=== PATIENT | female | born 1955 | race Caucasian/White ===

== ENCOUNTER → 2017-05-29 07:59 | Outpatient (CLI) | payer OTHER, SELFPAY ==
[2017-05-28 08:30] LABS: Absolute Lymphocyte Count 1.31 X10^3/ul (0.83-4.51); Absolute Neutrophil Count 1.8 X10^3/uL (2.0-7.7); Basophil# 0.02 X10^3/uL; Basophil% 0.6 % (0-1); Eosinophil# 0.12 X10^3/uL; Eosinophils% 3.4 % (0-5); Erythrocyte Sedimentation Rate 5 mm/hr (0-30); Hematocrit 38.8 % (37-47); Hemoglobin 13.3 g/dl (12.0-15.0); Lymphocyte # 1.31 X10^3/ul (4.0); Mean Corp Hgb Conc 34.3 g/gl (32-36); Mean Corpuscular Volume 87.4 fL (81-99); Mean Platelet Vol. 11.5 fl (6.2-12.0); Monocyte# 0.32 X10^3/uL; Neutrophil # 1.77 X10^3/uL (2.7-7.7); Platelet Count 229 K/mm3 (150-450); RBC Distribution Width CV 13.2 % (11.6-14.6); RBC Distribution Width SD 42.1 fl (35.1-43.9); Red Blood Count 4.44 M/mm3 (4.2-5.4); White Blood Count 3.5 K/mm3 (4.4-11.0)
[2017-05-28 08:31] LABS: POSITIVE COUNT NO; POSITIVE DIFFERENTIAL NO; POSITIVE MORPHOLOGY NO
[2017-05-28 09:01] LABS: AST(SGOT) 20 U/L (15-37); Alanine Aminotransfer ALT/SGPT 27 U/L (13-56); Alkaline Phosphatase 45 U/L (45-117); Anion Gap 10 (5-15); BUN 18 mg/dL (7-18); BUN/Creat Ratio 22.8 RATIO (10-20); CRP < 2.90 mg/L (0.0-3.0); Calcium,Total 8.9 mg/dL (8.5-10.1); Chloride 102 mmol/L (98-107); Creatinine, Serum 0.79 mg/dL (0.55-1.02); EST Glomerular Filtration Rate 78 mL/min (>60); Est Glom Filt Rate - Afr Amer 94 mL/min (>60); Globulin 4.2 g/dL (2.2-4.2); Glucose 85 mg/dL (70-110); Potassium 3.7 mmol/L (3.5-5.1); Protein, Total 8.2 g/dL (6.4-8.2); Sodium Level 141 mmol/L (136-145)
--- NOTE | 2017-05-29 08:11 | MRI_ITS ---
STUDY: MRI BRAIN WITH AND WITHOUT CONTRAST REASON FOR EXAM: Female, 62 years old. h/o ms, c/o new onset numbness/ paralysis TECHNIQUE: Standardized multiplanar fat and water weighted pulse sequences were obtained. 5 ml of Gadavist contrast material was administered intravenously for the contrast portion of the examination. COMPARISON: None. FINDINGS: Normal size of the ventricles and extra-axial spaces for the patient's age. There are multiple increased T2 signal lesions in the paraventricular and subcortical white matter can be consistent with multiple sclerosis (MS). There is no abnormal enhancement after contrast administration. Normal bilateral basal ganglia. Normal thalami. There is no extra-axial fluid accumulation. Normal flow voids within the major intracranial circulation suggesting patency by spin echo criteria. Normal venous enhancement. There is no enhancing intra-axial or extra-axial abnormality. Normal sella turcica, pituitary gland, infundibular stalk, optic chiasm and hypothalamus. Normal tectal plate and pineal gland. Normal midbrain, amanda and medulla. Normal cerebellum. Normal basal cisterns. Normal bilateral temporal bones. Normal bilateral internal auditory canals. No demonstrated orbital abnormality, within the constraints of a routine brain study. Normal visualized paranasal sinuses. There is prior craniotomy in the left parietal region most likely from prior biopsy. Normal visualized soft tissue structures. Normal visualized upper cervical spine. MRI/Brain W/WO Contrast IMPRESSION: There are multiple increased T2 signal lesions in the paraventricular and subcortical white matter can be consistent with multiple sclerosis (MS). There is no abnormal enhancement after contrast administration to suggest active demyelination. Electronically Signed: Kahlil Arias MD at 23:44 EST Tel , Service support ,
== END ==
PROVIDERS: Family Provider Internal Medicine; PCP Internal Medicine; Visit Provider Internal Medicine
DX: R20.0 Anesthesia of skin (principal); R20.2 Paresthesia of skin
CPT/HCPCS: 36415; 70553; 80053; 85025; 85652; 86140; A9585

== ENCOUNTER 2017-11-29 07:58 | Day surgery (SDC) | payer OTHER, SELFPAY ==
[2017-11-29 08:12] VITALS: BP 116/69; PULSE 77; RESP 16; TEMP 36.5; O2SAT 100; BMI 19.3
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
[2017-11-29 09:22] VITALS: BP 106/62; BP 116/69; PULSE 70; RESP 18; TEMP 36.4; O2SAT 100
--- NOTE | 2017-11-29 09:23 | PCM.OPRPT ---
Problem List (1) Screen for colon cancer Status: Acute Report of Operation Date of Procedure: 11/29/17 Pre-Operative Diagnosis: Screening colonoscopy Post-Operative Diagnosis: Same Surgery/Procedure Performed:: Colonoscopy Type of Anesthesia:: MAC Anesthesiologist: Abebe Perez Description of Procedure: Patient brought in the endoscopy suite. Placed on the left lateral decubitus position. She was given graded anesthesia. Scope was inserted into the rectum and directed to the sigmoid colon, descending colon, transverse colon, ascending colon, to the cecum without difficulty operative findings: 1. Cecum: Normal appearance no mass lesions normal ileocecal valve. 2. Ascending colon: Normal appearance no mass lesions. 3. Transverse colon: Normal appearance no mass lesions. 4. Descending colon: Normal appearance no mass lesions. 5. Sigmoid colon: Normal appearance no mass lesions. There is moderate amount of diverticular disease identified. 6. Rectum: Normal appearance no mass lesions internal hemorrhoids was identified. Patient did have some internal hemorrhoids identified Scope was withdrawn digital rectal exam was performed showing no masses within the anus itself. - Admit VTE Documentation VTE Present on Admission: No VTE Mechan Device Prophylaxis: None VTE Pharm Prophylaxis ordered?: No Reason prophylaxis not ordered:: Treatment Not Indicated
[2017-11-29 09:25] VITALS: BP 116/69; BP 97/64; PULSE 71; RESP 18; O2SAT 100
[2017-11-29 09:30] VITALS: BP 107/65; BP 116/69; PULSE 68; RESP 18; O2SAT 100
[2017-11-29 09:35] VITALS: BP 102/79; BP 116/69; PULSE 70; RESP 18; TEMP 36.6; O2SAT 100
[2017-11-29 10:10] VITALS: BP 116/69
== END 2017-11-29 10:10 | disposition home or self-care (01) ==
LOC: EN 07:59 → AC 08:00
PROVIDERS: Family Provider Internal Medicine; PCP Internal Medicine; Visit Provider Surgery
PROC: 0DJD8ZZ Inspection of Lower Intestinal Tract, Via Natural or Artificial Opening Endoscopic (ICD-10-PCS; CPT 45378; principal; 2017-11-29 08:55)
DX: Z12.11 Encounter for screening for malignant neoplasm of colon (principal); K57.30 Diverticulosis of large intestine without perforation or abscess without bleeding; K64.8 Other hemorrhoids; G35 Multiple sclerosis; Z79.899 Other long term (current) drug therapy
CPT/HCPCS: 45378; J7120

== ENCOUNTER → 2018-07-11 09:57 | Outpatient (CLI) | payer MEDICARE, BC, SELFPAY ==
--- NOTE | 2018-07-11 10:14 | RAD_ITS ---
STUDY: X-RAY - LUMBAR SPINE REASON FOR EXAM: Female, 63 years old. Low back pain TECHNIQUE: 5 view(s) of the lumbar spine were obtained. COMPARISON: None FINDINGS: Normal lumbar lordosis. There is no substantial scoliosis. There is a normal alignment of the vertebrae. There is multilevel endplate spondylosis of the lumbar vertebrae. There is multi-level degenerative disc disease with multi-level disc space narrowing. There is no demonstrated fracture. The soft tissue structures are unremarkable. RAD/L/S Spine Min 4 Views IMPRESSION: Degenerative changes of the spine, as detailed above. Electronically Signed: Margarito Denis DO at 16:42 EDT Tel , Service support ,
== END ==
PROVIDERS: Family Provider Internal Medicine; PCP Internal Medicine; Referring Provider Nurse Practitioner Family; Visit Provider Nurse Practitioner Family
DX: M54.5 Low back pain (principal)
CPT/HCPCS: 72110

== ENCOUNTER 2018-10-10 07:55 | Day surgery (SDC) | payer MEDICARE, BC, SELFPAY ==
[2018-10-10 08:17] VITALS: BP 119/71; PULSE 75; RESP 18; TEMP 36.8; O2SAT 100; BMI 19.8
--- NOTE | 2018-10-10 09:15 | RAD_ITS ---
PROCEDURE: Sacral ganglion injection. DATE OF EXAMINATION: October 10, 2018. INDICATION: Female, 63 years old. Chronic low back pain. FLUOROSCOPY TIME (if supplied): (0:10) minutes/seconds. 2 images were obtained. Intraoperative imaging provided for ganglion injection. RAD/Fluoro Guided Needle Placement IMPRESSION: Intraoperative imaging provided for ganglion injection. Electronically Signed: Kadeem Cheema, at 12:29 EDT , Service support ,
[2018-10-10] MEDS: Bupivacaine 0.25% 30 ML Vial (09:22)
[2018-10-10] MEDS: MethylPREDNISolone Acetate 80 MG/ML Vial (09:23)
[2018-10-10 09:30] VITALS: BP 109/65; BP 119/71; PULSE 64; RESP 16; TEMP 36.2; O2SAT 100
[2018-10-10 09:35] VITALS: BP 112/74; BP 119/71; PULSE 60; RESP 16; O2SAT 100
[2018-10-10 09:40] VITALS: BP 117/74; BP 119/71; PULSE 64; RESP 16; O2SAT 100
[2018-10-10 09:45] VITALS: BP 114/72; BP 119/71; PULSE 63; RESP 16; O2SAT 100
[2018-10-10 09:55] VITALS: BP 115/65; BP 119/71; PULSE 61; RESP 16; TEMP 36.3; O2SAT 100
--- NOTE | 2018-10-10 12:03 | PCM.OPRPT ---
Problem List (1) Coccydynia Status: Chronic (2) Anal pain Status: Chronic Report of Operation Date of Procedure: 10/10/18 Pre-Operative Diagnosis: Coccydynia, anal pain Post-Operative Diagnosis: Coccydynia, anal pain Surgery/Procedure Performed:: Diagnostic/therapeutic ganglion impar steroid injection Description of Surgical Findings:: PROCEDURE: Diagnostic/therapeutic ganglion impar steroid injection PREOPERATIVE DIAGNOSIS: Coccydynia, anal pain POSTOPERATIVE DIAGNOSIS: Coccydynia, anal pain ANESTHESIA: MAC COMPLICATIONS: None BLOOD LOSS: Minimal PROCEDURE IN DETAIL: History and physical today was reviewed. Risks and benefits of the procedure were explained. The patient understood, agreed to our procedure, and informed consent was obtained. IV inserted per routine protocol. The patient was taken to the operating room, placed in a prone position with a pillow positioned underneath the abdomen. The lower back and tailbone area was prepped and draped in a sterile fashion using iodine ?3 under fluoroscopy guidance on the lateral view the caudal space was identified the skin and subcutaneous tissue and size approximately 3 cc of 1% lidocaine using a 25-gauge regular needle, under direct visualization fluoroscopy using the lateral approach using a 22-gauge 3-1/2 inch spinal needle the needle was advanced via the skin through the sacral hiatus, tip of the needle passed through the sacrococcygeal ligament advanced anterior to the sacrococcygeal ligament once confirmation on the lateral view with the tip of the needle to be anterior to the sacrococcygeal ligament and away from the rectum after negative aspiration for blood or CSF a total of 3 cc of contrast were injected to confirm correct placement of the needle as well as cephalocaudad spread after confirmation AP as well as lateral view repeated negative aspiration a total of 10 cc of preservative-free 0.25% Marcaine with 80 mg of the portal was injected easily. The needles were then removed intact. The patient experienced no signs or symptoms intrathecal, intravascular injection. The patient experienced no paraesthesia. The procedure was completed without any apparent difficult, any complication. The patient appeared to tolerate well. ASSESSMENT AND PLAN: This is a 63-year-old female with coccydynia, anal pain status post diagnostic/therapeutic ganglion impar steroid injection under fluoroscopic guidance. The patient will continue her current medications. The patient will follow in approximately 2 weeks for reevaluation.
== END 2018-10-10 10:27 | disposition home or self-care (01) ==
LOC: SDC 07:56 → AC 07:59
PROVIDERS: Family Provider Internal Medicine; PCP Internal Medicine; Referring Provider Anesthesiology Pain Medicine; Visit Provider Anesthesiology Pain Medicine
PROC: 3E0S3BZ Introduction of Anesthetic Agent into Epidural Space, Percutaneous Approach (ICD-10-PCS; CPT 62282; principal; 2018-10-10 09:15)
DX: M53.3 Sacrococcygeal disorders, not elsewhere classified (principal); K62.89 Other specified diseases of anus and rectum; M54.5 Low back pain; G35 Multiple sclerosis; M19.90 Unspecified osteoarthritis, unspecified site; Z79.891 Long term (current) use of opiate analgesic
CPT/HCPCS: 20550; 76000; 77002; J7120; J3490

== ENCOUNTER → 2019-01-16 | Outpatient (CLI) | payer MEDICARE, BC, SELFPAY ==
[2019-01-16 11:37] LABS: Vitamin D,25 Hydroxy 36.2 ng/mL (29.95-100.01)
== END | disposition home or self-care (01) ==
LOC: LAB 09:40
PROVIDERS: Family Provider Internal Medicine; PCP Internal Medicine; Referring Provider Internal Medicine; Visit Provider Internal Medicine
DX: M81.0 Age-related osteoporosis without current pathological fracture (principal)
CPT/HCPCS: 36415; 82306

== ENCOUNTER 2019-02-27 07:45 | Day surgery (SDC) | payer MEDICARE, BC, SELFPAY ==
[2019-02-27 08:02] VITALS: BP 107/69; PULSE 72; RESP 16; TEMP 36.3; O2SAT 100; BMI 19.5
[2019-02-27] MEDS: Lactated Ringers 1,000 ML 100 ML IV (08:25)
--- NOTE | 2019-02-27 09:00 | RAD_ITS ---
STUDY: GANGLION NERVE BLOCK. REASON FOR EXAM: Female, 63 years old. Chronic low back pain. FLUOROSCOPY TIME (if supplied): ( 7.6 seconds ) minutes/seconds. 3 images were obtained. TECHNIQUE: Intraoperative imaging provided for sacral ganglion nerve block. COMPARISON: None. FINDINGS: The spinal needle is seen overlying the inferior coccyx. RAD/Spine 1 View Any Level IMPRESSION: Intraoperative imaging provided for sacral ganglion nerve block. Electronically Signed: Kadeem Cheema, at 10:19 EST , Service support ,
[2019-02-27] MEDS: MethylPREDNISolone Acetate 80 MG/ML Vial (09:05)
[2019-02-27] MEDS: Bupivacaine 0.25% 30 ML Vial (09:05)
[2019-02-27 09:13] VITALS: BP 103/62; BP 107/69; PULSE 61; RESP 16; TEMP 36.6; O2SAT 99
[2019-02-27 09:20] VITALS: BP 104/65; BP 107/69; PULSE 58; RESP 16; O2SAT 93
[2019-02-27 09:25] VITALS: BP 107/69; BP 107/72; PULSE 56; RESP 16; O2SAT 93
[2019-02-27 09:30] VITALS: BP 107/60; BP 107/69; PULSE 56; RESP 16; TEMP 36.8; O2SAT 93
[2019-02-27 09:46] VITALS: BP 107/69
--- NOTE | 2019-02-27 10:18 | PCM.OPRPT ---
Report of Operation Date of Procedure: 02/27/19 Description of Surgical Findings:: PROCEDURE: Ganglion impar steroid injection PREOPERATIVE DIAGNOSIS: Coccydynia, anal pain POSTOPERATIVE DIAGNOSIS: Coccydynia, anal pain ANESTHESIA: MAC COMPLICATIONS: None BLOOD LOSS: Minimal PROCEDURE IN DETAIL: History and physical today was reviewed. Risks and benefits of the procedure were explained. The patient understood, agreed to our procedure, and informed consent was obtained. IV inserted per routine protocol. The patient was taken to the operating room, placed in a prone position with a pillow positioned underneath the abdomen. The lower back and tailbone area was prepped and draped in a sterile fashion using iodine ?3 under fluoroscopy guidance on the lateral view the caudal space was identified the skin and subcutaneous tissue and size approximately 3 cc of 1% lidocaine using a 25-gauge regular needle, under direct visualization fluoroscopy using the lateral approach using a 22-gauge 3-1/2 inch spinal needle the needle was advanced via the skin through the sacral hiatus, tip of the needle passed through the sacrococcygeal ligament advanced anterior to the sacrococcygeal ligament once confirmation on the lateral view with the tip of the needle to be anterior to the sacrococcygeal ligament and away from the rectum after negative aspiration for blood or CSF a total of 3 cc of contrast were injected to confirm correct placement of the needle as well as cephalocaudad spread after confirmation AP as well as lateral view repeated negative aspiration a total of 10 cc of preservative-free 0.25% Marcaine with 80 mg of the portal was injected easily. The needles were then removed intact. The patient experienced no signs or symptoms intrathecal, intravascular injection. The patient experienced no paraesthesia. The procedure was completed without any apparent difficult, any complication. The patient appeared to tolerate well. ASSESSMENT AND PLAN: This is a 63-year-old female with coccydynia, anal pain status post ganglion impar steroid injection under fluoroscopic guidance. The patient will continue her current medications. The patient will follow in approximately 2 weeks for reevaluation.
== END 2019-02-27 09:53 | disposition home or self-care (01) ==
LOC: SDC 07:46 → AC 07:48
PROVIDERS: Family Provider Internal Medicine; PCP Internal Medicine; Referring Provider Anesthesiology Pain Medicine; Visit Provider Anesthesiology Pain Medicine
PROC: 3E0S3BZ Introduction of Anesthetic Agent into Epidural Space, Percutaneous Approach (ICD-10-PCS; CPT 62282; principal; 2019-02-27 08:55)
DX: M53.3 Sacrococcygeal disorders, not elsewhere classified (principal); K62.89 Other specified diseases of anus and rectum; M19.90 Unspecified osteoarthritis, unspecified site
CPT/HCPCS: 64999; 64483; 72020; J7120; J3490

== ENCOUNTER → 2019-04-06 10:15 | Outpatient (CLI) | payer MEDICARE, BC, SELFPAY ==
--- NOTE | 2019-04-06 10:45 | MRI_ITS ---
STUDY: MRI LUMBAR SPINE WITHOUT CONTRAST REASON FOR EXAM: Female, 63 years old. Low back pain, sciatica. TECHNIQUE: Standardized fat and water weighted pulse sequences were obtained in the sagittal and axial planes. COMPARISON: X-ray 07/11/2018 FINDINGS: T12-L1: Normal endplates. Normal disc height, hydration and morphology. Normal bilateral facet joints. Normal central canal and bilateral lateral recesses. Normal bilateral intervertebral neural foramina. Normal lumbar lordosis. There is no substantial scoliosis. Normal conus medullaris that terminates at the L1. L1-2: Mild bilobed disc protrusion produces mild spinal stenosis and mild bilateral neural foraminal stenosis. L2-3: Mild bilateral facet hypertrophy and ligament flavum hypertrophy. Mild bilobed disc protrusion produces mild spinal stenosis and mild bilateral neural foraminal stenosis. L3-4: Normal endplates. Normal disc height, hydration and morphology. Normal bilateral facet joints. Normal central canal and bilateral lateral recesses. Normal bilateral intervertebral neural foramina. L4-5: Mild broad disc protrusion produces mild spinal stenosis and mild bilateral neural foraminal stenosis. L5-S1: Normal endplates. Normal disc height, hydration and morphology. Normal bilateral facet joints. Normal central canal and bilateral lateral recesses. Normal bilateral intervertebral neural foramina. Normal visualized sacral ala. Normal visualized paraspinous soft tissue structures. MRI/Spine Lumbar (Routine) IMPRESSION: Mild diffuse degenerative disc disease as described above. Electronically Signed: Liban Kirby MD at 16:39 EST Tel , Service support ,
== END ==
PROVIDERS: Family Provider Internal Medicine; PCP Internal Medicine; Referring Provider Internal Medicine; Visit Provider Internal Medicine
DX: M54.42 Lumbago with sciatica, left side (principal); M54.41 Lumbago with sciatica, right side
CPT/HCPCS: 72148

== ENCOUNTER → 2020-02-09 | Outpatient (CLI) | payer MEDICARE, BC, SELFPAY ==
[2020-02-09 10:45] VITALS: BMI 18.9
--- NOTE | 2020-02-09 11:38 | RAD_ITS ---
STUDY: X-RAY - LEFT FOOT CLINICAL: Female, 64 years old. pain in left foot-2nd digit and 2nd mt x 1 week TECHNIQUE: 3 view(s) of the foot. COMPARISON: None. FINDINGS: Normal talus, calcaneus, and tarsal bones. Normal visualized subtalar, talonavicular, calcaneocuboid, tarsal and tarsometatarsal articulations. Normal metatarsi. There is degenerative arthrosis of the metatarsophalangeal joint of the hallux . Normal tibial and fibular sesamoid bones. Normal interphalangeal joint of the great toe. Normal phalanges of the great toe. Normal second through fifth metatarsophalangeal joints. Normal interphalangeal joints and phalanges of the lesser toes. The soft tissue structures are unremarkable. RAD/Foot min 3 Views IMPRESSION: Osteoarthrosis of the first MTP joint. No erosive arthropathy. Electronically Signed: Yonatan Brown MD ([facility]) at 8:46 EDT , Service support ,
== END | disposition home or self-care (01) ==
PROVIDERS: PCP Internal Medicine; Referring Provider Internal Medicine; Visit Provider Internal Medicine
DX: M79.672 Pain in left foot (principal)
CPT/HCPCS: 73630

== ENCOUNTER → 2020-05-07 07:47 | Outpatient (CLI) | payer MEDICARE, SELFPAY ==
[2020-05-06 08:20] VITALS: BMI 19.6
[2020-05-07 08:28] LABS: Absolute Lymphocyte Count 1.44 X10^3/uL (0.83-4.51); Absolute Neutrophil Count 2.4 X10^3/uL (2.0-7.7); Basophil# 0.03 X10^3/uL; Basophil% 0.7 % (0-1); Eosinophil# 0.14 X10^3/uL; Eosinophils% 3.1 % (0-5); Hematocrit 39.9 % (37-47); Hemoglobin 13.2 g/dL (12.0-15.0); Lymphocyte # 1.44 X10^3/ul (4.0); Lymphocyte % 32.1 % (19-41); Mean Corp Hgb Conc 33.1 g/dL (32-36); Mean Corpuscular Hgb 28.5 pg (27.0-32.0); Mean Corpuscular Volume 86.2 fL (81-99); Mean Platelet Vol. 11.2 fl (6.2-12.0); Monocyte# 0.44 X10^3/uL; Monocyte% 9.8 % (0-10); NRBC Flagged by Analyzer 0 % (0-5); Neutrophil # 2.42 X10^3/uL (2.7-7.7); Neutrophil % 54.1 % (47-70); Platelet Count 248 K/mm3 (150-450); RBC Distribution Width CV 13.2 % (11.6-14.6); RBC Distribution Width SD 41.3 fl (35.1-43.9); Red Blood Count 4.63 M/mm3 (4.2-5.4); White Blood Count 4.5 K/mm3 (4.4-11.0)
[2020-05-07 08:56] LABS: AST(SGOT) 21 U/L (15-37); Alanine Aminotransfer ALT/SGPT 39 U/L (13-56); Alkaline Phosphatase 68 U/L (45-117); Anion Gap 5 (5-15); BUN 13 mg/dL (7-18); BUN/Creat Ratio 15.7 RATIO (10-20); Calcium,Total 9.3 mg/dL (8.5-10.1); Chloride 107 mmol/L (98-107); Creatinine, Serum 0.83 mg/dL (0.55-1.02); EST Glomerular Filtration Rate 73 mL/min (>60); Est Glom Filt Rate - Afr Amer 88 mL/min (>60); Globulin 4.1 g/dL (2.2-4.2); Glucose 88 mg/dL (74-106); Potassium 3.7 mmol/L (3.5-5.1); Protein, Total 8.1 g/dL (6.4-8.2); Sodium Level 141 mmol/L (136-145); Thyroid Stim Hormone (TSH) 1.27 uIU/mL (0.358-3.74)
[2020-05-07 11:34] LABS: Vitamin D,25 Hydroxy 52.9 ng/mL
== END ==
PROVIDERS: PCP Internal Medicine; Referring Provider Internal Medicine; Visit Provider Internal Medicine
DX: E55.9 Vitamin D deficiency, unspecified (principal); G47.00 Insomnia, unspecified; M19.90 Unspecified osteoarthritis, unspecified site; M81.0 Age-related osteoporosis without current pathological fracture; Z13.220 Encounter for screening for lipoid disorders; Z13.6 Encounter for screening for cardiovascular disorders
CPT/HCPCS: 36415; 80053; 82306; 84443; 85025

== ENCOUNTER 2021-07-30 10:51 | Outpatient (CLI) | payer MEDICARE, SELFPAY ==
--- NOTE | 2021-07-30 10:56 | RAD_ITS ---
STUDY: X-RAY - CERVICAL SPINE REASON FOR EXAM: Female, 66 years old. CERVICAL SPONDYLOSIS TECHNIQUE: 7 view(s) of the cervical spine were obtained. COMPARISON: Cervical spine x-rays from 10/08/2016. FINDINGS: Vertebral bodies are normal height. Minimal anterior subluxation of C4 on C5 2 mm, unchanged. Mild straightening of the normal curvature. C1-2 alignment is maintained. Disc space narrowing with osteophytes C5-C7. Mild right neural foraminal encroachment at these levels. Similar to prior study. Facet arthropathy most pronounced C3-4 and C4-5. Prevertebral soft tissues are unremarkable. RAD/Cerv Spine 4 or 5 Views IMPRESSION: 1. Degenerative changes with likely right neural foraminal encroachment at C5-6 and C6-7 not significantly changed. 2. Minimal anterolisthesis at C4-5 secondary to degenerative changes unchanged. 3. No evidence of fracture or traumatic subluxation. 4. Straightening of the normal curve may be due to positioning or muscle spasm. Electronically Signed: Reba Topete MD at 3:44 EDT ,
== END 2021-07-30 23:59 | disposition home or self-care (01) ==
LOC: RAD 10:55
PROVIDERS: PCP Internal Medicine; Referring Provider Nurse Practitioner Family; Visit Provider Nurse Practitioner Family
DX: M47.812 Spondylosis without myelopathy or radiculopathy, cervical region (principal); M50.30 Other cervical disc degeneration, unspecified cervical region; M48.02 Spinal stenosis, cervical region
CPT/HCPCS: 72050

== ENCOUNTER → 2021-12-01 | Outpatient (CLI) | payer MEDICARE, SELFPAY ==
[2021-12-01 17:00] LABS: Absolute Lymphocyte Count 1.49 X10^3/uL (0.83-4.51); Absolute Neutrophil Count 6.6 X10^3/uL (2.0-7.7); Basophil# 0.04 X10^3/uL; Basophil% 0.5 % (0-1); Eosinophil# 0.09 X10^3/uL; Hematocrit 39.2 % (37-47); Hemoglobin 13.1 g/dL (12.0-15.0); Lymphocyte # 1.49 X10^3/ul (0.83-4.51); Mean Corp Hgb Conc 33.4 g/dL (32-36); Mean Corpuscular Hgb 29.2 pg (27.0-32.0); Mean Corpuscular Volume 87.5 fL (81-99); Mean Platelet Vol. 10.7 fl (6.2-12.0); Monocyte# 0.47 X10^3/uL; Monocyte% 5.4 % (0-10); NRBC Flagged by Analyzer 0 % (0-5); Neutrophil # 6.64 X10^3/uL (2.7-7.7); Neutrophil % 75.5 % (47-70); Platelet Count 422 K/mm3 (150-450); RBC Distribution Width CV 13.1 % (11.6-14.6); RBC Distribution Width SD 42.1 fl (35.1-43.9); Red Blood Count 4.48 M/mm3 (4.2-5.4); White Blood Count 8.8 K/mm3 (4.4-11.0)
[2021-12-01 17:13] LABS: ALB/GLOB Ratio 0.7 RATIO (0.9-2.4); AST(SGOT) 20 U/L (15-37); Alanine Aminotransfer ALT/SGPT 23 U/L (13-56); Albumin, Serum 3.7 g/dL (3.2-5.0); Alkaline Phosphatase 61 U/L (45-117); Anion Gap 6 (5-15); BUN 14 mg/dL (7-18); BUN/Creat Ratio 19.1 RATIO (10-20); CRP 4.42 mg/L (0.0-3.0); Calcium,Total 9.4 mg/dL (8.5-10.1); Chloride 102 mmol/L (98-107); Creatinine, Serum 0.73 mg/dL (0.55-1.02); EST Glomerular Filtration Rate 84 mL/min (>60); Est Glom Filt Rate - Afr Amer 102 mL/min (>60); Globulin 5.1 g/dL (2.2-4.2); Glucose 90 mg/dL (74-106); Protein, Total 8.8 g/dL (6.4-8.2); Sodium Level 135 mmol/L (136-145)
[2021-12-01 17:28] LABS: Erythrocyte Sedimentation Rate 45 mm/hr (0-30)
== END | disposition home or self-care (01) ==
LOC: LAB 15:21
PROVIDERS: PCP Internal Medicine; Referring Provider Internal Medicine; Visit Provider Internal Medicine
DX: M84.30XA Stress fracture, unspecified site, initial encounter for fracture (principal); K57.92 Diverticulitis of intestine, part unspecified, without perforation or abscess without bleeding
CPT/HCPCS: 36415; 80053; 85025; 85652; 86140

== ENCOUNTER 2022-02-10 10:19 | Outpatient (RCR) | payer MEDICARE, SELFPAY ==
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
--- NOTE | 2022-04-24 14:27 | HP.PT.NRP ---
YOLANDA AN was seen in my office for initial evaluation on 02/10/22. The following Plan of Care was established for this patient: Initial Frequency: 2-3x /Week Initial Duration: 4-6 Weeks Patient/Client Instruction: Educate patient on: Condition, Plan of Care, Risk Factors For the Purpose of:: To improve self management Therapeutic Exercise to Include: Strength training, Body mechanics, Postural training, Flexibilty training, Neuromotor development, Scapular Strength/Stabilization For the Purpose of:: To decrease pain, To improve muscle performance and motor function, To increase tolerance to activity/condition/position, To improve ability of physical actions for home/community/work/leisure Cryotherapy (ice pack, ice massage): Yes Thermo therapy (hot pack): Yes Ultrasound (thermal/non thermal): Yes For the Purpose of:: To decrease pain, To improve nutrient delivery to tissue This patient was last seen in our office . Pertinent comments regarding their Physical therapy will appear below: This patient has not returned to Physical Therapy and is appropriate to return to MD for further follow-up as needed. At this point I will be discontinuing this patient from physical therapy. I would be happy to see this patient again in the future if found appropriate by the physician. Thank you! Briana Delgadillo, PT, Cert MDT Balance/Gait/Functional tests - Balance/Special Test Scores Oswestry Low Back Score: 18 Oswestry Neck Score: 20
== END 2022-02-10 19:00 | disposition home or self-care (01) ==
LOC: PT 10:19
PROVIDERS: PCP Internal Medicine; Referring Provider Nurse Practitioner Family; Visit Provider Nurse Practitioner Family
DX: M50.30 Other cervical disc degeneration, unspecified cervical region (principal); M47.812 Spondylosis without myelopathy or radiculopathy, cervical region; M48.02 Spinal stenosis, cervical region; M53.3 Sacrococcygeal disorders, not elsewhere classified; M51.17 Intervertebral disc disorders with radiculopathy, lumbosacral region
CPT/HCPCS: 97162

== ENCOUNTER → 2022-05-11 | Outpatient (CLI) | payer MEDICARE, SELFPAY ==
[2022-05-11 12:26] LABS: Absolute Lymphocyte Count 1.31 X10^3/uL (0.83-4.51); Absolute Neutrophil Count 3.6 X10^3/uL (2.0-7.7); Basophil# 0.05 X10^3/uL; Basophil% 0.9 % (0-1); Eosinophil# 0.07 X10^3/uL; Eosinophils% 1.3 % (0-5); Hematocrit 38.5 % (37-47); Lymphocyte # 1.31 X10^3/ul (0.83-4.51); Lymphocyte % 23.7 % (19-41); Mean Corp Hgb Conc 33.8 g/dL (32-36); Mean Corpuscular Volume 88.7 fL (81-99); Mean Platelet Vol. 11.1 fl (6.2-12.0); Monocyte# 0.47 X10^3/uL; Monocyte% 8.5 % (0-10); NRBC Flagged by Analyzer 0 % (0-5); Neutrophil # 3.62 X10^3/uL (2.7-7.7); Neutrophil % 65.4 % (47-70); Platelet Count 355 K/mm3 (150-450); RBC Distribution Width CV 12.6 % (11.6-14.6); RBC Distribution Width SD 41.1 fl (35.1-43.9); Red Blood Count 4.34 M/mm3 (4.2-5.4); White Blood Count 5.5 K/mm3 (4.4-11.0)
[2022-05-11 12:52] LABS: Vitamin D,25 Hydroxy 74.2 ng/mL
[2022-05-11 12:55] LABS: ALB/GLOB Ratio 0.9 RATIO (0.9-2.4); AST(SGOT) 21 U/L (15-37); Alanine Aminotransfer ALT/SGPT 29 U/L (13-56); Alkaline Phosphatase 60 U/L (45-117); Anion Gap 9 (5-15); BUN 18 mg/dL (7-18); BUN/Creat Ratio 23.4 RATIO (10-20); Calcium,Total 9.2 mg/dL (8.5-10.1); Chloride 104 mmol/L (98-107); Cholesterol 267 mg/dL (200); Creatinine, Serum 0.77 mg/dL (0.55-1.02); EST Glomerular Filtration Rate 79 mL/min (>60); Est Glom Filt Rate - Afr Amer 96 mL/min (>60); Globulin 4.3 g/dL (2.2-4.2); Glucose 82 mg/dL (74-106); High Density Lipoprotein 98 mg/dL; Potassium 3.9 mmol/L (3.5-5.1); Protein, Total 8.3 g/dL (6.4-8.2); Sodium Level 139 mmol/L (136-145); Triglycerides 109 mg/dL; Very Low Density Lipoprotein 22 mg/dL (5-40)
== END | disposition home or self-care (01) ==
LOC: LAB 11:25
PROVIDERS: PCP Internal Medicine; Visit Provider Internal Medicine
DX: M84.30XA Stress fracture, unspecified site, initial encounter for fracture (principal); M19.90 Unspecified osteoarthritis, unspecified site; M81.0 Age-related osteoporosis without current pathological fracture; E78.5 Hyperlipidemia, unspecified; E55.9 Vitamin D deficiency, unspecified
CPT/HCPCS: 36415; 80053; 80061; 82306; 85025

== ENCOUNTER → 2022-08-29 | Outpatient (CLI) | payer MEDICARE, SELFPAY ==
--- NOTE | 2022-08-29 08:30 | MRI_ITS ---
INDICATION: RADICULOPATHY EXAMINATION: MRI - MR Spine Cervical W/O Contrast TECHNIQUE: Multiplanar and multisequence MR images of the cervical spine were performed. IV Contrast Dosage and Agent: None. COMPARISON: None. FINDINGS: VERTEBRAE: No acute fracture or destructive marrow lesion. VERTEBRAL ALIGNMENT: Normal, including the craniocervical junction and cervicothoracic junction. 3 mm spondylolisthesis C4-5. There is preservation of the normal cervical lordosis. CERVICAL SPINAL CORD: Unremarkable in signal and morphology. C2/C3: Normal disc height and morphology. Normal spinal canal and neuroforamina. C3/C4: Normal disc height and morphology. Moderate bilateral foraminal stenosis due to hypertrophy of the facet joints. C4/C5: Mild loss of disc space height. Mild right foraminal stenosis due to spondylitic osteophytes. C5/C6: Loss of normal disc space height. Broad-based disc-osteophyte formation produces mild central and moderate bilateral foraminal stenosis. C6/C7: Severe loss of disc space height. Broad-based disc-osteophyte formation produces mild central, moderate right foraminal and severe left foraminal stenosis. C7/T1: Normal disc height and morphology. Normal spinal canal and neuroforamina. NECK SOFT TISSUES: No prevertebral soft tissue swelling. MRI/Spine Cervical (Routine) IMPRESSION: Multilevel cervical spondylosis with central and foraminal stenoses as above. Findings most severe at C5-6 and C6-7. Electronically Signed: Kemar Estrada MD at 23:45 EDT ,
== END | disposition home or self-care (01) ==
LOC: MRI 08:16
PROVIDERS: PCP Internal Medicine; Referring Provider Anesthesiology Pain Medicine; Visit Provider Anesthesiology Pain Medicine
DX: M48.02 Spinal stenosis, cervical region (principal)
CPT/HCPCS: 72141

== ENCOUNTER 2022-11-11 14:28 | Emergency (ER) | payer MEDICARE, SELFPAY ==
[2022-11-11 14:29] VITALS: BP 155/78; PULSE 89; RESP 14; TEMP 36.7; O2SAT 100; BMI 19.1
--- NOTE | 2022-11-11 14:59 | ED.VIS.CHEST ---
HPI History of Present Illness Chief Complaint: Chest Pain Informant: patient Onset/Context/Timing Onset: Weeks Narrative Narrative: Patient presents with intermittent chest and arm pressure. She states symptoms been ongoing for the past couple of weeks but over the past 2 days pain has been much more constant. She describes a pressure-like sensation across both shoulders and in her arms as well as across the center of her chest. The last 2 mornings she has been awoken with chest pressure. She does not do anything in particular to make the pressure eased up. She states she just waits for it to go away. She does not feel short of breath. She denies any personal history of cardiac disease, but her brother did have a heart attack. She reports she has had extensive cardiac work-ups in the past, but admits it has been several years since she was evaluated. She is currently on Cipro for diverticulitis. She is unsure if this may be related. She also has a history of spinal stenosis in the lower cervical region. She states that she will often get pain across her shoulders, arms, and into her chest, but this feels different. [facility] Medical History Arthritis Diverticulitis Meningioma Osteoarthritis Osteoporosis Rosacea Spinal stenosis Stress fracture Vitamin D deficiency Home Medications calcium carbonate 500 mg calcium (1,250 mg) capsule (Calci-Mix) 500 mg PO DAILY 02/09/20 [History Last Taken Unknown] cholecalciferol (vitamin D3) 50 mcg (2,000 unit) capsule 50 mcg PO DAILY 02/09/20 [History Last Taken Unknown] omega 6-mnh-jwm-fish oil 1,200 mg (144 mg-216 mg) capsule (Fish Oil) cap PO 02/09/20 [History Last Taken Unknown] metronidazole 0.75 % topical cream 1 applic topical DAILY 05/06/20 [History Last Taken Unknown] Allergy/AdvReac Type Severity Reaction Status Date / Time No Known Allergies Allergy Verified 11/11/22 14:30 Family History Other Breast cancer Diabetes Myocardial infarction Pancreatic cancer Rheumatoid arthritis Social History Smoking Status: Never smoker alcohol intake: never substance use type: does not use what type of physical activity do you participate in: walking frequency: daily ROS ROS ED Constitutional Constitutional ED: Denies chills or fever(s) Eyes Eyes: Denies change in vision or discharge from eye(s) ENT ENT ED: Denies discharge from eye(s), rhinorrhea or sore throat Cardiovascular Cardiovascular: Reports chest pain; Denies palpitations Respiratory/Chest Respiratory/Chest: Denies cough or dyspnea Gastrointestinal Gastrointestinal: Denies abdominal pain, diarrhea, nausea or vomiting Genitourinary Genitourinary ED: Denies difficulty urinating or dysuria Musculoskeletal Musculoskeletal: Reports extremity pain; Denies back pain Integumentary Denies Abrasions or rash Neurologic Neurologic: Denies headache(s) or weakness Psychiatric Psychiatric: Denies anxiety or depression Allergic/Immunologic Allergic/Immunologic ED: Denies lip swelling or urticaria EXAM Physical Exam Const Vital Signs: 11/11/22 14:29 11/11/22 15:40 11/11/22 16:21 Temperature 98.1 F Temperature Source Temporal Pulse Rate 89 73 Respiratory Rate 14 16 Respiratory Pattern Blood Pressure 155/78 H 117/73 Blood Pressure Mean 103 87 Pulse Ox 100 99 98 Oxygen Delivery Method Room Air Room Air Room Air 11/11/22 15:40 Temperature Temperature Source Pulse Rate Respiratory Rate Respiratory Pattern Normal Blood Pressure Blood Pressure Mean Pulse Ox Oxygen Delivery Method Positive well nourished and well developed General Appearance ED: well developed HEENT Reports normocephalic and head/scalp atraumatic Eyes PERRL and EOMs intact bilaterally Neck supple Chest Wall inspection of chest normal and palpation of chest normal Resp normal respiratory effort and clear to auscultation bilaterally Cardio regular rate and regular rhythm GI normal to inspection, nondistended, normoactive bowel sounds Palpation: soft Extremity normal to inspection Neuro oriented x3 and no sensory deficits noted Sensorium / Orientation: alert Motor Exam: strength 5/5 throughout Psych mental status grossly normal Skin no rashes or lesions noted Heart Score History: Moderately Suspicious ECG: Normal Age: >/= 65 years Risk Factors: 1 or 2 Risk Factors Troponin: </= Normal Limit Score: 4 MDM MDM MDM Narrative Medical decision making narrative: Patient given aspirin and placed on hospital monitor on arrival. EKG obtained to evaluate for cardiac arrhythmia/ischemia. Labwork obtained to evaluate for leukocytosis, anemia, and electrolyte derangement. Chest x-ray obtained to evaluate for acute lung pathology, cardiac size, or mediastinal abnormality. History & Record Review Discussion w/independent historian: Patient and Family Lab Data Attestation: I reviewed the patient's lab results. Labs: Laboratory Results - last 24 hr 11/11/22 15:07 WBC 7.0 RBC 4.22 Hgb 12.6 Hct 36.6 L MCV 86.7 MCH 29.9 MCHC 34.4 RDW Std Deviation 40.8 RDW Coeff of Keysha 12.9 Plt Count 292 MPV 10.7 Immature Gran % (Auto) 0.100 Neut % (Auto) 77.3 H Lymph % (Auto) 14.2 L [place] % (Auto) 7.4 Eos % (Auto) 0.3 Baso % (Auto) 0.7 Absolute Neuts (auto) 5.4 Absolute Lymphs (auto) 1.00 Nucleated RBC % 0 Sodium 134 L Potassium 4.1 Chloride 102 Carbon Dioxide 26.0 Anion Gap 6 BUN 14 Creatinine 1.05 H Estim Creat Clear Calc 39.11 Est GFR (MDRD) Af Amer 67 Est GFR (MDRD) Non-Af 55 L BUN/Creatinine Ratio 13.3 Glucose 108 H Calcium 9.2 Troponin I High Sens 4 Radiography Chest X-Ray - ED: 1 View, Read by ED Physician, Normal, Heart, Lungs and Mediastinum Diagnostic Testing: Clinical Impression(s) from Imaging Studies Chest X-Ray 11/11/22 15:40 IMPRESSION: No radiographic evidence of acute cardiopulmonary disease. Electronically Signed: Adriel Dye DO at 16:06 EDT Reading Location ID and State: [facility] / [place] Tel [phone], Service support , EKG Initial EKG: Attestation: I personally reviewed and interpreted this EKG as follows: Interpretation: Sinus Rhythm (Sinus at 79 bpm with no acute ischemia.) Treatment and Re-Evaluation :: CBC and chemistry studies are remarkable only for slightly low sodium at 134. Creatinine is 1.05. Troponin is normal at 4. Portable chest x-ray per my interpretation reveals no acute abnormalities. Radiology interpretation is reviewed and agrees. With patient having greater than 24 hours of pain with a negative troponin I do not feel she needs inpatient treatment at this time. I did speak with her primary care physician to help arrange close follow-up. Return instructions were provided. Discharge Plan Triage Chief Complaint: Chest Pain ED Provider: Nathaly Cameron Dx/Rx/DC Orders Clinical Impression: Chest pain Instructions: ED Chest Pain, Uncertain Cause Prescriptions: No Action omega 9-jqw-jqu-fish oil [Fish Oil] 1,200 (144-216) mg capsule PO calcium carbonate 500 mg calcium (1,250 mg) capsule 500 mg calcium (1,250 mg) capsule 500 mg PO DAILY cholecalciferol (vitamin D3) 50 mcg (2,000 unit) capsule 50 mcg PO DAILY metronidazole 0.75 % cream 1 applic TOPICAL DAILY Primary Care Provider: Myra Crespo Referrals: Myra Crespo MD [Primary Care Provider] - 5-7 Days Disposition Disposition: Home, Self Care
[2022-11-11] MEDS: Aspirin 81 MG TAB.CHEW 324 MG PO (15:19)
[2022-11-11 15:30] LABS: Absolute Neutrophil Count 5.4 X10^3/uL (2.0-7.7); Basophil# 0.05 X10^3/uL; Basophil% 0.7 % (0-1); Eosinophil# 0.02 X10^3/uL; Eosinophils% 0.3 % (0-5); Hematocrit 36.6 % (37-47); Hemoglobin 12.6 g/dL (12.0-15.0); Lymphocyte % 14.2 % (19-41); Mean Corp Hgb Conc 34.4 g/dL (32-36); Mean Corpuscular Hgb 29.9 pg (27.0-32.0); Mean Corpuscular Volume 86.7 fL (81-99); Mean Platelet Vol. 10.7 fl (6.2-12.0); Monocyte# 0.52 X10^3/uL; Monocyte% 7.4 % (0-10); NRBC Flagged by Analyzer 0 % (0-5); Neutrophil # 5.44 X10^3/uL (2.7-7.7); Neutrophil % 77.3 % (47-70); Platelet Count 292 K/mm3 (150-450); RBC Distribution Width CV 12.9 % (11.6-14.6); RBC Distribution Width SD 40.8 fl (35.1-43.9); Red Blood Count 4.22 M/mm3 (4.2-5.4)
[2022-11-11 15:40] VITALS: O2SAT 99
--- NOTE | 2022-11-11 15:40 | RAD_ITS ---
INDICATION: chest pain EXAMINATION/TECHNIQUE: X-RAY - XR Chest 1 View COMPARISON: March 27, 2016 FINDINGS: LINES/DEVICES: None. LUNGS: No consolidation, edema or effusion. No pneumothorax. MEDIASTINUM AND CARDIOVASCULAR STRUCTURES: Cardiac silhouette not enlarged. Central airways and mediastinal contour are unremarkable. BONES AND SOFT TISSUES: Degenerative vertebral changes. RAD/Chest 1 View (Portable) IMPRESSION: No radiographic evidence of acute cardiopulmonary disease. Electronically Signed: Adriel Dye DO at 16:06 EDT ,
[2022-11-11 15:44] LABS: Anion Gap 6 (5-15); BUN 14 mg/dL (7-18); BUN/Creat Ratio 13.3 RATIO (10-20); Calcium,Total 9.2 mg/dL (8.5-10.1); Chloride 102 mmol/L (98-107); Creatinine, Serum 1.05 mg/dL (0.55-1.02); EST Glomerular Filtration Rate 55 mL/min (>60); Est Glom Filt Rate - Afr Amer 67 mL/min (>60); Estimated Creatinine Clearance 39.11 ml/min; Glucose 108 mg/dL (74-106); Potassium 4.1 mmol/L (3.5-5.1); Sodium Level 134 mmol/L (136-145); Troponin-I HS 4 pg/mL (3.0-54.0)
[2022-11-11 16:21] VITALS: BP 117/73; PULSE 73; RESP 16; O2SAT 98
[2022-11-11 16:40] VITALS: BP 123/68; PULSE 76; RESP 18; O2SAT 99
== END 2022-11-11 16:44 | disposition home or self-care (01) ==
PROVIDERS: Emergency Provider Emergency Medicine; PCP Internal Medicine; Visit Provider Emergency Medicine
DX: R07.9 Chest pain, unspecified (principal); K57.92 Diverticulitis of intestine, part unspecified, without perforation or abscess without bleeding; Z79.899 Other long term (current) drug therapy; Z79.82 Long term (current) use of aspirin
CPT/HCPCS: 71045; 80048; 84484; 85025; 93005; 99284

== ENCOUNTER 2022-12-01 08:59 | Day surgery (SDC) | payer MEDICARE, SELFPAY ==
--- NOTE | 2022-12-01 | COLBX_PTH ---
PATIENT: YOLANDA AN LOC: EN U#:[id number] AGE/SX: 67/F ROOM: RE12/01/[address]: Dr. Varinder Vergara MD : 1955 BED: DIS: 12/01/2022 SPEC #: [id number] RECD: 12/01/22 11:48 STATUS: ALEXANDRIA HERMOSILLO #: [id number] TEGAN: 12/01/22 00:[address]: Varinder Vergara DEPT: SURGICAL PATHOLOGY RECD BY: Gareth Chamberlain ENTERED: 12/01/22 11:49 SP TYPE: COLON BX OTHR DR: Dr. Myra Crespo MD Tissues: Sigmoid colon biopsy Procedures: Surgery Specimen Level IV HEADER OPERATION: Colonoscopy, polypectomy PRE-OP DIAGNOSIS: Left lower quadrant abdominal pain, diverticulosis TISSUE SUBMITTED: Distal sigmoid polyp MICROSCOPIC DIAGNOSIS Distal sigmoid colon polyp, biopsy: Tubular adenoma. AM:ezio 12/02/2022 MICROSCOPIC DESCRIPTION Slides are reviewed. GROSS DESCRIPTION Received in fixative is one container labeled with the patient's name and designated distal sigmoid polyp. The specimen consists of a fragment of chatman soft tissue measuring 0.3 x 0.3 x 0.1 cm. Multiple fragments of fecal material are also noted. The specimen is totally submitted in one cassette. / SJ:rg 12/01/2022 TC:5 CPT: 14893
[2022-12-01] MEDS: Lactated Ringers 1,000 ML 15 ML IV (09:15)
--- NOTE | 2022-12-01 09:47 | HP.PCM_ITS ---
History and Physical Date of Admission: 12/01/22 MR#: [id number] Acct: [id number] Name: FRIENDYOLANDA Rep #: [id number] : 1955 Provider: Dr. Varinder Vergara MD Age/Sex: 67/F Location: [facility] Status: Signed Intake Vital Signs 11/17/2307:39 11/27/2308:09 Height 5 ft 3 in 5 ft 3 in Weight: 109 lb 110 lb 8 oz BMI 19.3 19.5 BP 134/72 H 161/83 H Blood Pressure Location Lt brachial Rt brachial Position Sitting Sitting Respiration 18 18 Pulse 73 83 Pulse Source Monitor Monitor Temp 98.0 F 97.2 F L Temp Source Temporal Temporal Pulse Oximetry (%) 95 100 Oxygen Delivery Method room air room air Intake Visit Reasons: POSSIBLE DIVERTICULAR STRICTURE Chief Complaint: Abdominal pain Machine Sign Writer Required: No Is patient in pain?: No Allergies No Known Allergies Allergy (Verified 11/27/22 09:12) Medications calcium carbonate 500 mg calcium (1,250 mg) capsule (Calci-Mix) 500 mg PO DAILY 02/09/20 [History Confirmed 11/27/22] cholecalciferol (vitamin D3) 50 mcg (2,000 unit) capsule 50 mcg PO DAILY 02/09/20 [History Confirmed 11/27/22] omega 8-oat-ofr-fish oil 1,200 mg (144 mg-216 mg) capsule (Fish Oil) cap PO 02/09/20 [History Confirmed 11/27/22] metronidazole 0.75 % topical cream 1 applic topical DAILY 05/06/20 [History Confirmed 11/27/22] PFSH Medical History Arthritis Diverticulitis Meningioma Osteoarthritis Osteoporosis Rosacea Spinal stenosis Stress fracture Vitamin D deficiency Family History Other Breast cancer Diabetes Myocardial infarction Pancreatic cancer Rheumatoid arthritis Social History Smoking Status: Never smoker alcohol intake: never substance use type: does not use what type of physical activity do you participate in: walking frequency: daily HPI HPI HPI: 67-year-old female was referred by Dr. Myra Crespo for surgical consultation regarding possible sigmoid colonic disease. A written compromise surgical consult recommendations will return to him. By report the patient's been complaining of vague left lower quadrant abdominal pain. She did have a previous episode of acute diverticulitis. Most recent colonoscopy was 2018 demonstrating diverticulosis. Recently there was concerns about possible bout of recurrent diverticulitis. However she did not require a course of antibiotics in the area of current concern resolved. She does have decreased bowel movements and abdominal bloating. She is altered her diet with decreased intake. As of November 11, 2022 her white blood cell count was 7 with a hemoglobin 12.6 hematocrit 36.6 platelet count 292,000 with 77% neutrophils. BUN was 14 and creatinine 1.05. It is of note that as of May 11, 2022 her cholesterol level was 267 and her LDL was 147 She was seen in the emergency room on November 11, 2022 with complaint of intermittent chest pressure and arm pain. Over the years the patient's had bouts of left lower quadrant pain. She has never had a fever. She recants last year she was doing a bike ride did not have fever but had some constipation and very severe abdominal pain. Cramping. But then it resolved. Transiently just for 20 minutes recurred and then resolved again. And then she was completely normal. She carries a tentative diagnosis of acute diverticulitis. She has had a previous colonoscopy done per Dr. Jose Menezes for screening purposes on November 29, 2017. That demonstrated diverticular disease of the sigmoid but no signs of acute inflammation. There is concern now however that she has had a change of bowel habits with increased constipation. She has actually started a stool softener which has helped her. There is a question as to whether she could have a diverticular stricture related to previous bouts of suspected diverticulitis As noted above looking back through her laboratory have not detected a leukocytosis. The patient does claim that she has not had previous CT imaging at the time of acute pain ROS General General: No weight change, appetite, fatigue, colon cancer, breast cancer or weakness HEENT HEENT: Yes eye surgery; No difficulty swallowing, eye injury, swollen glands or hoarseness Endo Endocrine: No thyroid disease, diabetes mellitus, thyroid cancer, Hair loss, heat intolerance or cold intolerance Breast Breast: No left breast lump, right breast lump, nipple discharge, breast pain, abnormal mammogram, abnormal US or breast enlargement Musc Musculoskeletal: Yes back problems and arthritis; No rheumatoid arthritis, gout or joint pain Cardio Cardiovascular: No murmur, pacemaker, heart disease, atrial fibrillation, high blood pressure, heart attack, heart stent, palpitations, shortness of breat with exertion or chest pain Psych Psychiatric: No depression, anxiety or hearing voices Resp Respiratory: No shortness of breath, No sleep apnea, No cough, No COPD, No asthma, No emphysema and No wheezing Gastro Gastrointestinal: Yes abdominal pain, No nausea or vomiting, No diarrhea, No constipation, No blood in stool, No acid reflux, No hemorrhoids, No ulcers, No gallbladder problem and No black,tarry stools Krishan Hematologic: No blood thinners, No blood disorders, No bleeding, No anemia and No blood clots Neuro Neurologic: No system reviewed and no additional complaints, except as documented, No as per HPI, No abnormal gait, No abnormal hearing, No abnormal movements, No abnormal speech, No behavioral changes, No burning sensations, No confusion, No convulsions, No disequilibrium, No dizziness, No localized weakness, No frequent falls, No headache(s), No lack of coordination, No loss of vision, No memory loss, Yes numbness, No other visual disturbances, No radicular pain, No restless legs, No sensory deficit, No syncope, Yes tingling, No tremor(s), No weakness and No other Exam Const General: cooperative, comfortable and no acute distress Nutritional Appearance: underweight HENMN Head: normal to inspection Eyes General: appearance normal, both eyes and all related structures Neck Neck: normal visual inspection Resp Effort & Inspection: normal respiratory effort Auscultation: clear to auscultation bilaterally Cardio Rate: regular rate Rhythm: regular rhythm GI Inspection: normal to inspection Other: Soft, nontender, extraordinarily slender, sigmoid colon is easily palpable just mildly tender mobile [facility] [place] Cervical Spine: normal cervical lordosis Skin General: no rashes or lesions noted Neuro General: patient alert, patient awake and patient oriented x3 Extrem General: no calf tenderness Assessment and Plan Assessment and Plan (1) Left lower quadrant abdominal pain: Status: Acute (2) Diverticulosis: Status: Acute Plan: 67-year-old female who has bouts of abdominal pain frequently located in the left lower quadrant. She has had known diverticulosis. There is suspected bouts of diverticulitis but the patient's bouts of pain albeit sometimes severe tend to be very brief. Unclear to me as to the exact etiology. The patient states that recent constipation problems have been improved with her taking a stool softener. I do concur with Dr. Myra Crespo that a colonoscopy to assist with visualization of the colon and exclude the possibility of a benign stricture or other would be pertinent. The patient is aware of the technique, benefit, risk, alternatives. We will schedule procedure at her discretion. We will use monitored anesthesia care. Pending the results of that investigation my only other thought would be that if the patient had another bout of severe left lower quadrant pain that perhaps laboratory and a CT orally contrasted imaging at that time might assist her with a definitive diagnosis. She has had an opportunity to ask and have questions answered. We will schedule procedure at her discretion. I appreciate the opportunity of assisting with her surgical care Copy: Dr. Myra Vergara M.D., F.A.C.S I have examined the patient and the H&P has been reviewed. There are no clinical changes since date of exam Varinder Vergara M.D., F.A.C.S..
[2022-12-01 09:49] VITALS: BP 129/66; PULSE 75; RESP 16; TEMP 36.8; O2SAT 100; BMI 18.8
[2022-12-01 11:00] VITALS: BP 129/66; BP 96/53; PULSE 60; RESP 18; TEMP 36.1; O2SAT 99
--- NOTE | 2022-12-01 11:01 | OP.COLON_ITS ---
Patient Name: Sania Anne Procedure Date: 12/01/2022 10:28 AM Date of : 1955 Age: 67 Procedure: Colonoscopy Indications: Abdominal pain in the left lower quadrant Providers: Varinder Vergara MD Referring MD: Myra Crespo Medicines: See the Anesthesia note for documentation of the administered medications Patient Profile: Last Colonoscopy: none. The patient's first colonoscopy is today. Complications: No immediate complications. Procedure: Pre-Anesthesia Assessment: - Prior to the procedure, a History and Physical was performed, and patient medications and allergies were reviewed. The patient's tolerance of previous anesthesia was also reviewed. The risks and benefits of the procedure and the sedation options and risks were discussed with the patient. All questions were answered, and informed consent was obtained. Prior Anticoagulants: The patient has taken no previous anticoagulant or antiplatelet agents. ASA Grade Assessment: II - A patient with mild systemic disease. After reviewing the risks and benefits, the patient was deemed in satisfactory condition to undergo the procedure. After I obtained informed consent, the scope was passed under direct vision. Throughout the procedure, the patient's blood pressure, pulse, and oxygen saturations were monitored continuously. The Colonoscope was introduced through the anus and advanced to the cecum, identified by appendiceal orifice and ileocecal valve. The colonoscopy was technically difficult and complex due to significant looping. Successful completion of the procedure was aided by changing the patient to a supine position. Scope In: 10:39:00 AM Scope Withdrawal Time 0 hours 4 minutes 33 seconds Scope Out: 10:55:19 AM Total Procedure Duration Time 0 hours 16 minutes 19 seconds Findings: Hemorrhoids were found on perianal exam. Multiple small-mouthed diverticula were found in the sigmoid colon and descending colon. A 5 mm polyp was found in the distal sigmoid colon. The polyp was sessile. The polyp was removed with a hot snare. Resection and retrieval were complete. Impression: - Hemorrhoids found on perianal exam. - Diverticulosis in the sigmoid colon and in the descending colon. - One 5 mm polyp in the distal sigmoid colon, removed with a hot snare. Resected and retrieved. Very tortuous sigmoid and descending colon. No evidence to suggest acute inflammation. No surgical intervention at this time. Recommendation: - Repeat colonoscopy in 5 years for surveillance based on pathology results. - Telephone my office for pathology results in 1 week. - Continue present medications. Procedure Code(s): --- Professional --- 32243, Colonoscopy, flexible; with removal of tumor(s), polyp(s), or other lesion(s) by snare technique Diagnosis Code(s): --- Professional --- K64.9, Unspecified hemorrhoids D12.5, Benign neoplasm of sigmoid colon R10.32, Left lower quadrant pain K57.30, Diverticulosis of large intestine without perforation or abscess without bleeding CPT copyright 2017 [employer] [place] [employer]. All rights reserved. The codes documented in this report are preliminary and upon zone supervisor firearms review may be revised to meet current compliance requirements. Varinder Vergara MD 12/01/2022 11:01:14 AM This report has been signed electronically. Number of Addenda: 0 Note Initiated On: 12/01/2022 10:28 AM
--- NOTE | 2022-12-01 11:02 | OP.CCLET_ITS ---
12/01/2022 Myra Crespo [facility] [address] [place] [address] Re : Colonoscopy procedure for Sania Friend Dear Dr. Crespo This procedure was performed on Thursday, December 01, 2022. My impressions and recommendations are as follows: Impressions : - Hemorrhoids found on perianal exam. - Diverticulosis in the sigmoid colon and in the descending colon. - One 5 mm polyp in the distal sigmoid colon, removed with a hot snare. Resected and retrieved. Very tortuous sigmoid and descending colon. No evidence to suggest acute inflammation. No surgical intervention at this time. Recommendations : - Repeat colonoscopy in 5 years for surveillance based on pathology results. - Telephone my office for pathology results in 1 week. - Continue present medications. My findings are described in the full procedure note, which is enclosed. If I can be of further assistance, please feel free to contact me at Doctor phone number(s): Work: . Sincerely, Varinder Vergara MD 12/01/2022 11:01:14 AM This report has been signed electronically.
[2022-12-01 11:05] VITALS: BP 129/66; BP 93/53; PULSE 58; RESP 18; O2SAT 99
[2022-12-01 11:10] VITALS: BP 104/61; BP 129/66; PULSE 57; RESP 16; O2SAT 100
[2022-12-01 11:15] VITALS: BP 100/61; BP 129/66; PULSE 61; RESP 18; TEMP 36.8; O2SAT 100
[2022-12-01 11:51] VITALS: BP 129/66
== END 2022-12-01 11:57 | disposition home or self-care (01) ==
LOC: EN 09:02 → AC 09:02
PROVIDERS: PCP Internal Medicine; Referring Provider Internal Medicine; Visit Provider Surgery
PROC: 0DJD8ZZ Inspection of Lower Intestinal Tract, Via Natural or Artificial Opening Endoscopic (ICD-10-PCS; CPT 45378; principal; 2022-12-01 09:55)
DX: D12.5 Benign neoplasm of sigmoid colon (principal); K57.30 Diverticulosis of large intestine without perforation or abscess without bleeding; Z80.0 Family history of malignant neoplasm of digestive organs; K64.4 Residual hemorrhoidal skin tags
CPT/HCPCS: 45385; 88305; J7120; J2405

== ENCOUNTER → 2023-07-02 | Outpatient (CLI) | payer MEDICARE, SELFPAY ==
--- OUTSIDE RECORDS SUMMARY | 2023-07-02 08:51 | XMS RPT_ITS | CCD ---
Author Name Unknown Address [address] [address] [place] [address] Organization [facility] Care Team Providers Care Derrick Follower Name Role Phone ZULEMA ROUSE Unavailable Unavailable ZULEMA ROUSE Unavailable Unavailable ZULEMA ROUSE MD Admitting Unavailable ZULEMA ROUSE MD Attending Unavailable ZULEMA ROUSE MD Primary Care Unavailable Zulema Rouse MD Primary Care Provider [phone] Zulema Rouse MD Primary Care Provider [phone] ZULEMA ROUSE Primary Care Unavailable WILLIAM COOPER Referring Unavail able Medications Completed/Discontinued Medications Medication Drug Class(es) Dates Sig (Normalized) Sig (Original) CALCIUM CARBONATE/VITAMIN D2 (CALCIUM + VITAMIN D ORAL) (7 sources) CALCIUM CARBONATE/VITAMIN D2 (CALCIUM + VITAMIN D ORAL) Take by mouth. 0 Active Problems Active Problems Problem Classification Problem Date Documented Da te Episodic/Chronic Allergic reactions (7 sources) Atopic dermatitis; Translations: [Other atopic dermatitis] Onset: 03-28-2008 03-28-2008 Chronic Immunizations and screening for infectious disease (1 source) Contact with or exposure to other viral diseases; Translations: [Exposure to COVID-19 virus] Episodic Menopausal disorders (7 sources) Atrophic vaginitis; Translations: [Postmenopausal atrophic vaginitis] Onset: 06-10-2007 06-10-2007 Chronic Multiple sclerosis (7 sources) Multiple sclerosis; Translations: [Multiple sclerosis] Onset: 12-08-2005 04-21-2021 Chronic Osteoporosis (8 sources) Age-related osteoporosis without current pathological fracture; Translations: [Osteoporosis] Onset: 12-09-2011 12-09-2011 Chronic Other and unspecified benign neoplasm (7 sources) Benign meningioma; Translations: [Benign neoplasm of meninges, unspecified] Onset: 12-18-2014 04-21-2021 Chronic Other inflammatory condition of skin (14 sources) Rosacea; Translations: [Rosacea, unspecified] Onset: 07-25-2007 07-25-2007 Chronic Other screening for suspected conditions (not mental disorders or infectious disease) (5 sources) Patient encounter status; Translations: [Encounter for screening mammogram for malignant neoplasm of breast] Onset: 06-15-2023 Episodic Past or Other Problems Problem Classification Problem Date Documented Date Episodic/Chronic Allergic reactions (20 sources) Radiation-induced dermatosis; Translations: [Other skin changes due to chronic exposure to nonionizing radiation] Onset: 07-25-2007 02-14-2010 Episodic Benign neoplasm of uterus (7 sources) Uterine leiomyoma; Translations: [Leiomyoma of uterus, unspecified] Onset: 06-10-2007 06-10-2007 Episodic Diseases of mouth; excluding dental (7 sources) Disorder of lip; Translations: [Diseases of lips] Onset: 03-28-2008 03-28-2008 Episodic Neoplasms of unspecified nature or uncertain behavior (7 sources) Neoplasm of uncertain behavior of skin; Translations: [Neoplasm of uncertain behavior of skin] Onset: 07-25-2007 07-25-2007 Episodic Other and unspecified benign neoplasm (7 sources) Benign neoplasm of skin of face; Translations: [Other benign neoplasm of skin of unspecified part of face] Onset: 08-31-2007 08-31-2007 Episodic Other and unspecified benign neoplasm (7 sources) Benign neoplasm of skin of trunk; Translations: [Other benign neoplasm of skin of trunk] Onset: 08-31-2007 08-31-2007 Episodic Other circulatory disease (7 sources) Telangiectasia disorder; Translations: [Nevus, non-neoplastic] Onset: 05-20-2010 05-20-2010 Episodic Other connective tissue disease (7 sources) Synovial cyst; Translations: [Other bursal cyst, unspecified site] Onset: 10-25-2007 10-25-2007 Episodic Other inflammatory condition of skin (14 sources) Seborrheic dermatitis; Translations: [Seborrheic dermatitis, unspecified] Onset: 07-25-2007 07-25-2007 Episodic Other injuries and conditions due to external causes (7 sources) Open wound; Translations: [Other injury of unspecified body region, initial encounter] Onset: 09-23-2007 09-23-2007 Episodic Other injuries and conditions due to external causes (7 sources) Multiple open wounds with complication; Translations: [Unspecified multiple injuries, initial encounter] Onset: 11-02-2007 11-02-2007 Episodic Other nervous system disorders (7 sources) Skin sensation disturbance; Translations: [Unspecified disturbances of skin sensation] Onset: 10-25-2007 10-25-2007 Episodic Other skin disorders (7 sources) Disorder of skin pigmentation; Translations: [Disorder of pigmentation, unspecified] Onset: 07-25-2007 07-25-2007 Episodic Other skin disorders (7 sources) Scar conditions and fibrosis of skin; Translations: [Scar conditions and fibrosis of skin] Onset: 10-25-2007 10-25-2007 Episodic Other skin disorders (7 sources) Disorder of sebaceous gland; Translations: [Other specified follicular disorders] Onset: 03-28-2008 03-28-2008 Episodic Other skin disorders (7 sources) Asteatosis cutis; Translations: [Xerosis cutis] Onset: 02-16-2010 02-16-2010 Episodic Other skin disorders (7 sources) Seborrheic keratosis; Translations: [Other seborrheic keratosis] Onset: 02-17-2011 02-17-2011 Episodic Other skin disorders (7 sources) Folliculitis; Translations: [Follicular disorder, unspecified] Onset: 02-17-2011 02-17-2011 Episodic Viral infection (7 sources) Verruca vulgaris; Translations: [Viral wart, unspecified] Onset: 02-17-2011 02-17-2011 Episodic Results Test Name Value Interpretation Reference Range Facil ity Vital Signs Date Time Vital Sign Value Performing Clinician Zoei simba 05-11-2022 08:39-0500 Body height 160 cm William Stearns MD Work Phone: [facility] 05-11-2022 08:39-0500 Body weight 50.35 kg William Stearns MD Work Phone: [facility] 05-11-2022 08:39-0500 Diastolic blood pressure 74 mm[Hg] William Stearns MD Work Phone: [facility] 01-16-2023 08:39-0500 Systolic blood pressure 122 mm[Hg] William Stearns MD Work Phone: [facility] 09-27-2021 11:09-0400 Body temperature 97.59 [degF] [facility] LOT TECHNICIAN.INDUSTRIAL MACHINE SYSTEM TECHNICIAN Work Phone: [facility] 09-27-2021 11:09-0400 Body weight 52.62 kg [facility] LOT TECHNICIAN.INDUSTRIAL MACHINE SYSTEM TECHNICIAN Work Phone: [facility] 09-27-2021 11:09-0400 Diastolic blood pressure 72 mm[Hg] [facility] LOT TECHNICIAN.INDUSTRIAL MACHINE SYSTEM TECHNICIAN Work Phone: [facility] 09-27-2021 11:09-0400 Heart rate 70 /min [facility] LOT TECHNICIAN.INDUSTRIAL MACHINE SYSTEM TECHNICIAN Work Phone: [facility] 09-27-2021 11:09-0400 Respiratory rate 16 /min [facility] LOT TECHNICIAN.INDUSTRIAL MACHINE SYSTEM TECHNICIAN Work Phone: [facility] 09-27-2021 11:09-0400 SaO2% (BldA) [Mass fraction] 99 % [facility] LOT TECHNICIAN.INDUSTRIAL MACHINE SYSTEM TECHNICIAN Work Phone: [facility] 09-27-2021 11:09-0400 Systolic blood pressure 134 mm[Hg] [facility] LOT TECHNICIAN.INDUSTRIAL MACHINE SYSTEM TECHNICIAN Work Phone: [facility] Encounters Encounter Date Encounter Type Care Provider Facility Start: 06-15-2023 Documentation procedure Mammog natacha Coordinator [facility] Start: 06-15-2023 Letter encounter Mammography Coordinator [facility] Department Start: 06-15-2023 End: 06-15-2023 ambulatory ZULEMA ROUSE Facility:[facility] Start: 06-15-2023 End: 06-15-2023 Subsequent hospital visit by physician Screen Mammo [facility] Mammogram Procedures Date Procedure Procedure Detail Performing Clinician Start: 06-15-2023 Screening digital br [place] tomosynthesis bi William Stearns MD Work Phone: Start: 06-05-2022 JANEY SCREENING W JOE Mccormick MD Work Phone: Start: 06-05-2022 Mammography Mammograph y Coordinator Start: 05-06-2021 Mammography Klaus bragapina LOT TECHNICIAN.INDUSTRIAL MACHINE SYSTEM TECHNICIAN Work Phone: Start: 12-27-2017 Colonoscopy Klaus marx LOT TECHNICIAN.INDUSTRIAL MACHINE SYSTEM TECHNICIAN Work Phone: Start: 06-30-2016 Adult depression scr eening assessment Klaus Chawlapina LOT TECHNICIAN.INDUSTRIAL MACHINE SYSTEM TECHNICIAN Work Phone: Start: 07-02-2015 Lipid 1996 panel - S molly or Plasma Screen Wstr Plan of Treatment Date Care Activity Detail Author Start: 12-28-2027 Colonoscopy COLONOSCOPY [facility] Start: 12-28-2027 COLORECTAL CANCER SCREENING COLORECTAL CANCER SCREENING [facility] Start: 12-28-2027 Screening for malignant neoplasm of colon [facility] Start: 06-15-2024 Screening for malignant neoplasm of breast Mammogram Screening [facility] Start: 06-05-2023 Mammography [facility] Start: 04-26-2023 Advance Directive Discussion Advance Directive Discussion [facility] Start: 04-26-2023 Depression Assessment Depression Assessment [facility] Start: 12-25-2022 Covid-19 Vaccine () Covid-19 Vaccine () [facility] Start: 12-25-2022 Influenza vaccination Influenza [facility] Start: 05-06-2022 Mammography MAMMOGRAM [facility] Start: 04-26-2022 ADVANCE DIRECTIVE DISCUSSION ADVANCE DIRECTIVE DISCUSSION [facility] Start: 04-26-2022 DEPRESSION ASSESSMENT DEPRESSION ASSESSMENT [facility] Start: 04-26-2021 ADVANCE DIRECTIVE DISCUSSION ADVANCE DIRECTIVE DISCUSSION [facility] Start: 07-01-2020 Lipid 1996 panel - Serum or Plasma Lipid Screening [facility] Start: 07-01-2020 Lipid panel Lipid Screening [facility] Start: 07-01-2020 LIPID SCREEN LIPID SCREEN [facility] Start: 03-31-2019 DIABETES SCREEN DIABETES SCREEN [facility] Start: 03-31-2019 Diabetes Screening Diabetes Screening [facility] Start: 06-30-2017 Adult depression screening assessment DEPRESSION SCREENING [facility] Start: 09-18-2006 Urine microalbumin profile [facility] Start: 1998 COLOGUARD (FIT-DNA) COLOGUARD (FIT-DNA) [facility] Start: [address] COLONOGRAPHY [facility] Start: 1998 FECAL OCCULT BLOOD FECAL OCCULT BLOOD [facility] Start: 1998 Screening for malignant neoplasm of colon [facility] Start: 1998 SIGMOIDOSCOPY SIGMOIDOSCOPY [facility] Start: 1971 HEPATITIS C SCREENING HEPATITIS C SCREENING [facility] Start: 1971 Hepatitis C screening Hepatitis C Screening [facility] End: 06-10-2023 JANEY SCREENING W JOE JANEY SCREENING W JOE Radiology Routine Encounter for screening mammogram for malignant neoplasm of breast 1 Occurrences starting 05/11/2022 until 06/10/2023 [facility] Work Phone: Immunizations Immunization Date Immunization Notes Care Provider Sylvie palumbo 01-30-2022 influenza virus vacc ine, unspecified formulation Screen Wstr [facility] 02-04-2021 influenza (aIIV4) vaccine, age 65+ yr, quadrivalent, PF (FLUAD QUADRIVALENT) Klaus Lara LOT TECHNICIAN.[facility] Work Phone: [facility] Work Phone: 02-17-2020 pneumococcal polysaccharide vaccine, 23 valent Klaus Lara LOT TECHNICIAN.[facility] Work Phone: [facility] Work Phone: 01-30-2020 influenza (aIIV4) vaccine, age 65+ yr, quadrivalent, PF (FLUAD QUADRIVALENT) Klaus Lara LOT TECHNICIAN.[facility] Work Phone: [facility] Work Phone: 01-27-2020 zoster vaccine, live Klaus Lara LOT TECHNICIAN.INDUSTRIAL MACHINE SYSTEM TECHNICIAN Work Phone: [facility] Work Phone: 12-28-2019 zoster vaccine recombinant Klaus Lara LOT TECHNICIAN.INDUSTRIAL MACHINE SYSTEM TECHNICIAN Work Phone: [facility] Work Phone: 07-14-2019 zoster vaccine, live Klaus Lara LOT TECHNICIAN.[facility] Work Phone: [facility] Work Phone: 07-06-2019 zoster vaccine recombinant Klaus Pendlebury LOT TECHNICIAN.INDUSTRIAL MACHINE SYSTEM TECHNICIAN Work Phone: [facility] Work Phone: 03-22-2019 pneumococcal polysaccharide vaccine, 23 valent Klaus Pendlebury LOT TECHNICIAN.INDUSTRIAL MACHINE SYSTEM TECHNICIAN Work Phone: [facility] Work Phone: 01-31-2019 influenza, high dose seasonal, preservative-free Klaus Pendlebury LOT TECHNICIAN.INDUSTRIAL MACHINE SYSTEM TECHNICIAN Work Phone: [facility] 01-13-2019 pneumococcal conjuga te vaccine, 13 valent Klaus Pendlebury LOT TECHNICIAN.INDUSTRIAL MACHINE SYSTEM TECHNICIAN Work Phone: [facility] Work Phone: 02-21-2016 influenza, injectabl e, quadrivalent, contains preservative Klaus Pendlebury LOT TECHNICIAN.INDUSTRIAL MACHINE SYSTEM TECHNICIAN Work Phone: [facility] Work Phone: 02-28-2015 influenza, injectabl e, quadrivalent, contains preservative Klaus Pendlebury LOT TECHNICIAN.INDUSTRIAL MACHINE SYSTEM TECHNICIAN Work Phone: [facility] 02-07-2014 influenza, seasonal, injectable Klaus Pendlebury LOT TECHNICIAN.INDUSTRIAL MACHINE SYSTEM TECHNICIAN Work Phone: [facility] 02-18-2013 influenza virus vacc ine, unspecified formulation Klaus Pendlebury LOT TECHNICIAN.INDUSTRIAL MACHINE SYSTEM TECHNICIAN Work Phone: [facility] Work Phone: 03-25-2012 influenza virus vacc ine, unspecified formulation Klaus Pendlebury LOT TECHNICIAN.INDUSTRIAL MACHINE SYSTEM TECHNICIAN Work Phone: [facility] 11-21-2010 zoster vaccine, live Klaus Pendlebury LOT TECHNICIAN.INDUSTRIAL MACHINE SYSTEM TECHNICIAN Work Phone: [facility] 02-14-2009 influenza virus vacc ine, unspecified formulation Klaus Pendlebury LOT TECHNICIAN.INDUSTRIAL MACHINE SYSTEM TECHNICIAN Work Phone: [facility] Work Phone: 02-10-2008 influenza virus vacc ine, unspecified formulation Klaus Pendlebury LOT TECHNICIAN.INDUSTRIAL MACHINE SYSTEM TECHNICIAN Work Phone: [facility] 05-27-2007 influenza virus vacc ine, unspecified formulation Klaus Lara LOT TECHNICIAN.INDUSTRIAL MACHINE SYSTEM TECHNICIAN Work Phone: [facility] Work Phone: 09-17-2006 tetanus and diphther ia toxoids, adsorbed, preservative free, for adult use (2 Lf of tetanus toxoid and 2 Lf of diphtheria toxoid) Klaus Lara LOT TECHNICIAN.INDUSTRIAL MACHINE SYSTEM TECHNICIAN Work Phone: [facility] Work Phone: Payers Date Payer Category Payer Medicare [id number] 2020 Unknown ANTHEM BLUE [facility] AND BLUE [facility] ANTHEM MEDIBLUE O [id number] 2020-Present [phone] [address] [place] [address] O [id number] 2020 Unknown [id number] 2005 Unknown [id number] 1955 Unknown [id number] Social History Date Type Detail Facility Start: 11-17-2010 Tobacco smoking stat [facility] Never smoked tobacco [facility] Work Phone: Start: 09-27-2021 End: 05-11-2022 Alcohol intake Current non-drinker of alcohol (finding) [facility] Start: 1955 Sex Assigned At Female C [facility] Start: 09-17-2021 End: 09-27-2021 Exposure to SARS-CoV-2 (event) Yes [facility] Start: 11-17-2010 Tobacco use and exposure Smokeless tobacco non-user [facility] Work Phone: Start: 05-11-2022 End: 06-15-2023 History of Social function [facility] Start: 05-11-2022 End: 06-15-2023 Tobacco use panel [facility] National Score (1-10 0), lower number is lower risk 46 [facility] Start: 04-01-2020 Gender identity Identifies as female gender (finding) [facility] Start: 04-01-2020 Sexual orientation Heterosexual (wang griffin) [facility] Clinical Notes 12-14-2008 to 06-15-2023 Letter - Coordinator, Mammography - 06/15/2023 12:07 PM ESTNichols-Ramona Burks RT(R) - 06/15/2023 7:50 AM ESTTelephone Encounter - William Copoer MD - 06/11/2023 10:07 AM EST Note Date & Type Note Facility 06-15-2023 Miscellaneous Notes June 15, 2023 PID: [id number] Sania Anne [address] [place] [address] Dear Ms. Friend, We are pleased to inform you that the results of your recent breast imaging exam on 06/15/2023 are normal. Your mammogram demonstrates that you have dense breast tissue, which could hide abnormalities. Dense breast tissue, in and of itself, is a relatively common condition. Therefore, this information is not provided to cause undue concern; rather, it is to raise your awareness and promote discussion with your health care provider regarding the presence of dense breast tissue in addition to other risk factors. Early detection of cancer is very important. We also understand recommendations regarding breast cancer screening are controversial. Please discuss with your primary care provider which strategy is best for you and whether a mammogram is right for you. Your imaging studies and report will be kept on file at [facility] as part of your permanent medical record and are available for your continuing care. Thank you for allowing us to help in meeting your health care needs. Sincerely, Dr. Pineda Interpreting Radiologist [facility] (Normal over 40) documented in this encounter [facility] 06-15-2023 Note HNO ID: [id number] Author: RAMONA HOOKS RT(R) Service: ? Author Type: Epic [facility] Type: Progress Notes Filed: 06/15/2023 07:43 Note Text: Radiology Service Progress Note PATIENT NAME: Sania Anne DATE OF SERVICE: June 15, 2023 TIME: 7:42 AM PATIENT IDENTITY VERIFICATION COMPLETED USING TWO (2) IDENTIFIERS: Name and Date of confirmed by patient verbally. FALL SCREENING: Has the patient had 2 falls in the last year or 1 fall with injury or currently using an Ambulatory Assistive Device (Walker, Cane, Wheelchair, Crutches, etc.)? No PATIENT GENDER DATA: Female. status: : No status: NO. PATIENT RELEVANT IMPLANT DATA REVIEWED: Not Applicable PATIENT PRESENTS WITH AN IMPLANTABLE OR ATTACHED HOUSEKEEPING SUPERVISOR HOTEL: No RADIOLOGY DEPARTMENT: Mammography PERIPHERAL IV DATA: Not applicable SIGNED BY: RT Brett(R) June 15, 2023 7:42 AM [facility] 06-15-2023 History of Presen t illness Narrative Radiology Service Progress Note PATIENT NAME: Sania Anne DATE OF SERVICE: June 15, 2023 TIME: 7:42 AM PATIENT IDENTITY VERIFICATION COMPLETED USING TWO (2) IDENTIFIERS: Name and Date of confirmed by patient verbally. FALL SCREENING: Has the patient had 2 falls in the last year or 1 fall with injury or currently using an Ambulatory Assistive Device (Walker, Cane, Wheelchair, Crutches, etc.)? No PATIENT GENDER DATA: Female. status: : No status: NO. PATIENT RELEVANT IMPLANT DATA REVIEWED: Not Applicable PATIENT PRESENTS WITH AN IMPLANTABLE OR ATTACHED HOUSEKEEPING SUPERVISOR HOTEL: No RADIOLOGY DEPARTMENT: Mammography PERIPHERAL IV DATA: Not applicable SIGNED BY: RT Brett(R) June 15, 2023 7:42 AM documented in this encounter [facility] 06-11-2023 Miscellaneous Notes ordered Patient is calling requesting a JOE screening please place the order. documented in this encounter [facility] 06-06-2022 Miscellaneous Notes June 08, 2022 PID: [id number] Sania Luther. Friend [address] [place] [address] Dear Ms. Friend, We are pleased to inform you that the results of your recent breast imaging exam on 06/05/2022 are normal. Your mammogram demonstrates that you have dense breast tissue, which could hide abnormalities. Dense breast tissue, in and of itself, is a relatively common condition. Therefore, this information is not provided to cause undue concern; rather, it is to raise your awareness and promote discussion with your health care provider regarding the presence of dense breast tissue in addition to other risk factors. Early detection of cancer is very important. We also understand recommendations regarding breast cancer screening are controversial. Please discuss with your primary care provider which strategy is best for you and whether a mammogram is right for you. Your imaging studies and report will be kept on file at [facility] as part of your permanent medical record and are available for your continuing care. Thank you for allowing us to help in meeting your health care needs. Sincerely, Dr. Pacheco Interpreting Radiologist [facility] (Normal over 40) documented in this encounter [facility] 05-11-2022 History of Presen t illness Narrative Sania is a 67 year old who presents for an annual gynecologic exam without complaints. [facility] two grandchildren ages 9/13. Postmenopausal: Yes since age 50 HRT use: No. Last Pap: 04/28/2018 normal HPV: 2018 negative History of abnormal pap: No Last mammogram: 2021 normal History of abnormal mammogram: No Sexually active: Yes History of STDS: None Patient concerns for STD exposure: No. Pain with intercourse: No Postcoital bleeding: No Hot flashes: No Night sweats: No Vaginal dryness: Yes Exercise: Walking and yoga 7 times a week for 60 minutes. Type: Aerobic Diet: Balanced OB History T0 L2 SAB0 IAB0 Ectopic0 Multiple0 Live Births0 Sprue Knocker History LMP: 07/31/2005, Postmenopausal Age at Menarche: Age at First : Age at Menopause: Sprue Knocker History Comments: Sexual Activity: Yes; Male; Postmenopausal Contraception: Surgical, Tubal Ligation PAST MEDICAL HISTORY Diagnosis Date Arthritis Epigastric pain 06/11/2016 Fracture of unspecified metatarsal bone(s), left foot, initial encounter for closed fracture Hiatal hernia 06/11/2016 Leiomyoma of uterus, unspecified Mitral valve disorders Multiple sclerosis (HCC) Dx 2001 Osteoporosis, unspecified 12/09/2011 PAST SURGICAL HISTORY Procedure Laterality Date COLONOSCOPY FLX DX W/COLLJ SPEC WHEN PFRMD 01/20/2008 Repeat due 2018 CRANIEC TREPHINE BONE FLP BRAIN TUMOR SUPRTENTOR 1996 Craniotomy, tumor. Meningioma ESOPHAGOGASTRODUODENOSCOPY TRANSORAL DIAGNOSTIC 06/11/2016 GASTROESOPHAG REFLX TEST W/TELEMTRY PH ELTRD 06/11/2016 EGD with 48 hour PH probe LIG/TRNSXJ FLP TUBE ABDL/VAG APPR UNI/BI 1983 PAST SURGICAL HISTORY OF 1996 benign brain tumor PAST SURGICAL HISTORY OF excision of mole,right lower back/hip REMV CATARACT EXTRACAP,INSERT LENS 06/2021 FAMILY HISTORY Problem Relation Age of Onset Cancer Mother pancreatic Arthritis Father Rheumatoid Diabetes Daughter Type 1 DM Heart Paternal Grandfather Heart Paternal Uncle Prostate Cancer Brother SOCIAL HISTORY Social History Tobacco Use Smoking status: Never Smokeless tobacco: Never Vaping Use Vaping Use: Never used Substance Use Topics Alcohol use: No Drug use: No REVIEW OF SYSTEMS Abdomen: No abdominal pain, nausea, vomiting, diarrhea, or constipation. No bloating, early satiety, indigestion, or increased flatulence. Bladder: No dysuria, gross hematuria, urinary frequency, urinary urgency, or incontinence Breast: No breast lumps, nipple d/c, overlying skin changes, redness or skin retraction Allergies and current medication updated:Yes EXAM: BP 122/74 Ht 5' 3 (1.60m) Wt 111 lb (50.3kg) LMP 07/31/2005 BMI 19.67 kg/(m^2). GENERAL: pleasant, female in no apparent distress HEENT: Normocephalic, atraumatic, mucus membranes moist, and no lesions NECK: Supple, full range of motion, no adenopathy, and thyroid normal DERMATOLOGY: Normal, without lesions, non-icteric, and non-hirsute BREAST: soft, non-tender, symmetric, no dominant mass, normal nipple-areolar complex, no lymphadenopathy, and no nipple discharge ABDOMEN: soft, non-tender, and no masses PELVIC: external genitalia normal, normal Bartholin's glands, urethra, Wamic's glands, no vulvar lesions, no cervical lesions, good vaginal support, physiologic discharge present, normal appearing perineal body and perianal region BIMANUAL: uterus normal size, shape and consistency, no adnexal masses, and non-tender RECTOVAGINAL: deferred. NEURO: alert and oriented x3,exam grossly non-focal EXTREMITIES: normal ASSESSMENT/PLAN: 1) Health maintenance: Pap/HPV screening no longer needed Mammogram ordered Mammogram up to date Nutrition, exercise and routine health maintenance exams reviewed. Calcium/Vitamin D supplementation information provided. Colon cancer screening: up to date with screening BMD: up to date- consider next year- did bisphosponates years ago without improvement 2) Follow up one year or sooner as needed William Jacobsen MD [employer] Computer Consultant offered: Patient declines. documented in this encounter [facility] 09-27-2021 History of Presen t illness Narrative Subjective HPI Nontoxic-appearing female presents urgent care chief complaint COVID exposure. Patient states she was exposed to an individual who tested positive for COVID-19 6 days ago. does have URI-like symptoms. He did test positive for COVID-19 as well this morning. Presents today for evaluation. Patient states she is vaccinated. Has not developed any symptoms at this point. Denies any pain. Denies any fever body aches chills nausea vomiting abdominal pain change in bowel or bladder habits. Past medical history prescription medication use allergies reviewed. .Patient presents with: Exposure: covid x 6 days, no symptoms PAST MEDICAL HISTORY Diagnosis Date Arthritis Epigastric pain 06/11/2016 Fracture of unspecified metatarsal bone(s), left foot, initial encounter for closed fracture Hiatal hernia 06/11/2016 Leiomyoma of uterus, unspecified Mitral valve disorders Multiple sclerosis (HCC) Dx 2002 Osteoporosis, unspecified 12/09/2011 PAST SURGICAL HISTORY Procedure Laterality Date COLONOSCOPY FLX DX W/COLLJ SPEC WHEN PFRMD 01/20/2008 Repeat due 2018 CRANIEC TREPHINE BONE FLP BRAIN TUMOR SUPRTENTOR 1996 Craniotomy, tumor. Meningioma ESOPHAGOGASTRODUODENOSCOPY TRANSORAL DIAGNOSTIC 06/11/2016 GASTROESOPHAG REFLX TEST W/TELEMTRY PH ELTRD 06/11/2016 EGD with 48 hour PH probe LIG/TRNSXJ FLP TUBE ABDL/VAG APPR UNI/BI 1983 PAST SURGICAL HISTORY OF 1996 benign brain tumor PAST SURGICAL HISTORY OF excision of mole,right lower back/hip ALLERGIES Patient has no active allergies. MEDICATIONS metroNIDAZOLE 0.75 % Topical Gel Apply to entire Rosacea-involved area(s) of face (eg, central face at cheeks, chin, nose and mid lower forehead, etc.) once to twice per day (qday to bid) as directed and tolerated. CALCIUM CARBONATE/VITAMIN D2 (CALCIUM + VITAMIN D ORAL) Take by mouth. FAMILY HISTORY Problem Relation Age of Onset Cancer Mother pancreatic Arthritis Father Rheumatoid Diabetes Daughter Type 1 DM Heart Paternal Grandfather Heart Paternal Uncle Prostate Cancer Brother Social History Tobacco Use Smoking status: Never Smoker Smokeless tobacco: Never Used Vaping Use Vaping Use: Never used Substance Use Topics Alcohol use: No Drug use: No BP 134/72 Pulse 70 Temp 36.4 C (97.6 F) Resp 16 Wt 52.6 kg (116 lb) LMP 07/31/2005 SpO2 99% BMI 20.55 kg/m Review of Systems Constitutional: Negative for chills, fever and malaise/fatigue. HENT: Negative for congestion, ear discharge, ear pain, sinus pain and sore throat. Eyes: Negative for blurred vision, pain, discharge and redness. Respiratory: Negative for cough, hemoptysis, sputum production, shortness of breath, wheezing and stridor. Cardiovascular: Negative for chest pain. Gastrointestinal: Negative for abdominal pain, diarrhea, nausea and vomiting. Musculoskeletal: Negative for myalgias. Skin: Negative for itching and rash. Neurological: Negative for dizziness and headaches. Objective Physical Exam Constitutional: General: She is not in acute distress. Appearance: She is not diaphoretic. HENT: Head: Normocephalic. Eyes: Conjunctiva/sclera: Conjunctivae normal. Pupils: Pupils are equal, round, and reactive to light. Cardiovascular: Rate and Rhythm: Normal rate and regular rhythm. Heart sounds: Normal heart sounds. Pulmonary: Effort: Pulmonary effort is normal. No tachypnea, accessory muscle usage or respiratory distress. Breath sounds: Normal breath sounds. No stridor. No wheezing, rhonchi or rales. Abdominal: Palpations: Abdomen is soft. Tenderness: There is no abdominal tenderness. Musculoskeletal: Cervical back: Normal range of motion and neck supple. No rigidity or tenderness. Lymphadenopathy: Cervical: No cervical adenopathy. Skin: General: Skin is warm and dry. Neurological: Mental Status: She is alert and oriented to person, place, and time. ASSESSMENT/PLAN: 1. Exposure to COVID-19 virus - ICD9: V01.79, ICD10: Z20.822 - 2019 CORONAVIRUS COVID-19 test ordered. Results pending. Red flags for prompt reevaluation discussed. Follow-up with PCP as needed. Will be seen in urgent care for ED for any new or worsening symptoms. Patient verbalized understand agrees with plan of care. Klaus Lara APRN.ZENAIDA documented in this encounter [facility] documented as of this encounter (statuses as of 09/27/2021) [facility] History of Past illness Narrative* Problem Noted Date Resolved Date Postmenopausal bleeding 12/14/2008 09/21/19 10 Dyspareunia 06/10/2007 09/20/2009 documented as of this encounter (statuses as of 05/11/2022) [facility] History of Past illness Narrative* Problem Noted Date Resolved Date Postmenopausal bleeding 12/14/2008 09/21/19 10 Dyspareunia 06/10/2007 09/20/2009 documented as of this encounter (statuses as of 06/09/2022) [facility] History of Past illness Narrative* Problem Noted Date Diagnosed Date Resolved Date Postmenopausal bleeding 12/14/2008 05/11/2009 Dyspareunia 06/10/2007 09/20/2009 documented as of this encounter (statuses as of 02/26/2023) [facility] History of Past illness Narrative* Problem Noted Date Diagnosed Date Resolved Date Postmenopausal bleeding 12/14/200808/25 Dyspareunia 06/10/2007 09/20/2009 documented as of this encounter (statuses as of 06/16/2023) [facility] History of Past illness Narrative* Problem Noted Date Diagnosed Date Resolved Date Postmenopausal bleeding 12/14/200808/25 Dyspareunia 06/10/2007 09/20/2009 documented as of this encounter (statuses as of 06/17/2023) [facility] History of Past illness Narrative* Problem Noted Date Diagnosed Date Resolved Date Postmenopausal bleeding 12/14/200808/25 Dyspareunia 06/10/2007 09/20/2009 documented as of this encounter (statuses as of 06/18/2023) [facility] note* Diagnosis Exposure to COVID-19 virus- [facility] Diagnosis Encounter for gynecological examination (general) (routine) without abnormal findings- Primary Encounter for screening mammogram for malignant neoplasm of breast Other screening mammogram [facility] Diagnosis Encounter for screening mammogram for malignant neoplasm of breast Other screening mammogram [facility] Diagnosis Encounter for screening mammogram for malignant neoplasm of breast Other screening mammogram [facility] Diagnosis Encounter for screening mammogram for malignant neoplasm of breast- Primary Other screening mammogram documented in this encounter [facility] for referral (narrative)* Diagnostic Procedure Only (Routine) - Pending Review Specialty Diagnoses / Procedures Referred By Cici t Referred To Contact [facility] Diagnoses Encounter for screening mammogram for malignant neoplasm of breast Procedures JANEY SCREENING W JOE SCREENING DIGITAL BREAST TOMOSYNTHESIS BI SCREENING MAMMOGRAPHY BI 2-VIEW BREAST INC CAD William Cooper MD [address] [place] [address] [facility] [address] [place] [address] Referral ID Status Reason Start Date Expiration Date Visits Requested Visits Authorized [id number] Pending Review Auto-Generat ed Referral 05/11/2022 06/10/2023 1 1 [facility] for referral (narrative)* Diagnostic Procedure Only (Routine) - Closed Specialty Diagnoses / Procedures Referred By Cici michele Referred To Contact [facility] Diagnoses Encounter for screening mammogram for malignant neoplasm of breast Procedures JANEY SCREENING W JOE SCREENING BREAST DGTL JOE UNI/BILAT ADD ON SCREENING MAMMOGRAPHY BI 2-VIEW BREAST INC CAD William Cooper MD [address] [place] [address] [facility] [address] [place] [address] Referral ID Status Reason Start Date Expiration Date V isits Requested Visits Authorized [id number] Closed Auto-Generate d Referral 05/07/2021 06/06/2022 1 1 [facility] for referral (narrative)* Diagnostic Procedure Only (Routine) - Closed Specialty Diagnoses / Procedures Referred By Cici michele Referred To Contact [facility] Diagnoses Encounter for screening mammogram for malignant neoplasm of breast Procedures JANEY SCREENING W JOE SCREENING DIGITAL BREAST TOMOSYNTHESIS BI SCREENING MAMMOGRAPHY BI 2-VIEW BREAST INC CAD William Cooper MD [address] [place] [address] [facility] [address] [place] [address] Referral ID Status Reason Start Date Expiration Date V isits Requested Visits Authorized [id number] Closed Auto-Generate d Referral 06/11/2023 07/10/2024 1 1 [facility] for referral (narrative)* Diagnostic Procedure Only (Routine) - Closed Specialty Diagnoses / Procedures Referred By Cici michele Referred To Contact [facility] Diagnoses Encounter for screening mammogram for malignant neoplasm of breast Procedures JANEY SCREENING W JOE SCREENING DIGITAL BREAST TOMOSYNTHESIS BI SCREENING MAMMOGRAPHY BI 2-VIEW BREAST INC CAD William Cooper MD [address] [place] [address] [facility] [address] [place] [id number] Referral ID Status Reason Start Date Expiration Date V isits Requested Visits Authorized [id number] Closed Auto-Generate d Referral 06/11/2023 07/10/2024 1 1 [facility] for visit Narrative* Diagnostic Procedure Only (Routine) - Closed Specialty Diagnoses / Procedures Referred By Contac t Referred To Contact [facility] Diagnoses Encounter for screening mammogram for malignant neoplasm of breast Procedures JANEY SCREENING W JOE SCREENING BREAST DGTL JOE UNI/BILAT ADD ON SCREENING MAMMOGRAPHY BI 2-VIEW BREAST INC CAD William Cooper MD [address] [place] [address] [facility] [address] [place] [address] Referral ID Status Reason Start Date Expiration Date V isits Requested Visits Authorized [id number] Closed Auto-Generate d Referral 05/07/2021 06/06/2022 1 1 [facility] for visit Narrative* Diagnostic Procedure Only (Routine) - Closed Specialty Diagnoses / Procedures Referred By Cici michele Referred To Contact [facility] Diagnoses Encounter for screening mammogram for malignant neoplasm of breast Procedures JANEY SCREENING W JOE SCREENING DIGITAL BREAST TOMOSYNTHESIS BI SCREENING MAMMOGRAPHY BI 2-VIEW BREAST INC CAD William Cooper MD [address] [place] [address] [facility] [address] [place] [address] Referral ID Status Reason Start Date Expiration Date V isits Requested Visits Authorized [id number] Closed Auto-Generate d Referral 06/11/2023 07/10/2024 1 1 [facility] Summary Purpose Family History No Family History Records FoundNo Family History Records FoundNo Family History Records FoundNo Family History Records Found Advance Directives No Advanced Directives Records FoundDocuments on File Type Date Recorded 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 Advance Directive(s) 12/15/2017 2:56 PM Advance Directive(s) 04/08/2016 11:19 AM Advance Directive(s) 04/06/2016 8:18 AM Documents on File Type Date Recorded 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 Advance Directive(s) 12/15/2017 2:56 PM Documents on File Type Date Recorded 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 Advance Directive(s) 12/15/2017 2:56 PM Additional Source Comments INFORMATION SOURCE (unrecogn ized section and content) DATE CREATED AUTHOR AUTHOR'S ORGANIZ ATION 01/31/2019 [facility] DATE CREATED AUTHOR AUTHOR'S ORGANIZ ATION 06/24/2023 [facility] Source Comments (unrecognize d section and content) In the event this informatio n is protected by the Federal Confidentiality of Alcohol and Drug Abuse Patient Records regulations: The Federal rules restrict any use of the information to criminally investigate or prosecute any alcohol or drug abuse patient.[facility] the event this information is protected by the Federal Confidentiality of Alcohol and Drug Abuse Patient Records regulations: The Federal rules restrict any use of the information to criminally investigate or prosecute any alcohol or drug abuse patient.[facility] the event this information is protected by the Federal Confidentiality of Alcohol and Drug Abuse Patient Records regulations: The Federal rules restrict any use of the information to criminally investigate or prosecute any alcohol or drug abuse patient.[facility] the event this information is protected by the Federal Confidentiality of Alcohol and Drug Abuse Patient Records regulations: The Federal rules restrict any use of the information to criminally investigate or prosecute any alcohol or drug abuse patient.[facility] the event this information is protected by the Federal Confidentiality of Alcohol and Drug Abuse Patient Records regulations: The Federal rules restrict any use of the information to criminally investigate or prosecute any alcohol or drug abuse patient.[facility] the event this information is protected by the Federal Confidentiality of Alcohol and Drug Abuse Patient Records regulations: The Federal rules restrict any use of the information to criminally investigate or prosecute any alcohol or drug abuse patient.[facility] the event this information is protected by the Federal Confidentiality of Alcohol and Drug Abuse Patient Records regulations: The Federal rules restrict any use of the information to criminally investigate or prosecute any alcohol or drug abuse patient.[facility] Reason for Visit (unrecogniz ed section and content) Reason Comments Yearly Exam Reason Comments Orders Care Teams (unrecognized sec tion and content) Derrick Follower Relationship Specialty Start Date End Date Zulema Rouse MD PCP - General Internal Medicine 12/31/16 Derrick Follower Relationship Specialty Start Date End Date Zulema Rouse MD PCP - General Internal Medicine 12/31/16 Derrick Follower Relationship Specialty Start Date End Date Zulema Rouse MD PCP - General Internal Medicine 12/31/16 Derrick Follower Relationship Specialty Start Date End Date Zulema Rouse MD PCP - General Internal Medicine 12/31/16 Derrick Follower Relationship Specialty Start Date End Date Zulema Rouse MD PCP - General Internal Medicine 12/31/16 FOR RECORDS PERTAINING TO PATIENTS WHO ARE OR HAVE BEEN ENROLLED IN A CHEMICAL DEPENDENCY/SUBSTANCEABUSE PROGRAM, SOME INFORMATION MAY BE OMITTED. This clinical summary was aggregated from multiple sources. Caution should be exercised in using it in the provision of clinical care. This summary normalizes information from multiple sources, and as a consequence, information in this document may materially change the coding, format and clinical context of patient data. In addition, data may be omitted in some cases. CLINICAL DECISIONS SHOULD BE BASED ON THE PRIMARY CLINICAL RECORDS. [facility] [employer] [facility]. provides no warranty or guarantee of the accuracy or completeness of information in this document.
[2023-07-02 09:35] LABS: Absolute Lymphocyte Count 1.38 X10^3/uL (0.83-4.51); Absolute Neutrophil Count 2.7 X10^3/uL (2.0-7.7); Basophil# 0.05 X10^3/uL; Basophil% 1.1 % (0-1); Eosinophil# 0.09 X10^3/uL; Eosinophils% 1.9 % (0-5); Hematocrit 40.6 % (37-47); Hemoglobin 13.7 g/dL (12.0-15.0); Lymphocyte # 1.38 X10^3/ul (0.83-4.51); Lymphocyte % 29.4 % (19-41); Mean Corp Hgb Conc 33.7 g/dL (32-36); Mean Corpuscular Hgb 29.3 pg (27.0-32.0); Mean Corpuscular Volume 86.8 fL (81-99); Mean Platelet Vol. 11.3 fl (6.2-12.0); Monocyte# 0.47 X10^3/uL; NRBC Flagged by Analyzer 0 % (0-5); Neutrophil # 2.69 X10^3/uL (2.7-7.7); Neutrophil % 57.2 % (47-70); Platelet Count 287 K/mm3 (150-450); RBC Distribution Width CV 13.2 % (11.6-14.6); RBC Distribution Width SD 42.1 fl (35.1-43.9); Red Blood Count 4.68 M/mm3 (4.2-5.4); White Blood Count 4.7 K/mm3 (4.4-11.0)
[2023-07-02 10:42] LABS: AST(SGOT) 26 U/L (15-37); Alanine Aminotransfer ALT/SGPT 30 U/L (13-56); Albumin, Serum 4.2 g/dL (3.2-5.0); Alkaline Phosphatase 60 U/L (45-117); Anion Gap 8 (5-15); BUN 15 mg/dL (7-18); BUN/Creat Ratio 17.5 RATIO (10-20); Calcium,Total 9.5 mg/dL (8.5-10.1); Chloride 102 mmol/L (98-107); Creatinine, Serum 0.86 mg/dL (0.55-1.02); EST Glomerular Filtration Rate 70 mL/min (>60); Est Glom Filt Rate - Afr Amer 84 mL/min (>60); Globulin 4.1 g/dL (2.2-4.2); Glucose 97 mg/dL (74-106); Potassium 3.6 mmol/L (3.5-5.1); Protein, Total 8.3 g/dL (6.4-8.2); Sodium Level 139 mmol/L (136-145); Thyroid Stim Hormone (TSH) 1.41 uIU/mL (0.358-3.74)
== END | disposition home or self-care (01) ==
LOC: LAB 08:32
PROVIDERS: PCP Internal Medicine; Referring Provider Internal Medicine; Visit Provider Internal Medicine
DX: M19.90 Unspecified osteoarthritis, unspecified site (principal); M81.0 Age-related osteoporosis without current pathological fracture; E55.9 Vitamin D deficiency, unspecified; M48.00 Spinal stenosis, site unspecified; M84.30XA Stress fracture, unspecified site, initial encounter for fracture; E03.9 Hypothyroidism, unspecified
CPT/HCPCS: 36415; 80053; 82306; 84443; 85025

== ENCOUNTER → 2023-10-07 | Outpatient (CLI) | payer MEDICARE, SELFPAY ==
--- NOTE | 2023-10-07 10:31 | CT_ITS ---
STUDY: CT ABDOMEN AND PELVIS WITHOUT CONTRAST REASON FOR EXAM: Female, 68 years old. Acute diverticulitis. No bowel movement for one week. Left lower quadrant pain. RADIATION DOSAGE (If Supplied By Facility): CTDIvol = ( 5.16 ) mGy, DLP = ( 225.88 ) mGycm TECHNIQUE: Transaxial images were obtained from the dome of the diaphragm to the symphysis pubis without oral contrast, and without intravenous contrast. Sagittal and coronal images were reconstructed. Individualized dose optimization techniques were used for this CT. COMPARISON: None. FINDINGS: The visualized lung bases are unremarkable. Small pericardial effusion. Normal liver. Normal gallbladder and extrahepatic biliary system. Normal spleen. Normal pancreas. Normal bilateral adrenal glands. Normal right kidney. Normal left kidney. Gaseous distention of the stomach. Normal small intestine. Large amount of fecal material is seen throughout the colon. Sigmoid diverticulosis. The appendix is visualized and appears normal. Normal abdominal aorta. Normal inferior vena cava. Normal retroperitoneum. Normal urinary bladder. 2 metallic clips are seen in the anterior left hemipelvis. These may represent prior tubal ligation clips. Normal abdominal wall. There are degenerative changes of the visualized lumbar spine. CT/Abdomen/Pel W ORAL Cont Only IMPRESSION: Large amount of fecal material is seen in the colon. Small pericardial effusion. Gaseous distention of the stomach. Electronically Signed: Kadeem Cheema MD at 13:25 EDT ,
== END | disposition home or self-care (01) ==
LOC: CT 10:26
PROVIDERS: PCP Internal Medicine; Referring Provider Internal Medicine; Visit Provider Internal Medicine
DX: K57.92 Diverticulitis of intestine, part unspecified, without perforation or abscess without bleeding (principal)
CPT/HCPCS: 74176

== ENCOUNTER → 2024-06-08 | Outpatient (CLI) | payer MEDICARE, SELFPAY ==
[2024-06-08 09:05] LABS: Absolute Neutrophil Count 2.2 X10^3/uL (2.0-7.7); Basophil# 0.05 X10^3/uL; Basophil% 1.2 % (0-1); Eosinophil# 0.13 X10^3/uL; Eosinophils% 3.2 % (0-5); Hemoglobin 13.2 g/dL (12.0-15.0); Lymphocyte % 32.1 % (19-41); Mean Corp Hgb Conc 33.8 g/dL (32-36); Mean Corpuscular Hgb 29.2 pg (27.0-32.0); Mean Corpuscular Volume 86.3 fL (81-99); Mean Platelet Vol. 10.6 fl (6.2-12.0); Monocyte% 9.9 % (0-10); NRBC Flagged by Analyzer 0 % (0-5); Neutrophil # 2.17 X10^3/uL (2.7-7.7); Neutrophil % 53.6 % (47-70); Platelet Count 279 K/mm3 (150-450); RBC Distribution Width SD 40.7 fl (35.1-43.9); Red Blood Count 4.52 M/mm3 (4.2-5.4); White Blood Count 4.1 K/mm3 (4.4-11.0)
[2024-06-08 09:45] LABS: Vitamin B12 > 2000 pg/mL (211-911); Vitamin D,25 Hydroxy 67.2 ng/mL
[2024-06-08 10:30] LABS: AST(SGOT) 21 U/L (15-37); Alanine Aminotransfer ALT/SGPT 24 U/L (13-56); Alkaline Phosphatase 59 U/L (45-117); Anion Gap 6 (5-15); BUN 11 mg/dL (7-18); BUN/Creat Ratio 13.5 RATIO (10-20); Calcium,Total 9.6 mg/dL (8.5-10.1); Chloride 102 mmol/L (98-107); Cholesterol 262 mg/dL (200); Creatinine, Serum 0.81 mg/dL (0.55-1.02); EST Glomerular Filtration Rate 74 mL/min (>60); Est Glom Filt Rate - Afr Amer 89 mL/min (>60); Globulin 3.9 g/dL (2.2-4.2); Glucose 90 mg/dL (74-106); High Density Lipoprotein 117 mg/dL; Protein, Total 7.9 g/dL (6.4-8.2); Sodium Level 135 mmol/L (136-145); Triglycerides 84 mg/dL; Very Low Density Lipoprotein 17 mg/dL (5-40)
== END | disposition home or self-care (01) ==
LOC: LAB 08:19
PROVIDERS: PCP Internal Medicine; Referring Provider Internal Medicine; Visit Provider Internal Medicine
DX: Z13.220 Encounter for screening for lipoid disorders (principal); M19.90 Unspecified osteoarthritis, unspecified site; E53.8 Deficiency of other specified B group vitamins; M81.0 Age-related osteoporosis without current pathological fracture; E55.9 Vitamin D deficiency, unspecified; M48.00 Spinal stenosis, site unspecified; E78.5 Hyperlipidemia, unspecified
CPT/HCPCS: 36415; 80053; 80061; 82306; 82607; 85025

== ENCOUNTER → 2024-06-19 | Outpatient (CLI) | payer MEDICARE, SELFPAY ==
--- NOTE | 2024-06-19 13:35 | CT_ITS ---
PROCEDURE: ABDOMEN/PEL W ORAL CONT ONLY REASON FOR EXAM: Nausea and vomiting. Possible diverticulitis. TECHNIQUE: Abdomen and pelvis CT without intravenous contrast. Oral contrast was used. COMPARISON: Comparison is made with prior study dated October 07, 2023. FINDINGS: Noncontrast technique limits evaluation of the abdominal and pelvic viscera. Small pericardial effusion. Lung bases: Clear Liver: Unremarkable. Gallbladder: Unremarkable. Spleen: Unremarkable. Pancreas: Unremarkable. Adrenals: Unremarkable. Kidneys: Unremarkable. Bladder: Unremarkable. Reproductive Organs: Bilateral tubal ligation clips are seen. Bowel: Colonic diverticulosis without diverticulitis. Large amount of fecal material is seen in the colon. Appendix: Normal. Lymph nodes: No suspicious lymph node enlargement. Vasculature: Major vascular structures are unremarkable. Peritoneum / Retroperitoneum: No ascites. No free air. Bones: Degenerative changes of the spine. CT/Abdomen/Pel W ORAL Cont Only IMPRESSION: Stable small pericardial effusion. Sigmoid diverticulosis with no radiographic evidence of diverticulitis. Large amount of fecal material is seen throughout the colon. One or more dose reduction techniques were used (e.g., Automated exposure contr ol, adjustment of the mA and/or kV according to patient size, use of iterative reconstruction technique). Reading Location: [facility]
== END | disposition home or self-care (01) ==
LOC: CT 11:04
PROVIDERS: PCP Internal Medicine; Referring Provider Internal Medicine; Visit Provider Internal Medicine
DX: K57.92 Diverticulitis of intestine, part unspecified, without perforation or abscess without bleeding (principal)
CPT/HCPCS: 74176

== ENCOUNTER 2024-12-02 18:19 | Emergency (ER) | payer MEDICARE, SELFPAY ==
[2024-12-02 18:21] VITALS: BP 158/72; PULSE 77; RESP 18; TEMP 36.4; O2SAT 100; BMI 19.7
--- NOTE | 2024-12-02 18:32 | ED.RN ---
Patient reports having passed some small marble sized BMs intermit since colonoscopy. Reports feeling full
--- NOTE | 2024-12-02 19:23 | CT_ITS ---
PROCEDURE: ABDOMEN/PELVIS WITH CONTRAST 12/02/2024 REASON FOR EXAM: CONSTIPATION, RECENT COLONSCOPY TECHNIQUE: ABDOMEN/PELVIS WITH CONTRAST Coronal and Sagittal reconstruction series were provided. CONTRAST: Isovue 370 VOLUME: 100 mL One or more dose reduction techniques were used (e.g., Automated exposure control, adjustment of the mA and/or kV according to patient size, use of iterative reconstruction technique. RADIATION DOSE SUMMARY: DLP: 250 mGycm COMPARISON: CT abdomen pelvis 06/19/2024. FINDINGS: Lung bases: Stable small pericardial effusion. Liver: Normal in size without suspicious hepatic mass. The major portal veins are patent. No biliary ductal dilation. Gallbladder: No radiopaque stones within the gallbladder. Spleen: Normal in size. Pancreas: Unremarkable. Adrenals: No adrenal mass. Kidneys: No hydronephrosis or nephrolithiasis. Bladder: Distended and unremarkable. Reproductive Organs: Normal uterine size and contour. Ovaries are unremarkable. Tubal ligation clips. Bowel: Oral contrast material opacifies the small bowel. The bowel loops are nondilated. Moderate retained fecal material throughout the colon. No ascites or free air. No inflammatory mass in the expected region of the appendix. Mild distal colonic diverticulosis. Lymph nodes: No suspicious lymph node enlargement. Vasculature: Mild diffuse atherosclerotic calcifications are noted. Bones: Mild thoracolumbar spondylosis. CT/Abdomen/Pelvis WITH Contrast IMPRESSION: Constipation. No acute abdominopelvic finding. Reading Location: [id number]
--- NOTE | 2024-12-02 19:26 | EX.ED.DYSGE1 ---
HPI History of Present Illness Chief Complaint: Constipation Narrative Narrative: Patient is a 69-year-old female presenting to emergency department for constipation. Patient has a past medical history as below. She had a colonoscopy done 10 days ago. States that she has been having small hard bowel movements since then. For the past 2 to 3 days she is taking MiraLAX and senna with no improvement. She states she always has some left lower quadrant pain as well as intermittent nausea with vomiting. States this is not changed. She denies any fever or chills. Denies any urinary symptoms. PFSH PFS Medical History Abdominal discomfort History of diverticulitis Nausea alone Difficult intravenous access Post-menopausal Multiple sclerosis Non-smoker Chest pain Diverticulitis Spinal stenosis Stress fracture Rosacea Vitamin D deficiency Meningioma Osteoarthritis Osteoporosis Arthritis Medical History no medical history Home Medications ?Medication ?Instructions ?Recorded ?Last Taken ?Type calcium carbonate (Calci-Mix) 500 mg PO DAILY 02/09/20 Unknown History cholecalciferol (vitamin D3) 50 50 mcg PO DAILY 02/09/20 Unknown History mcg (2,000 unit) capsule metronidazole 0.75 % topical cream 1 applic topical DAILY 05/06/20 Unknown History baclofen 5 mg tablet 5 mg PO TID PRN 04/01/23 Unknown History mecobalamin (vitamin B12) 1,000 1,000 mcg PO 2XW 07/13/24 Unknown History mcg chewable tablet Allergy/AdvReac Type Severity Reaction Status Date / Time No Known Allergies Allergy Verified 12/02/24 18:20 Family History Other Breast cancer Diabetes Myocardial infarction Pancreatic cancer Rheumatoid arthritis Family History no significant family his Surgical History History of surgery History of cataract extraction History of selective injection of anesthetic agent around lumbar nerve root History of esophagogastroduodenoscopy (EGD) History of colonoscopy Surgical History no surgical history Social History Smoking Status: Never smoker alcohol intake: never substance use type: does not use what type of physical activity do you participate in: walking frequency: daily ROS ROS ED ROS Narrative See HPI EXAM Physical Exam Narrative Exam Narrative: Vital signs: Reviewed General: Alert and oriented. No acute distress HEENT: Head is normocephalic and atraumatic, sinuses nontender, pupils equal round and reactive. Nares are patent. Oropharynx and throat exams normal. Neck: Supple without lymphadenopathy nontender Cardiovascular: Regular rate and rhythm, no murmurs. No rubs or gallops. Normal S1 and S2 Respiratory: Clear to auscultation bilaterally. No wheezes, rales, rhonchi Abdominal: Soft and nontender. Normal bowel sounds. No guarding or rebound. Nonsurgical abdomen Extremities: No tenderness. No bruising. Normal range of motion. Normal sensation. Skin: No rash or redness. Neurological: Cranial nerves II through XII are grossly intact. Normal strength and sensation. Normal cerebellar function The rest of the physical exam is unremarkable Const Vital Signs: 12/02/24 18:21 12/02/24 20:00 Temperature 97.5 F L Temperature Source Temporal Pulse Rate 77 66 Respiratory Rate 18 16 Blood Pressure 158/72 H 129/80 H Blood Pressure Mean 100 96 Pulse Ox 100 100 Oxygen Delivery Method Room Air Room Air MDM MDM MDM Narrative Medical decision making narrative: Patient is a 69-year-old female presenting emergency department for constipation. Patient was seen and examined. Vitals are stable. Patient resting in bed comfortably, no acute distress. Given her recent colonoscopy with no significant BM since, CT ordered to rule out bowel obstruction vs partial obstruction vs ileus. CT shows constipation, no other acute findings. CBC and BMP with mild hyponatremia of 126. She does look dry on exam. Is otherwise asymptomatic from a hyponatremia standpoint. Fluid bolus given. She will be prescribed mag citrate for home for her constipation. She has close follow-up with GI. I instructed her to have her sodium level rechecked by her primary care doctor in the next 2 to 3 days as well. Patient feels comfortable plan. Patient discharged from the Emergency Department. I do not feel that the patient's evaluation reveals any acute reason for admission at this time. I instructed them to either follow-up with their primary care physician or promptly return to the Emergency Department for reevaluation should symptoms worsen or new symptoms develop. I explained what symptoms would indicate the need to return to the emergency department. Shared decision making was used. The patient voiced understanding of the treatment plan and is agreeable with it. Lab Data Attestation: I reviewed the patient's lab results. Labs: Laboratory Results - last 24 hr 12/02/24 19:39 WBC 7.7 RBC 4.62 Hgb 13.6 Hct 38.5 MCV 83.3 MCH 29.4 MCHC 35.3 RDW Std Deviation 38.0 RDW Coeff of Keysha 12.5 Plt Count 297 MPV 10.0 Immature Gran % (Auto) 0.400 Neut % (Auto) 68.2 Lymph % (Auto) 20.1 Knott % (Auto) 9.1 Eos % (Auto) 1.7 Baso % (Auto) 0.5 Absolute Neuts (auto) 5.3 Absolute Lymphs (auto) 1.55 Nucleated RBC % 0 Sodium 126 L Potassium 4.5 Chloride 89 L Carbon Dioxide 24.9 Anion Gap 12 BUN 11 Creatinine 0.69 L Estim Creat Clear Calc 51.42 Est GFR (MDRD) Non-Af 93 BUN/Creatinine Ratio 16.3 Glucose 95 Calcium 9.7 Total Bilirubin 0.37 AST 28 ALT 18 Alkaline Phosphatase 73 Total Protein 8.1 Albumin 4.8 Globulin 3.3 Albumin/Globulin Ratio 1.4 Radiography Diagnostic Testing: Clinical Impression(s) from Imaging Studies Abdomen/Pelvis CT 12/02/24 19:23 IMPRESSION: Constipation. No acute abdominopelvic finding. Reading Location: [facility] Discharge Plan Triage Chief Complaint: Constipation ED Provider: Heidy Rios Dx/Rx/DC Orders Prescriptions: No Action Calci-Mix 500 mg calcium (1,250 mg) capsule 500 mg PO DAILY cholecalciferol (vitamin D3) 50 mcg (2,000 unit) capsule 50 mcg PO DAILY metronidazole 0.75 % cream 1 applic TOPICAL DAILY baclofen 5 mg tablet 5 mg PO TID PRN mecobalamin (vitamin B12) 1,000 mcg tablet,chewable 1,000 mcg PO 2XW Primary Care Provider: Myra Crespo Referrals: Myra Crespo MD [Primary Care Provider] - Print Language: Thai
[2024-12-02 19:50] LABS: Hematocrit 38.5 % (37-47); Hemoglobin 13.6 g/dL (12.0-15.0); Immature Granulocytes Count 0.030 X10^3/uL (0.0-0.0); Mean Corp Hgb Conc 35.3 g/dL (32-36); Mean Corpuscular Volume 83.3 fL (81-99); Mean Platelet Vol. 10.0 fl (6.2-12.0); NRBC Flagged by Analyzer 0 % (0-5); Platelet Count 297 K/mm3 (150-450); RBC Distribution Width CV 12.5 % (11.6-14.6); RBC Distribution Width SD 38.0 fl (35.1-43.9); Red Blood Count 4.62 M/mm3 (4.2-5.4); White Blood Count 7.7 K/mm3 (4.4-11.0)
--- OUTSIDE RECORDS SUMMARY | 2024-12-02 19:52 | XMS RPT_ITS | CCD ---
Author Organization [facility] CliniSyut Care Team Providers Care Radar Mechanic Name Role Phone ZULEMA CRESPO Unavailable Unavailable ZULEMA CRESPO Unavailable ZULEMA CRESPO MD Admitting Unavailable ZULEMA CRESPO MD Attending Unavailable ZULEMA CRESPO MD Primary Care Unavailable Dr. Zulema Crespo Primary Care Provider Dr. Zulema Crespo Attending Provider 1(330) Dr. Zulema Crespo Referring Provider 1(330) Zulema Crespo MD Primary Care Provider 1(330 ) Dr. Zulema Crespo Primary Care Provider Dr. Zulema Crespo Attending Provider 1(330) Dr. Zulema Crespo Referring Provider 1(330) Zulema Crespo MD Primary Care Provider 1(330 ) Dr. Zulema Crespo Primary Care Provider Dr. Zulema Crespo Attending Provider 1(330) Dr. Zulema Crespo Referring Provider 1(330) Dr. Zulema Crespo Primary Care Provider Dr. Zulema Crespo Attending Provider 1(330) Dr. Zulema Crespo Referring Provider 1(330) Dr. Zulema Crespo Primary Care Provider Dr. Zulema Crespo Attending Provider Zulema Crespo MD Primary Care Provider 1(330 ) JOSE COX Referring Unavailable ZULEMA CRESPO Primary Care Unavailable Dr. Zulema Crespo MD Primary Care Provider [phone] Cherie ABAD, Dr. Renteria Attending Provider Cherie ABAD, Dr. Renteria Referring Provider Zulema Crespo Attending Unavailable Zulema Crespo Primary Care Unavailable Zulema Crespo Referring Unavailable Zulema Crespo Primary Care Unavailable Zulema Crespo Attending Unavailable Zulema Crespo Referring Unavailable Cherie, Zulema Primary Care Unavailable Zulema Crespo Attending Unavailable Cherie, Zulema Primary Care Unavailable Zulema Crespo Attending Unavailable Cherie, Zulema Primary Care Unavailable Zulema Crespo Attending Unavailable BROOKE, JOSE P Attending Unavailable ZULEMA CRESPO M Primary Care Unavailable BROOKE, JOSE P Referring Unavailable BROOKE, JOSE P Attending Unavailable ZULEMA CRESPO M Primary Care Unavailable BROOKE, JOSE P Referring Unavailable NEALEIDA MONREAL Referring Unavail able ZULEMA CRESPO M Primary Care Unavailable ZULEMA CRESPO M Primary Care Unavailable GORGUN, I OSVALDO Attending Unavailable BROOKE, JOSE P Attending Unavailable ZULEMA CRESPO M Primary Care Unavailable GORGUN, I OSVALDO Referring Unavailable ZULEMA CRESPO M Primary Care Unavailable BROOKE, JOSE P Referring Unavailable NEJuanitaHART RICHARD GURE Referring Unavail able ZULEMA CRESPO M Primary Care Unavailable BROOKE, JOSE P Attending Unavailable ZULEMA CRESPO M Primary Care Unavailable NEALEIDA MONREAL Attending Unavail able ZULEMA CRESPO Primary Care Unavailable Allergies Allergy Classification Reported Allergen(s) Allergy Type Date of Onset Reaction(s) Facility (1 source) Ivermectin Drug Allergy 04-29-2021 [facility] Work Phone: Medications Current Medications Medication Drug Class(es) Dates Sig (Normalized) Sig (Original) baclofen 5 mg oral tablet (2 sources) gamma-Aminobutyri c Acid-ergic Agonist Start: 04-01-2023 take 1 tablet by mouth three times daily as needed Baclofen 5 mg tablet Active 5 mg PO THREE TIMES A DAY as needed April 01, 2023 1:00am calcium carbonate 1250 mg oral capsule (6 sources) Start: 10-16-2020 take 1 capsule by mouth once daily calcium carbonate 500 mg calcium (1,250 mg) capsule Active 500 MG PO DAILY February 09, 2020 12:00am Calcium Carbonate (Calci-Mix) 500 mg calcium (1,250 mg) capsule (1 source) Start: 02-09-2020 take 1 capsule by mouth once daily Calcium Carbonate (Calci-Mix) 500 mg calcium (1,250 mg) capsule Active 500 mg PO DAILY February 09, 2020 12:00am CALCIUM CARBONATE/VITAMIN D2 (CALCIUM + VITAMIN D ORAL) (20 sources) CALCIUM CARBONATE/VITAMIN D2 (CALCIUM + VITAMIN D ORAL) Take by mouth. Active CALCIUM CARBONAT E/VITAMIN D2 (CALCIUM + VITAMIN D ORAL) Take by mouth. 0 Active Comment on above: Take by mouth. cholecalciferol 0.05 mg oral capsule (7 sources) Vitamin D Start: 02-09-20 take 1 capsule by mouth once daily Cholecalciferol (Vitamin D3) 50 mcg (2,000 unit) capsule Active 50 ug PO DAILY February 09, 2020 12:00am mecobalamin 1 mg chewable tablet (1 source) Start: 07-14-19 take 1 tablet by mouth two times weekly Mecobalamin (Vitamin B12) 1,000 mcg tablet,chewable Active 1000 ug PO TWICE A WEEK July 13, 2024 12:00am [place] 1-Fmz-Fvj-Fish Oil (Fish Oil) 1,200 (144-216) mg capsule (5 sources) Start: 02-09-20 [place] 3-Lnu-Tfs-Fish Oil (Fish Oil) 1,200 (144-216) mg capsule Active CAP PO February 09, 2020 10:33am Start: 02-09-2020 [place] 3-Dha-Ep a-Fish Oil (Fish Oil) 1,200 (144-216) mg capsule Active CAP PO February 08, 2020 11:00pm Start: 02-09-2020 [place] 3-Dha-Ep a-Fish Oil (Fish Oil) 1,200 (144-216) mg capsule Active CAP PO February 09, 2020 12:00am ondansetron 4 mg disintegrating oral tablet (8 sources) Serotonin-3 Receptor Antagonist Start: 09-13-2024 End: 09-19-2024 take 1 tablet by mouth every eight hours as needed for nausea and nausea ondansetron orally disintegrating (ZOFRAN ODT) 4 mg disintegrating tablet Indications: Nausea Take 1 tablet by mouth every 8 hours as needed for nausea/vomiting. 10 tablet 09/20/2024 Active Completed/Discontinued Medications Medication Drug Class(es) Dates Sig (Normalized) Sig (Original) calcium chloride 0.0014 meq/ml / potassium chloride 0.004 meq/ml / sodium chloride 0.103 meq/ml / sodium lactate 0.028 meq/ml injectable solution (1 source) Start: 11-23-2024 End: 11-23-2024 take 30 mL intravenously every hour 30 mL/hr, INTRAVENOUS, CONTINUOUS, Starting on Elvia 11/23/24 at 0930, Until Elvia 11/23/24 at 1017, Preprocedure ciprofloxacin 500 mg oral tablet (12 sources) Quinolone Antimicrobial Start: 10-07-2023 End: 05-11-2024 take 1 tablet by mouth twice daily Ciprofloxacin Hcl 500 mg tablet Discontinued 500 mg PO TWICE A DAY October 07, 2023 9:13am May 11, 2024 9:06am Start: 04-13-2022 End: 05-07-2022 take 1 tablet by mouth twice daily Ciprofloxacin Hcl 500 mg tablet Discontinued 500 mg PO TWICE A DAY April 13, 2022 1:00am May 07, 2022 9:12am Start: 12-01-2021 End: 12-11-2021 take 1 tablet by mouth twice daily Ciprofloxacin Hcl 500 mg tablet Discontinued 500 mg PO TWICE A DAY 12 02December 01, 2021 12:00am December 10, 2021 12:00am December 11, 2021 12:03am diphenhydrAMINE (1 source) Histamine-1 Receptor Antagonist Start: 11-23-2024 End: 11-23-2024 12.5-50 mg, INTRAVENOUS, DIRECTED, Starting on Elvia 11/23/24 at 1000, Until Elvia 11/23/24 at 1359, DOSING DIRECTED BY PHYSICIAN FOR PROCEDURAL SEDATION ONLY, Intraprocedure doxycycline hyclate 100 mg oral tablet (6 sources) Tetracycline-clas s Drug Start: 09-15-2021 End: 05-07-2022 take 1 tablet by mouth twice daily Doxycycline Hyclate 100 mg tablet Discontinued 100 mg PO TWICE A DAY September 15, 2021 12:00am May 07, 2022 9:13am Starting with an empty stomach, take medication with a couple of crackers and small amount of water. Do not eat or drink for 30 minutes after taking medication. estradiol 0.1 mg/ml vaginal cream (7 sources) Estrogen Start: 10-04-2018 End: 05-06-2020 Estradiol 42.5 GM cream Discontinued 1 NMA VAGINAL MOWE as needed for HORMONE October 04, 2018 12:00am May 06, 2020 9:25am Start: 10-04-2018 End: 05-06-2020 Estradiol Discontinued 1 DOS E VAGINAL MOWE October 04, 2018 12:00am May 06, 2020 9:25am 1 ml fentaNYL 0.05 mg/ml injection (1 source) Opioid Agonist Start: 11-23-2024 End: 11-23-2024 25-100 mcg, INTRAVENOUS, DIRECTED, Starting on Elvia 11/23/24 at 1000, Until Elvia 11/23/24 at 1359, DOSING DIRECTED BY PHYSICIAN FOR PROCEDURAL SEDATION ONLY, Intraprocedure metroNIDAZOLE 250 mg oral tablet (20 sources) Nitroimidazole Antimicrobial Start: 10-07-2023 End: 10-17-2023 take 1 tablet by mouth every eight hours Metronidazole 250 mg tablet Discontinued 250 mg PO Q8H 30 October 07, 2023 9:13am October 16, 2023 12:00am October 17, 2023 12:05am Start: 12-01-2021 End: 12-11-2021 take 1 tablet by mouth every eight hours Metronidazole 250 mg tablet Discontinued 250 mg PO Q8H 30 December 01, 2021 12:00am December 10, 2021 12:00am December 11, 2021 12:03am Start: 05-06-2020 Metronidazole 0.75 % cream Active 1 NMA TOPICAL DAILY May 06, 2020 1:00am Start: 12-13-2013 metroNIDAZOLE 0.75 % Topical Gel Apply to entire Rosacea-involved area(s) of face (eg, central face at cheeks, chin, nose and mid lower forehead, etc.) once to twice per day (qday to bid) as directed and tolerated. 45 g 3 12/13/2013 Active Comment on above: Apply to entire [place] cea-involved area(s) of face (eg, central face at cheeks, chin, nose and mid lower forehead, etc.) once to twice per day (qday to bid) as directed and tolerated. 5 ml midazolam 1 mg/ml injection (1 source) Benzodiazepine Start: End: 1-5 mg, INTRAVENOUS, DIRECTED, Starting on Elvia 11/23/24 at 1000, Until Eliva 11/23/24 at 1359, DOSING DIRECTED BY PHYSICIAN FOR PROCEDURAL SEDATION ONLY, Intraprocedure oxymetazoline hydrochloride 10 mg/ml topical cream (7 sources) Start: 019 End: Oxymetazoline 30 GM cream Discontinued 30 g TP DAILY October 04, 2018 12:00am May 06, 2020 9:26am predniSONE 20 mg oral tablet (7 sources) Start: End: take 1 tablet by mouth once daily Prednisone 20 mg tablet Discontinued 20 mg PO DAILY February 09, 2020 12:00am May 06, 2020 9:25am Problems Active Problems Problem Classification Problem Date Documented Da te Episodic/Chronic Abdominal pain (14 sources) Left lower quadrant pain; Translations: [Left lower quadrant pain] Onset: 08-29-2024 11-16-2022 Episodic Administrative/social admission (2 sources) Other specified counseling; Translations: [Encounter to discuss treatment options] 04-01-2023 Episodic Allergic reactions (20 sources) Atopic dermatitis; Translations: [Other atopic dermatitis] Onset: 03-28-2008 03-28-2008 Chronic Anal and rectal conditions (7 sources) Anal pain; Translations: [Other specified diseases of anus and rectum] 10-10-2018 Episodic Diverticulosis and diverticulitis (17 sources) Diverticular disease; Translations: [Diverticulosis of intestine, part unspecified, without perforation or abscess without bleeding] Onset: 06-27-2024 Chronic Immunizations and screening for infectious disease (1 source) Contact with or exposure to other viral diseases; Translations: [Exposure to COVID-19 virus] Episodic Menopausal disorders (20 sources) Atrophic vaginitis; Translations: [Postmenopausal atrophic vaginitis] Onset: 06-10-2007 Resolved: 09-20-2009 06-10-2007 Chronic Multiple sclerosis (20 sources) Multiple sclerosis; Translations: [Multiple sclerosis] Onset: 12-08-2005 04-21-2021 Chronic Nonspecific chest pain (3 sources) Chest pain; Translations: [Chest pain, unspecified] 11-11-2022 Episodic Nutritional deficiencies (11 sources) Vitamin D deficiency; Translations: [Vitamin D deficiency, unspecified] Chronic Osteoarthritis (19 sources) Arthritis; Translations: [Unspecified osteoarthritis, unspecified site] Chronic Osteoporosis (20 sources) Age-related osteoporosis without current pathological fracture; Translations: [Osteoporosis] Onset: 12-09-2011 Chronic Other and unspecified benign neoplasm (7 sources) Neoplasm of meninges; Translations: [Benign neoplasm of meninges, unspecified] 02-09-2020 Chronic Comment on above: REMOVAL IN 10/1996 Other and unspecified benign neoplasm (20 sources) Benign meningioma; Translations: [Benign neoplasm of meninges, unspecified] Onset: 12-18-2014 04-21-2021 Chronic Other and unspecified benign neoplasm (2 sources) Benign neoplasm of meninges, unspecified; Translations: [Benign neoplasm of cerebral meninges] 05-07-2022 Chronic Other ear and sense organ disorders (2 sources) Impacted cerumen; Translations: [Impacted cerumen, right ear] 05-06-2023 Episodic Other ear and sense organ disorders (1 source) Impacted cerumen, right ear; Translations: [Impacted cerumen] 05-06-2023 Episodic Other fractures (7 sources) Stress fracture; Translations: [Stress fracture, unspecified site, initial encounter for fracture] 05-06-2020 Episodic Other gastrointestinal disorders (1 source) History of diverticulitis; Translations: [Personal history of other diseases of the digestive system] 07-24-2024 Episodic Other inflammatory condition of skin (20 sources) Rosacea; Translations: [Rosacea, unspecified] Onset: 07-25-2007 07-25-2007 Chronic Other screening for suspected conditions (not mental disorders or infectious disease) (18 sources) Patient encounter status; Translations: [Encounter for screening for malignant neoplasm of colon] Onset: 06-22-2024 Episodic Residual codes; unclassified (3 sources) Menopause present; Translations: [Asymptomatic menopausal state] 07-25-2024 Episodic Residual codes; unclassified (1 source) Asymptomatic menopausal state; Translations: [Asymptomatic menopause] Onset: 09-14-2024 Episodic Skin and subcutaneous tissue infections (7 sources) Paronychia of finger; Translations: [Cellulitis of left finger] Episodic Spondylosis; intervertebral disc disorders; other back problems (20 sources) Pain in the coccyx; Translations: [Sacrococcygeal disorders, not elsewhere classified] Episodic Unclassified (2 sources) Patient encounter status 06-29-2024 Past or Other Problems Problem Classification Problem Date Documented Date Episodic/Chronic Allergic reactions (20 sources) Radiation-induced dermatosis; Translations: [Other skin changes due to chronic exposure to nonionizing radiation] Onset: 07-25-2007 02-14-2010 Episodic Benign neoplasm of uterus (20 sources) Uterine leiomyoma; Translations: [Leiomyoma of uterus, unspecified] Onset: 06-10-2007 06-10-2007 Episodic Diseases of mouth; excluding dental (20 sources) Disorder of lip; Translations: [Diseases of lips] Onset: 03-28-2008 03-28-2008 Episodic Nausea and vomiting (14 sources) Nausea; Translations: [Nausea] Onset: 07-27-2024 07-25-2024 Episodic Neoplasms of unspecified nature or uncertain behavior (20 sources) Neoplasm of uncertain behavior of skin; Translations: [Neoplasm of uncertain behavior of skin] Onset: 07-25-2007 07-25-2007 Episodic Other and unspecified benign neoplasm (20 sources) Benign neoplasm of skin of face; Translations: [Other benign neoplasm of skin of unspecified part of face] Onset: 08-31-2007 08-31-2007 Episodic Other and unspecified benign neoplasm (20 sources) Benign neoplasm of skin of trunk; Translations: [Other benign neoplasm of skin of trunk] Onset: 08-31-2007 08-31-2007 Episodic Other circulatory disease (20 sources) Telangiectasia disorder; Translations: [Nevus, non-neoplastic] Onset: 05-20-2010 05-20-2010 Episodic Other connective tissue disease (20 sources) Synovial cyst; Translations: [Other bursal cyst, unspecified site] Onset: 10-25-2007 10-25-2007 Episodic Other female genital disorders (17 sources) Dyspareunia; Translations: [Dyspareunia] Onset: 06-10-2007 Resolved: 09-20-2009 09-20-2009 Chronic Other inflammatory condition of skin (20 sources) Seborrheic dermatitis; Translations: [Seborrheic dermatitis, unspecified] Onset: 07-25-2007 07-25-2007 Episodic Other injuries and conditions due to external causes (20 sources) Open wound; Translations: [Other injury of unspecified body region, initial encounter] Onset: 09-23-2007 09-23-2007 Episodic Other injuries and conditions due to external causes (8 sources) Multiple open wounds with complication; Translations: [Unspecified multiple injuries, initial encounter] Onset: 11-02-2007 11-02-2007 Episodic Other injuries and conditions due to external causes (16 sources) Unspecified multiple injuries, initial encounter; Translations: [Open wound(s) (multiple) of unspecified site(s), complicated] Onset: 11-02-2007 11-04-2023 Episodic Other nervous system disorders (20 sources) Skin sensation disturbance; Translations: [Unspecified disturbances of skin sensation] Onset: 10-25-2007 10-25-2007 Episodic Other skin disorders (20 sources) Disorder of skin pigmentation; Translations: [Disorder of pigmentation, unspecified] Onset: 07-25-2007 07-25-2007 Episodic Other skin disorders (20 sources) Scar conditions and fibrosis of skin; Translations: [Scar conditions and fibrosis of skin] Onset: 10-25-2007 10-25-2007 Episodic Other skin disorders (20 sources) Disorder of sebaceous gland; Translations: [Other specified follicular disorders] Onset: 03-28-2008 03-28-2008 Episodic Other skin disorders (20 sources) Asteatosis cutis; Translations: [Xerosis cutis] Onset: 02-16-2010 02-16-2010 Episodic Other skin disorders (20 sources) Seborrheic keratosis; Translations: [Other seborrheic keratosis] Onset: 02-17-2011 02-17-2011 Episodic Other skin disorders (20 sources) Folliculitis; Translations: [Follicular disorder, unspecified] Onset: 02-17-2011 02-17-2011 Episodic Viral infection (20 sources) Verruca vulgaris; Translations: [Viral wart, unspecified] Onset: 02-17-2011 02-17-2011 Episodic Results Test Name Value Interpretation Reference Range Facility [id number] 11-23-2024 [id number] HNO ID: [id number] Author: KIMMY GUZMAN RN Service: ? Author Type: Registered Nurse Type: [id number] Filed: 11/23/2024 10:20 Note Text: The patient received a copy of Colonoscopy discharge instructions that contain information for how to contact the physician who performed the procedure and when to seek medical care. Normal [facility] Colonoscopyon 11-23-2024 Colonoscopy [facility] Gastrointestinal Endoscopy Patient Name: Yolanda An Procedure Date: 11/23/2024 9:22 AM Date of : 1955 Admit Type: Outpatient Age: 69 Gender: Female Note Status: Finalized Procedure: Colonoscopy Indications: Generalized abdominal pain, Slow transit constipation Providers: Jose Cox MD Patient Profile: This is a 69 year old female. Refer to note in patient chart for documentation of history and physical. Last Colonoscopy: 3 years ago. Referring Physician: Osvaldo Gordon MD (Referring MD) Medicines: Fentanyl 100 micrograms IV, Midazolam 5 mg IV, Diphenhydramine 50 mg IV Complications: No immediate complications. Estimated blood loss: Minimal. Requesting Provider: Procedure: Pre-Anesthesia Assessment: - Prior to the procedure, a History and Physical was performed, and patient medications and allergies were reviewed. The patient's tolerance of previous anesthesia was also reviewed. The risks and benefits of the procedure and the sedation options and risks were discussed with the patient. All questions were answered, and informed consent was obtained. Prior Anticoagulants: The patient has taken no anticoagulant or antiplatelet agents. ASA Grade Assessment: II - A patient with mild systemic disease. After reviewing the risks and benefits, the patient was deemed in satisfactory condition to undergo the procedure. After I obtained informed consent, the scope was passed under direct vision. Throughout the procedure, the patient's blood pressure, pulse, and oxygen saturations were monitored continuously. The Colonoscope was introduced through the anus and advanced to 3 cm into the ileum. The colonoscopy was performed without difficulty. The patient tolerated the procedure well. The quality of the bowel preparation was fair. The terminal ileum, ileocecal valve, appendiceal orifice, and rectum were photographed. Moderate Sedation: The administration of moderate sedation was initiated at 09:32. Moderate (conscious) sedation was personally administered by the endoscopist. The following parameters were monitored: oxygen saturation, heart rate, blood pressure, respiratory rate, EKG, adequacy of pulmonary ventilation, and response to care. Total physician intraservice time was 25 minutes. Findings: The perianal and digital rectal examinations were normal. A diminutive (1-3 mm) polyp was found in the descending colon. The polyp was sessile. The polyp was removed with a jumbo cold forceps. Resection and retrieval were complete. The exam was otherwise without abnormality on direct and retroflexion views. Multiple small-mouthed diverticula were found in the sigmoid colon. The sigmoid colon was moderately tortuous. Impression: - Preparation of the colon was fair. - One diminutive (1-3 mm) polyp in the descending colon, removed with a jumbo cold forceps. Resected and retrieved. - The examination was otherwise normal on direct and retroflexion views. - Diverticulosis in the sigmoid colon. - Tortuous colon. Recommendation: - Patient has a contact number available for emergencies. The signs and symptoms of potential delayed complications were discussed with the patient. Return to normal activities tomorrow. Written discharge instructions were provided to the patient. - Resume previous diet. - Continue present medications. - Await pathology results. - Repeat colonoscopy in 5 years for surveillance. - Return to referring provider at appointment to be scheduled. Procedure Code(s): --- Professional --- 33769, Colonoscopy, flexible; with biopsy, single or multiple G0500, Moderate sedation services provided by the same physician or other qualified health child care centre director performing a gastrointestinal endoscopic service that sedation supports, requiring the presence of an independent trained observer to assist in the monitoring of the patient's level of consciousness and physiological status; initial 15 minutes of intra-service time; patient age 5 years or older (additional time may be reported with 35373, as appropriate) 25685, Moderate sedation; each additional 15 minutes intraservice time Diagnosis Code(s): --- Professional --- D12.4, Benign neoplasm of descending colon R10.84, Generalized abdominal pain K59.01, Slow transit constipation K57.30, Diverticulosis of large intestine without perforation or abscess without bleeding Q43.8, Other specified congenital malformations of intestine CPT copyright 2020 [employer]. All rights reserved. The codes documented in this report are preliminary and upon cabin service agent review may be revised to meet current compliance requirements. Attending Participation: I personally performed the entire procedure. Scope In: 9:37:39 AM Scope Out: 9:57:18 AM MD Jose Montanez MD 11/23/2024 10:01:57 AM This report (more content not included)... Normal [facility] Flexible sigmoidoscopy study on 11-23-2024 [facility] Gastrointestinal Endoscopy Patient Name: Yolanda An Procedure Date: 11/23/2024 9:22 AM Date of : 1955 Admit Type: Outpatient Age: 69 Gender: Female Note Status: Finalized Procedure: Colonoscopy Indications: Generalized abdominal pain, Slow transit constipation Providers: Jose Cox MD Patient Profile: This is a 69 year old female. Refer to note in patient chart for documentation of history and physical. Last Colonoscopy: 3 years ago. Referring Physician: Osvaldo Gordon MD (Referring MD) Medicines: Fentanyl 100 micrograms IV, Midazolam 5 mg IV, Diphenhydramine 50 mg IV Complications: No immediate complications. Estimated blood loss: Minimal. Requesting Provider: Procedure: Pre-Anesthesia Assessment: - Prior to the procedure, a History and Physical was performed, and patient medications and allergies were reviewed. The patient's tolerance of previous anesthesia was also reviewed. The risks and benefits of the procedure and the sedation options and risks were discussed with the patient. All questions were answered, and informed consent was obtained. Prior Anticoagulants: The patient has taken no anticoagulant or antiplatelet agents. ASA Grade Assessment: II - A patient with mild systemic disease. After reviewing the risks and benefits, the patient was deemed in satisfactory condition to undergo the procedure. After I obtained informed consent, the scope was passed under direct vision. Throughout the procedure, the patient's blood pressure, pulse, and oxygen saturations were monitored continuously. The Colonoscope was introduced through the anus and advanced to 3 cm into the ileum. The colonoscopy was performed without difficulty. The patient tolerated the procedure well. The quality of the bowel preparation was fair. The terminal ileum, ileocecal valve, appendiceal orifice, and rectum were photographed. Moderate Sedation: The administration of moderate sedation was initiated at 09:32. Moderate (conscious) sedation was personally administered by the endoscopist. The following parameters were monitored: oxygen saturation, heart rate, blood pressure, respiratory rate, EKG, adequacy of pulmonary ventilation, and response to care. Total physician intraservice time was 25 minutes. Findings: The perianal and digital rectal examinations were normal. A diminutive (1-3 mm) polyp was found in the descending colon. The polyp was sessile. The polyp was removed with a jumbo cold forceps. Resection and retrieval were complete. The exam was otherwise without abnormality on direct and retroflexion views. Multiple small-mouthed diverticula were found in the sigmoid colon. The sigmoid colon was moderately tortuous. Impression: - Preparation of the colon was fair. - One diminutive (1-3 mm) polyp in the descending colon, removed with a jumbo cold forceps. Resected and retrieved. - The examination was otherwise normal on direct and retroflexion views. - Diverticulosis in the sigmoid colon. - Tortuous colon. Recommendation: - Patient has a contact number available for emergencies. The signs and symptoms of potential delayed complications were discussed with the patient. Return to normal activities tomorrow. Written discharge instructions were provided to the patient. - Resume previous diet. - Continue present medications. - Await pathology results. - Repeat colonoscopy in 5 years for surveillance. - Return to referring provider at appointment to be scheduled. Procedure Code(s): --- Professional --- 85505, Colonoscopy, flexible; with biopsy, single or multiple G0500, Moderate sedation services p (more content not included)... PROVATION [facility] Radiology Study observation (narrative) [facility] HISTORY PHYSICALon HISTORY PHYSICAL HNO ID: [id number] Author: JOSE COX MD Service: General Surgery Author Type: Physician Type: H&P Filed: 11/23/2024 09:19 Note Text: History of Present Illness: Yoladna Luther Friend is a 69 year old year old female referred by Dr. Cox for nausea and left sided abdominal pain for consideration of inertia testing. She has complained of LLQ abdominal pain since April 2024, occasionally accompanied by nausea, which has since resolved. She denies any issues with constipation and reports having daily bowel movements with normal stool consistency. A CT scan performed in May 2024 showed a significant amount of stool in the colon and a tortuous colon, though no formal radiology report is available. She has a history of one episode of diverticulitis, which was managed with oral antibiotics. Her last colonoscopy was approximately 2-3 years ago. 08/29/24 Dr. Cxo Subjective: Patient is status post gallbladder ultrasound which was entirely normal and then a HIDA scan with ejection fraction which showed it to be at 65%. We have tried to do some intermittent fasting with her to see if that made any difference unfortunately she is still experiencing significant nausea as well as some left upper quadrant radiating down to the left lower quadrant abdominal pain. Nausea has been fairly persistent. Plan: I am going to refer her to Dr. Gordon. I think we need a fresh set of eyes to look at this. I think she may benefit from getting a colonic inertia testing. PAST MEDICAL HISTORY PAST MEDICAL HISTORY Diagnosis Date Arthritis Epigastric pain 06/11/2016 Fracture of unspecified metatarsal bone(s), left foot, initial encounter for closed fracture Hiatal hernia 06/11/2016 Leiomyoma of uterus, unspecified Mitral valve disorders Multiple sclerosis (HCC) Dx 2001 Osteoporosis, unspecified 12/09/2011 PAST SURGICAL HISTORY PAST SURGICAL HISTORY Procedure Laterality Date COLONOSCOPY [...] lower back/hip REMV CATARACT EXTRACAP,INSERT LENS 06/2021 CURRENT MEDICATIONS Current Outpatient Medications Medication Sig Dispense Refill ondansetron orally disintegrating (ZOFRAN ODT) 4 mg disintegrating tablet Take 1 tablet by mouth every 8 hours as needed for nausea/vomiting. 10 tablet 0 metroNIDAZOLE 0.75 % Topical Gel Apply to entire Rosacea-involved area(s) of face (eg, central face at cheeks, chin, nose and mid lower forehead, etc.) once to twice per day (qday to bid) as directed and tolerated. 45 g 3 CALCIUM CARBONATE/VITAMIN D2 (CALCIUM + VITAMIN D ORAL) Take by mouth. No current facility-administered medications for this visit. ALLERGIES ALLERGIES No Known Allergies Review of Systems / PACC screen: Do you have difficulty climbing a full flight of stairs without feeling short of breath? no Do you require oxygen for your breathing or have your gone to an emergency department because of breathing problems? no Are you on dialysis or have you been told that your kidneys do not work well as they should? no Do have an implanted cardiac device (pacemaker, defibrillator etc.) that has not been checked in the last 6 months? no Have you had an organ transplant? no Have you been told that you had excessive bleeding during surgical procedures or do you take blood thinning medications other than aspirin? no Have you ever had a heart attack, heart stents/surgery, valve problems, or other heart problems? YES, Mitral Valve Disorder? Have you had a stroke, seizures, or unexplained loss of consciousness? no Do you have a neurologic condition like Parkinson's disease or multiple sclerosis? YES, MS and hx of benign meningioma Have you or a blood relative had a life-threatening reaction to anesthesia? no Do you have cirrhosis of the liver or other liver disease? no Have you had a blood clot within the past year? no Do you take insulin or other injections for diabetes? no Do you have sleep apnea or have you been told you may have sleep apnea? no Do you have other implanted devices (deep brain stimulator, spinal cord stimulator, etc.)? no Physical Exam: BP 141/74 Pulse 72 Temp 36 ?C (96.8 ?F) (Temporal) Ht 160 cm (5' 3) Wt 48.7 kg (107 lb 4.8 oz) LMP 07/31/2005 SpO2 100% BMI 19.01 kg/m? General Appearance: Well appearing, alert, in no acute distress, well-hydrated, well nourished. Lungs: Lungs clear to auscultation. No wheezing, rhonchi, rales. Heart: RRR without murmur, gallop, or rubs. No ectopy Edema: Abdomen: Normal abdominal e (more content not included)... Normal [facility] Pathology biopsy report Cristian (Tiss)on 11-23-2024 AP DISCLAIMER Normal [facility] Comment on above: Order Comment: Speci men Type: TISSUE SPECIMENOrdering Facility: [facility] Address: [address] [place] [address] Result Comment: Katherine hughes Developed Test (LDT) Disclaimer: Performance characteristics of immunohistochemical, immunofluorescent, and chromogenic in-situ hybridization tests have been determined by the performing laboratory within [facility]'s Varinder Valles Pathology and Laboratory Medicine Department ([facility], [facility], [facility], [facility], [facility], [facility], or [facility]) in a manner consistent with CLIA requirements. One or more of these tests may not have been cleared or approved by the FDA. [facility] is regulated under CLIA as qualified to perform high-complexity testing. These tests are used for clinical purposes. These should not be regarded as investigational or for research. Positive and negative controls stain appropriately. Performed By: #### 6 6121-5 ####[facility] LABCL[facility] [id number] [place] [id number] [place] CASE REPORT Normal [facility] Comment on above: Order Comment: Speci men Type: TISSUE SPECIMENOrdering Facility: [facility] Address: [address] [place] [address] Result Comment: Surg [facility] Pathology Report Case: [id number] Authorizing Provider: Jose Cox MD Collected: 11/23/2024 09:52 AM Ordering Location: Ambulatory Surgery Received: 11/23/2024 04:02 PM Pathologist: August Duvall MD Specimen: Colon, Descending, Polyp Performed By: #### 6 6121-5 ####[facility] LABIA [id number] [address] FINAL DIAGNOSIS Normal [facility] Comment on above: Order Comment: Speci men Type: TISSUE SPECIMENOrdering Facility: [facility] Address: [address] [place] [address] Result Comment: A. C olon, Descending, Polyp: - Tubular adenoma at 1541 EDT Performed By: #### 6 6121-5 ####[facility] LABIA [id number] [address] [place] FINAL PERFORMING LAB Normal [facility] Comment on above: Order Comment: Speci men Type: TISSUE SPECIMENOrdering Facility: [facility] Address: [address], [place] [address] Result Comment: Diag nostic interpretation performed at: [facility], [address] [place] [address] CLIA# [id number] [employer] Trader: Kd Goyal MD Performed By: #### 6 6121-5 ####[facility] [id number] [address] [place] GROSS DESCRIPTION [facility] Comment on above: Order Comment: Speci men Type: TISSUE SPECIMENOrdering Facility: [facility] Address: [address] [place] [address] Result Comment: A. Damir garcia, Descending, Polyp Received in formalin is one piece of chatman, soft tissue measuring 0.4 x 0.3 x 0.3 cm. Totally submitted in one cassette. [facility] November 24, 2024 2:36 AM Gross examination performed at [facility], [address] [place] [address] Performed By: #### 6 6121-5 ####[facility] LABIA [id number] [address] [place] CNOVon 10-18-2024 CNOV Office Visit (LEIGH ) FRIEND,YOLANDA Ashkan ([id number]) 1955 F Date Time Provider Department 10/18/24 2:00 PM Alayna GORDON During your visit today, we recorded the following information about you: Temperature Pulse Blood pressure Weight 96.8 degrees 72/minute 141/74 48.7 kg Height 1.6 m Alayna Gordon MD 10/19/2024 5:27 AM Signed COLORECTAL SURGERY New Patient Visit October 18, 2024 Chief Complaint: Left sided abdominal pain, nausea History of Present Illness: Yolanda Luther Friend is a 69 year old year old female referred by Dr. Cox for nausea and left sided abdominal pain for consideration of inertia testing. She has complained of LLQ abdominal pain since April 2024, occasionally accompanied by nausea, which has since resolved. She denies any issues with constipation and reports having daily bowel movements with normal stool consistency. A CT scan performed in May 2024 showed a significant amount of stool in the colon and a tortuous colon, though no formal radiology report is available. She has a history of one episode of diverticulitis, which was managed with oral antibiotics. Her last colonoscopy was approximately 2-3 years ago. 08/29/24 Dr. Cox Subjective: Patient is status post gallbladder ultrasound which was entirely normal and then a HIDA scan with ejection fraction which showed it to be at 65%. We have tried to do some intermittent fasting with her to see if that made any difference unfortunately she is still experiencing significant nausea as well as some left upper quadrant radiating down to the left lower quadrant abdominal pain. Nausea has been fairly persistent. Plan: I am going to refer her to Dr. Gordon. I think we need a fresh set of eyes to look at this. I think she may benefit from getting a colonic inertia testing. PAST MEDICAL HISTORY Diagnosis Date Arthritis Epigastric [...] lower back/hip REMV CATARACT EXTRACAP,INSERT LENS 06/2021 Current Outpatient Medications Medication Sig Dispense Refill ondansetron orally disintegrating (ZOFRAN ODT) 4 mg disintegrating tablet Take 1 tablet by mouth every 8 hours as needed for nausea/vomiting. 10 tablet 0 metroNIDAZOLE 0.75 % Topical Gel Apply to entire Rosacea-involved area(s) of face (eg, central face at cheeks, chin, nose and mid lower forehead, etc.) once to twice per day (qday to bid) as directed and tolerated. 45 g 3 CALCIUM CARBONATE/VITAMIN D2 (CALCIUM + VITAMIN D ORAL) Take by mouth. No current facility-administered medications for this visit. ALLERGIES No Known Allergies Review of Systems / PACC screen: Do you have difficulty climbing a full flight of stairs without feeling short of breath? no Do you require oxygen for your breathing or have your gone to an emergency department because of breathing problems? no Are you on dialysis or have you been told that your kidneys do not work well as they should? no Do have an implanted cardiac device (pacemaker, defibrillator etc.) that has not been checked in the last 6 months? no Have you had an organ transplant? no Have you been told that you had excessive bleeding during surgical procedures or do you take blood thinning medications other than aspirin? no Have you ever had a heart attack, heart stents/surgery, valve problems, or other heart problems? YES, Mitral Valve Disorder? Have you had a stroke, seizures, or unexplained loss of consciousness? no Do you have a neurologic condition like Parkinson's disease or multiple sclerosis? YES, MS and hx of benign meningioma Have you or a blood relative had a life-threatening reaction to anesthesia? no Do you have cirrhosis of the liver or other liver disease? no Have you had a blood clot within the past year? no Do you take insulin or other injections for diabetes? no Do you have sleep apnea or have you been told you may have sleep apnea? no Do you have other implanted devices (deep brain stimulator, spinal cord stimulator, etc.)? no Physical Exam: BP 141/74 Pulse 72 Temp 36 ?C (96.8 ?F) (Temporal) Ht 160 cm (5' 3) Wt 48.7 kg (107 lb (more content not included)... Normal [facility] HISTORY PHYSICALon HISTORY PHYSICAL HNO ID: [id number] Author: Alayna GORDON MD Service: ? Author Type: Physician Type: H&P Filed: 10/19/2024 05:27 Note Text: COLORECTAL SURGERY New Patient Visit October 18, 2024 Chief Complaint: Left sided abdominal pain, nausea History of Present Illness: Yolanda Luther Friend is a 69 year old year old female referred by Dr. Cox for nausea and left sided abdominal pain for consideration of inertia testing. She has complained of LLQ abdominal pain since April 2024, occasionally accompanied by nausea, which has since resolved. She denies any issues with constipation and reports having daily bowel movements with normal stool consistency. A CT scan performed in May 2024 showed a significant amount of stool in the colon and a tortuous colon, though no formal radiology report is available. She has a history of one episode of diverticulitis, which was managed with oral antibiotics. Her last colonoscopy was approximately 2-3 years ago. 08/29/24 Dr. Cox Subjective: Patient is status post gallbladder ultrasound which was entirely normal and then a HIDA scan with ejection fraction which showed it to be at 65%. We have tried to do some intermittent fasting with her to see if that made any difference unfortunately she is still experiencing significant nausea as well as some left upper quadrant radiating down to the left lower quadrant abdominal pain. Nausea has been fairly persistent. Plan: I am going to refer her to Dr. Gordon. I think we need a fresh set of eyes to look at this. I think she may benefit from getting a colonic inertia testing. PAST MEDICAL HISTORY Diagnosis Date Arthritis Epigastric [...] lower back/hip REMV CATARACT EXTRACAP,INSERT LENS 06/2021 Current Outpatient Medications Medication Sig Dispense Refill ondansetron orally disintegrating (ZOFRAN ODT) 4 mg disintegrating tablet Take 1 tablet by mouth every 8 hours as needed for nausea/vomiting. 10 tablet 0 metroNIDAZOLE 0.75 % Topical Gel Apply to entire Rosacea-involved area(s) of face (eg, central face at cheeks, chin, nose and mid lower forehead, etc.) once to twice per day (qday to bid) as directed and tolerated. 45 g 3 CALCIUM CARBONATE/VITAMIN D2 (CALCIUM + VITAMIN D ORAL) Take by mouth. No current facility-administered medications for this visit. ALLERGIES No Known Allergies Review of Systems / PACC screen: Do you have difficulty climbing a full flight of stairs without feeling short of breath? no Do you require oxygen for your breathing or have your gone to an emergency department because of breathing problems? no Are you on dialysis or have you been told that your kidneys do not work well as they should? no Do have an implanted cardiac device (pacemaker, defibrillator etc.) that has not been checked in the last 6 months? no Have you had an organ transplant? no Have you been told that you had excessive bleeding during surgical procedures or do you take blood thinning medications other than aspirin? no Have you ever had a heart attack, heart stents/surgery, valve problems, or other heart problems? YES, Mitral Valve Disorder? Have you had a stroke, seizures, or unexplained loss of consciousness? no Do you have a neurologic condition like Parkinson's disease or multiple sclerosis? YES, MS and hx of benign meningioma Have you or a blood relative had a life-threatening reaction to anesthesia? no Do you have cirrhosis of the liver or other liver disease? no Have you had a blood clot within the past year? no Do you take insulin or other injections for diabetes? no Do you have sleep apnea or have you been told you may have sleep apnea? no Do you have other implanted devices (deep brain stimulator, spinal cord stimulator, etc.)? no Physical Exam: BP 141/74 Pulse 72 Temp 36 ?C (96.8 ?F) (Temporal) Ht 160 cm (5' 3) Wt 48.7 kg (107 lb 4.8 oz) LMP 07/31/2005 SpO2 100% BMI 19.01 kg/m? General Appearance: Well appearing, alert, in no acute distress, well-hydrated, well nourished. Lungs: Lungs clear to auscultation. No wheezing, rhonchi, rales. Heart: RRR without murmur, gallop, or rubs. No ectopy Edema: Abdomen: Normal ab (more content not included)... Normal [facility] MR/BMS.IMBon 10-09-2024 MR/BMS.IMB [facility] [address] [place] [address] OFFICE VISIT Date of Service: 10/09/24 MR#: [id number] Acct: [id number] Name: FRIEND,YOLANDA PRESLEY Rep #: [id number] : 1955 Provider: Dr. Zulema atkins MD Age/Sex: 69/F Location: [facility] Status: Signed Intake Vital Signs 07/13/24 09:18 10/09/24 09:10 Height 5 ft 3 in 5 ft 3 in Weight: 109 lb 8 oz 106 lb 4 oz BMI 19.3 18.8 BP 139/73 H 133/76 H Blood Pressure Location Lt brachial Lt brachial Position Sitting Sitting Respiration 16 16 Pulse 73 67 Pulse Source Monitor Monitor Temp 98.2 F 98.2 F Temp Source Temporal Temporal Pulse Oximetry (%) 98 98 Oxygen Delivery Method room air room air Intake Visit Reasons: Review DEXA Results Chief Complaint: Review DEXA Results Cut Out Stitcher Required: No Accompanied by: Self Is patient in pain?: No Allergies No Known Allergies Allergy (Verified 10/09/24 09:02) Medications ???Medication ???Instructions ???Recorded ???Confirmed ???Type calcium carbonate (Calci-Mix) 500 mg PO DAILY 02/09/20 10/09/24 History cholecalciferol (vitamin D3) 50 50 mcg PO DAILY 02/09/20 10/09/24 History mcg (2,000 unit) capsule metronidazole 0.75 % topical cream 1 applic topical DAILY 05/06/20 10/09/24 History baclofen 5 mg tablet 5 mg PO TID PRN 04/01/23 10/09/24 History mecobalamin (vitamin B12) 1,000 1,000 mcg PO 2XW 07/13/24 10/09/24 History mcg chewable tablet Have you fallen in the past year?: No PFSH Medical History Abdominal discomfort History of diverticulitis Nausea alone Difficult intravenous access Post-menopausal Multiple sclerosis Non-smoker Chest pain Diverticulitis Spinal stenosis Stress fracture Rosacea Vitamin D deficiency Meningioma Osteoarthritis Osteoporosis Arthritis Surgical History History of surgery History of cataract extraction History of selective injection of anesthetic agent around lumbar nerve root History of esophagogastroduodenoscopy (EGD) History of colonoscopy Family History Other Breast cancer Diabetes Myocardial infarction Pancreatic cancer Rheumatoid arthritis Social History Smoking Status: Never smoker alcohol intake: never substance use type: does not use what type of physical activity do you participate in: walking frequency: daily HPI HPI Chief Complaint: Review DEXA Results Details: YOLANDA AN, is a 69 F who presents to the office today for follow-up to discuss results of her recent DEXA. She has a T-score, right hip, -3.5, high risk, greater than 20% over 10 years. The other areas are not as severe. She has had prior DEXA scans similar. She had previously been on Fosamax for greater than 5 years with no significant changes. Ultimately she will come off of it after our discussion years ago. We spent a fair amount of time discussing whether she should go back on the medication or not. She generally speaking has been reluctant to use medication in general but would be open to it if she thought it was worthwhile and that benefits would outweigh risk. We discussed multiple other medications such as Prolia, Evenity as well as other bisphosphonates. She does remain on calcium, vitamin D supplement. She is very physically active. Takes no routine long-term medications. She does a lot of weightbearing types of exercise and activity. She does have arthritis cervical spine, lumbar spine which generally speaking have been stable. Review of systems per chart. Physical exam. Vital signs on chart. Not performed any significant physical exam today. This was a visit to review DEXA results. ROS Const Constitutional: No body ache, chills, excessive sweating, fatigue, fever(s), frequent falls, headache(s), snoring, weakness or change in appetite Eyes Eyes: No blurry vision, change in vision, eye pain or Light sensitivity ENT ENT: No abnormal hearing, ear or mastoid pain, tinnitus, nasal congestion, headache(s), neck pain or sore throat Resp Respiratory: No cough, shortness of breath, snoring or wheezing Cardio Cardiology: No chest pain at rest, chest pain with exertion, excessive sweating, dyspnea on exertion, lightheadedness, orthopnea or palpitations Gastro GI: No abdominal pain, change in bowel habits, constipation, cramping, diarrhea, nausea/dyspepsia or vomiting Genitourinary-Female: No burning urination, painful urination, urinary incontinence or urinary frequency Musc Musculoskeletal: No abnormal gait, joint pain, back pain, limited range of motion, muscle weakness, neck pain or numbness Skin (more content not included)... [facility] 09-19-2024 [facility] Telephone (OBGYWM) FRIEND,YOLANDA Luther ([id number]) 1955 F Date Time Provider Department 09/19/24 ALEIDA LAMAR OBGYWM During your visit today, we recorded the following information about you: Marlin Triplett RN 09/19/2024 9:03 AM Signed Aleida Lamar MD P tr [employer] Please notify patient of worsening BMD in right femoral neck- she does have osteoporosis which increases risk of fractures. If she wants to discuss treatment options she can do that with her PCP or endocrinology (I can place order) Marlin Triplett RN 09/19/2024 9:03 AM Signed Left message to call office. STEVEN Leiva Tara, RN 09/19/2024 10:53 AM Addendum Pt notified and voiced understanding. Pt opts to f/u with PCP at this time. Report faxed to PCP per Pt request. Alfonso Elmore RN Allergies As of Date: 09/19/2024 (No Known Allergies) Date Reviewed: 08/29/2024 Reviewed by: Carin Ardon RN - Fully Assessed Reason for Visit: Results [95] Prescriptions as of 09/19/2024 - ondansetron orally disintegrating (ZOFRAN ODT) 4 mg disintegrating tablet Take 1 tablet by mouth every 8 hours as needed for nausea/vomiting. - metroNIDAZOLE 0.75 % Topical Gel Apply to entire Rosacea-involved area(s) of face (eg, central face at cheeks, chin, nose and mid lower forehead, etc.) once to twice per day (qday to bid) as directed and tolerated. - CALCIUM CARBONATE/VITAMIN D2 (CALCIUM + VITAMIN D ORAL) Take by mouth. Problem List As Of Date 09/19/2024 Noted Resolved Multiple sclerosis (HCC) [G35] 12/08/2005 ATROPHIC VAGINITIS [N95.2] 06/10/2007 Dyspareunia [[id number]] 06/10/2007 09/20/2009 UTERINE LEIOMYOMA NOS [D25.9] 06/10/2007 ROSACEA [L71.9] 07/25/2007 SEBORRHEIC DERMATITIS NOS [L21.9] 07/25/2007 UNCERTAIN BEHAV NEOPL SKIN [D48.5] 07/25/2007 ACTINIC DAMAGE//CHR SOLAR SKIN DAMAGE NOS [L57.*07/25/2007 SOLAR LENGINES///DYSCHROMIA OTHER [L81.9] 07/25/2007 NEVI FOREHEAD/FACE///BENIGN WALE SKIN FACE NEC [*08/31/2007 NEVUS RIGHT LOWER BACK//BENIGN WALE SKIN TRUNK [*08/31/2007 OPEN WOUND SITE NOS [T14.8XXA] 09/23/2007 SCAR AND FIBROSIS OF SKIN [L90.5] 10/25/2007 PAIN////SKIN SENSATION DISTURB [R20.9] 10/25/2007 DIGITAL MYXOID CYST///SYNOVIAL CYST NOS [M71.30]10/25/2007 OPEN WOUND SITE NOS-COMPL [T07.XXXA] 11/02/2007 CHEILITIS///DISEASES OF LIPS [K13.0] 03/28/2008 XEROSIS///SEBACEOUS GLAND DIS NEC [L73.8] 03/28/2008 DERMATITIS NOS [L25.9] 03/28/2008 DERMATITIS NEC [L25.8] 03/28/2008 OTHER ATOPIC DERMATITIS [L20.89] 03/28/2008 Postmenopausal Bleeding [N95.0] 12/14/2008 09/20/2009 Acne rosacea [L71.9] 02/16/2010 Xerosis cutis [L85.3] 02/16/2010 Actinic Damage///Sun-damaged skin [L57.8] 02/16/2010 Telangiectasia [I78.1] 05/20/2010 Other seborrheic keratosis [L82.1] 02/17/2011 Other seborrheic dermatitis [L21.8] 02/17/2011 Folliculitis [L73.9] 02/17/2011 Viral wart, component of Seborrheic Keratosis o*02/17/2011 Osteoporosis, unspecified [M81.0] 12/09/2011 Benign meningioma (HCC) [D32.9] 12/18/2014 Encounter Status:Closed by ALFONSO ELMORE on 09/19/24 Normal [facility] BD DXA - AXIAL SKELETONon BD DXA - AXIAL SKELETON * * *Final Report* * * DATE OF EXAM: Sep 14 2024 8:10AM [facility] 0804 - BD DXA - AXIAL SKELETON / PROCEDURE REASON: multiple diagnoses * * * * Physician Interpretation * * * * EXAMINATION: DXA BONE DENSITOMETRY BD DXA - AXIAL SKELETON, BD DXA TRABECLR BONE SCORE (TBS) PATIENT DEMOGRAPHICS: Age: 69 years, Gender: Female SCANNER INFORMATION: DXA Model: [employer] - [employer] C [id number] Date Scanned: 09/14/2024 8:10 AM CLINICAL HISTORY: DIAGNOSTIC Asymptomatic menopause Localized osteoporosis without current pathological fracture . RISK FACTORS FOR OSTEOPOROSIS AND ASSOCIATED FRACTURES REPORTED BY THIS PATIENT: Please refer to Bone Health Questionnaire in the EMR CURRENT THERAPY: Please refer to Bone Health Questionnaire in the EMR TECHNICAL LIMITATIONS: RESULTS: Lumbar spine (L1, L2, L3, L4): 0.760 g/cm2, T-score -2.6 , Z-score -0.4 Lumbar spine: 2019 : 0.764 g/cm2 No statistically significant change Right Femoral Neck: 0.463 g/cm2, T-score -3.5 , Z-score -1.6 Right Femoral Neck: 2019 : 0.509 g/cm2 Statistically significant decrease Right Total Hip: 0.711 g/cm2, T-score -1.9 , Z-score -0.3 Right Total Hip: 2019 : 0.745 g/cm2 No statistically significant change Left Femoral Neck: 0.460 g/cm2, T-score -3.5 , Z-score -1.6 Left Femoral Neck: 2019 : 0.485 g/cm2 No statistically significant change Left Total Hip: 0.763 g/cm2, T-score -1.5 , Z-score 0.1 Left Total Hip: 2019 : 0.793 g/cm2 No statistically significant change CHANGE IS STATISTICALLY SIGNIFICANT IN THE SPINE OR HIP IF GREATER THAN OR EQUAL TO 0.04 g/cm2 VERTEBRAL FRACTURE ASSESSMENT Not performed. TRABECULAR BONE ASSESSMENT TBS score: 1.204 Bone micro-architecture: Degraded (< or = 1.230) IMPRESSION: THE LOWEST T-SCORE IS -3.5 IN THE RIGHT AND LEFT HIPS 1) DIAGNOSIS (based on BMD alone): OSTEOPOROSIS Caution: Medical conditions other than osteoporosis may cause low bone density, such as osteomalacia or renal osteodystrophy. Clinical correlation is necessary. 2) FRACTURE RISK (Based on TBS adjusted FRAX): 10-year absolute fracture risk: - major osteoporotic fracture = 21 % - hip fracture = 8.7 % - A diagnosis of Osteoporosis, a 10 year probability of hip fracture greater than or equal to 3% or a 10 year probability of any major osteoporosis-related fracture greater than or equal to 20% should be considered for treatment. - DXA scanner generated FRAX calculations may slightly differ from online FRAX calculations due to differences in software versions. - All recommendations and calculations are to be considered as guidelines and should not replace sound clinical judgement - Caution: Fracture risk may be increased independent of BMD in patients with corticosteroid use, age greater than 65 years, or a history of prior fragility fracture. RECOMMENDATIONS: Follow-up in 2 years or as clinically indicated. Patients that are taking corticosteroids, are transplant recipients or have hyperparathyroidism should have annual follow-up. Follow-up scans should always be done on the same machine for accurate comparison. FOR MORE INFORMATION ABOUT DIAGNOSIS AND TREATMENT: [facility] [place] Center for Osteoporosis and Metabolic Bone Disease:? www.ccf.org/arthritis/osteo National Osteoporosis Foundation:? www.nof.org International Society of Clinical Densitometry www.iscd.org Vp Organizational Development: [employer] Transcribe Date/Time: Sep 16 2024 6:06A Dictated by : VICKY DONALDSON MD This examination was interpreted and the report reviewed and electronically signed by: VICKY DONALDSON MD on Sep 16 2024 6:09AM EST [id number] -3.5 Normal [facility] BD DXA TRABECLR BONE SCORE ( TBS)on 09-14-2024 BD DXA TRABECLR BONE SCORE (TBS) * * *Final Report* * * DATE OF EXAM: Sep 14 2024 8:10AM [facility] [id number] - BD DXA TRABECLR BONE SCORE (TBS) / PROCEDURE REASON: multiple diagnoses * * * * Physician Interpretation * * * * EXAMINATION: DXA BONE DENSITOMETRY BD DXA - AXIAL SKELETON, BD DXA TRABECLR BONE SCORE (TBS) PATIENT DEMOGRAPHICS: Age: 69 years, Gender: Female SCANNER INFORMATION: DXA Model: [employer] - [employer] C [id number] Date Scanned: 09/14/2024 8:10 AM CLINICAL HISTORY: DIAGNOSTIC Asymptomatic menopause Localized osteoporosis without current pathological fracture . RISK FACTORS FOR OSTEOPOROSIS AND ASSOCIATED FRACTURES REPORTED BY THIS PATIENT: Please refer to Bone Health Questionnaire in the EMR CURRENT THERAPY: Please refer to Bone Health Questionnaire in the EMR TECHNICAL LIMITATIONS: RESULTS: Lumbar spine (L1, L2, L3, L4): 0.760 g/cm2, T-score -2.6 , Z-score -0.4 Lumbar spine: 2019 : 0.764 g/cm2 No statistically significant change Right Femoral Neck: 0.463 g/cm2, T-score -3.5 , Z-score -1.6 Right Femoral Neck: 2019 : 0.509 g/cm2 Statistically significant decrease Right Total Hip: 0.711 g/cm2, T-score -1.9 , Z-score -0.3 Right Total Hip: 2019 : 0.745 g/cm2 No statistically significant change Left Femoral Neck: 0.460 g/cm2, T-score -3.5 , Z-score -1.6 Left Femoral Neck: 2019 : 0.485 g/cm2 No statistically significant change Left Total Hip: 0.763 g/cm2, T-score -1.5 , Z-score 0.1 Left Total Hip: 2019 : 0.793 g/cm2 No statistically significant change CHANGE IS STATISTICALLY SIGNIFICANT IN THE SPINE OR HIP IF GREATER THAN OR EQUAL TO 0.04 g/cm2 VERTEBRAL FRACTURE ASSESSMENT Not performed. TRABECULAR BONE ASSESSMENT TBS score: 1.204 Bone micro-architecture: Degraded (< or = 1.230) IMPRESSION: THE LOWEST T-SCORE IS -3.5 IN THE RIGHT AND LEFT HIPS 1) DIAGNOSIS (based on BMD alone): OSTEOPOROSIS Caution: Medical conditions other than osteoporosis may cause low bone density, such as osteomalacia or renal osteodystrophy. Clinical correlation is necessary. 2) FRACTURE RISK (Based on TBS adjusted FRAX): 10-year absolute fracture risk: - major osteoporotic fracture = 21 % - hip fracture = 8.7 % - A diagnosis of Osteoporosis, a 10 year probability of hip fracture greater than or equal to 3% or a 10 year probability of any major osteoporosis-related fracture greater than or equal to 20% should be considered for treatment. - DXA scanner generated FRAX calculations may slightly differ from online FRAX calculations due to differences in software versions. - All recommendations and calculations are to be considered as guidelines and should not replace sound clinical judgement - Caution: Fracture risk may be increased independent of BMD in patients with corticosteroid use, age greater than 65 years, or a history of prior fragility fracture. RECOMMENDATIONS: Follow-up in 2 years or as clinically indicated. Patients that are taking corticosteroids, are transplant recipients or have hyperparathyroidism should have annual follow-up. Follow-up scans should always be done on the same machine for accurate comparison. FOR MORE INFORMATION ABOUT DIAGNOSIS AND TREATMENT: [facility] Center for Osteoporosis and Metabolic Bone Disease:? www.ccf.org/arthritis/osteo National Osteoporosis Foundation:? www.nof.org International Society of Clinical Densitometry www.iscd.org Vp Organizational Development: POLA Transcribe Date/Time: Sep 16 2024 6:06A Dictated by : VICKY DONALDSON MD This examination was interpreted and the report reviewed and electronically signed by: VICKY DONALDSON MD on Sep 16 2024 6:09AM EST [id number] -3.5 Normal [facility] CNPMickie 09-11-2024 CNPN Telephone ([place]) FRIEND,YOLANDA Luther ([id number]) 1955 F Date Time Provider Department 09/11/24 JOSE COX During your visit today, we recorded the following information about you: Ramya Aviles LPN 09/11/2024 10:32 AM Signed Patient calling in wondering if something can be ordered for the nausea. She states the nausea and pain are not getting any better and will be traveling. She also wanted to let you know she has not heard from Dr. Prasad office for an appt yet. SUSANNA Guallpa Laurie, MA 09/12/2024 4:31 PM Signed [employer] message sent and received. Order for nausea med? [facility] Please review and advise. TYRESE Sierra Daniel P, MD 09/13/2024 10:18 AM Signed Zofran was sent to her [facility] pharmacy Jose Cox MD 09/13/2024 10:18 AM Signed Addended by: JOSE COX on: 09/13/2024 10:18 AM Modules accepted: Orders Allergies As of Date: 09/11/2024 (No Known Allergies) Date Reviewed: 08/29/2024 Reviewed by: Carin Ardon, STEVEN - Fully Assessed Reason for Visit: Patient Update [1234] Primary Visit Diagnosis:Nausea [R11.0] Order(s):ondansetron orally disintegrating (ZOFRAN ODT) 4 mg disintegrating tabletTake 1 tablet by mouth every 8 hours as needed for nausea/vomiting.Disp: 10 tabletRfl: 0 Prescriptions as of 09/13/2024 - ondansetron orally disintegrating (ZOFRAN ODT) 4 mg disintegrating tablet Take 1 tablet by mouth every 8 hours as needed for nausea/vomiting. - metroNIDAZOLE 0.75 % Topical Gel Apply to entire Rosacea-involved area(s) of face (eg, central face at cheeks, chin, nose and mid lower forehead, etc.) once to twice per day (qday to bid) as directed and tolerated. - CALCIUM CARBONATE/VITAMIN D2 (CALCIUM + VITAMIN D ORAL) Take by mouth. Problem List As Of Date 09/11/2024 Noted Resolved Multiple sclerosis (HCC) [G35] 12/08/2005 ATROPHIC VAGINITIS [N95.2] 06/10/2007 Dyspareunia [[id number]] 06/10/2007 09/20/2009 UTERINE LEIOMYOMA NOS [D25.9] 06/10/2007 ROSACEA [L71.9] 07/25/2007 SEBORRHEIC DERMATITIS NOS [L21.9] 07/25/2007 UNCERTAIN BEHAV NEOPL SKIN [D48.5] 07/25/2007 ACTINIC DAMAGE//CHR SOLAR SKIN DAMAGE NOS [L57.*07/25/2007 SOLAR LENGINES///DYSCHROMIA OTHER [L81.9] 07/25/2007 NEVI FOREHEAD/FACE///BENIGN WALE SKIN FACE NEC [*08/31/2007 NEVUS RIGHT LOWER BACK//BENIGN WALE SKIN TRUNK [*08/31/2007 OPEN WOUND SITE NOS [T14.8XXA] 09/23/2007 SCAR AND FIBROSIS OF SKIN [L90.5] 10/25/2007 PAIN////SKIN SENSATION DISTURB [R20.9] 10/25/2007 DIGITAL MYXOID CYST///SYNOVIAL CYST NOS [M71.30]10/25/2007 OPEN WOUND SITE NOS-COMPL [T07.XXXA] 11/02/2007 CHEILITIS///DISEASES OF LIPS [K13.0] 03/28/2008 XEROSIS///SEBACEOUS GLAND DIS NEC [L73.8] 03/28/2008 DERMATITIS NOS [L25.9] 03/28/2008 DERMATITIS NEC [L25.8] 03/28/2008 OTHER ATOPIC DERMATITIS [L20.89] 03/28/2008 Postmenopausal Bleeding [N95.0] 12/14/2008 09/20/2009 Acne rosacea [L71.9] 02/16/2010 Xerosis cutis [L85.3] 02/16/2010 Actinic Damage///Sun-damaged skin [L57.8] 02/16/2010 Telangiectasia [I78.1] 05/20/2010 Other seborrheic keratosis [L82.1] 02/17/2011 Other seborrheic dermatitis [L21.8] 02/17/2011 Folliculitis [L73.9] 02/17/2011 Viral wart, component of Seborrheic Keratosis o*02/17/2011 Osteoporosis, unspecified [M81.0] 12/09/2011 Benign meningioma (HCC) [D32.9] 12/18/2014 Prescriptions ordered this encounter Disp Refills Start End ONDANSETRON 4 MG DISINTEGRATING TABL* 10 t* 0 09/13/2024 Route: ORAL Sig: Take 1 tablet by mouth every 8 hours as needed for nausea/vomiting. Encounter Status:Closed by RAMYA AVILES on 09/13/24 [facility] [place] 08-29-2024 CNOV Office Visit (ANSELMO ) FRIEND,YOLANDA Luther ([id number]) 1955 F Date Time Provider Department 08/29/24 8:15 AM JOSE COX During your visit today, we recorded the following information about you: Pulse Respiration Blood pressure Weight 73/minute 14/minute 144/76 48.3 kg Carin Ardon RN 08/29/2024 9:11 AM Signed REVIEW OF SYSTEMS: General: The patient denies fatigue, denies weight loss, denies weight gain, denies feeling hot, and denies feelings of cold. Eyes: The patient denies glaucoma, notes eye injury/surgery, does not wear glasses or contacts. Ear/Nose/Throat: The patient denies allergies, denies hayfever, denies ear infections, and denies bloody noses. Cardiovascular: The patient denies chest pain, denies heart disease, denies high blood pressure,denies cardiac stent, denies prior heart attack, denies irregular heart beat, denies high cholesterol, denies poor circulation, denies heart failure, other cardiac issues, denies claudication, denies cold feet, denies peripheral arterial stent. Respiratory: The patient denies tuberculosis, denies pneumonia, denies frequent cough, denies pulmonary embolism, denies shortness of breath, and denies coughing up blood. Gastrointestinal: The patient denies difficulty swallowing, denies acid reflux, denies ulcers, denies vomiting, denies jaundice/hepatitis, denies gallbladder problems, denies black or tarry stools, denies hemorrhoids, denies bleeding from rectum, notes diverticulitis, denies constipation, denies diarrhea, denies loss of stool control, and denies hernias. Kidney/Bladder: The patient denies kidney stones, denies urine infections, and denies bloody urine. Skin: The patient denies a history of skin cancer, denies bleeding/changing moles, and denies a history of skin rash. Neurologic: The patient denies a history of epilepsy/convulsions, denies headaches, denies head/spinal injuries, and denies stroke/TIA. Psychiatric: The patient denies psychiatric medications, denies depression, and denies voices, denies substance abuse. Endocrine: The patient denies thyroid disorders, denies diabetes, and denies hormonal problems. Hematologic: The patient denies a history of bruising, denies bleeding, and denies anemia, denies blood clots. Infections: The patient denies a history of measles and mumps, denies rheumatic fever, and denies sexually transmitted diseases. Musculoskeletal: The patient notes back pain/injury, denies back problems, notes sciatica, denies knee/foot trouble, notes arthritis, or denies gout. When was patient's last Mammogram screening? 2024 Last Colonoscopy: 2022 STEVEN Mccall Daniel P, MD 08/29/2024 9:11 AM Signed Subjective: Patient is status post gallbladder ultrasound which was entirely normal and then a HIDA scan with ejection fraction which showed it to be at 65%. We have tried to do some intermittent fasting with her to see if that made any difference unfortunately she is still experiencing significant nausea as well as some left upper quadrant radiating down to the left lower quadrant abdominal pain. Nausea has been fairly persistent. No particular foods. She has had no fevers or chills. She is not complaining of any constipation or diarrhea. Objective:Blood pressure 144/76, pulse 73, resp. rate 14, weight 48.3 kg (106 lb 6.4 oz), last menstrual period 07/31/2005, SpO2 100%. Abdomen is soft flat nontender no palpable masses Assessment:Nausea (primary encounter diagnosis) Lower abdominal pain Plan: I am going to refer her to Dr. Gordon. I think we need a fresh set of eyes to look at this. I think she may benefit from getting a colonic inertia testing. She is also going to be seeing her painter and decorator apprentice for injections of her cervical area as well as her lower lumbar area. The shots usually last for almost a year. I am not sure if I am missing anything I think a second set of eyes here not to be helpful. Referring Provider: JOSE COX [[id number]] Allergies As of Date: 08/29/2024 (No Known Allergies) Date Reviewed: 08/29/2024 Reviewed by: Carin Ardon, RN - Fully Assessed Reason for Visit: Consult [173] Cmt: LLQ pain sometimes worse than others Primary Visit Diagnosis:Nausea [R11.0] Other Visit Diagnosis:Lower abdominal pain [R10.30] Prescriptions as of 08/29/2024 - metroNIDAZOLE 0.75 % Topical Gel Apply to entire Rosacea-involved area(s) of face (eg, central face at cheeks, chin, nose and mid lower forehead, etc.) once to twice per day (qday to bid) as directed and tolerated. - CALCIUM CARBONATE/VITAMIN D2 (CALCIUM + VITAMIN D ORAL) Take by mouth. Problem List As Of Date 08/29/2024 Noted Resolved Multiple sclerosis (HCC) [G35] 12/08/2005 ATROPHIC VAGINITIS [N95.2] 06/10/2007 Dyspareunia [[id number]] 06/10/2007 09/20/2009 UTERINE LEIOMYOMA NOS [D25.9] (more content not included)... Normal [facility] CNOVon 08-08-2024 CNOV Office Visit (GENSWS ) FRIEND,YOLANDA Luther ([id number]) 1955 F Date Time Provider Department 08/08/24 8:00 AM JOSE COX During your visit today, we recorded the following information about you: Temperature Pulse Weight Height 97.3 degrees 91/minute 48.5 kg 1.6 m Jose Cox MD 08/09/2024 12:08 PM Signed Subjective: Patient is status post an ultrasound and a HIDA scan with ejection fraction ultrasound of the gallbladder was normal no signs of stones or sludge HIDA scan showed normal ejection fraction. Patient is not having any further nausea still has occasional left-sided abdominal pain. She is not having any diarrhea moves her bowels daily. She is not complaining of any fevers or chills. Nor does she have any vomiting. Objective:Pulse 91, temperature 36.3 ?C (97.3 ?F), height 160 cm (5' 3), weight 48.5 kg (107 lb), last menstrual period 07/31/2005, SpO2 100%. Abdomen is soft nontender nondistended normal active bowel sounds no rebound guarding or peritoneal signs no hernias identified no palpable masses. Assessment:Nausea (primary encounter diagnosis) Lower abdominal pain Plan: At this point I do not think there is anything further I need to do. If her nausea returns then I think doing an EGD would be appropriate and if she calls I will have her get into see my nurse practitioner so that we can schedule her for an EGD Referring Provider: JOSE COX [[id number]] Allergies As of Date: 08/08/2024 (No Active Allergies) Date Reviewed: 08/08/2024 Reviewed by: Allegra Welsh, STEVEN - Fully Assessed Reason for Visit: Follow Up [171] Cmt: nausea Primary Visit Diagnosis:Nausea [R11.0] Other Visit Diagnosis:Lower abdominal pain [R10.30] Prescriptions as of 08/09/2024 - metroNIDAZOLE 0.75 % Topical Gel Apply to entire Rosacea-involved area(s) of face (eg, central face at cheeks, chin, nose and mid lower forehead, etc.) once to twice per day (qday to bid) as directed and tolerated. - CALCIUM CARBONATE/VITAMIN D2 (CALCIUM + VITAMIN D ORAL) Take by mouth. Problem List As Of Date 08/08/2024 Noted Resolved Multiple sclerosis (HCC) [G35] 12/08/2005 ATROPHIC VAGINITIS [N95.2] 06/10/2007 Dyspareunia [[id number]] 06/10/2007 09/20/2009 UTERINE LEIOMYOMA NOS [D25.9] 06/10/2007 ROSACEA [L71.9] 07/25/2007 SEBORRHEIC DERMATITIS NOS [L21.9] 07/25/2007 UNCERTAIN BEHAV NEOPL SKIN [D48.5] 07/25/2007 ACTINIC DAMAGE//CHR SOLAR SKIN DAMAGE NOS [L57.*07/25/2007 SOLAR LENGINES///DYSCHROMIA OTHER [L81.9] 07/25/2007 NEVI FOREHEAD/FACE///BENIGN WALE SKIN FACE NEC [*08/31/2007 NEVUS RIGHT LOWER BACK//BENIGN WALE SKIN TRUNK [*08/31/2007 OPEN WOUND SITE NOS [T14.8XXA] 09/23/2007 SCAR AND FIBROSIS OF SKIN [L90.5] 10/25/2007 PAIN////SKIN SENSATION DISTURB [R20.9] 10/25/2007 DIGITAL MYXOID CYST///SYNOVIAL CYST NOS [M71.30]10/25/2007 OPEN WOUND SITE NOS-COMPL [T07.XXXA] 11/02/2007 CHEILITIS///DISEASES OF LIPS [K13.0] 03/28/2008 XEROSIS///SEBACEOUS GLAND DIS NEC [L73.8] 03/28/2008 DERMATITIS NOS [L25.9] 03/28/2008 DERMATITIS NEC [L25.8] 03/28/2008 OTHER ATOPIC DERMATITIS [L20.89] 03/28/2008 Postmenopausal Bleeding [N95.0] 12/14/2008 09/20/2009 Acne rosacea [L71.9] 02/16/2010 Xerosis cutis [L85.3] 02/16/2010 Actinic Damage///Sun-damaged skin [L57.8] 02/16/2010 Telangiectasia [I78.1] 05/20/2010 Other seborrheic keratosis [L82.1] 02/17/2011 Other seborrheic dermatitis [L21.8] 02/17/2011 Folliculitis [L73.9] 02/17/2011 Viral wart, component of Seborrheic Keratosis o*02/17/2011 Osteoporosis, unspecified [M81.0] 12/09/2011 Benign meningioma (HCC) [D32.9] 12/18/2014 Encounter Status:Closed by BROOKE JOSE Luz on 08/09/24 Normal [facility] US ABD RIGHT UPPER QUADRANTo n 08-04-2024 US ABD RIGHT UPPER QUADRANT * * *Final Report* * * DATE OF EXAM: Aug 04 2024 7:38AM [facility] 1032 - US ABD RIGHT UPPER QUADRANT / PROCEDURE REASON: Nausea * * * * Physician Interpretation * * * * EXAMINATION: RIGHT UPPER QUADRANT ULTRASOUND CLINICAL HISTORY: Nausea TECHNIQUE: Sonography of the right upper quadrant was performed. Images were obtained and stored in a permanent archive. MQ: URUQ_2 COMPARISON: None. RESULT: Pancreas: Normal sonographic appearance. Portions obscured: tail Liver: Echotexture: Normal, homogeneous. Echogenicity: Normal Surface contour: Smooth Lesions: None. Biliary: No intrahepatic biliary duct dilation. CBD: 0.3 cm at the hilum. Gallbladder: Normal caliber -Contents: No cholelithiasis -Wall: Normal -Other: No pericholecystic fluid. Right Kidney: No hydronephrosis. Ascites: None. IMPRESSION: Normal sonographic appearance of the right upper quadrant. Vp Organizational Development: POL[employer] Transcribe Date/Time: Aug 04 2024 12:06P Dictated by : TARSHA CASTRO MD This examination was interpreted and the report reviewed and electronically signed by: TARSHA CASTRO MD on Aug 04 2024 12:07PM EST [id number] Normal [facility] US Abdomen RUQon 08-04-2024 IMPRESSION: Normal sonographic appearance of the right upper quadrant. Vp Organizational Development: [facility] Transcribe Date/Time: Aug 04 2024 12:06P Dictated by : TARSHA CASTRO MD This examination was interpreted and the report reviewed and electronically signed by: TARSHA CASTRO MD on Aug 04 2024 12:07PM EST DIVISION OF RADIOLOGY * * *Final Report* * * DATE OF EXAM: Aug 04 2024 7:38AM [facility] 1032 - US ABD RIGHT UPPER QUADRANT / PROCEDURE REASON: Nausea * * * * Physician Interpretation * * * * EXAMINATION: RIGHT UPPER QUADRANT ULTRASOUND CLINICAL HISTORY: Nausea TECHNIQUE: Sonography of the right upper quadrant was performed. Images were obtained and stored in a permanent archive. MQ: URUQ_2 COMPARISON: None. RESULT: Pancreas: Normal sonographic appearance. Portions obscured: tail Liver: Echotexture: Normal, homogeneous. Echogenicity: Normal Surface contour: Smooth Lesions: None. Biliary: No intrahepatic biliary duct dilation. CBD: 0.3 cm at the hilum. Gallbladder: Normal caliber -Contents: No cholelithiasis -Wall: Normal -Other: No pericholecystic fluid. Right Kidney: No hydronephrosis. Ascites: None. DIVISION OF RADIOLOGY Provider, [facility] - 08/04/2024 * * *Final Report* * * DATE OF EXAM: Aug 04 2024 7:38AM [facility] 1032 - US ABD RIGHT UPPER QUADRANT / PROCEDURE REASON: Nausea * * * * Physician Interpretation * * * * EXAMINATION: RIGHT UPPER QUADRANT ULTRASOUND CLINICAL HISTORY: Nausea TECHNIQUE: Sonography of the right upper quadrant was performed. Images were obtained and stored in a permanent archive. MQ: URUQ_2 COMPARISON: None. RESULT: Pancreas: Normal sonographic appearance. Portions obscured: tail Liver: Echotexture: Normal, homogeneous. Echogenicity: Normal Surface contour: Smooth Lesions: None. Biliary: No intrahepatic biliary duct dilation. CBD: 0.3 cm at the hilum. Gallbladder: Normal caliber -Contents: No cholelithiasis -Wall: Normal -Other: No pericholecystic fluid. Right Kidney: No hydronephrosis. Ascites: None. IMPRESSION IMPRESSION: Normal sonographic appearance of the right upper quadrant. Vp Organizational Development[facility] Transcribe Date/Time: Aug 04 2024 12:06P Dictated by : TARSHA CASTRO MD This examination was interpreted and the report reviewed and electronically signed by: TARSHA CASTRO MD on Aug 04 2024 12:07PM EST [facility] Radiology Study observation (narrative) [facility] US Abdomen RUQOrdered By: Cc f Provider on 08-04-2024 [facility] [place] Biliary ducts and Gallbla dder Views for patency of biliary structures and ejection fraction W sincalide and W radionuclide [facility] 07-27-2024 IMPRESSION: Normal gallbladder ejection fraction. Vp Organizational Development: [facility] Transcribe Date/Time: Jul 27 2024 3:16P Dictated by : ANDRÉS ORTEGA MD This examination was interpreted and the report reviewed and electronically signed by: ANDRÉS ORTEGA MD on Jul 27 2024 3:23PM [facility] RADIOLOGY * * *Final Report* * * DATE OF EXAM: Jul 27 2024 3:06PM [facility] 002[facility] HEPATOBILIARY W EF AND/OR RX / PROCEDURE REASON: Nausea * * * * Physician Interpretation * * * * EXAM: HEPATOBILIARY SCAN WITH GALLBLADDER EJECTION FRACTION HISTORY: Nausea TECHNIQUE: 5.2 mCi Tc-99m Choletec administered IV followed by 60 minutes of dynamic abdominal imaging. Next, 0.97 mcg CCK administered IV with additional imaging to calculate a gallbladder ejection fraction. CORRELATION: None available RESULTS: Liver: Prompt, homogeneous uptake with activity in the major bile ducts. Gallbladder: * Gallbladder activity present within 60 minutes, indicating cystic duct patency. * Ejection fraction: 65% (normal > 35% and < 80%) CBD: Proximal small bowel activity within 60 minutes, indicating patency. Other: No duodenogastric reflux. [facility] Provider, Fidelina Ramos [facility] - 07/27/2024 * * *Final Report* * * DATE OF EXAM: Jul 27 2024 3:06PM [facility] [address] [facility] HEPATOBILIARY W EF AND/OR RX / PROCEDURE REASON: Nausea * * * * Physician Interpretation * * * * EXAM: HEPATOBILIARY SCAN WITH GALLBLADDER EJECTION FRACTION HISTORY: Nausea TECHNIQUE: 5.2 mCi Tc-99m Choletec administered IV followed by 60 minutes of dynamic abdominal imaging. Next, 0.97 mcg CCK administered IV with additional imaging to calculate a gallbladder ejection fraction. CORRELATION: None available RESULTS: Liver: Prompt, homogeneous uptake with activity in the major bile ducts. Gallbladder: * Gallbladder activity present within 60 minutes, indicating cystic duct patency. * Ejection fraction: 65% (normal > 35% and < 80%) CBD: Proximal small bowel activity within 60 minutes, indicating patency. Other: No duodenogastric reflux. IMPRESSION IMPRESSION: Normal gallbladder ejection fraction. Vp Organizational Development: [facility] Transcribe Date/Time: Jul 27 2024 3:16P Dictated by : ANDRÉS ORTEGA MD This examination was interpreted and the report reviewed and electronically signed by: ANDRÉS ORTEGA MD on Jul 27 2024 3:23PM EST [facility] Radiology Study observation (narrative) [facility] Biliary ducts and Gallbla dder Views for patency of biliary structures and ejection fraction W sincalide and W radionuclide IVOrdered By: Ccf Provider on 07-27-2024 [facility] HEPATOBILIARY W EF AND/OR RXon 07-27-2024 [place] HEPATOBILIARY W EF AND/OR RX * * *Final Report* * * DATE OF EXAM: Jul 27 2024 3:06PM [facility] 0021 - [place] HEPATOBILIARY W EF AND/OR RX / PROCEDURE REASON: Nausea * * * * Physician Interpretation * * * * EXAM: HEPATOBILIARY SCAN WITH GALLBLADDER EJECTION FRACTION HISTORY: Nausea TECHNIQUE: 5.2 mCi Tc-99m Choletec administered IV followed by 60 minutes of dynamic abdominal imaging. Next, 0.97 mcg CCK administered IV with additional imaging to calculate a gallbladder ejection fraction. CORRELATION: None available RESULTS: Liver: Prompt, homogeneous uptake with activity in the major bile ducts. Gallbladder: * Gallbladder activity present within 60 minutes, indicating cystic duct patency. * Ejection fraction: 65% (normal > 35% and < 80%) CBD: Proximal small bowel activity within 60 minutes, indicating patency. Other: No duodenogastric reflux. IMPRESSION: Normal gallbladder ejection fraction. Vp Organizational Development: [facility] Transcribe Date/Time: Jul 27 2024 3:16P Dictated by : ANDRÉS ORTEGA MD This examination was interpreted and the report reviewed and electronically signed by: ANDRÉS ORTEGA MD on Jul 27 2024 3:23PM EST [id number] [facility] 07-26-2024 [facility] Telephone ([facility]) FRIEND,YOLANDA Luther ([id number]) 1955 F Date Time Provider Department 07/26/24 BREANNE ALVAREZ During your visit today, we recorded the following information about you: Breanne Alvarez, RT(R) 07/26/2024 3:26 PM Signed Spoke with patient, confirmed appointment and prep Allergies As of Date: 07/26/2024 (No Active Allergies) Date Reviewed: 07/25/2024 Reviewed by: Anny Townsend MA - Fully Assessed Reason for Visit: Radiology NM [[id number]] Prescriptions as of 07/26/2024 - metroNIDAZOLE 0.75 % Topical Gel Apply to entire Rosacea-involved area(s) of face (eg, central face at cheeks, chin, nose and mid lower forehead, etc.) once to twice per day (qday to bid) as directed and tolerated. - CALCIUM CARBONATE/VITAMIN D2 (CALCIUM + VITAMIN D ORAL) Take by mouth. Problem List As Of Date 07/26/2024 Noted Resolved Multiple sclerosis (HCC) [G35] 12/08/2005 ATROPHIC VAGINITIS [N95.2] 06/10/2007 Dyspareunia [CTX3355] 06/10/2007 09/20/2009 UTERINE LEIOMYOMA NOS [D25.9] 06/10/2007 ROSACEA [L71.9] 07/25/2007 SEBORRHEIC DERMATITIS NOS [L21.9] 07/25/2007 UNCERTAIN BEHAV NEOPL SKIN [D48.5] 07/25/2007 ACTINIC DAMAGE//CHR SOLAR SKIN DAMAGE NOS [L57.*07/25/2007 SOLAR LENGINES///DYSCHROMIA OTHER [L81.9] 07/25/2007 NEVI FOREHEAD/FACE///BENIGN WALE SKIN FACE NEC [*08/31/2007 NEVUS RIGHT LOWER BACK//BENIGN WALE SKIN TRUNK [*08/31/2007 OPEN WOUND SITE NOS [T14.8XXA] 09/23/2007 SCAR AND FIBROSIS OF SKIN [L90.5] 10/25/2007 PAIN////SKIN SENSATION DISTURB [R20.9] 10/25/2007 DIGITAL MYXOID CYST///SYNOVIAL CYST NOS [M71.30]10/25/2007 OPEN WOUND SITE NOS-COMPL [T07.XXXA] 11/02/2007 CHEILITIS///DISEASES OF LIPS [K13.0] 03/28/2008 XEROSIS///SEBACEOUS GLAND DIS NEC [L73.8] 03/28/2008 DERMATITIS NOS [L25.9] 03/28/2008 DERMATITIS NEC [L25.8] 03/28/2008 OTHER ATOPIC DERMATITIS [L20.89] 03/28/2008 Postmenopausal Bleeding [N95.0] 12/14/2008 09/20/2009 Acne rosacea [L71.9] 02/16/2010 Xerosis cutis [L85.3] 02/16/2010 Actinic Damage///Sun-damaged skin [L57.8] 02/16/2010 Telangiectasia [I78.1] 05/20/2010 Other seborrheic keratosis [L82.1] 02/17/2011 Other seborrheic dermatitis [L21.8] 02/17/2011 Folliculitis [L73.9] 02/17/2011 Viral wart, component of Seborrheic Keratosis o*02/17/2011 Osteoporosis, unspecified [M81.0] 12/09/2011 Benign meningioma (HCC) [D32.9] 12/18/2014 Encounter Status:Closed by BREANNE ALVAREZ on 07/26/24 [facility] 07-25-2024 [facility] Office Visit (OBGYWM ) FRIEND,YOLANDA Luther ([id number]) 1955 F Date Time Provider Department 07/25/24 11:20 AM ALEIDA LAMAR OBJEFF During your visit today, we recorded the following information about you: Blood pressure Weight Height 126/74 48.5 kg 1.6 m Aleida Lamar MD 07/25/2024 1:10 PM Signed Pathologist Assistant offered: Patient declines. Lui is a 69 year old who presents for an annual gynecologic exam without complaints. Having some GI issues and nausea- working with dr. Cox. Going to [place] for river cruise- celebrating 50th anniversary. Postmenopausal: Yes Sexually active: Yes Last pap smear: 2018 Bothersome pelvic pain: No Last mammogram: 2024 normal History of abnormal mammogram: No Sexually active: Yes Pain with intercourse: No Postcoital bleeding: No Hot flashes: No Night sweats: No OB History Gravida2 Para2 Term0 Preterm0 AB0 Living2 SAB0 IAB0 Ectopic0 Multiple0 Live Births0 Problem Relation Age of Onset Cancer Mother pancreatic Arthritis Father Rheumatoid Diabetes Daughter Type 1 DM Heart Paternal Grandfather Heart Paternal Uncle Prostate Cancer Brother SOCIAL HISTORY Social History Tobacco Use Smoking status: Never Smokeless tobacco: Never Vaping Use Vaping status: Never Used Substance Use Topics Alcohol use: No Drug use: No REVIEW OF SYSTEMS Abdomen: No bloating, early satiety, indigestion, or increased flatulence. Bladder: No dysuria, gross hematuria, urinary frequency, urinary urgency, or incontinence Breast: No breast lumps, nipple d/c, overlying skin changes, redness or skin retraction Allergies and current medication updated:Yes SENSITIVE EXAM: The sensitive examination was discussed with the Patient or Patient's Authorized Psychiatric Nurse. As applicable, any other physician, advance practice provider, medical student, or other health professional student that will be observing or involved in the sensitive examination for educational or training purposes was discussed with the Patient or Authorized Psychiatric Nurse. The Patient or Authorized Psychiatric Nurse has agreed to proceed with the sensitive examination. (Sensitive examination includes inspection and/or palpation of the breasts, pelvis, prostate and anorectal regions). EXAM: BP 126/74 Ht 5' 3 (1.60m) Wt 107 lb (48.5kg) LMP 07/31/2005 BMI 18.96 kg/(m2). GENERAL: pleasant, female in no apparent distress HEENT: Normocephalic, atraumatic, mucus membranes moist, and no lesions NECK: Supple, full range of motion, no adenopathy, and thyroid normal DERMATOLOGY: Normal, without lesions, non-icteric, and non-hirsute BREAST: soft, non-tender, symmetric, no dominant mass, normal nipple-areolar complex, no lymphadenopathy, and no nipple discharge CHEST: Normal inspiratory effort ABDOMEN: soft, non-tender, and no masses PELVIC: external genitalia normal, normal Bartholin's glands, urethra, Califon's glands, no vulvar lesions, no cervical lesions, [...] exercise and routine health maintenance exams reviewed. Colon cancer screening: up to date with screening BMD: ordered 2) Follow up one year or sooner as needed Aleida Jacobsen MD Allergies As of Date: 07/25/2024 (No Active Allergies) Date Reviewed: 07/25/2024 Reviewed by: Anny Townsend MA - Fully Assessed Reason for Visit: Yearly Exam [187] Primary Visit Diagnosis:Encounter for gynecological examination (general) (routine) without abnormal findings [Z01.419] Other Visit Diagnoses:Encounter for screening mammogram for breast cancer [Z12.31] Asymptomatic menopause [Z78.0] Localized osteoporosis without current pathological fracture [M81.6] Order(s):JANEY SCREENING W JOE [[id number]] Order #: [id number] FUTURE DXA-AXIAL SKELETON [[id number]] Order #: [id number] FUTURE DXA-AXIAL SKELETON [[id number]] Order #: [id number] FUTURE BD DXA TRABECULAR BONE SCORE (TBS) [[id number]] Order #: [id number] FUTURE Prescriptions as of 07/25/2024 - metroNIDAZOLE 0.75 % Topical Gel Apply to entire Rosacea-involved area(s) of face (eg, central face at cheeks, chin, nose and mid lower forehead, etc.) once to twice per day (qday to bid) as directed and tolerated. - CALCIUM CARBONATE/VITAMIN D2 (CALCIUM + VITAMIN D ORAL) Take by mouth. Problem List As Of Date 07/25/2024 Noted Resolved Multiple sclerosis (HCC) [G35] 12/08/2005 ATROPHIC VAGINITIS [N95.2] 06/10 (more content not included)... Normal [facility] Office Visit (GENSWS ) FRIEND,YOLANDA Luther ([id number]) 1955 F Date Time Provider Department 07/25/24 9:45 AM JOSE COX During your visit today, we recorded the following information about you: Pulse Respiration Blood pressure Weight 76/minute 16/minute 138/70 49 kg Jose Cox MD 07/25/2024 1:23 PM Signed HISTORY AND PHYSICAL Yolanda Luther Friend 1955 REFERRING PHYSICIAN: Zulema Crespo MD CHIEF COMPLAINT: Consult HPI: The patient is a 69 year old female with a complaint of nausea and lower abdominal pain. Patient states that she eats relatively healthy. Recently she has been having some difficulty moving her bowels and normally she moves her bowels daily. She recently had a CT scan of the abdomen and pelvis which really only showed a lot of stool in the colon but no evidence of acute diverticulitis on the scan. The nausea has been fairly persistent. Particularly with any foods. She has not been complaining of any back pain. She did have a colonoscopy in 2022 with a tubular adenoma found in the sigmoid colon but otherwise was negative. 5-year follow-up was recommended. The patient is being seen by me today at the request of Dr. Zulema Crespo MD for my opinion and advice regarding Nausea (primary encounter diagnosis) Lower abdominal pain. PAST MEDICAL HISTORY Diagnosis Date Arthritis Epigastric [...] lower back/hip REMV CATARACT EXTRACAP,INSERT LENS 06/2021 Current Outpatient Medications Medication Sig metroNIDAZOLE 0.75 % Topical Gel Apply to entire Rosacea-involved area(s) of face (eg, central face at cheeks, chin, nose and mid lower forehead, etc.) once to twice per day (qday to bid) as directed and tolerated. CALCIUM CARBONATE/VITAMIN D2 (CALCIUM + VITAMIN D ORAL) Take by mouth. No current facility-administered medications for this visit. ALLERGIES: Patient has no active allergies. PERSONAL HISTORY: Social History Tobacco Use Smoking status: Never Smokeless tobacco: Never Vaping Use Vaping status: Never Used Substance Use Topics Alcohol use: No Drug use: No FAMILY HISTORY: FAMILY HISTORY Problem Relation Age of Onset Cancer Mother pancreatic Arthritis Father Rheumatoid Diabetes Daughter Type 1 DM Heart Paternal Grandfather Heart Paternal Uncle Prostate Cancer Brother REVIEW OF SYMPTOMS: The review of systems data was entered by the nurse and reviewed by me There are no exam notes on file for this visit. PHYSICAL EXAMINATION: General: The patient is 69 year old female, well nourished, well hydrated in no acute distress. The patient is oriented to time, place, and person. VITALS: Blood pressure 138/70, pulse 76, resp. rate 16, weight 49 kg (108 lb), last menstrual period 07/31/2005. HEENT: Normal cephalic, ataumatic, pupils are equally round, sclera are anicteric, mucous membranes are moist, oropharynx is clear. Neck has no masses, asymmetry or lymphadenopathy. Thyroid is unremarkable. Respiratory: Clear to auscultation and percussion. Normal respiratory excursion and pattern. Cardiac: Examination is regular rate and rhythm. Abdominal exam: Soft, nontender, with no palpable masses. No hepatosplenomegaly. No palpable hernias. Rectal exam: exam deferred Extremities: no clubbing, cyanosis or edema. No adenopathy. Other: LABORATORY VALUES: As Noted RADIOLOGIC STUDIES: As Noted Assessment IMPRESSION: Nausea (primary encounter diagnosis) Lower abdominal pain PLAN: I am going to obtain a gallbladder ultrasound and a HIDA scan with ejection fraction on her. If this is negative then I will probably refer her to colorectal surgery to get a colonic inertia testing done. I am not really sure repeating colonoscopy is going to yield any new revelations from when it was done in 2013. She is not having any symptoms of diarrhea and I do not think colitis is something that I am too worried about here. Diagnoses: (R11.0) Nausea (primary encounter diagnosis) (R10.30) Lower abdominal pain A letter was sent to Dr. Zulema Crespo MD indicating the above finding for this pat (more content not included)... Normal [facility]2024 [facility] FRIEND,YOLANDA Luther ([id number]) 1955 F Date Time Provider Department 07/24/24 JOSE COX During your visit today, we recorded the following information about you: Ramya Aviles LPN 07/24/2024 8:34 AM Signed Patient calling in requesting to see Dr. Cox ONLY. Patient states Dr. Crespo told her to call surgery for her ongoing problems on epigastric pain, nausea and not going to the bathroom regularly. She states she will not go to the ER and does not want to see any of the other doctors in [place] office. Let patient know I don't know how far Dr. Cox is booking out and she may have to see someone else if she does not want to wait. Patient states she had scans and office visits at [facility] recently if they are able to be pulled [facility]. SUSANNA Guallpa Deborah, STEVEN 07/24/2024 9:58 AM Signed Spoke with patient. Her PCP DR Crespo office asked her to go straight to a surgeon C/O to LLQ and mid abdominal pain below umbilicus. Feels nausea and queasy a lot of the time. No vomiting. 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 Appt made per her request Will call [facility] office to make sure they have received records for appt tomorrow 07/25/24 Message routed to ZENAIDA Bermeo AND DR Cox to inform. Allergies As of Date: 07/24/2024 (No Active Allergies) Date Reviewed: 05/11/2022 Reviewed by: Anny Townsend MA - Fully Assessed Prescriptions as of 07/28/2024 - metroNIDAZOLE 0.75 % Topical Gel Apply to entire Rosacea-involved area(s) of face (eg, central face at cheeks, chin, nose and mid lower forehead, etc.) once to twice per day (qday to bid) as directed and tolerated. - CALCIUM CARBONATE/VITAMIN D2 (CALCIUM + VITAMIN D ORAL) Take by mouth. Problem List As Of Date 07/24/2024 Noted Resolved Multiple sclerosis (HCC) [G35] 12/08/2005 ATROPHIC VAGINITIS [N95.2] 06/10/2007 Dyspareunia [ZOT5022] 06/10/2007 09/20/2009 UTERINE LEIOMYOMA NOS [D25.9] 06/10/2007 ROSACEA [L71.9] 07/25/2007 SEBORRHEIC DERMATITIS NOS [L21.9] 07/25/2007 UNCERTAIN BEHAV NEOPL SKIN [D48.5] 07/25/2007 ACTINIC DAMAGE//CHR SOLAR SKIN DAMAGE NOS [L57.*07/25/2007 SOLAR LENGINES///DYSCHROMIA OTHER [L81.9] 07/25/2007 NEVI FOREHEAD/FACE///BENIGN WALE SKIN FACE NEC [*08/31/2007 NEVUS RIGHT LOWER BACK//BENIGN WALE SKIN TRUNK [*08/31/2007 OPEN WOUND SITE NOS [T14.8XXA] 09/23/2007 SCAR AND FIBROSIS OF SKIN [L90.5] 10/25/2007 PAIN////SKIN SENSATION DISTURB [R20.9] 10/25/2007 DIGITAL MYXOID CYST///SYNOVIAL CYST NOS [M71.30]10/25/2007 OPEN WOUND SITE NOS-COMPL [T07.XXXA] 11/02/2007 CHEILITIS///DISEASES OF LIPS [K13.0] 03/28/2008 XEROSIS///SEBACEOUS GLAND DIS NEC [L73.8] 03/28/2008 DERMATITIS NOS [L25.9] 03/28/2008 DERMATITIS NEC [L25.8] 03/28/2008 OTHER ATOPIC DERMATITIS [L20.89] 03/28/2008 Postmenopausal Bleeding [N95.0] 12/14/2008 09/20/2009 Acne rosacea [L71.9] 02/16/2010 Xerosis cutis [L85.3] 02/16/2010 Actinic Damage///Sun-damaged skin [L57.8] 02/16/2010 Telangiectasia [I78.1] 05/20/2010 Other seborrheic keratosis [L82.1] 02/17/2011 Other seborrheic dermatitis [L21.8] 02/17/2011 Folliculitis [L73.9] 02/17/2011 Viral wart, component of Seborrheic Keratosis o*02/17/2011 Osteoporosis, unspecified [M81.0] 12/09/2011 Benign meningioma (HCC) [D32.9] 12/18/2014 Encounter Status:Closed by RAMYA AVILES on 07/28/24 [facility] MR/BMS.Samantha 07-13-2024 MR/BMS.KEM [facility] [address] [place] [address] OFFICE VISIT Date of Service: 07/13/24 MR#: [id number] Acct: [id number] Name: FRIENDYOLANDA Rep #: [id number] : 1955 Provider: Dr. Zulema atkins MD Age/Sex: 69/F Location: [facility] Status: Signed Intake Vital Signs 05/11/24 08:07 07/13/24 09:18 Height 5 ft 3 in 5 ft 3 in Weight: 113 lb 4 oz 109 lb 8 oz BMI 20.0 19.3 BP 136/80 H 139/73 H Blood Pressure Location Rt brachial Lt brachial Position Sitting Sitting Respiration 16 16 Pulse 70 73 Pulse Source Monitor Monitor Temp 98.4 F 98.2 F Temp Source Temporal Temporal Pulse Oximetry (%) 99 98 Oxygen Delivery Method room air room air Intake Visit Reasons: Abdominal pain Chief Complaint: Abdominal Pain Cut Out Stitcher Required: No Accompanied by: Self Is patient in pain?: Yes (abdominal pain) Pain scale (1-10): 3 Allergies No Known Allergies Allergy (Verified 07/13/24 09:08) Medications ???Medication ???Instructions ???Recorded ???Confirmed ???Type calcium carbonate (Calci-Mix) 500 mg PO DAILY 02/09/20 07/13/24 History cholecalciferol (vitamin D3) 50 50 mcg PO DAILY 02/09/20 07/13/24 History mcg (2,000 unit) capsule metronidazole 0.75 % topical cream 1 applic topical DAILY 05/06/20 07/13/24 History baclofen 5 mg tablet 5 mg PO TID PRN 04/01/23 07/13/24 History mecobalamin (vitamin B12) 1,000 1,000 mcg PO 2XW 07/13/24 07/13/24 History mcg chewable tablet Have you fallen in the past year?: No PFSH Medical History (Updated 07/13/24 @ 10:[address] Zulema Crespo MD) Nausea alone Difficult intravenous access Post-menopausal Multiple sclerosis Non-smoker Chest pain Diverticulitis Spinal stenosis Stress fracture Rosacea Vitamin D deficiency Meningioma Osteoarthritis Osteoporosis Arthritis Surgical History History of surgery History of cataract extraction History of selective injection of anesthetic agent around lumbar nerve root History of esophagogastroduodenoscopy (EGD) History of colonoscopy Family History Other Breast cancer Diabetes Myocardial infarction Pancreatic cancer Rheumatoid arthritis Social History Smoking Status: Never smoker alcohol intake: never substance use type: does not use what type of physical activity do you participate in: walking frequency: daily HPI HPI Chief Complaint: Abdominal Pain Details: YOLANDA AN, is a 69 F who presents to the office today for an acute care follow-up visit. 69-year-old female is generally very healthy. She does not take any routine regular prescription medications. Overall eats a very good high-quality diet which has been reviewed in detail in the past. Recently, had difficulty with bowel movements. She has not really had problems over the years in any way that way. She does have a history of diverticulitis and has diverticulosis. Last colonoscopy was 2022, Dr. Varinder Vergara. This showed redundant colon, diverticulosis without any other bothersome findings. There was a recommended 5-year follow-up. She develop constipation symptoms, left lower abdominal pain recently, that culminated in us obtaining labs as per chart and CT scan abdomen and pelvis. She had a lot of stool in the colon, but no evidence of acute diverticulitis was seen on the scan. No other acute abnormalities in the abdomen to account for any discomfort. She used enemas and ultimately was able to get things to move and she has now for the last approximately week, had regular bowel movements daily, back to her usual although she is still having discomfort at times in the left lower abdomen sometimes feeling this into the groin area as well. Different than any back pain that she has had or leg pain originating from the back. However she feels that when she does press into the left lower abdomen it really is not tender per se. The nausea has probably been equally as bothersome for her at times. She states however yesterday was somewhat better and today so far she is doing well that way. She wonders if it was some type of infection? On the 1 hand does not necessarily want to undergo any additional testing or colonoscopy etc. but on the other hand feels that she does not want to have to live with this degree of symptoms that she had been having. Review of systems per chart. Physical exam. Vital signs on chart. Sclera are clear. No cervical or supraclavicular lymph nodes enlarged or tender. No clear thyromegaly. No thyroid nodules readily palpable. Lungs are without wheeze, rhonchi, rales. No E/A changes are heard. Heart is regular. Not tachycardic. No clear murmur, (more content not included)... Normal [facility] DBT Breast - bilateral flora contreras 06-29-2024 IMPRESSION: There is no mammographic evidence of malignancy in either breast. Routine screening mammogram is recommended. Annual mammogram will be due in 1 year. BI-RADS Category 1: Negative RISK: Based on the Tyrer-Cuzick (TC) risk assessment model, this patient has a 4.4% lifetime risk of developing breast cancer, meaning they are at average risk for developing breast cancer. However, this is only an estimate based on available history provided on the patient's questionnaire. We encourage all patients to talk with their providers about these results, further recommendations for managing breast health, and appropriate supplemental screening options if the patient has dense breast tissue. Interpreting Radiologist: Skyla Parnell M.D. Electronically signed on: 06/29/2024 Vp Organizational Development: ANN MARIE [employer] Date/Time: Jun 29 2024 7:40A Dictated by: SKYLA PARNELL MD This examination was interpreted and the report reviewed and electronically signed by: SKYLA PARNELL MD on Jun 29 2024 2:56PM [facility] DIVISION OF RADIOLOGY * * *Final Report* * * DATE OF EXAM: Jun 29 2024 8:08AM [facility] 0582 - JANEY SCREENING W JOE / PROCEDURE REASON: Encounter for screening mammogram for malignant neoplasm of breast * * * * Physician Interpretation * * * * RESULT: [address] [address] [place] [address] #[id number] - JANEY SCREENING W JOE HISTORY: 69 year-old patient seen for screening. Patient is asymptomatic in both breasts. Patient states no personal history of breast cancer. The patient has a family history of breast cancer. COMPARISON STUDIES: The present examination has been compared to prior imaging studies dated 03/07/2019 (mammogram), 04/08/2020 (mammogram), 05/06/2021 (mammogram), 06/05/2022 (mammogram) and 06/15/2023 (mammogram). MAMMOGRAM TECHNIQUE: The study was acquired using full field digital technology and interpreted from soft copy. Digital Breast Tomosynthesis (DBT) images were obtained and used to assist in the interpretation of this examination. MAMMOGRAM FINDINGS: The breasts are heterogeneously dense, which may obscure small masses. No suspicious masses, calcifications or other abnormalities are seen in either breast. There are no significant interval changes. DIVISION OF RADIOLOGY Provider, [facility] - 06/29/2024 * * *Final Report* * * DATE OF EXAM: Jun 29 2024 8:08AM [facility] 0582 - [facility] SCREENING W JOE / PROCEDURE REASON: Encounter for screening mammogram for malignant neoplasm of breast * * * * Physician Interpretation * * * * RESULT: [place] [address] #[id number] - JANEY SCREENING W JOE HISTORY: 69 year-old patient seen for screening. Patient is asymptomatic in both breasts. Patient states no personal history of breast cancer. The patient has a family history of breast cancer. COMPARISON STUDIES: The present examination has been compared to prior imaging studies dated 03/07/2019 (mammogram), 04/08/2020 (mammogram), 05/06/2021 (mammogram), 06/05/2022 (mammogram) and 06/15/2023 (mammogram). MAMMOGRAM TECHNIQUE: The study was acquired using full field digital technology and interpreted from soft copy. Digital Breast Tomosynthesis (DBT) images were obtained and used to assist in the interpretation of this examination. MAMMOGRAM FINDINGS: The breasts are heterogeneously dense, which may obscure small masses. No suspicious masses, calcifications or other abnormalities are seen in either breast. There are no significant interval changes. IMPRESSION IMPRESSION: There is no mammographic evidence of malignancy in either breast. Routine screening mammogram is recommended. Annual mammogram will be due in 1 year. BI-RADS Category 1: Negative RISK: Based on the Tyrer-Cuzick (TC) risk assessment model, this patient has a 4.4% lifetime risk of developing breast cancer, meaning they are at average risk for developing breast cancer. However, this is only an estimate based on available history provided on the patient's questionnaire. We encourage all patients to talk with their providers about these results, further recommendations for managing breast health, and appropriate supplemental screening options if the patient has dense breast tissue. Interpreting Radiologist: Skyla Parnell M.D. Electronically signed on: 06/29/2024 Vp Organizational Development: ANN MARIE [employer] Date/Time: Jun 29 2024 7:40A Dictated by: SKYLA PARNELL MD This examination was interpreted and the report reviewed and electronically signed by: SKYLA PARNELL MD on Jun 29 2024 2:56PM EST [facility] Radiology Study observation (narrative) [facility] DBT Breast - bilateral scree ningOrdered By: [facility] Provider on 06-29-2024 [facility] JANEY SCREENING W TOMOon 06-29 JANEY SCREENING W JOE * * *Final Report* * * DATE OF EXAM: Jun 29 2024 8:08AM [facility] 0582 - JANEY SCREENING W JOE / PROCEDURE REASON: Encounter for screening mammogram for malignant neoplasm of breast * * * * Physician Interpretation * * * * RESULT: [place] [address] #[id number] - JANEY SCREENING W JOE HISTORY: 69 year-old patient seen for screening. Patient is asymptomatic in both breasts. Patient states no personal history of breast cancer. The patient has a family history of breast cancer. COMPARISON STUDIES: The present examination has been compared to prior imaging studies dated 03/07/2019 (mammogram), 04/08/2020 (mammogram), 05/06/2021 (mammogram), 06/05/2022 (mammogram) and 06/15/2023 (mammogram). MAMMOGRAM TECHNIQUE: The study was acquired using full field digital technology and interpreted from soft copy. Digital Breast Tomosynthesis (DBT) images were obtained and used to assist in the interpretation of this examination. MAMMOGRAM FINDINGS: The breasts are heterogeneously dense, which may obscure small masses. No suspicious masses, calcifications or other abnormalities are seen in either breast. There are no significant interval changes. IMPRESSION: There is no mammographic evidence of malignancy in either breast. Routine screening mammogram is recommended. Annual mammogram will be due in 1 year. BI-RADS Category 1: Negative RISK: Based on the Tyrer-Cuzick (TC) risk assessment model, this patient has a 4.4% lifetime risk of developing breast cancer, meaning they are at average risk for developing breast cancer. However, this is only an estimate based on available history provided on the patient's questionnaire. We encourage all patients to talk with their providers about these results, further recommendations for managing breast health, and appropriate supplemental screening options if the patient has dense breast tissue. Interpreting Radiologist: Skyla Parnell M.D. Electronically signed on: 06/29/2024 Vp Organizational Development: ANN MARIE Transcribe Date/Time: Jun 29 2024 7:40A Dictated by: KSYLA PARNELL MD This examination was interpreted and the report reviewed and electronically signed by: SKYLA PARNELL MD on Jun 29 2024 2:56PM EST [id number] Normal [facility] Abdomen/Pel W ORAL Cont Only on 06-19-2024 Abdomen/Pel W ORAL Cont Only [facility] Imaging Services [address] [place] [id number] Abdomen/Pel W ORAL Cont Only MR#: [id number] Acct: [id number] Name: YOLANDA AN Rep #: [id number] : 1955 F 69 From: Kadeem rodríguez MD PCP: Dr. Zulema Crespo MD Status: [facility] Study: Abdomen/Pel W ORAL Cont Only Date of Exam: Exam# [id number] Ordering Dr: Zulema Crespo MD PROCEDURE: ABDOMEN/PEL W ORAL CONT ONLY REASON FOR EXAM: Nausea and vomiting. Possible diverticulitis. TECHNIQUE: Abdomen and pelvis CT without intravenous contrast. Oral contrast was used. COMPARISON: Comparison is made with prior study dated October 07, 2023. FINDINGS: Noncontrast technique limits evaluation of the abdominal and pelvic viscera. Small pericardial effusion. Lung bases: Clear Liver: Unremarkable. Gallbladder: Unremarkable. Spleen: Unremarkable. Pancreas: Unremarkable. Adrenals: Unremarkable. Kidneys: Unremarkable. Bladder: Unremarkable. Reproductive Organs: Bilateral tubal ligation clips are seen. Bowel: Colonic diverticulosis without diverticulitis. Large amount of fecal material is seen in the colon. Appendix: Normal. Lymph nodes: No suspicious lymph node enlargement. Vasculature: Major vascular structures are unremarkable. Peritoneum / Retroperitoneum: No ascites. No free air. Bones: Degenerative changes of the spine. CT/Abdomen/Pel W ORAL Cont Only IMPRESSION: Stable small pericardial effusion. Sigmoid diverticulosis with no radiographic evidence of diverticulitis. Large amount of fecal material is seen throughout the colon. One or more dose reduction techniques were used (e.g., Automated exposure control, adjustment of the mA and/or kV according to patient size, use of iterative reconstruction technique). Reading Location: [id number] CC: Dr. Zulema Crespo MD Vp Organizational Development: Signed Normal [facility] CBC W/Diff, Automatedon 05-27 Absolute Lymph 1.30 X10 3/uL Normal 0.83-4.51 [facility] Comment on above: Performed By: #### L 500.4050, L500.4100, L100.0100, L506.1000, L503.0105 #### [facility] [address] [place], [address] Absolute Neut 2.2 X10 3/uL Normal 2.0-7.7 [facility] Comment on above: Performed By: #### L 500.4050, L500.4100, L100.0100, L506.1000, L503.0105 #### [facility] [address] [place], [address] Basophils/100 WBC (Bld) 1.2 % High 0-1 [facility] Comment on above: Performed By: #### L 500.4050, L500.4100, L100.0100, L506.1000, L503.0105 #### [facility] [address] [place], [address] Eosinophils/100 WBC (Bld) 3.2 % Normal 0-5 [facility] Comment on above: Performed By: #### L 500.4050, L500.4100, L100.0100, L506.1000, L503.0105 #### [facility] [address] [place], [address] Erythrocyte distribution width (RBC) [Ratio] 13.0 % Normal 11.6-14.6 [facility] Comment on above: Performed By: #### L 500.4050, L500.4100, L100.0100, L506.1000, L503.0105 #### [facility] [address] [place], [address] Hematocrit (Bld) [Volume fraction] 39.0 % Normal 37-47 [facility] Comment on above: Performed By: #### L 500.4050, L500.4100, L100.0100, L506.1000, L503.0105 #### [facility] [address] [place], [address] Hemoglobin (Bld) [Mass/Vol] 13.2 g/dL Normal 12.0-15.0 [facility] Comment on above: Performed By: #### L 500.4050, L500.4100, L100.0100, L506.1000, L503.0105 #### [facility] [address] [place], [address] IG% 0.000 Normal 0.0-0.9 [facility] Comment on above: Result Comment: IG% - Immature Granulocytes (promyelocytes, myelocytes and metamyelocytes) > 1% indicates that a LEFT SHIFT is Present. Performed By: #### L 500.4050, L500.4100, L100.0100, L506.1000, L503.0105 #### [facility] [address] [place], [address] Lymphocytes/100 WBC (Bld) 32.1 % Normal 19-41 [facility] Comment on above: Performed By: #### L 500.4050, L500.4100, L100.0100, L506.1000, L503.0105 #### [facility] [address] [place], [address] MCH (RBC) [Entitic mass] 29.2 pg Normal 27.0-32.0 [facility] Comment on above: Performed By: #### L 500.4050, L500.4100, L100.0100, L506.1000, L503.0105 #### [facility] [address] [place], [address] MCHC (RBC) [Mass/Vol] 33.8 g/dL Normal 32-36 [facility] Comment on above: Performed By: #### L 500.4050, L500.4100, L100.0100, L506.1000, L503.0105 #### [facility] [address] [place], [address] MCV (RBC) [Entitic vol] 86.3 fL Normal 81-99 [facility] Comment on above: Performed By: #### L 500.4050, L500.4100, L100.0100, L506.1000, L503.0105 #### [facility] [address] [place], [address] Monocytes/100 WBC (Bld) 9.9 % Normal 0-10 [facility] Comment on above: Performed By: #### L 500.4050, L500.4100, L100.0100, L506.1000, L503.0105 #### [facility] [address] [place], [address] Neutrophils/100 WBC (Bld) 53.6 % Normal 47-70 [facility] Comment on above: Performed By: #### L 500.4050, L500.4100, L100.0100, L506.1000, L503.0105 #### [facility] [address] [place], [address] Nucleated RBC (Bld) [#/Vol] 0 10*3/uL Normal 0-5 [facility] Comment on above: Performed By: #### L 500.4050, L500.4100, L100.0100, L506.1000, L503.0105 #### [facility] [address] [place], [address] Platelet mean volume (Bld) [Entitic vol] 10.6 fL Normal 6.2-12.0 [facility] Comment on above: Performed By: #### L 500.4050, L500.4100, L100.0100, L506.1000, L503.0105 #### [facility] [address] [place], [address] Platelets (Bld) [#/Vol] 279 10*3/uL Normal 150-450 [facility] Comment on above: Performed By: #### L 500.4050, L500.4100, L100.0100, L506.1000, L503.0105 #### [facility] [address] [place], [address] RBC (Bld) [#/Vol] 4.52 10*6/uL Normal 4.2-5.4 [facility] Comment on above: Performed By: #### L 500.4050, L500.4100, L100.0100, L506.1000, L503.0105 #### [facility] [address] [place], [address] RDW SD 40.7 fl Normal 35.1-43.9 [facility] Comment on above: Performed By: #### L 500.4050, L500.4100, L100.0100, L506.1000, L503.0105 #### [facility] [address] [place], [address] WBC (Bld) [#/Vol] 4.1 10*3/uL Low 4.4-11.0 [facility] Comment on above: Performed By: #### L 500.4050, L500.4100, L100.0100, L506.1000, L503.0105 #### [facility] [address] [place], [address] Comprehensive Metabolic Prof ilon 06-08-2024 Albumin [Mass/Vol] 4.0 g/dL Normal 3.2-5.0 [facility] Comment on above: Order Comment: PT RE FUSED TO LET ME STICK HER AC, ASKED ME TO STICK ON THE TOP OF THE FOREARM. SUCCESSFUL X1.-SWRIGHT Performed By: #### L 500.4050, L500.4100, L100.0100, L506.1000, L503.0105 #### [facility] [address] [place], [address] Albumin/Globulin [Mass ratio] 1.0 {ratio} Normal 0.9-2.4 [facility] Comment on above: Order Comment: PT RE FUSED TO LET ME STICK HER AC, ASKED ME TO STICK ON THE TOP OF THE FOREARM. SUCCESSFUL X1.-SWRIGHT Performed By: #### L 500.4050, L500.4100, L100.0100, L506.1000, L503.0105 #### [facility] [address] [place], [address] ALK P 59 U/L Normal 45-117 [facility] Comment on above: Order Comment: PT RE FUSED TO LET ME STICK HER AC, ASKED ME TO STICK ON THE TOP OF THE FOREARM. SUCCESSFUL X1.-SWRIGHT Performed By: #### L 500.4050, L500.4100, L100.0100, L506.1000, L503.0105 #### [facility] [address] [place], [address] ALT [Catalytic activity/Vol] 24 U/L Normal 13-56 [facility] Comment on above: Order Comment: PT RE FUSED TO LET ME STICK HER AC, ASKED ME TO STICK ON THE TOP OF THE FOREARM. SUCCESSFUL X1.-SWRIGHT Performed By: #### L 500.4050, L500.4100, L100.0100, L506.1000, L503.0105 #### [facility] [address] [place], [place], [phone] ([phone]) AST [Catalytic activity/Vol] 21 U/L Normal 15-37 [facility] Comment on above: Order Comment: PT RE FUSED TO LET ME STICK HER AC, ASKED ME TO STICK ON THE TOP OF THE FOREARM. SUCCESSFUL X1.-SWRIGHT Performed By: #### L 500.4050, L500.4100, L100.0100, L506.1000, L503.0105 #### [facility] [address] [place], [place], [phone] ([phone]) Bilirubin [Mass/Vol] 0.80 mg/dL Normal 0.20-1.00 [facility] Comment on above: Order Comment: PT RE FUSED TO LET ME STICK HER AC, ASKED ME TO STICK ON THE TOP OF THE FOREARM. SUCCESSFUL X1.-SWRIGHT Result Comment: For patients on eltrombopag therapy, use of Dimension May TBIL is not recommended. Performed By: #### L 500.4050, L500.4100, L100.0100, L506.1000, L503.0105 #### [facility] [address] [place], [place], [phone] ([phone] BUN/CRE 13.5 RATIO Normal 10-20 [facility] Comment on above: Order Comment: PT RE FUSED TO LET ME STICK HER AC, ASKED ME TO STICK ON THE TOP OF THE FOREARM. SUCCESSFUL X1.-SWRIGHT Performed By: #### L 500.4050, L500.4100, L100.0100, L506.1000, L503.0105 #### [facility] [address] [place], [place], [phone] ([phone]) CA,Total 9.6 mg/dL Normal 8.5-10.1 [facility] Comment on above: Order Comment: PT RE FUSED TO LET ME STICK HER AC, ASKED ME TO STICK ON THE TOP OF THE FOREARM. SUCCESSFUL X1.-SWRIGHT Performed By: #### L 500.4050, L500.4100, L100.0100, L506.1000, L503.0105 #### [facility] [address] [place], [address] Chloride [Moles/Vol] 102 mmol/L Normal 98-107 [facility] Comment on above: Order Comment: PT RE FUSED TO LET ME STICK HER AC, ASKED ME TO STICK ON THE TOP OF THE FOREARM. SUCCESSFUL X1.-SWRIGHT Performed By: #### L 500.4050, L500.4100, L100.0100, L506.1000, L503.0105 #### [facility] [address] [place], [address] CO2 [Moles/Vol] 27.0 mmol/L Normal 21.0-32.0 [facility] Comment on above: Order Comment: PT RE FUSED TO LET ME STICK HER AC, ASKED ME TO STICK ON THE TOP OF THE FOREARM. SUCCESSFUL X1.-SWRIGHT Performed By: #### L 500.4050, L500.4100, L100.0100, L506.1000, L503.0105 #### [facility] [address] [place], [address] Creatinine [Mass/Vol] 0.81 mg/dL Normal 0.55-1.02 [facility] Comment on above: Order Comment: PT RE FUSED TO LET ME STICK HER AC, ASKED ME TO STICK ON THE TOP OF THE FOREARM. SUCCESSFUL X1.-SWRIGHT Result Comment: The validity of the calculated GFR GFRAA in patients over 70 years has not been determined. Clinical correlation is essential. Performed By: #### L 500.4050, L500.4100, L100.0100, L506.1000, L503.0105 #### [facility] [address] [place], [address] EST GFR - AA 89 mL/min Normal >60 [facility] Comment on above: Order Comment: PT RE FUSED TO LET ME STICK HER AC, ASKED ME TO STICK ON THE TOP OF THE FOREARM. SUCCESSFUL X1.-SWRIGHT Result Comment: Afri can [place] GFR Calc Performed By: #### L 500.4050, L500.4100, L100.0100, L506.1000, L503.0105 #### [facility] [address] [place], [address] GAP 6 Normal 5-15 [facility] Comment on above: Order Comment: PT RE FUSED TO LET ME STICK HER AC, ASKED ME TO STICK ON THE TOP OF THE FOREARM. SUCCESSFUL X1.-SWRIGHT Performed By: #### L 500.4050, L500.4100, L100.0100, L506.1000, L503.0105 #### [facility] [address] [place], [address] GFR/1.73 sq M.predicted among non-blacks MDRD (S/P/Bld) [Vol rate/Area] 74 mL/min/{1.73_m2} Normal >60 [facility] Comment on above: Order Comment: PT RE FUSED TO LET ME STICK HER AC, ASKED ME TO STICK ON THE TOP OF THE FOREARM. SUCCESSFUL X1.-SWRIGHT Result Comment: Non- GFR Calc Performed By: #### L 500.4050, L500.4100, L100.0100, L506.1000, L503.0105 #### [facility] [address] [place], [address] Globulin (S) [Mass/Vol] 3.9 g/dL Normal 2.2-4.2 [facility] Comment on above: Order Comment: PT RE FUSED TO LET ME STICK HER AC, ASKED ME TO STICK ON THE TOP OF THE FOREARM. SUCCESSFUL X1.-SWRIGHT Performed By: #### L 500.4050, L500.4100, L100.0100, L506.1000, L503.0105 #### [facility] [address] [place], [address] Glucose [Mass/Vol] 90 mg/dL Normal 74-106 [facility] Comment on above: Order Comment: PT RE FUSED TO LET ME STICK HER AC, ASKED ME TO STICK ON THE TOP OF THE FOREARM. SUCCESSFUL X1.-SWRIGHT Performed By: #### L 500.4050, L500.4100, L100.0100, L506.1000, L503.0105 #### [facility] [address] [place], [address] Potassium [Moles/Vol] 4.0 mmol/L Normal 3.5-5.1 [facility] Comment on above: Order Comment: PT RE FUSED TO LET ME STICK HER AC, ASKED ME TO STICK ON THE TOP OF THE FOREARM. SUCCESSFUL X1.-SWRIGHT Performed By: #### L 500.4050, L500.4100, L100.0100, L506.1000, L503.0105 #### [facility] [address] [place], [address] Sodium [Moles/Vol] 135 mmol/L Low 136-145 [facility] Comment on above: Order Comment: PT RE FUSED TO LET ME STICK HER AC, ASKED ME TO STICK ON THE TOP OF THE FOREARM. SUCCESSFUL X1.-SWRIGHT Performed By: #### L 500.4050, L500.4100, L100.0100, L506.1000, L503.0105 #### [facility] [address] [place], [address] T PROT 7.9 g/dL Normal 6.4-8.2 [facility] Comment on above: Order Comment: PT RE FUSED TO LET ME STICK HER AC, ASKED ME TO STICK ON THE TOP OF THE FOREARM. SUCCESSFUL X1.-SWRIGHT Performed By: #### L 500.4050, L500.4100, L100.0100, L506.1000, L503.0105 #### [facility] [address] [place], [address] Urea nitrogen [Mass/Vol] 11 mg/dL Normal 7-18 [facility] Comment on above: Order Comment: PT RE FUSED TO LET ME STICK HER AC, ASKED ME TO STICK ON THE TOP OF THE FOREARM. SUCCESSFUL X1.-SWRIGHT Performed By: #### L 500.4050, L500.4100, L100.0100, L506.1000, L503.0105 #### [facility] [address] [place], [address] Lipid Profileon 06-08-2024 Cholesterol [Mass/Vol] 262 mg/dL High 200 [facility] Comment on above: Order Comment: PT RE FUSED TO LET ME STICK HER AC, ASKED ME TO STICK ON THE TOP OF THE FOREARM. SUCCESSFUL X1.-SWRIGHT Result Comment: <200 mg/dL Desirable 200-240 mg/dL Borderline >240 mg/dL High Risk Performed By: #### L 500.4050, L500.4100, L100.0100, L506.1000, L503.0105 #### [facility] [address] [place], [address] Cholesterol in HDL [Mass/Vol] 117 mg/dL Normal [facility] Comment on above: Order Comment: PT RE FUSED TO LET ME STICK HER AC, ASKED ME TO STICK ON THE TOP OF THE FOREARM. SUCCESSFUL X1.-SWRIGHT Result Comment: The drugs N-Acetylcysteine and Metamizole may falsely depress this assay. Reference Range HDL <40 mg/dL Low HDL Cholesterol HDL >or= 60 mg/dL High HDL Cholesterol Performed By: #### L 500.4050, L500.4100, L100.0100, L506.1000, L503.0105 #### [facility] [address] [place], [address] Cholesterol in LDL [Mass/Vol] 128 mg/dL Normal 0-130 [facility] Comment on above: Order Comment: PT RE FUSED TO LET ME STICK HER AC, ASKED ME TO STICK ON THE TOP OF THE FOREARM. SUCCESSFUL X1.-SWRIGHT Performed By: #### L 500.4050, L500.4100, L100.0100, L506.1000, L503.0105 #### [facility] [address] [place], [address] Cholesterol in VLDL [Mass/Vol] 17 mg/dL Normal 5-40 [facility] Comment on above: Order Comment: PT RE FUSED TO LET ME STICK HER AC, ASKED ME TO STICK ON THE TOP OF THE FOREARM. SUCCESSFUL X1.-SWRIGHT Performed By: #### L 500.4050, L500.4100, L100.0100, L506.1000, L503.0105 #### [facility] [address] [place], [address] Triglyceride [Mass/Vol] 84 mg/dL Normal [facility] Comment on above: Order Comment: PT RE FUSED TO LET ME STICK HER AC, ASKED ME TO STICK ON THE TOP OF THE FOREARM. SUCCESSFUL X1.-SWRIGHT Result Comment: The drugs N-Acetylcysteine and Metamizole may falsely depress this assay. Serum Triglycerides Reference Interval Normal <150 mg/dL Borderline high 150 - 199 mg/dL High 200 - 499 mg/dL Very High > or = 500 mg/dL Performed By: #### L 500.4050, L500.4100, L100.0100, L506.1000, L503.0105 #### [facility] [address] [place], [address] Vitamin B12on 06-08-2024 Cobalamin (Vitamin B12) [Mass/Vol] pg/mL High 211-911 [facility] Comment on above: Performed By: #### L 500.4050, L500.4100, L100.0100, L506.1000, L503.0105 #### [facility] [address] [place], [address] Vitamin D,25 Hydroxyon 06-08 Vitamin D 25-OH 67.2 ng/mL Normal [facility] Comment on above: Result Comment: Leslie min D 25(OH) Status Range Deficiency <20 ng/mL (50nmol/L) Insufficiency 20 - 30 ng/mL (50 - 75 nmol/L) Sufficiency 30 - 100 ng/mL (75 - 250 nmol/L) Toxicity >100 ng/mL (>250 nmol/L) Performed By: #### L 500.4050, L500.4100, L100.0100, L506.1000, L503.0105 #### [facility] [address] [place], [address] MR/BMS.IMBon 05-11-2024 MR/BMS.B [facility] [address] [place] [address] OFFICE VISIT Date of Service: 05/11/24 MR#: [id number] Acct: [id number] Name: FRIENDYOLANDA Rep #: [id number] : 1955 Provider: Dr. Zulema atkins MD Age/Sex: 69/F Location: [facility] Status: Signed Intake Vital Signs 05/06/23 08:05 05/11/24 08:07 Height 5 ft 3 in 5 ft 3 in Weight: 113 lb 4 oz BMI 20.0 BP 136/80 H Blood Pressure Location Rt brachial Position Sitting Respiration 16 Pulse 70 Pulse Source Monitor Temp 98.4 F Temp Source Temporal Pulse Oximetry (%) 99 Oxygen Delivery Method room air Intake Visit Reasons: Annual/Physical Chief Complaint: annual/physical Cut Out Stitcher Required: No Accompanied by: Is patient in pain?: No Allergies No Known Allergies Allergy (Verified 05/11/24 08:01) Medications ???Medication ???Instructions ???Recorded ???Confirmed ???Type calcium carbonate (Calci-Mix) 500 mg PO DAILY 02/09/20 05/11/24 History cholecalciferol (vitamin D3) 50 50 mcg PO DAILY 02/09/20 05/11/24 History mcg (2,000 unit) capsule metronidazole 0.75 % topical cream 1 applic topical DAILY 05/06/20 05/11/24 History baclofen 5 mg tablet 5 mg PO TID PRN 04/01/23 05/11/24 History Have you fallen in the past year?: No [facility] Medical History Difficult intravenous access Post-menopausal Multiple sclerosis Non-smoker Chest pain Diverticulitis Spinal stenosis Stress fracture Rosacea Vitamin D deficiency Meningioma Osteoarthritis Osteoporosis Arthritis Surgical History History of surgery History of cataract extraction History of selective injection of anesthetic agent around lumbar nerve root History of esophagogastroduodenoscopy (EGD) History of colonoscopy Family History Other Breast cancer Diabetes Myocardial infarction Pancreatic cancer Rheumatoid arthritis Social History Smoking Status: Never smoker alcohol intake: never substance use type: does not use what type of physical activity do you participate in: walking frequency: daily HPI HPI Chief Complaint: annual/physical Details: YOLANDA AN, is a 69 F who presents to the office today for yearly checkup, osteoporosis, history of spinal stenosis, osteoarthritis. Patient takes vitamin D3 supplement, and calcium daily but otherwise no other prescription based medication. She has no longstanding medical problems overall has been very healthy. 69-year-old, maintaining a very good level of physical activity, walking several miles daily, some days more than that. She and her do a lot of walking together, hiking seasonally. She develops no episodes of chest tightness, shortness of breath with exertion. She notes occasionally she will have a time where despite the high level of activity that she does, sometimes when she is at home, she will have a sense of weakness in the legs, perhaps a little dyspneic that passes. Does not necessarily associate with any other symptoms such as palpitations or fluttering. I have the simply asked her to try monitor that and make sure that she at least gets blood pressure and heart rate should 1 of those episodes occur. They are not frequent. Has not caused any major issues. Otherwise she eats very well, good high-quality diet, plenty of vegetables, fruits etc. Patient and her also had a number of questions that we discussed in some detail about vaccines. Remotely she had shingles vaccine. She had shingles many years ago has not had since. She is had Pneumovax in the past. We discussed potentially receiving the PCV13 however once again needs to use her own discretion. She does get flu vaccine and we discussed that to some degree but also spent a lot of time discussing COVID-vaccine. Answered all of their questions to their satisfaction. Review of systems per chart. Appetite has been good. Bowel movements have been regular. No dark black or bloody stools are reported. No recent abdominal pain. No nausea or vomiting. No chest pain, chest tightness, wheezing with exertion. No focal areas of numbness or tingling in her new or different. She did have COVID-19 shortly after [place] this year. She was fairly symptomatic she states with at this time. This is the third documented time she had COVID over the years. Her did not develop any symptoms. Her brother had COVID and was presumably where she acquired it at [place] time. In any event she did note interestingly enough, as she had COVID and was getting through it into this point remains with a lot less overall joint pains, achiness. She has (more content not included)... Normal [facility] Absolute lymphocyte countOrd ered By: Zulema Crespo on 07-02-2023 Lymphocytes Auto (Unsp spec) [#/Vol] 1.38 10*3/uL 0.83-4.51 [facility] Automated lymphocyte count a s percentage of total leukocytesOrdered By: Zulema Crespo on 07-02-2023 Lymphocytes/100 WBC Auto (Unsp spec) 29.4 % 19-41 [facility] Basophil percentageOrdered B y: Zulema Crespo on 07-02-2023 Basophils/100 WBC (Bld) 1.1 % 0-1 [facility] Bilirubin [Mass/Vol] 0.50 mg/dL 0.20-1.00 [facility] Comment on above: For patients on eltr ombopag therapy, use of Dimension May TBIL is not recommended. Chloride [Moles/Vol] 102 mmol/L 98-107 [facility] Eosinophils/100 WBC (Bld) 1.9 % 0-5 [facility] Glucose [Mass/Vol] 97 mg/dL 74-106 [facility] Hemoglobin (Bld) [Mass/Vol] 13.7 g/dL 12.0-15.0 [facility] Monocytes/100 WBC (Bld) 10.0 % 0-10 [facility] Neutrophils (Bld) [#/Vol] 2.7 10*3/uL 2.0-7.7 [facility] Neutrophils/100 WBC (Bld) 57.2 % 47-70 [facility] Potassium [Moles/Vol] 3.6 mmol/L 3.5-5.1 [facility] Protein [Mass/Vol] 8.3 g/dL 6.4-8.2 [facility] Sodium [Moles/Vol] 139 mmol/L 136-145 [facility] WBC (Bld) [#/Vol] 4.7 10*3/uL 4.4-11.0 [facility] Determination of erythrocyte mean corpuscular volume (MCV)Ordered By: Zulema Crespo on 07-02-2023 MCV (RBC) [Entitic vol] 86.8 fL 81-99 [facility] Erythrocyte distribution wid th ratioOrdered By: Zulema Crespo on 07-02-2023 Erythrocyte distribution width (RBC) [Ratio] 13.2 % 11.6-14.6 [facility] Erythrocyte distribution wid th standard deviationOrdered By: Zulema Crespo on 07-02-2023 Erythrocyte distribution width (RBC) [Entitic vol] 42.1 fL 35.1-43.9 [facility] Hematocrit Auto (Bld) [Volum e fraction]Ordered By: Zulema Crespo on 07-02-2023 Hematocrit (Bld) [Volume fraction] 40.6 % 37-47 [facility] Immature granulocytes/100 WB C Auto (Bld)Ordered By: Zulema Crespo on 07-02-2023 Immature granulocytes/100 WBC (Bld) 0.400 % 0.0-0.9 [facility] Comment on above: IG% - Immature Granu locytes (promyelocytes, myelocytes and metamyelocytes) > 1% indicates that a LEFT SHIFT is Present. Laboratory - Chemistry and C hemistry - challengeOrdered By: Zulema Crespo on 07-02-2023 Albumin/Globulin [Mass ratio] 1.0 {ratio} 0.9-2.4 [facility] ALP [Catalytic activity/Vol] 60 U/L 45-117 [facility] ALT [Catalytic activity/Vol] 30 U/L 13-56 [facility] CO2 [Moles/Vol] 29.0 mmol/L 21.0-32.0 [facility] Globulin (S) [Mass/Vol] 4.1 g/dL 2.2-4.2 [facility] Urea nitrogen/Creatinine [Mass ratio] 17.5 mg/mg 10-20 [facility] - Hematology and Cell countsOrdered By: Zulema Crespo on 07-02-2023 MCH (RBC) [Entitic mass] 29.3 pg 27.0-32.0 [facility] MCHC (RBC) [Mass/Vol] 33.7 g/dL 32-36 [facility] Nucleated RBC/100 WBC (Bld) [Ratio] 0 % 0-5 [facility] Platelet mean volume (Bld) [Entitic vol] 11.3 fL 6.2-12.0 [facility] Platelets (Bld) [#/Vol] 287 10*3/uL 150-450 [facility] No Panel InformationOrdered By: Zulema Crespo on 07-02-2023 Estimated GFR (MDRD) Amer 84 mL/min >60 [facility] Comment on above: GFR Calc Estimated GFR (MDRD) Non-Af Amer 70 mL/min >60 [facility] Comment on above: Non- GFR Calc Vitamin D 25-Hydroxy 67.0 ng/mL [facility] Comment on above: Vitamin D 25(OH) Sta tus Range Deficiency <20 ng/mL (50nmol/L) Insufficiency 20 - 30 ng/mL (50 - 75 nmol/L) Sufficiency 30 - 100 ng/mL (75 - 250 nmol/L) Toxicity >100 ng/mL (>250 nmol/L) RBC Auto (Bld) [#/Vol]Ordere d By: Zulema Crespo on 07-02-2023 RBC (Bld) [#/Vol] 4.68 10*6/uL 4.2-5.4 [facility] Serum or plasma calcium cooper urement (mass/volume)Ordered By: Zulema Crespo on 07-02-2023 Calcium [Mass/Vol] 9.5 mg/dL 8.5-10.1 [facility] Serum or plasma creatinine m easurement (mass/volume)Ordered By: Zulema Crespo on 07-02-2023 Creatinine [Mass/Vol] 0.86 mg/dL 0.55-1.02 [facility] Comment on above: The validity of the calculated GFR & GFRAA in patients over 70 years has not been determined. Clinical correlation is essential. Serum or plasma thyroid stim ulating hormone (TSH) measurement (units/volume)Ordered By: Zulema Crespo on 07-02-2023 TSH Qn 1.41 uIU/mL 0.358-3.74 [facility] Serum or plasma urea nitroge n measurement (mass/volume)Ordered By: Zulema Crespo on 07-02-2023 Urea nitrogen [Mass/Vol] 15 mg/dL 7-18 [facility] Thin prep Papanicolaou smear with manual screeningOrdered By: Zulema Crespo on 07-02-2023 Thin prep Papanicolaou smear with manual screening 4.2 g/dL 3.2-5.0 [facility] Thin prep Papanicolaou smear with manual screening 26 U/L 15-37 [facility] Thin prep Papanicolaou smear with manual screening 8 5-15 [facility] DBT Breast - bilateral scree ningon 06-15-2023 [facility] Absolute lymphocyte countOrd ered By: Nathaly Cameron on 11-11-2022 Lymphocytes Auto (Unsp spec) [#/Vol] 1.00 10*3/uL 0.83-4.51 [facility] Basophil percentageOrdered B y: Nathaly Cameron on 11-11-2022 Basophils/100 WBC (Bld) 0.7 % 0-1 [facility] Chloride [Moles/Vol] 102 mmol/L 98-107 [facility] Eosinophils/100 WBC (Bld) 0.3 % 0-5 [facility] Glucose [Mass/Vol] 108 mg/dL 74-106 [facility] Comment on above: Fasting Glucose resu lt from 100 to 125 mg/dL suggests IMPAIRED HOMEOSTASIS per A.D.A. criteria. Neutrophils (Bld) [#/Vol] 5.4 10*3/uL 2.0-7.7 [facility] Neutrophils/100 WBC (Bld) 77.3 % 47-70 [facility] Potassium [Moles/Vol] 4.1 mmol/L 3.5-5.1 [facility] Sodium [Moles/Vol] 134 mmol/L 136-145 [facility] WBC (Bld) [#/Vol] 7.0 10*3/uL 4.4-11.0 [facility] Blood erythrocytes count (nu mber/volume)Ordered By: Nathaly Cameron on 11-11-2022 RBC (Bld) [#/Vol] 4.22 10*6/uL 4.2-5.4 [facility] Blood hemoglobin measurement (mass/volume)Ordered By: Nathaly Cameron on 11-11-2022 Hemoglobin (Bld) [Mass/Vol] 12.6 g/dL 12.0-15.0 [facility] Blood lymphocytes/100 leukoc ytesOrdered By: Nathaly Cameron on 11-11-2022 Lymphocytes/100 WBC (Bld) 14.2 % 19-41 [facility] Blood monocytes/100 leukocyt esOrdered By: Nathaly Cameron on 11-11-2022 Monocytes/100 WBC (Bld) 7.4 % 0-10 [facility] Blood platelet mean volumeOr dered By: Nathaly Cameron on 11-11-2022 Platelet mean volume (Bld) [Entitic vol] 10.7 fL 6.2-12.0 [facility] Determination of erythrocyte mean corpuscular volume (MCV)Ordered By: Nathaly Cameron on 11-11-2022 MCV (RBC) [Entitic vol] 86.7 fL 81-99 [facility] Hematocrit Auto (Bld) [Volum e fraction]Ordered By: Nathaly Cameron on 11-11-2022 Hematocrit (Bld) [Volume fraction] 36.6 % 37-47 [facility] - Chemistry and C hemistry - challengeOrdered By: Nathaly Cameron on 11-11-2022 CO2 [Moles/Vol] 26.0 mmol/L 21.0-32.0 [facility] Urea nitrogen/Creatinine [Mass ratio] 13.3 mg/mg 10-20 [facility] - Hematology and Cell countsOrdered By: Nathaly Cameron on 11-11-2022 Erythrocyte distribution width (RBC) [Entitic vol] 40.8 fL 35.1-43.9 [facility] Erythrocyte distribution width (RBC) [Ratio] 12.9 % 11.6-14.6 [facility] Immature granulocytes/100 WBC (Bld) 0.100 % 0.0-0.9 [facility] Comment on above: IG% - Immature Granu locytes (promyelocytes, myelocytes and metamyelocytes) > 1% indicates that a LEFT SHIFT is Present. MCH (RBC) [Entitic mass] 29.9 pg 27.0-32.0 [facility] Nucleated RBC/100 WBC (Bld) [Ratio] 0 % 0-5 [facility] MCHC Auto (RBC) [Mass/Vol]Or dered By: Nathaly Cameron on 11-11-2022 MCHC (RBC) [Mass/Vol] 34.4 g/dL 32-36 [facility] No Panel InformationOrdered By: Nathaly Cameron on 11-11-2022 Estimated Creatinine Clearance Calc 39.11 ml/min [facility] Estimated GFR (MDRD) Amer 67 mL/min >60 [facility] Comment on above: GFR Calc Estimated GFR (MDRD) Non-Af Amer 55 mL/min >60 [facility] Comment on above: Non- GFR Calc Troponin I High Sensitivity 4 pg/mL 3.0-54.0 [facility] Comment on above: Please Note: New Vanesa t Units and Gender Specific Reference Ranges. For more information see Policy Stat Procedure May High Sensitivity Troponin (TNIH) and attachments. Platelets bldOrdered By: Harmony Cameron on 11-11-2022 Platelets (Bld) [#/Vol] 292 10*3/uL 150-450 [facility] Serum or plasma calcium cooper urement (mass/volume)Ordered By: Nathaly Cameron on 11-11-2022 Calcium [Mass/Vol] 9.2 mg/dL 8.5-10.1 [facility] Serum or plasma creatinine m easurement (mass/volume)Ordered By: Nathaly Cameron on 11-11-2022 Creatinine [Mass/Vol] 1.05 mg/dL 0.55-1.02 [facility] Comment on above: The validity of the calculated GFR & GFRAA in patients over 70 years has not been determined. Clinical correlation is essential. Serum or plasma urea nitroge n measurement (mass/volume)Ordered By: Nathaly Cameron on 11-11-2022 Urea nitrogen [Mass/Vol] 14 mg/dL 7-18 [facility] Thin prep Papanicolaou smear with manual screeningOrdered By: Nathaly Cameron on 11-11-2022 Thin prep Papanicolaou smear with manual screening 6 5-15 [facility] JANEY SCREENING W TOMOon 06-05 [facility] Absolute lymphocyte countOrd ered By: Dr. Crespo on 05-11-2022 Lymphocytes Auto (Unsp spec) [#/Vol] 1.31 10*3/uL 0.83-4.51 [facility] Basophil percentageOrdered B y: Dr. Crespo on 05-11-2022 Basophils/100 WBC (Bld) 0.9 % 0-1 [facility] Bilirubin [Mass/Vol] 0.40 mg/dL 0.20-1.00 [facility] Comment on above: For patients on eltr ombopag therapy, use of Dimension May TBIL is not recommended. Chloride [Moles/Vol] 104 mmol/L 98-107 [facility] Cholesterol [Mass/Vol] 267 mg/dL <200 [facility] Comment on above: <200 mg/dL Desirable 200-240 mg/dL Borderline >240 mg/dL High Risk Eosinophils/100 WBC (Bld) 1.3 % 0-5 [facility] Glucose [Mass/Vol] 82 mg/dL 74-106 [facility] Neutrophils (Bld) [#/Vol] 3.6 10*3/uL 2.0-7.7 [facility] Neutrophils/100 WBC (Bld) 65.4 % 47-70 [facility] Potassium [Moles/Vol] 3.9 mmol/L 3.5-5.1 [facility] Protein [Mass/Vol] 8.3 g/dL 6.4-8.2 [facility] Sodium [Moles/Vol] 139 mmol/L 136-145 [facility] Triglyceride [Mass/Vol] 109 mg/dL <199 [facility] Comment on above: The drugs N-Acetylcy steine and Metamizole may falsely depress this assay.Serum Triglycerides Reference Interval Normal <150 mg/dL Borderline high 150 - 199 mg/dL High 200 - 499 mg/dL Very High > or = 500 mg/dL WBC (Bld) [#/Vol] 5.5 10*3/uL 4.4-11.0 [facility] Blood erythrocytes count (nu mber/volume)Ordered By: Dr. Crespo on 05-11-2022 RBC (Bld) [#/Vol] 4.34 10*6/uL 4.2-5.4 [facility] Blood hemoglobin measurement (mass/volume)Ordered By: Dr. Crespo on 05-11-2022 Hemoglobin (Bld) [Mass/Vol] 13.0 g/dL 12.0-15.0 [facility] Blood lymphocytes/100 leukoc ytesOrdered By: Dr. Crespo on 05-11-2022 Lymphocytes/100 WBC (Bld) 23.7 % 19-41 [facility] Blood monocytes/100 leukocyt esOrdered By: Dr. Crespo on 05-11-2022 Monocytes/100 WBC (Bld) 8.5 % 0-10 [facility] Blood platelet mean volumeOr dered By: Dr. Crespo on 05-11-2022 Platelet mean volume (Bld) [Entitic vol] 11.1 fL 6.2-12.0 [facility] Determination of erythrocyte mean corpuscular volume (MCV)Ordered By: Dr. Crespo on 05-11-2022 MCV (RBC) [Entitic vol] 88.7 fL 81-99 [facility] Hematocrit Auto (Bld) [Volum e fraction]Ordered By: Dr. Crespo on 05-11-2022 Hematocrit (Bld) [Volume fraction] 38.5 % 37-47 [facility] - Chemistry and C hemistry - challengeOrdered By: Dr. Crespo on 05-11-2022 ALP [Catalytic activity/Vol] 60 U/L 45-117 [facility] ALT [Catalytic activity/Vol] 29 U/L 13-56 [facility] CO2 [Moles/Vol] 26.0 mmol/L 21.0-32.0 [facility] Globulin (S) [Mass/Vol] 4.3 g/dL 2.2-4.2 [facility] Urea nitrogen/Creatinine [Mass ratio] 23.4 mg/mg 10-20 [facility] - Hematology and Cell countsOrdered By: Dr. Crespo on 05-11-2022 Erythrocyte distribution width (RBC) [Entitic vol] 41.1 fL 35.1-43.9 [facility] Erythrocyte distribution width (RBC) [Ratio] 12.6 % 11.6-14.6 [facility] Immature granulocytes/100 WBC (Bld) 0.200 % 0.0-0.9 [facility] Comment on above: IG% - Immature Granu locytes (promyelocytes, myelocytes and metamyelocytes) > 1% indicates that a LEFT SHIFT is Present. MCH (RBC) [Entitic mass] 30.0 pg 27.0-32.0 [facility] Nucleated RBC/100 WBC (Bld) [Ratio] 0 % 0-5 [facility] MCHC Auto (RBC) [Mass/Vol]Or dered By: Dr. Crespo on 05-11-2022 MCHC (RBC) [Mass/Vol] 33.8 g/dL 32-36 [facility] No Panel InformationOrdered By: Dr. Crespo on 05-11-2022 Estimated GFR (MDRD) Amer 96 mL/min >60 [facility] Comment on above: GFR Calc Estimated GFR (MDRD) Non-Af Amer 79 mL/min >60 [facility] Comment on above: Non- GFR Calc Vitamin D 25-Hydroxy 74.2 ng/mL [facility] Comment on above: Vitamin D 25(OH) Sta tus Range Deficiency <20 ng/mL (50nmol/L) Insufficiency 20 - 30 ng/mL (50 - 75 nmol/L) Sufficiency 30 - 100 ng/mL (75 - 250 nmol/L) Toxicity >100 ng/mL (>250 nmol/L) Platelets bldOrdered By: Dr. Crespo on 05-11-2022 Platelets (Bld) [#/Vol] 355 10*3/uL 150-450 [facility] Serum or plasma albumin cooper urement (mass/volume)Ordered By: Dr. Crespo on 05-11-2022 Albumin [Mass/Vol] 4.0 g/dL 3.2-5.0 [facility] Serum or plasma albumin/glob ulin mass ratioOrdered By: Dr. Crespo on 05-11-2022 Albumin/Globulin [Mass ratio] 0.9 {ratio} 0.9-2.4 [facility] Serum or plasma calcium cooper urement (mass/volume)Ordered By: Dr. Crespo on 05-11-2022 Calcium [Mass/Vol] 9.2 mg/dL 8.5-10.1 [facility] Serum or plasma cholesterol in HDL measurement (mass/volume)Ordered By: Dr. Crespo on 05-11-2022 Cholesterol in HDL [Mass/Vol] 98 mg/dL >40 [facility] Comment on above: The drugs N-Acetylcy steine and Metamizole may falsely depress this assay. Reference Range HDL <40 mg/dL Low HDL Cholesterol HDL >or= 60 mg/dL High HDL Cholesterol Serum or plasma cholesterol in VLDL measurement (mass/volume)Ordered By: Dr. Crespo on 05-11-2022 Cholesterol in VLDL [Mass/Vol] 22 mg/dL 5-40 [facility] Serum or plasma creatinine m easurement (mass/volume)Ordered By: Dr. Crespo on 05-11-2022 Creatinine [Mass/Vol] 0.77 mg/dL 0.55-1.02 [facility] Comment on above: The validity of the calculated GFR & GFRAA in patients over 70 years has not been determined. Clinical correlation is essential. Serum or plasma low density lipoprotein (LDL) cholesterol measurement (mass/volume)Ordered By: Dr. Crespo on 05-11-2022 Cholesterol in LDL [Mass/Vol] 147 mg/dL 0-130 [facility] Serum or plasma urea nitroge n measurement (mass/volume)Ordered By: Dr. Crespo on 05-11-2022 Urea nitrogen [Mass/Vol] 18 mg/dL 7-18 [facility] Thin prep Papanicolaou smear with manual screeningOrdered By: Dr. Crespo on 05-11-2022 Thin prep Papanicolaou smear with manual screening 21 U/L 15-37 [facility] Thin prep Papanicolaou smear with manual screening 9 5-15 [facility] Absolute lymphocyte counton 12-01-2021 Lymphocytes Auto (Unsp spec) [#/Vol] 1.49 10*3/uL 0.83-4.51 [facility] Work Phone: Basophil percentageon 2021 Basophils/100 WBC (Bld) 0.5 % 0-1 [facility] Work Phone: Bilirubin [Mass/Vol] 0.40 mg/dL 0.20-1.00 [facility] Work Phone: Comment on above: For patients on eltr ombopag therapy, use of Dimension May TBIL is not recommended. Chloride [Moles/Vol] 102 mmol/L 98-107 [facility] Work Phone: Eosinophils/100 WBC (Bld) 1.0 % 0-5 [facility] Work Phone: Glucose [Mass/Vol] 90 mg/dL 74-106 [facility] Work Phone: Neutrophils (Bld) [#/Vol] 6.6 10*3/uL 2.0-7.7 [facility] Work Phone: Neutrophils/100 WBC (Bld) 75.5 % 47-70 [facility] Work Phone: Potassium [Moles/Vol] 4.0 mmol/L 3.5-5.1 [facility] Work Phone: Protein [Mass/Vol] 8.8 g/dL 6.4-8.2 [facility] Work Phone: Sodium [Moles/Vol] 135 mmol/L 136-145 [facility] Work Phone: WBC (Bld) [#/Vol] 8.8 10*3/uL 4.4-11.0 [facility] Work Phone: Blood erythrocytes count (nu mber/volume)on 12-01-2021 RBC (Bld) [#/Vol] 4.48 10*6/uL 4.2-5.4 [facility] Work Phone: Blood hemoglobin measurement (mass/volume)on 12-01-2021 Hemoglobin (Bld) [Mass/Vol] 13.1 g/dL 12.0-15.0 [facility] Work Phone: Blood lymphocytes/100 leukoc yteson 12-01-2021 Lymphocytes/100 WBC (Bld) 17.0 % 19-41 [facility] Work Phone: Blood monocytes/100 leukocyt eson 12-01-2021 Monocytes/100 WBC (Bld) 5.4 % 0-10 [facility] Work Phone: Blood platelet mean volumeon 12-01-2021 Platelet mean volume (Bld) [Entitic vol] 10.7 fL 6.2-12.0 [facility] Work Phone: Determination of erythrocyte mean corpuscular volume (MCV)on 12-01-2021 MCV (RBC) [Entitic vol] 87.5 fL 81-99 [facility] Work Phone: Erythrocyte sedimentation ra gene 12-01-2021 ESR (Bld) [Velocity] 45 mm/h 0-30 [facility] Work Phone: Hematocrit Auto (Bld) [Volum e fraction]on 12-01-2021 Hematocrit (Bld) [Volume fraction] 39.2 % 37-47 [facility] Work Phone: Laboratory - Chemistry and C hemistry - challengeon 12-01-2021 ALP [Catalytic activity/Vol] 61 U/L 45-117 [facility] Work Phone: ALT [Catalytic activity/Vol] 23 U/L 13-56 [facility] Work Phone: CO2 [Moles/Vol] 27.0 mmol/L 21.0-32.0 [facility] Work Phone: Globulin (S) [Mass/Vol] 5.1 g/dL 2.2-4.2 [facility] Work Phone: Urea nitrogen/Creatinine [Mass ratio] 19.1 mg/mg 10-20 [facility] Work Phone: Laboratory - Hematology and Cell countson 12-01-2021 Erythrocyte distribution width (RBC) [Entitic vol] 42.1 fL 35.1-43.9 [facility] Work Phone: Erythrocyte distribution width (RBC) [Ratio] 13.1 % 11.6-14.6 [facility] Work Phone: Immature granulocytes/100 WBC (Bld) 0.600 % 0.0-0.9 [facility] Work Phone: Comment on above: IG% - Immature Granu locytes (promyelocytes, myelocytes and metamyelocytes) > 1% indicates that a LEFT SHIFT is Present. MCH (RBC) [Entitic mass] 29.2 pg 27.0-32.0 [facility] Work Phone: Nucleated RBC/100 WBC (Bld) [Ratio] 0 % 0-5 [facility] Work Phone: MCHC Auto (RBC) [Mass/Vol]on 12-01-2021 MCHC (RBC) [Mass/Vol] 33.4 g/dL 32-36 [facility] Work Phone: No Panel Informationon 12-01 Estimated GFR (MDRD) Amer 102 mL/min >60 [facility] Work Phone: Comment on above: GFR Calc Estimated GFR (MDRD) Non-Af Amer 84 mL/min >60 [facility] Work Phone: Comment on above: Non- GFR Calc Platelets bldon 12-01-2021 Platelets (Bld) [#/Vol] 422 10*3/uL 150-450 [facility] Work Phone: Serum or plasma C reactive p rotein measurement (mass/volume)on 12-01-2021 CRP [Mass/Vol] 4.42 mg/L 0.0-3.0 [facility] Work Phone: Comment on above: C-Reactive Protein ( CRP) provides useful information for thediagnosis, therapy and monitoring of inflammatory processesand associated diseases. For the evaluation of Relative Riskfor Cardiovascular Disease, a High Sensitivity CRP (HSCRP)should be ordered. Serum or plasma albumin cooper urement (mass/volume)on 12-01-2021 Albumin [Mass/Vol] 3.7 g/dL 3.2-5.0 [facility] Work Phone: Serum or plasma albumin/glob ulin mass ratioon 12-01-2021 Albumin/Globulin [Mass ratio] 0.7 {ratio} 0.9-2.4 [facility] Work Phone: Serum or plasma calcium cooper urement (mass/volume)on 12-01-2021 Calcium [Mass/Vol] 9.4 mg/dL 8.5-10.1 [facility] Work Phone: Serum or plasma creatinine m easurement (mass/volume)on 12-01-2021 Creatinine [Mass/Vol] 0.73 mg/dL 0.55-1.02 [facility] Work Phone: Comment on above: The validity of the calculated GFR & GFRAA in patients over 70 years has not been determined. Clinical correlation is essential. Serum or plasma urea nitroge n measurement (mass/volume)on 12-01-2021 Urea nitrogen [Mass/Vol] 14 mg/dL 7-18 [facility] Work Phone: Thin prep Papanicolaou smear with manual screeningon 12-01-2021 Thin prep Papanicolaou smear with manual screening 20 U/L 15-37 [facility] Work Phone: Thin prep Papanicolaou smear with manual screening 6 5-15 [facility] Work Phone: MRI SPINE CERVICAL W/O CONTR Сергей 03-09-2017 MRI SPINE CERVICAL W/O CONTRAST ORIGINALMRI SPINE CERVICAL W/O CONTRAST Clinical Statement: CERVICAL RADICULOPATHY TECHNIQUE: Multiplanar, multisequence imaging of the cervical spine. COMPARISON: None. FINDINGS: The cervical spine demonstrates slight degenerative anterolisthesis of C4 on C5 and reversal normal cervical lordosis centered at C6. Vertebral bodies are normal in height.No suspicious marrow signal abnormality is present. There is disc desiccation and height loss, most prominently at C5-6 and C6-7. The cervical spinal cord is normal in signal intensity. The paraspinal soft tissues, craniocervical junction and included intracranial contents are grossly normal. C2-3: No stenosis. C3-4: Uncovertebral spurring and facet arthropathy cause moderate bilateral foraminal stenosis. C4-5: Uncovertebral spurring and facet arthropathy cause mild bilateral foraminal stenosis. C5-6: Circumferential disc osteophyte complex causes mild spinal canal stenosis. Uncovertebral spurring and facet arthropathy cause mild bilateral foraminal stenosis, more prominent on the left. C6-7: Circumferential disc osteophyte complex causes mild spinal canal stenosis. Uncovertebral spurring and facet arthropathy cause moderate right foraminal stenosis. Uncovertebral spurring, facet arthropathy and a foraminal extrusion cause mild left foraminal stenosis. C7-T1: No stenosis. IMPRESSION: Multilevel mild and moderate degenerative foraminal stenosis. Correlation with the distribution of the radiculopathy will be important. Interpreted By: Nino Lorareliminary Report By: Nino Lora MDElectronically Signed By: Nino Lora MD Dictated Date: 03/09/2017 10:41:32 AM Prelim Date: 03/09/2017 10:41:32 AM Sign Date: 03/09/2017 10:48:57 AM Normal [facility] ([place]) Vital Signs Date Time Vital Sign Value Performing Clinician Facility 11-23-2024 10:45-0400 Respiratory rate 16 /min Jose Cox MD Work Phone: [facility] 11-23-2024 10:35-0400 Heart rate 61 /min Jose Cox MD Work Phone: [facility] 11-23-2024 10:35-0400 SaO2% (BldA) [Mass fraction] 100 % Jose Cox MD Work Phone: [facility] 11-23-2024 10:25-0400 Diastolic blood pressure 72 mm[Hg] Jose Cox MD Work Phone: [facility] 11-23-2024 10:25-0400 Systolic blood pressure 119 mm[Hg] Jose Cox MD Work Phone: [facility] 11-23-2024 09:07-0400 Body mass index (BMI) [Ratio] 19.02 kg/m2 Jose Cox MD Work Phone: [facility] 11-23-2024 09:07-0400 Body temperature 97 [degF] Jose Cox MD Work Phone: [facility] 11-23-2024 09:07-0400 Body weight 48.7 kg Jose Cox MD Work Phone: [facility] 10-18-2024 13:54-0400 Body height 160 cm PARDEEP Gordon MD Work Phone: [facility] 10-18-2024 13:54-0400 Body mass index (BMI) [Ratio] 19.01 kg/m2 PARDEEP Gordon MD Work Phone: [facility] 10-18-2024 13:54-0400 Body temperature 96.8 [degF] PARDEEP Gordon MD Work Phone: [facility] 10-18-2024 13:54-0400 Body weight 48.67 kg PARDEEP Gordon MD Work Phone: [facility] 10-18-2024 13:54-0400 Diastolic blood pressure 74 mm[Hg] PARDEEP Gordon MD Work Phone: [facility] 10-18-2024 13:54-0400 Heart rate 72 /min PARDEEP Gordon MD Work Phone: [facility] 10-18-2024 13:54-0400 SaO2% (BldA) [Mass fraction] 100 % PARDEEP Gordon MD Work Phone: [facility] 10-18-2024 13:54-0400 Systolic blood pressure 141 mm[Hg] PARDEEP Gordon MD Work Phone: [facility] 10-09-2024 09:10-0400 Body height 160.[address] Zulema Crespo MD Work Phone: [facility] 10-09-2024 09:10-0400 Body mass index (BMI) [Ratio] 18.8 kg/m2 Dr. Zulema Crespo MD Work Phone: [facility] 10-09-2024 09:10-0400 Body temperature 98.2 [degF] Dr. Zulema Crespo MD Work Phone: [facility] 10-09-2024 09:10-0400 Body weight 48.[address] Zulema Crespo MD Work Phone: [facility] 10-09-2024 09:10-0400 Diastolic blood pressure 76 mm[Hg] Dr. Zulema Crespo MD Work Phone: [facility] 10-09-2024 09:10-0400 Heart rate 67 /min Dr. Zulema Crespo MD Work Phone: [facility] 10-09-2024 09:10-0400 Respiratory rate 16 /min Dr. Zulema Crespo MD Work Phone: [facility] 10-09-2024 09:10-0400 SaO2% (BldA) [Mass fraction] 98 % Dr. Zulema Crespo MD Work Phone: [facility] 10-09-2024 09:10-0400 Systolic blood pressure 133 mm[Hg] Dr. Zulema Crespo MD Work Phone: [facility] 08-29-2024 08:12-0400 Body mass index (BMI) [Ratio] 18.85 kg/m2 Jose Cox MD Work Phone: [facility] 08-29-2024 08:12-0400 Body weight 48.26 kg Jose Cox MD Work Phone: [facility] 08-29-2024 08:12-0400 Diastolic blood pressure 76 mm[Hg] Jose Cox MD Work Phone: [facility] 08-29-2024 08:12-0400 Heart rate 73 /min Jose Cox MD Work Phone: [facility] 08-29-2024 08:12-0400 Respiratory rate 14 /min Jose Cox MD Work Phone: [facility] 08-29-2024 08:12-0400 SaO2% (BldA) [Mass fraction] 100 % Jose Cox MD Work Phone: [facility] 08-29-2024 08:12-0400 Systolic blood pressure 144 mm[Hg] Jose Cox MD Work Phone: [facility] 08-08-2024 08:10-0400 Body height 160 cm Jose Cox MD Work Phone: [facility] 08-08-2024 08:10-0400 Body mass index (BMI) [Ratio] 18.95 kg/m2 Jose Cox MD Work Phone: [facility] 08-08-2024 08:10-0400 Body temperature 97.3 [degF] Jose Cox MD Work Phone: [facility] 08-08-2024 08:10-0400 Body weight 48.53 kg Jose Cox MD Work Phone: [facility] 08-08-2024 08:10-0400 Heart rate 91 /min Jose Cox MD Work Phone: [facility] 08-08-2024 08:10-0400 SaO2% (BldA) [Mass fraction] 100 % Jose Cox MD Work Phone: [facility] 07-25-2024 10:55-0400 Body height 160 cm Aleida Gu MD Work Phone: [facility] 07-25-2024 10:55-0400 Body mass index (BMI) [Ratio] 18.95 kg/m2 Aleida Gu MD Work Phone: [facility] 07-25-2024 10:55-0400 Body weight 48.53 kg Aleida Gu MD Work Phone: [facility] 07-25-2024 10:55-0400 Diastolic blood pressure 74 mm[Hg] Aleida Gu MD Work Phone: [facility] 07-25-2024 10:55-0400 Systolic blood pressure 126 mm[Hg] Aleida Gu MD Work Phone: [facility] 07-25-2024 09:52-0400 Body mass index (BMI) [Ratio] 19.13 kg/m2 Jose Cox MD Work Phone: [facility] 07-25-2024 09:52-0400 Body weight 48.99 kg Jose Cox MD Work Phone: [facility] 07-25-2024 09:52-0400 Diastolic blood pressure 70 mm[Hg] Jose Cox MD Work Phone: [facility] 07-25-2024 09:52-0400 Heart rate 76 /min Jose Cox MD Work Phone: [facility] 07-25-2024 09:52-0400 Respiratory rate 16 /min Jose Cox MD Work Phone: [facility] 07-25-2024 09:52-0400 Systolic blood pressure 138 mm[Hg] Jose Cox MD Work Phone: [facility] 07-13-2024 09:18-0400 Body mass index (BMI) [Ratio] 19.3 kg/m2 Dr. Zulema Crespo MD Work Phone: [facility] 07-13-2024 09:18-0400 Body temperature 98.2 [degF] Dr. Zulema Crespo MD Work Phone: [facility] 07-13-2024 09:18-0400 Body weight 49.[address] Zulema Crespo MD Work Phone: [facility] 07-13-2024 09:18-0400 Diastolic blood pressure 73 mm[Hg] Dr. Zulema Crespo MD Work Phone: [facility] 07-13-2024 09:18-0400 Heart rate 73 /min Dr. Zulema Crespo MD Work Phone: [facility] 07-13-2024 09:18-0400 Respiratory rate 16 /min Dr. Zulema Crespo MD Work Phone: [facility] 07-13-2024 09:18-0400 SaO2% (BldA) [Mass fraction] 98 % Dr. Zulema Crespo MD Work Phone: [facility] 07-13-2024 09:18-0400 Systolic blood pressure 139 mm[Hg] Dr. Zulema Crespo MD Work Phone: [facility] 05-06-2023 08:05-0500 Body height 160.[address] Zulema Crespo Work Phone: [facility] 05-06-2023 08:05-0500 Body mass index (BMI) [Ratio] 19.9 kg/m2 Dr. Zulema Crespo Work Phone: [facility] 05-06-2023 08:05-0500 Body temperature 97.3 [degF] Dr. Zulema Crespo Work Phone: [facility] 05-06-2023 08:05-0500 Body weight 50.[address] Zulema Crespo Work Phone: [facility] 05-06-2023 08:05-0500 Diastolic blood pressure 66 mm[Hg] Dr. Zulema Crespo Work Phone: [facility] 05-06-2023 08:05-0500 Heart rate 63 /min Dr. Zulema Crespo Work Phone: [facility] 05-06-2023 08:05-0500 Respiratory rate 16 /min Dr. Zulema Crespo Work Phone: [facility] 05-06-2023 08:05-0500 SaO2% (BldA) [Mass fraction] 94 % Dr. Zulema Crespo Work Phone: [facility] 05-06-2023 08:05-0500 Systolic blood pressure 120 mm[Hg] Dr. Zulema Crespo Work Phone: [facility] 04-01-2023 08:29-0500 Body mass index (BMI) [Ratio] 19.3 kg/m2 Dr. Zulema Crespo Work Phone: [facility] 04-01-2023 08:29-0500 Body temperature 97.5 [degF] Dr. Zulema Crespo Work Phone: [facility] 04-01-2023 08:29-0500 Body weight 49.[address] Zulema Crespo Work Phone: [facility] 04-01-2023 08:29-0500 Diastolic blood pressure 75 mm[Hg] Dr. Zulema Crespo Work Phone: [facility] 04-01-2023 08:29-0500 Heart rate 80 /min Dr. Zulema Crespo Work Phone: [facility] 04-01-2023 08:29-0500 Respiratory rate 16 /min Dr. Zulema Crespo Work Phone: [facility] 04-01-2023 08:29-0500 SaO2% (BldA) [Mass fraction] 94 % Dr. Zulema Crespo Work Phone: [facility] 04-01-2023 08:29-0500 Systolic blood pressure 129 mm[Hg] Dr. Zulema Crespo Work Phone: [facility] 11-11-2022 16:40-0400 Diastolic blood pressure 68 mm[Hg] [facility] 11-11-2022 16:40-0400 Heart rate 76 /min [facility] 11-11-2022 16:40-0400 Respiratory rate 18 /min [facility] 11-11-2022 16:40-0400 SaO2% (BldA) [Mass fraction] 99 % [facility] 11-11-2022 16:40-0400 Systolic blood pressure 123 mm[Hg] [facility] 11-11-2022 14:29-0400 Body height 160.02 cm [facility] 11-11-2022 14:29-0400 Body mass index (BMI) [Ratio] 19.1 kg/m2 [facility] 11-11-2022 14:29-0400 Body temperature 98.1 [degF] [facility] 11-11-2022 14:29-0400 Body weight 48.98 kg [facility] 05-11-2022 08:39-0500 Body height 160 cm Aleida Gu MD Work Phone: [facility] 05-11-2022 08:39-0500 Body weight 50.35 kg Aleida Gu MD Work Phone: [facility] 05-11-2022 08:39-0500 Diastolic blood pressure 74 mm[Hg] Aleida Gu MD Work Phone: [facility] 05-11-2022 08:39-0500 Systolic blood pressure 122 mm[Hg] Aleida Gu MD Work Phone: [facility] 05-07-2022 08:11-0500 Body temperature 97.2 [degF] Dr. Zulema Crespo Work Phone: [facility] 05-07-2022 08:11-0500 Body weight 50.[address] Zulema Crespo Work Phone: [facility] 05-07-2022 08:11-0500 Diastolic blood pressure 62 mm[Hg] Dr. Zulema Crespo Work Phone: [facility] 05-07-2022 08:11-0500 Heart rate 79 /min Dr. Zulema Crespo Work Phone: [facility] 05-07-2022 08:11-0500 Respiratory rate 16 /min Dr. Zulema Crespo Work Phone: [facility] 05-07-2022 08:11-0500 SaO2% (BldA) [Mass fraction] 98 % Dr. Zulema Crespo Work Phone: [facility] 05-07-2022 08:11-0500 Systolic blood pressure 115 mm[Hg] Dr. Zulema Crespo Work Phone: [facility] 12-01-2021 08:57-0400 Body height 165.[address] Zulema Crespo Work Phone: [facility] Work Phone: 12-01-2021 08:57-0400 Body mass index (BMI) [Ratio] 18.5 kg/m2 Dr. Zulema Crespo Work Phone: [facility] Work Phone: 12-01-2021 08:57-0400 Body temperature 98.3 [degF] Dr. Zulema Crespo Work Phone: [facility] Work Phone: 12-01-2021 08:57-0400 Body weight 50.[address] Zulema Crespo Work Phone: [facility] Work Phone: 12-01-2021 08:57-0400 Diastolic blood pressure 74 mm[Hg] Dr. Zulema Crespo Work Phone: [facility] Work Phone: 12-01-2021 08:57-0400 Heart rate 77 /min Dr. Zulema Crespo Work Phone: [facility] Work Phone: 12-01-2021 08:57-0400 Respiratory rate 16 /min Dr. Zulema Crespo Work Phone: [facility] Work Phone: 12-01-2021 08:57-0400 SaO2% (BldA) [Mass fraction] 98 % Dr. Zulema Crespo Work Phone: [facility] Work Phone: 12-01-2021 08:57-0400 Systolic blood pressure 126 mm[Hg] Dr. Zulema Crespo Work Phone: [facility] Work Phone: 09-27-2021 11:09-0400 Body temperature 97.59 [degF] [facility] HEAT TREAT TECHNICIAN.COAL HANDLING SUPERVISOR Work Phone: [facility] 09-27-2021 11:09-0400 Body weight 52.62 kg [facility] HEAT TREAT TECHNICIAN.COAL HANDLING SUPERVISOR Work Phone: [facility] 09-27-2021 11:09-0400 Diastolic blood pressure 72 mm[Hg] [facility] HEAT TREAT TECHNICIAN.COAL HANDLING SUPERVISOR Work Phone: [facility] 09-27-2021 11:09-0400 Heart rate 70 /min [facility] HEAT TREAT TECHNICIAN.COAL HANDLING SUPERVISOR Work Phone: [facility] 09-27-2021 11:09-0400 Respiratory rate 16 /min [facility] HEAT TREAT TECHNICIAN.COAL HANDLING SUPERVISOR Work Phone: [facility] 09-27-2021 11:09-0400 SaO2% (BldA) [Mass fraction] 99 % [facility] HEAT TREAT TECHNICIAN.COAL HANDLING SUPERVISOR Work Phone: [facility] 09-27-2021 11:09-0400 Systolic blood pressure 134 mm[Hg] [facility] HEAT TREAT TECHNICIAN.COAL HANDLING SUPERVISOR Work Phone: [facility] 09-15-2021 08:41-0400 Body mass index (BMI) [Ratio] 19.4 kg/m2 Dr. Zulema Crespo Work Phone: [facility] Work Phone: 09-15-2021 08:41-0400 Body temperature 97.6 [degF] Dr. Zulema Crespo Work Phone: [facility] Work Phone: 09-15-2021 08:41-0400 Body weight 53.[address] Zulema Crespo Work Phone: [facility] Work Phone: 09-15-2021 08:41-0400 Diastolic blood pressure 70 mm[Hg] Dr. Zulema Crespo Work Phone: [facility] Work Phone: 09-15-2021 08:41-0400 Heart rate 74 /min Dr. Zulema Crespo Work Phone: [facility] Work Phone: 09-15-2021 08:41-0400 Respiratory rate 14 /min Dr. Zulema Crespo Work Phone: [facility] Work Phone: 09-15-2021 08:41-0400 SaO2% (BldA) [Mass fraction] 96 % Dr. Zulema Crespo Work Phone: [facility] Work Phone: 09-15-2021 08:41-0400 Systolic blood pressure 122 mm[Hg] Dr. Zulema Crespo Work Phone: [facility] Work Phone: 04-29-2021 07:19-0500 Body temperature 97.6 [degF] Dr. Zulema Crespo Work Phone: [facility] Work Phone: 04-29-2021 07:19-0500 Body weight 52.[address] Zulema Crespo Work Phone: [facility] Work Phone: 04-29-2021 07:19-0500 Diastolic blood pressure 78 mm[Hg] Dr. Zulema Crepso Work Phone: [facility] Work Phone: 04-29-2021 07:19-0500 Heart rate 77 /min Dr. Zulema Crespo Work Phone: [facility] Work Phone: 04-29-2021 07:19-0500 Respiratory rate 14 /min Dr. Zulema Crespo Work Phone: [facility] Work Phone: 04-29-2021 07:19-0500 SaO2% (BldA) [Mass fraction] 97 % Dr. Zulema Crespo Work Phone: [facility] Work Phone: 04-29-2021 07:19-0500 Systolic blood pressure 124 mm[Hg] Dr. Zulema Crespo Work Phone: [facility] Work Phone: 05-06-2020 07:20-0500 Body mass index (BMI) [Ratio] 19.6 kg/m2 Dr. Zulema Crespo Work Phone: [facility] Work Phone: Encounters Encounter Date Encounter Type Care Provider Facility Start: 11-23-2024 ambulatory JOSE COX Facili ty:[facility] Start: 11-23-2024 End: 11-23-2024 Subsequent hospital visit by physician Jose Cox MD Work Phone: Ambulatory Surgery Comment on above: Left lower quadrant abdominal pain [R10.32] Start: 11-15-2024 End: 11-15-2024 Admission to same day surgery center Jose Cox MD Work Phone: Ambulatory Surgery Comment on above: bowel prep tips miralax bowel prep Start: 11-15-2024 End: 11-15-2024 E-mail encounter from caregiver Jose Cox MD Work Phone: Ambulatory Surgery Start: 10-18-2024 End: 10-18-2024 Patient encounter procedure I Osvaldo Gordon MD Work Phone: Colorectal Surgery Comment on above: Left lower quadrant abdominal pain (Primary Dx) Start: 10-18-2024 End: 10-18-2024 ambulatory ZULEMA CRESPO Facility:[facility] Start: 10-09-2024 End: 10-09-[address] Zulema Crespo MD -[facility] Work Phone: Start: 10-09-2024 End: 10-09-[address] Zulema Crespo MD Work Phone: [facility] Work Phone: Start: 09-19-2024 End: 11-19-2024 Follow-up encounter Aleida Gu MD Work Phone: OB/Gynecology Start: 09-19-2024 End: 09-20-2024 Telephone encounter Aleida Gu MD Work Phone: OB/Gynecology Comment on above: Results Refill Request Start: 09-14-2024 ambulatory ALEIDA GU Facility:[facility] Start: 08-29-2024 End: 08-29-2024 Patient encounter procedure Jose Cox MD Work Phone: General Surgery Comment on above: Nausea (Primary Dx); Lower abdominal pain Start: 08-29-2024 End: 08-29-2024 ambulatory JOSE COX Facility:[facility] Start: 08-08-2024 End: 08-08-2024 ambulatory JOSE OCX Facility:[facility] Start: 08-08-2024 End: 08-08-2024 Patient encounter procedure Jose Cox MD Work Phone: General Surgery Comment on above: Nausea (Primary Dx); Lower abdominal pain Start: 08-04-2024 End: 08-04-2024 ambulatory ZULEMA CRESPO Facility:[facility] Start: 08-04-2024 End: 08-04-2024 Subsequent hospital visit by physician [facility] Work Phone: Radiology Comment on above: Nausea [R11.0] Start: 07-27-2024 ambulatory JOSE COX Facili ty:[facility] Start: 07-27-2024 End: 07-27-2024 Subsequent hospital visit by physician [facility] Work Phone: [facility] Radiology Molecular Comment on above: Nausea [R11.0] Start: 07-26-2024 End: 07-26-2024 Telephone encounter Breanne Alvarez RT(R) [facility] Radiology Molecular Comment on above: Radiology NM Start: 07-25-2024 End: 07-25-2024 ambulatory ALEIDA GU Facility:[facility] Start: 07-25-2024 End: 07-25-2024 Patient encounter procedure Aleida Gu MD Work Phone: OB/Gynecology Comment on above: Encounter for gyneco logical examination (general) (routine) without abnormal findings (Primary Dx); Encounter for screening mammogram for breast cancer; Asymptomatic menopause; Localized osteoporosis without current pathological fracture Start: 07-25-2024 End: 07-25-2024 Patient encounter status Aleida Gu MD Work Phone: [facility] Start: 07-25-2024 End: 07-25-2024 ambulatory JOSE COX Facility:[facility] Start: 07-25-2024 End: 07-25-2024 Patient encounter procedure Jose Cox MD Work Phone: General Surgery Comment on above: Nausea (Primary Dx); Lower abdominal pain Start: 07-24-2024 End: 07-28-2024 Telephone encounter Jose Cox MD Work Phone: General Surgery Start: 07-13-2024 End: 07-13-[address] Zulema Crespo MD -[facility] Work Phone: Start: 07-13-2024 End: 07-13-2024 ambulatory Zulema Crespo Facility:[facility] Start: 06-30-2024 End: 08-30-2024 Follow-up encounter Aleida Gu MD Work Phone: OB/Gynecology Start: 06-29-2024 End: 06-29-2024 ambulatory ALEIDA GU Facility:[facility] Start: 06-29-2024 End: 06-29-2024 Subsequent hospital visit by physician Screen Mammo [facility] Comment on above: Encounter for screen ing mammogram for malignant neoplasm of breast [Z12.31] Start: 06-19-2024 End: 06-19-[address] Zulema Crespo MD -[facility] Work Phone: Start: 06-19-2024 End: 06-19-2024 ambulatory [facility] Facility:[facility] Start: 06-08-2024 End: 06-08-2024 ambulatory Zulema Crespo Facility:[facility] Start: 05-11-2024 End: 05-11-2024 ambulatory [facility] Facility:[facility] Start: 07-02-2023 End: 07-02-[address] Zulema Crespo Work Phone: [facility] Work Phone: Start: 07-02-2023 End: 07-02-[address] Zulema Crespo Work Phone: [facility] Work Phone: Start: 06-15-2023 Documentation procedure Mammog natacha Coordinator [facility] Start: 06-15-2023 Letter encounter Mammography Coordinator [facility] Department Start: 06-15-2023 End: 06-15-2023 Subsequent hospital visit by physician Screen Mammo [facility] Mammogram Comment on above: Encounter for screen ing mammogram for malignant neoplasm of breast [Z12.31] Start: 06-11-2023 Telephone encounter Aleida Gu MD Work Phone: OB/Gynecology Comment on above: Orders Start: 05-06-2023 End: 05-06-[address] Zulema Crespo Work Phone: [facility] Work Phone: Start: 04-01-2023 End: 04-01-[address] Zulema Crespo Work Phone: [facility] Work Phone: Start: 11-11-2022 End: 11-11-2022 [facility] [facility] Work Phone: Start: 08-29-2022 End: 08-29-[address] Zulema Crespo Work Phone: [facility] Work Phone: Start: 08-29-2022 End: 08-29-[address] Zulema Crespo Work Phone: [facility] Start: 06-06-2022 Documentation procedure Mammog natacha Coordinator [facility] Start: 06-06-2022 Letter encounter Mammography Coordinator [facility] Department Start: 06-05-2022 End: 06-05-2022 Subsequent hospital visit by physician Screen Mammo [facility] Mammogram Comment on above: Encounter for screen ing mammogram for malignant neoplasm of breast [Z12.31] Start: 05-11-2022 End: 05-11-2022 Patient encounter procedure Aleida Gu MD Work Phone: OB/Gynecology Comment on above: Encounter for gyneco logical examination (general) (routine) without abnormal findings (Primary Dx); Encounter for screening mammogram for malignant neoplasm of breast Start: 05-11-2022 End: 05-11-2022 Patient encounter status Aleida Gu MD Work Phone: OB/Gynecology Start: 05-11-2022 End: 05-11-[address] Zulema Crespo Work Phone: [facility] Work Phone: Start: 05-11-2022 End: 05-11-[address] Zulema Crespo Work Phone: [facility] [place] Start: 05-07-2022 End: 05-07-[address] Zulema Crespo Work Phone: [facility] Start: 02-10-2022 End: 10-18-[address] Zulema Crespo Work Phone: [facility] [place] Start: 12-01-2021 End: 12-01-[address] Zulema Crespo Work Phone: [facility] [place] Start: 09-27-2021 End: 09-27-2021 Patient encounter procedure Klaus Lara COAL HANDLING SUPERVISOR Work Phone: [facility] Comment on above: Exposure to COVID-19 virus (Primary Dx) Start: 09-15-2021 End: 09-15-[address] Zulema Crespo Work Phone: [facility] Internal Medicine Start: 07-30-2021 End: 07-30-[address] Zulema Crespo Work Phone: [facility] [place], [facility] Start: 04-29-2021 End: 04-29-[address] Zulema Crespo Work Phone: [facility] Internal Medicine Start: 01-31-2019 Patient encounter procedure ZULEMA ABAD [facility] Start: 03-08-2017 End: 03-09-2017 Ambulatory ZULEMA RCESPO Facility:[place] Procedures Date Procedure Procedure Detail Performing Clinician Start: 11-23-2024 Colonoscopy flx dx w /collj spec when pfrmd I Osvaldo Gordon MD Work Phone: Start: 11-23-2024 Colonoscopy Jose wood MD Work Phone: Start: 08-04-2024 Us abdominal real ti me w/image limited Jose Cox MD Work Phone: Start: 07-27-2024 Hepatobil syst imag inc gb w/pharma intervenj Jose Cox MD Work Phone: Start: 06-29-2024 Screening digital br east tomosynthesis bi Aleida Gu MD Work Phone: Start: 06-19-2024 CT of abdomen and pe lvis with oral contrast Dr. Zulema Crespo MD Work Phone: Start: 06-15-2023 Screening digital br east tomosynthesis bi Aleidarobert Gu MD Work Phone: Start: 11-11-2022 Plain chest X-ray Start: 08-29-2022 MRI of cervical spine Nissa Crespo Work Phone: Start: 06-05-2022 JANEY SCREENING W JOE Mccormick MD Work Phone: Start: 06-05-2022 Mammography Mammograph y Coordinator Start: 07-30-2021 X-ray of cervical spine Dr. Zulema Crespo Work Phone: Start: 05-06-2021 Mammography Klaus marx HEAT TREAT TECHNICIAN.COAL HANDLING SUPERVISOR Work Phone: Start: 12-27-2017 Colonoscopy Klaus marx HEAT TREAT TECHNICIAN.COAL HANDLING SUPERVISOR Work Phone: Start: 06-30-2016 Adult depression scr eening assessment Klaus Lara HEAT TREAT TECHNICIAN.COAL HANDLING SUPERVISOR Work Phone: Start: 07-02-2015 Lipid 1996 panel - S molly or Plasma Screen Wstr Plan of Treatment Date Care Activity Detail Author Start: 11-23-2034 Screening for malign ant neoplasm of colon [facility] Start: 12-28-2027 Colonoscopy COLONOSCOPY [facility] Start: 12-28-2027 COLORECTAL CANCER SCREENING COLORECTAL CANCER SCREENING [facility] Start: 12-28-2027 Screening for malign ant neoplasm of colon [facility] Start: 09-14-2026 Screening for osteoporosis Bone Density Screening [facility] Start: 07-03-2025 End: 07-03-2025 Patient encounter procedure 07/03/2025 10:10 AM EDT Appointment Mammogram [address] [place] [address] Encounter for screening mammogram for breast cancer [Z12.31] Mammogram Comment on above: Encounter for screen ing mammogram for breast cancer [Z12.31] Start: 06-29-2025 Screening for malign ant neoplasm of breast Mammogram Screening [facility] Start: 12-25-2024 Influenza vaccination Influenza Vacc ine (#1) [facility] Start: 11-23-2024 End: 11-23-2024 Patient encounter procedure 11/23/2024 8:45 AM EDT Appointment Ambulatory Surgery [address] [place], [place] [id number] Jose Cox MD [address] [place], [place] [id number] Ambulatory Surgery Start: 10-18-2024 End: 10-18-2024 Patient encounter procedure 10/18/2024 2:00 PM EDT Office Visit Colorectal Surgery [address] [address] Alayna Gordon MD [address] [place] [address] ABDOMINAL PAIN Colorectal Surgery Comment on above: ABDOMINAL PAIN Start: 09-14-2024 End: 09-14-2024 Patient encounter procedure 09/14/2024 7:45 AM EDT Appointment Radiology [address] [place] [id number] Asymptomatic menopause [Z78.0]; Localized osteoporosis without current pathological fracture [M81.6] Radiology Comment on above: Asymptomatic menopau se [Z78.0]; Localized osteoporosis without current pathological fracture [M81.6] Start: 08-22-2024 Covid-19 Vaccine ( season) Covid-19 Vaccine ( season) [facility] Start: 08-08-2024 End: 08-08-2024 Patient encounter procedure General Surgery Comment on above: Follow up + review t est results Follow up + review t est results. US 08/04/24. OV: 07/25/24. [facility] Start: 08-04-2024 End: 08-04-2024 Patient encounter procedure 08/04/2024 7:00 AM EDT Appointment Radiology [address] [place], [place] [address] Nausea [R11.0] Radiology Comment on above: Nausea [R11.0] Start: 07-27-2024 End: 07-27-2024 Patient encounter procedure 07/27/2024 1:00 PM EDT Appointment [facility] Radiology Molecular [id number] [facility] [place] [address] Weight 107- Non Diabetic Dx- Nausea [R11.0] [facility] Radiology Molecular Comment on above: Weight 107- Non Diab etic Dx- Nausea [R11.0] Start: 07-25-2024 End: 07-25-2024 Patient encounter procedure 07/25/2024 11:20 AM EDT Office Visit OB/Gynecology [address] [place], [place] [id number] Aleida Lamar MD [address] [place], [place] [id number] annual OB/Gynecology Comment on above: annual Start: 06-15-2024 Screening for malign ant neoplasm of breast Mammogram Screening [facility] Start: 04-26-2024 Advance Directive Discussion Advance Directive Discussion [facility] Start: 04-26-2024 Medicare Advantage Annual Wellness Visit Medicare Advantage Annual Wellness Visit [facility] Start: 06-05-2023 Mammography [facility] Start: 04-26-2023 Advance Directive Discussion Advance Directive Discussion [facility] Start: 04-26-2023 Depression Assessment Depression Ass essment [facility] Start: 12-25-2022 Covid-19 Vaccine () Covid-19 Vaccine () [facility] Start: 12-25-2022 Influenza vaccination Influenza Vacc ine (#1) [facility] Start: 11-11-2022 [place] Start: 05-06-2022 Mammography MAMMOGRAM [facility] Start: 04-26-2022 ADVANCE DIRECTIVE DISCUSSION ADVANCE DIRECTIVE DISCUSSION [facility] Start: 04-26-2022 DEPRESSION ASSESSMENT DEPRESSION ASS ESSMENT [facility] Start: 04-26-2021 ADVANCE DIRECTIVE DISCUSSION ADVANCE DIRECTIVE DISCUSSION [facility] Start: 03-07-2021 Screening for osteoporosis Bone Density Screening [facility] Start: 07-01-2020 Lipid 1996 panel - S molly or Plasma Lipid Screening [facility] Start: 07-01-2020 Lipid panel Lipid Screening [facility] Start: 07-01-2020 LIPID SCREEN LIPID SCREEN [facility] Start: 03-31-2019 DIABETES SCREEN DIABETES SCREEN [facility] Start: 03-31-2019 Diabetes Screening Diabetes Screenin g [facility] Start: 06-30-2017 Adult depression screening assessment DEPRESSION SCREENING [facility] Start: 09-18-2006 Urine microalbumin profile [facility] Start: 1998 COLOGUARD (FIT-DNA) COLOGUARD (FIT-D NA) [facility] Start: [address] COLONOGRAPHY [facility] Start: 1998 FECAL OCCULT BLOOD FECAL OCCULT BLOO D [facility] Start: 1998 Screening for malign ant neoplasm of colon [facility] Start: 1998 SIGMOIDOSCOPY SIGMOIDOSCOPY [facility] Start: 1971 Anxiety Screening Anxiety Screening [facility] Start: 1971 Depression Screening Depression Scre ening [facility] Start: 1971 HEPATITIS C SCREENING HEPATITIS C [facility] Start: 1971 Hepatitis C screening Hepatitis C [facility] End: 08-24-2025 BD DXA TRABECULAR BONE SCORE (TBS) BD DXA TRABECULAR BONE SCORE (TBS) Radiology Routine Asymptomatic menopause Localized osteoporosis without current pathological fracture 1 Occurrences starting 07/25/2024 until 08/24/2025 [facility] Comment on above: 1 Occurrences starti ng 07/25/2024 until 08/24/2025 End: 08-24-2025 DBT Breast - bilateral screening JANEY SCREENING W JOE Radiology Routine Encounter for screening mammogram for breast cancer 1 Occurrences starting 07/25/2024 until 08/24/2025 [facility] Work Phone: Comment on above: 1 Occurrences starti ng 07/25/2024 until 08/24/2025 End: 08-24-2025 DXA Skeletal system.axial Views for bone density [facility] Comment on above: 1 Occurrences starti ng 07/25/2024 until 08/24/2025 End: 10-18-2025 Flexible sigmoidoscopy study COLONOSCOPY DIAGNOSTIC Endoscopy Routine Left lower quadrant abdominal pain 1 Occurrences starting 10/18/2024 until 10/18/2025 [facility] Work Phone: Comment on above: 1 Occurrences starti ng 10/18/2024 until 10/18/2025 End: 06-10-2023 JANEY SCREENING W JOE JANEY SCREENING W JOE Radiology Routine Encounter for screening mammogram for malignant neoplasm of breast 1 Occurrences starting 05/11/2022 until 06/10/2023 [facility] Work Phone: Comment on above: 1 Occurrences starti ng 05/11/2022 until 06/10/2023 End: 08-24-2025 NM Biliary ducts and Gallbladder Views for patency of biliary structures and ejection fraction W sincalide and W radionuclide IV NM HEPATOBILIARY W EF AND/OR RX Radiology Routine Nausea 1 Occurrences starting 07/25/2024 until 08/24/2025 [facility] Work Phone: Comment on above: 1 Occurrences starti ng 07/25/2024 until 08/24/2025 Patient Education ED Chest Pain, Uncertain Cause [facility] Work Phone: Patient referral [facility] Work Phone: SARS-CoV-2 (COVID-19 ) RNA [Presence] in Respiratory specimen by OSCAR with probe detection 2019 CORONAVIRUS Microbiology Routine Exposure to COVID-19 virus Ordered: 09/27/2021 [facility] Work Phone: Comment on above: Ordered: 09/27/2021 Tissue Pathology bio psy report [facility] Work Phone: Comment on above: Release Upon Sebasin g for 1 Occurrences starting 11/23/2024, 1 completed End: 08-24-2025 US Abdomen RUQ US ABD RIGHT UPPER QUADRANT Radiology Routine Nausea 1 Occurrences starting 07/25/2024 until 08/24/2025 [facility] Comment on above: 1 Occurrences starti ng 07/25/2024 until 08/24/2025 [facility] Immunizations Immunization Date Immunization Notes Care Provider Sylvie palumbo 02-08-2024 influenza virus vacc ine, unspecified formulation Jose Cox MD Work Phone: [facility] 01-30-2022 influenza virus vacc ine, unspecified formulation Screen Wstr [facility] 02-04-2021 influenza (aIIV4) vaccine, age 65+ yr, quadrivalent, PF (FLUAD QUADRIVALENT) Klaus Pendblessing HEAT TREAT TECHNICIAN.COAL HANDLING SUPERVISOR Work Phone: [facility] Work Phone: 02-17-2020 pneumococcal polysaccharide vaccine, [address] Zulema Crespo Work Phone: [facility] Work Phone: 01-30-2020 influenza (aIIV4) vaccine, age 65+ yr, quadrivalent, PF (FLUAD QUADRIVALENT) Klaus Lara HEAT TREAT TECHNICIAN.COAL HANDLING SUPERVISOR Work Phone: [facility] Work Phone: 01-30-2020 influenza, injectabl e, quadrivalent, preservative free Dr. Zulema Crespo Work Phone: [facility] 01-30-2020 influenza, seasonal, injectable Dr. Zulema Crespo Work Phone: [facility] 01-27-[address] Zulema Crespo Work Phone: [facility] 01-27-2020 zoster vaccine, live Klaus Lara HEAT TREAT TECHNICIAN.COAL HANDLING SUPERVISOR Work Phone: [facility] Work Phone: 12-28-2019 zoster vaccine recombinant Klaus Lara HEAT TREAT TECHNICIAN.COAL HANDLING SUPERVISOR Work Phone: [facility] Work Phone: 07-14-[address] Zulema Crespo Work Phone: [facility] 07-14-2019 zoster vaccine, live Klaus Lara HEAT TREAT TECHNICIAN.COAL HANDLING SUPERVISOR Work Phone: [facility] Work Phone: 07-06-2019 zoster vaccine recombinant Klaus Lara HEAT TREAT TECHNICIAN.COAL HANDLING SUPERVISOR Work Phone: [facility] Work Phone: 03-22-2019 pneumococcal polysaccharide vaccine, 23 valent Klaus Lara HEAT TREAT TECHNICIAN.COAL HANDLING SUPERVISOR Work Phone: [facility] Work Phone: 01-31-2019 influenza, high dose seasonal, preservative-free Klaus Pendlebury HEAT TREAT TECHNICIAN.COAL HANDLING SUPERVISOR Work Phone: [facility] 01-13-2019 pneumococcal conjuga te vaccine, 13 valent Klaus Pendlebury HEAT TREAT TECHNICIAN.COAL HANDLING SUPERVISOR Work Phone: [facility] Work Phone: 01-12-2019 pneumococcal conjuga te vaccine, [address] Zulema Crespo Work Phone: [facility] 02-21-2016 influenza, injectabl e, quadrivalent, contains preservative Klaus Pendlebury HEAT TREAT TECHNICIAN.COAL HANDLING SUPERVISOR Work Phone: [facility] Work Phone: 02-28-2015 influenza, injectabl e, quadrivalent, contains preservative Klaus Pendlebury HEAT TREAT TECHNICIAN.COAL HANDLING SUPERVISOR Work Phone: [facility] 02-07-2014 influenza, seasonal, injectable Klaus Pendlebury HEAT TREAT TECHNICIAN.COAL HANDLING SUPERVISOR Work Phone: [facility] 02-18-2013 influenza virus vacc ine, unspecified formulation Klaus Pendlebury HEAT TREAT TECHNICIAN.COAL HANDLING SUPERVISOR Work Phone: [facility] Work Phone: 03-25-2012 influenza virus vacc ine, unspecified formulation Klaus Pendlebury HEAT TREAT TECHNICIAN.COAL HANDLING SUPERVISOR Work Phone: [facility] 11-21-2010 zoster vaccine, live Klaus Pendlebury HEAT TREAT TECHNICIAN.COAL HANDLING SUPERVISOR Work Phone: [facility] 02-14-2009 influenza virus vacc ine, unspecified formulation Klaus Pendlebury HEAT TREAT TECHNICIAN.COAL HANDLING SUPERVISOR Work Phone: [facility] Work Phone: 02-10-2008 influenza virus vacc ine, unspecified formulation Kalus Pendlebury HEAT TREAT TECHNICIAN.COAL HANDLING SUPERVISOR Work Phone: [facility] 05-27-2007 influenza virus vacc ine, unspecified formulation Klaus Pendlebury HEAT TREAT TECHNICIAN.COAL HANDLING SUPERVISOR Work Phone: [facility] Work Phone: 09-17-2006 tetanus and diphther ia toxoids, adsorbed, preservative free, for adult use (2 Lf of tetanus toxoid and 2 Lf of diphtheria toxoid) Klaus Lara APRN.[facility] Work Phone: [facility] Work Phone: Payers Date Payer Category Payer Self-pay [id number] 2020 Medicare (Managed Care) TYSHAWN PENA O Member Subscriber Plan / Payer (Effective 2020-Present) Name: Yolanda An Relation to Subscriber: Self Name: Dayana Yolanda Ashkan Payer ID: [id number] (NAIC) Group ID: [id number] Type: HMO Address: [address] [place] [id number] 2020 Unknown TYSHAWN CAZARES [facility] S AND [facility] TYSHAWN WALLS O [id number] 2020-Present [phone] [address] [place] [address] [facility] [id number] 2020 Unknown [id number] 2020 Medicare [id number] 2003 Unknown [id number] 1953 Unknown [id number] Medicare [id number] Unknown [id number] Unknown [id number] Unknown [id number] Unknown [id number] Unknown [id number] Unknown [id number] Social History Date Type Detail Facility Start: 04-29-2021 End: 05-06-2023 Tobacco smoking status NJIS Unknown if ever smoked [facility] Start: 10-04-2018 Non-smoker [place] Start: 1955 Sex Assigned At Female [facility] Start: 11-17-2010 End: 05-06-2023 Tobacco smoking status NHIS Never smoked tobacco [facility] Work Phone: Start: 09-27-2021 End: 11-23-2024 Alcohol intake Current non-drinker of alcohol (finding) [facility] Start: 09-17-2021 End: 09-27-2021 Exposure to SARS-CoV-2 (event) Yes [facility] Start: 11-17-2010 Tobacco use and exposure Smokeless tobacco non-user [facility] Work Phone: Start: 05-11-2022 End: 06-15-2023 History of Social function [facility] Start: 05-11-2022 End: 06-15-2023 Tobacco use panel [facility] National Score (1-10 0), lower number is lower risk 46 [facility] Start: 04-01-2020 Gender identity Identifies as female gender (finding) [facility] Start: 04-01-2020 Sexual orientation Heterosexual (fin elias) [facility] Functional Status Date Assessment Result Facility 01-19-2014 Are you deaf, or do you have serious difficulty hearing No 01/19/2014 8:57 AM EDT Anny Townsend MA No [facility] 01-19-2014 Are you blind, or do you have serious difficulty seeing, even when wearing glasses No 01/19/2014 8:57 AM EDT Anny Townsend MA No [facility] 01-19-2014 Do you have serious difficulty walking or climbing stairs No 01/19/2014 8:57 AM EDT Anny Townsend MA No [facility] 01-19-2014 Do you have difficul ty dressing or bathing No 01/19/2014 8:57 AM EDT Anny Townsend MA No [facility] 01-19-2014 Because of a physica l, mental, or emotional condition, do you have difficulty doing errands alone such as visiting a physician's office or shopping No 01/19/2014 8:57 AM EDT Anny Townsend MA [facility] Mental Status Date Assessment Result Facility 11-11-2022 Cognitive function Level Of Cons ciousness Awake;Alert [facility] Work Phone: 01-19-2014 Because of a physica l, mental, or emotional condition, do you have serious difficulty concentrating, remembering, or making decisions No 01/19/2014 8:57 AM EDT Anny Townsend MA [facility] Clinical Notes 12-14-2008 to 11-23-2024 Discharge Instr - Nursing - Kimmy Guzman RN - 11/23/2024 10:20 AM EDTDischarge Instr - Nursing - Kimmy Guzman RN - 11/23/2024 10:20 AM Jose Ahmadi MD - 11/23/2024 9:45 AM EDT Note Date & Type Note Facility 11-23-2024 Note Formatting of this n ote might be different from the original. The patient received a copy of Colonoscopy discharge instructions that contain information for how to contact the physician who performed the procedure and when to seek medical care. [facility] 11-23-2024 Miscellaneous Notes The patient received a copy of Colonoscopy discharge instructions that contain information for how to contact the physician who performed the procedure and when to seek medical care. documented in this encounter [facility] 11-23-2024 History and physical note History of Present Illness: Yolanda Luther Friend is a 69 year old year old female referred by Dr. Cox for nausea and left sided abdominal pain for consideration of inertia testing. She has complained of LLQ abdominal pain since April 2024, occasionally accompanied by nausea, which has since resolved. She denies any issues with constipation and reports having daily bowel movements with normal stool consistency. A CT scan performed in May 2024 showed a significant amount of stool in the colon and a tortuous colon, though no formal radiology report is available. She has a history of one episode of diverticulitis, which was managed with oral antibiotics. Her last colonoscopy was approximately 2-3 years ago. 08/29/24 Dr. Cox Subjective: Patient is status post gallbladder ultrasound which was entirely normal and then a HIDA scan with ejection fraction which showed it to be at 65%. We have tried to do some intermittent fasting with her to see if that made any difference unfortunately she is still experiencing significant nausea as well as some left upper quadrant radiating down to the left lower quadrant abdominal pain. Nausea has been fairly persistent. Plan: I am going to refer her to Dr. Gordon. I think we need a fresh set of eyes to look at this. I think she may benefit from getting a colonic inertia testing. PAST MEDICAL HISTORY PAST MEDICAL HISTORY Diagnosis Date Arthritis Epigastric pain 06/11/2016 Fracture of unspecified metatarsal bone(s), left foot, initial encounter for closed fracture Hiatal hernia 06/11/2016 Leiomyoma of uterus, unspecified Mitral valve disorders Multiple sclerosis (HCC) Dx 2001 Osteoporosis, unspecified 12/09/2011 PAST SURGICAL HISTORY PAST SURGICAL HISTORY Procedure Laterality Date COLONOSCOPY FLX DX W/COLLJ SPEC WHEN PFRMD 01/20/2008 Repeat due 2018 CRANIEC TREPHINE BONE FLP BRAIN TUMOR SUPRTENTOR 1997 Craniotomy, tumor. Meningioma ESOPHAGOGASTRODUODENOSCOPY TRANSORAL DIAGNOSTIC 06/11/2016 GASTROESOPHAG REFLX TEST W/TELEMTRY PH ELTRD 06/11/2016 EGD with 48 hour PH probe LIG/TRNSXJ FLP TUBE ABDL/VAG APPR UNI/BI 1983 PAST SURGICAL HISTORY OF 1996 benign brain tumor PAST SURGICAL HISTORY OF excision of mole,right lower back/hip REMV CATARACT EXTRACAP,INSERT LENS 06/2021 CURRENT MEDICATIONS Current Outpatient Medications Medication Sig Dispense Refill ondansetron orally disintegrating (ZOFRAN ODT) 4 mg disintegrating tablet Take 1 tablet by mouth every 8 hours as needed for nausea/vomiting. 10 tablet 0 metroNIDAZOLE 0.75 % Topical Gel Apply to entire Rosacea-involved area(s) of face (eg, central face at cheeks, chin, nose and mid lower forehead, etc.) once to twice per day (qday to bid) as directed and tolerated. 45 g 3 CALCIUM CARBONATE/VITAMIN D2 (CALCIUM + VITAMIN D ORAL) Take by mouth. No current facility-administered medications for this visit. ALLERGIES ALLERGIES No Known Allergies Review of Systems / PACC screen: Do you have difficulty climbing a full flight of stairs without feeling short of breath? no Do you require oxygen for your breathing or have your gone to an emergency department because of breathing problems? no Are you on dialysis or have you been told that your kidneys do not work well as they should? no Do have an implanted cardiac device (pacemaker, defibrillator etc.) that has not been checked in the last 6 months? no Have you had an organ transplant? no Have you been told that you had excessive bleeding during surgical procedures or do you take blood thinning medications other than aspirin? no Have you ever had a heart attack, heart stents/surgery, valve problems, or other heart problems? YES, Mitral Valve Disorder? Have you had a stroke, seizures, or unexplained loss of consciousness? no Do you have a neurologic condition like Parkinson's disease or multiple sclerosis? YES, MS and hx of benign meningioma Have you or a blood relative had a life-threatening reaction to anesthesia? no Do you have cirrhosis of the liver or other liver disease? no Have you had a blood clot within the past year? no Do you take insulin or other injections for diabetes? no Do you have sleep apnea or have you been told you may have sleep apnea? no Do you have other implanted devices (deep brain stimulator, spinal cord stimulator, etc.)? no Physical Exam: BP 141/74 Pulse 72 Temp 36 C (96.8 F) (Temporal) Ht 160 cm (5' 3) Wt 48.7 kg (107 lb 4.8 oz) LMP 07/31/2005 SpO2 100% BMI 19.01 kg/m General Appearance: Well appearing, alert, in no acute distress, well-hydrated, well nourished. Lungs: Lungs clear to auscultation. No wheezing, rhonchi, rales. Heart: RRR without murmur, gallop, or rubs. No ectopy Edema: Abdomen: Normal abdominal exam, Abdomen soft, non-tender. Assessment Medical Decision Making: Assessment & Diagnosis: Yolanda An is a 69-year-old female referred by Dr. Cox for evaluation of LLQ abdominal pain. She reports LLQ pain since April 2024, at times associated with nausea, which has since resolved. She denies constipation and states she has regular, daily bowel movements with normal stool consistency. Despite this, a CT scan in May 2024 revealed significant stool burden and a tortuous colon, though no formal report is available for review. She also has a history of a single episode of diverticulitis, managed conservatively with oral antibiotics. At this time, the patient's abdominal exam is soft with no specific findings. However, given her history of persistent left lower quadrant pain and prior imaging showing stool burden and a tortuous colon, a comprehensive assessment is warranted. This should include a repeat colonoscopy and a repeat CT scan , ideally performed during an episode of symptoms to better correlate imaging findings with clinical presentation to r/o acute diverticulitis. Data Reviewed: Tests & Documents Reviewed/ordered: Review of Pathology I have independently interpreted: CT Abdomen, CT Pelvis I have discussed Yolanda An's treatment plan and/or results with her and her . Treatment plan: - colonoscopy - repeat CT scan , ideally performed during an episode of symptoms - CORS follow-up as needed Colorectal Surgery Risk of morbidity, mortality and/or complications of treatment plan: low CORS RESEARCH DISCUSSION - Patient AGREED to be Contacted by our Colorectal Reseach Team to Explore Participation in Research Studies. Electronically signed by Alayna Gordon MD UPDATED HISTORY AND PHYSICAL EXAMINATION SERVICE DATE: 11/23/2024 SERVICE TIME: 9:19 AM PHYSICAL EXAM MUST BE COMPLETED ON ADMISSION The History and Physical (completed in the past 30 days) has been reviewed and the patient has been examined. The contents accurately reflect the patient's condition with the following additions or revisions since the H&P was completed. Examination indicates no changes. This H&P can be found in the attached. SIGNATURE: Jose Cox III, MD PATIENT NAME: Yolanda An DATE: November 23, 2024 TIME: 9:19 AM [facility] 11-23-2024 History and physical note History of Present Illness: Yolanda Luther Friend is a 69 year old year old female referred by Dr. Cox for nausea and left sided abdominal pain for consideration of inertia testing. She has complained of LLQ abdominal pain since April 2024, occasionally accompanied by nausea, which has since resolved. She denies any issues with constipation and reports having daily bowel movements with normal stool consistency. A CT scan performed in May 2024 showed a significant amount of stool in the colon and a tortuous colon, though no formal radiology report is available. She has a history of one episode of diverticulitis, which was managed with oral antibiotics. Her last colonoscopy was approximately 2-3 years ago. 08/29/24 Dr. Cox Subjective: Patient is status post gallbladder ultrasound which was entirely normal and then a HIDA scan with ejection fraction which showed it to be at 65%. We have tried to do some intermittent fasting with her to see if that made any difference unfortunately she is still experiencing significant nausea as well as some left upper quadrant radiating down to the left lower quadrant abdominal pain. Nausea has been fairly persistent. Plan: I am going to refer her to Dr. Gordon. I think we need a fresh set of eyes to look at this. I think she may benefit from getting a colonic inertia testing. PAST MEDICAL HISTORY PAST MEDICAL HISTORY Diagnosis Date Arthritis Epigastric pain 06/11/2016 Fracture of unspecified metatarsal bone(s), left foot, initial encounter for closed fracture Hiatal hernia 06/11/2016 Leiomyoma of uterus, unspecified Mitral valve disorders Multiple sclerosis (HCC) Dx 2002 Osteoporosis, unspecified 12/09/2011 PAST SURGICAL HISTORY PAST SURGICAL HISTORY Procedure Laterality Date COLONOSCOPY [...] lower back/hip REMV CATARACT EXTRACAP,INSERT LENS 06/2021 CURRENT MEDICATIONS Current Outpatient Medications Medication Sig Dispense Refill ondansetron orally disintegrating (ZOFRAN ODT) 4 mg disintegrating tablet Take 1 tablet by mouth every 8 hours as needed for nausea/vomiting. 10 tablet 0 metroNIDAZOLE 0.75 % Topical Gel Apply to entire Rosacea-involved area(s) of face (eg, central face at cheeks, chin, nose and mid lower forehead, etc.) once to twice per day (qday to bid) as directed and tolerated. 45 g 3 CALCIUM CARBONATE/VITAMIN D2 (CALCIUM + VITAMIN D ORAL) Take by mouth. No current facility-administered medications for this visit. ALLERGIES ALLERGIES No Known Allergies Review of Systems / PACC screen: Do you have difficulty climbing a full flight of stairs without feeling short of breath? no Do you require oxygen for your breathing or have your gone to an emergency department because of breathing problems? no Are you on dialysis or have you been told that your kidneys do not work well as they should? no Do have an implanted cardiac device (pacemaker, defibrillator etc.) that has not been checked in the last 6 months? no Have you had an organ transplant? no Have you been told that you had excessive bleeding during surgical procedures or do you take blood thinning medications other than aspirin? no Have you ever had a heart attack, heart stents/surgery, valve problems, or other heart problems? YES, Mitral Valve Disorder? Have you had a stroke, seizures, or unexplained loss of consciousness? no Do you have a neurologic condition like Parkinson's disease or multiple sclerosis? YES, MS and hx of benign meningioma Have you or a blood relative had a life-threatening reaction to anesthesia? no Do you have cirrhosis of the liver or other liver disease? no Have you had a blood clot within the past year? no Do you take insulin or other injections for diabetes? no Do you have sleep apnea or have you been told you may have sleep apnea? no Do you have other implanted devices (deep brain stimulator, spinal cord stimulator, etc.)? no Physical Exam: BP 141/74 Pulse 72 Temp 36 C (96.8 F) (Temporal) Ht 160 cm (5' 3) Wt 48.7 kg (107 lb 4.8 oz) LMP 07/31/2005 SpO2 100% BMI 19.01 kg/m General Appearance: Well appearing, alert, in no acute distress, well-hydrated, well nourished. Lungs: Lungs clear to auscultation. No wheezing, rhonchi, rales. Heart: RRR without murmur, gallop, or rubs. No ectopy Edema: Abdomen: Normal abdominal exam, Abdomen soft, non-tender. Assessment Medical Decision Making: Assessment & Diagnosis: Yolanda An is a 69-year-old female referred by Dr. Cox for evaluation of LLQ abdominal pain. She reports LLQ pain since April 2024, at times associated with nausea, which has since resolved. She denies constipation and states she has regular, daily bowel movements with normal stool consistency. Despite this, a CT scan in May 2024 revealed significant stool burden and a tortuous colon, though no formal report is available for review. She also has a history of a single episode of diverticulitis, managed conservatively with oral antibiotics. At this time, the patient's abdominal exam is soft with no specific findings. However, given her history of persistent left lower quadrant pain and prior imaging showing stool burden and a tortuous colon, a comprehensive assessment is warranted. This should include a repeat colonoscopy and a repeat CT scan , ideally performed during an episode of symptoms to better correlate imaging findings with clinical presentation to r/o acute diverticulitis. Data Reviewed: Tests & Documents Reviewed/ordered: Review of Pathology I have independently interpreted: CT Abdomen, CT Pelvis I have discussed Yolanda An's treatment plan and/or results with her and her . Treatment plan: - colonoscopy - repeat CT scan , ideally performed during an episode of symptoms - CORS follow-up as needed Colorectal Surgery Risk of morbidity, mortality and/or complications of treatment plan: low CORS RESEARCH DISCUSSION - Patient AGREED to be Contacted by our Colorectal Reseach Team to Explore Participation in Research Studies. Electronically signed by Alayna Gordon MD UPDATED HISTORY AND PHYSICAL EXAMINATION SERVICE DATE: 11/23/2024 SERVICE TIME: 9:19 AM PHYSICAL EXAM MUST BE COMPLETED ON ADMISSION The History and Physical (completed in the past 30 days) has been reviewed and the patient has been examined. The contents accurately reflect the patient's condition with the following additions or revisions since the H&P was completed. Examination indicates no changes. This H&P can be found in the attached. SIGNATURE: Jose Cox III, MD PATIENT NAME: Yolanda An DATE: November 23, 2024 TIME: 9:19 AM documented in this encounter [facility] 10-18-2024 Instructions Cathryn Arreaga RN - 10/18/2024 2:53 PM EDT COLONOSCOPY BOWEL PREPARATION INSTRUCTIONS MiraLAX Your doctor has scheduled you for a colonoscopy. To have a successful colonoscopy, you must have a clean colon, that is empty. A clean colon allows your doctor to see the entire colon & diagnose issues like polyps or cancer. For doctors, a clean colon is like driving on a caleb day; a dirty colon like driving in a storm. It is very important that you follow these instructions exactly, or your colonoscopy may not be as effective, could be canceled, and you may need to do the bowel prep and colonoscopy again. TRANSPORTATION REQUIREMENTS You are receiving IV sedation. For your safety, a responsible adult escort must accompany you to and from your procedure: Your adult escort MUST be present with you at check-in for your colonoscopy. Your adult escort MUST remain in the endoscopy area until you are discharged. Your adult escort MUST transport you home once you are discharged. You are NOT allowed to operate any form of transportation (i.e. drive a car, bicycle, etc) or leave the Endoscopy Center ALONE. It is not safe to do so. If you cannot meet these requirements, your procedure will be canceled. MEDICATION REQUIREMENTS For your safety, certain medications will need to be stopped or adjusted before you can have your procedure: BLOOD THINNERS: If you take blood thinners, such as Coumadin (warfarin), Plavix (clopidogrel), Ticlid (ticlopidine hydrochloride), Agrylin (anagrelide), Xarelto (Rivaroxaban), Pradaxa (Dabigatran), Eliquis (Apixaban), or Effient (Prasugrel), contact the physician who is prescribing these medications at least 2 weeks prior to your procedure to discuss any necessary adjustments. DIABETES: If you take medications for diabetes, your dosage may need to be adjusted. If you are being treated for diabetes with insulin, diabetic pills, or other injectable medications do not take your REGULAR dose after midnight on the day of your procedure. If you are taking any other types of insulin such as Lantus, Humalog, NPH (long-acting insulin), or 70/30 insulin, take half your normal dose the day before your procedure. DIABETES/WEIGHT MANAGEMENT: If you take medications for weight-loss, your dosage may need to be adjusted Contact the doctor who prescribes this medication for further instructions. If you take medications for weight-loss like semaglutide (Ozempic, Wegovy, Rybelsus), dulaglutide (Trulicity), liraglutide (Victoza, Saxenda), exenatide (Byetta, Bydureon), or lixisenatide (Adylyxin), stop your medication 1 week prior to your procedure. If you take medications like canagliflozin (Invokana), dapagliflozin (Farxiga, Forxiga), empagliflozin (Jardiance), stop your medication 3 days prior to your procedure. If you take ertugliflozin (Steglatro) stop your medication 4 days prior to your procedure. IRON: If you take iron pills, STOP them 1 week BEFORE your procedure, may resume after. OTHER MEDS: May take all other medications (including aspirin, antibiotics, water pills / diuretics like Lasix or Metolozone, blood pressure meds, etc.) at their usual scheduled time with water. DIET REQUIREMENTS The day before your colonoscopy, you may have a clear liquid diet (see below). The day of your colonoscopy, you may continue a clear liquid diet until 3 hours before your colonoscopy. Within 3 hours of your colonoscopy, take only any medications (as above) with a sip of water. Clear Liquid Diet Broth (chicken, beef or vegetable broth or bullion. Just the broth, no solids). Water Coffee or Tea (NO milk or creamer), but sugar and sugar substitutes are allowed. Clear liquids including clear, yellow, green, blue (NO red, NO orange, NO purple) Sodas / soft drinks; Gatorade or other sports drinks Fruit juice (strained; no-pulp); Eb-Aid or flavored drinks Plain Jell-O or other gelatins Popsicles or hard candy Bowel prep can work differently from person to person. Some people's bowels move slowly and they may need different instructions. Please see your doctor in office or virtually for personalized bowel prep instructions if you have: BOWEL PREPARATION (MIRALAX/GATORADE) Split Dosing Bowel Prep: This means drinking your bowel prep in two doses. Split dosing helps clean your colon better and makes it less likely that your procedure will be canceled. You will need to purchase the following (no prescriptions are needed): 64 ounces Gatorade, Propel, Crystal Lite or other noncarbonated clear liquid sports drink (NOT red, orange, or purple). Diabetic patients buy sugar-free, e.g. Gatorade G2 4 Dulcolax laxative tablets containing 5mg bisacodyl each (do not buy the stool softener) 8.3 oz MiraLAX (238g) powder or generic polyethylene glycol 3350 (find in laxative aisle) The day before your colonoscopy mix 64 oz of the sports drink with 8.3 oz MiraLAX (238 g) in a pitcher. Stir or shake until MiraLAX completely dissolved. Chill if desired. On the evening before your colonoscopy: 5 PM take 4 Dulcolax laxative tablets with water by mouth. 6 PM drink the first half of the Gatorade/MiraLAX solution Drink one 8-ounce glass every 15 minutes. Six hours before your colonoscopy, drink the second half of the solution. Drink one 8-ounce glass every 15 minutes. You may continue a clear liquid diet until 3 hours before your colonoscopy. Bowel prep can work differently from person to person. Some people's bowels move slowly and they may need different instructions. Please see your doctor in office or virtually for personalized bowel prep instructions if you have: Medical condition that needs special accommodations Had a poor bowel prep results or failed bowel prep attempts in the past. Had difficulty with anesthesia during the procedure. FREQUENTLY ASKED QUESTIONS Q: What if I suffer from constipation? A: Recommend taking extra laxatives to resolve your constipation days prior to entering the bowel prep day. Q: What if have had prior poor preps results in past? A: Contact your physician as you will likely need additional bowel prep instructions. Q: What if I have motility issues like Parkinson's, MS (multiple sclerosis), wheelchair dependent, etc.? or on medications that slow colonic transit times (narcotics, gabapentin, anticholinergic medications etc.) A: Contact your physician as you will likely need extra time and additional laxatives to complete your bowel prep. Q: What if I cannot drink large volume of liquid? A: Start your prep 2-3 hours earlier to allow yourself more time to complete the entire prep. Q: What if I had bariatric surgery? Do I still have to complete the entire prep? A: Yes, gastric bypass surgery involves the stomach & small bowel. You may need to drink smaller amounts, slower (may need more time to complete your bowel prep). Gastric bypass does not alter the length of your colon so you will need to complete the entire bowel prep, it may just take longer time to complete it. Q: What if I am on dialysis? A: Please consult your orbitread operator prior to scheduling to get instructions pertinent to you. In general, dialysis patients take the ProRadisly bowel prep and have the procedure same day of their dialysis (colonoscopy in AM, dialysis in PM). Q: How do I know if something is considered as clear liquid diet? A: If you can pour it in a glass and you can see through it, it is considered clear liquid Q: Can I eat nuts, seeds, beans, popcorn, dried fruits, vegetables & fruits that have skin peel? A: No, you will need to not eat these items starting 3 days prior to procedure. Q: Can I take Uber/Lyft/taxi/bus home? A: An adult MUST be present with you at check-in for your colonoscopy and remain in the endoscopy area until you are discharged. You can take Uber home only if this adult escort is with you at check in, remain in the endoscopy area until you are discharged, and takes the Uber with you to home. Q: Can I sleep it off here and drive myself home? A: No, you must have an adult with you at time of procedure check in, remain in the endoscopy center during your procedure, and drive you home. You cannot drive a vehicle after your procedure the rest of the day. Q: What if I can't finish my bowel prep? A: If you cannot complete your entire bowel prep, there is high likelihood that your colonoscopy will need to be rescheduled due to inadequate prep quality. documented in this encounter [facility] 10-18-2024 History and physical note COLORECTAL SURGERY New Patient Visit October 18, 2024 Chief Complaint: Left sided abdominal pain, nausea History of Present Illness: Yolanda Luther Friend is a 69 year old year old female referred by Dr. Cox for nausea and left sided abdominal pain for consideration of inertia testing. She has complained of LLQ abdominal pain since April 2024, occasionally accompanied by nausea, which has since resolved. She denies any issues with constipation and reports having daily bowel movements with normal stool consistency. A CT scan performed in May 2024 showed a significant amount of stool in the colon and a tortuous colon, though no formal radiology report is available. She has a history of one episode of diverticulitis, which was managed with oral antibiotics. Her last colonoscopy was approximately 2-3 years ago. 08/29/24 Dr. Cox Subjective: Patient is status post gallbladder ultrasound which was entirely normal and then a HIDA scan with ejection fraction which showed it to be at 65%. We have tried to do some intermittent fasting with her to see if that made any difference unfortunately she is still experiencing significant nausea as well as some left upper quadrant radiating down to the left lower quadrant abdominal pain. Nausea has been fairly persistent. Plan: I am going to refer her to Dr. Gordon. I think we need a fresh set of eyes to look at this. I think she may benefit from getting a colonic inertia testing. PAST MEDICAL HISTORY Diagnosis Date Arthritis Epigastric [...] lower back/hip REMV CATARACT EXTRACAP,INSERT LENS 06/2021 Current Outpatient Medications Medication Sig Dispense Refill ondansetron orally disintegrating (ZOFRAN ODT) 4 mg disintegrating tablet Take 1 tablet by mouth every 8 hours as needed for nausea/vomiting. 10 tablet 0 metroNIDAZOLE 0.75 % Topical Gel Apply to entire Rosacea-involved area(s) of face (eg, central face at cheeks, chin, nose and mid lower forehead, etc.) once to twice per day (qday to bid) as directed and tolerated. 45 g 3 CALCIUM CARBONATE/VITAMIN D2 (CALCIUM + VITAMIN D ORAL) Take by mouth. No current facility-administered medications for this visit. ALLERGIES No Known Allergies Review of Systems / PACC screen: Do you have difficulty climbing a full flight of stairs without feeling short of breath? no Do you require oxygen for your breathing or have your gone to an emergency department because of breathing problems? no Are you on dialysis or have you been told that your kidneys do not work well as they should? no Do have an implanted cardiac device (pacemaker, defibrillator etc.) that has not been checked in the last 6 months? no Have you had an organ transplant? no Have you been told that you had excessive bleeding during surgical procedures or do you take blood thinning medications other than aspirin? no Have you ever had a heart attack, heart stents/surgery, valve problems, or other heart problems? YES, Mitral Valve Disorder? Have you had a stroke, seizures, or unexplained loss of consciousness? no Do you have a neurologic condition like Parkinson's disease or multiple sclerosis? YES, MS and hx of benign meningioma Have you or a blood relative had a life-threatening reaction to anesthesia? no Do you have cirrhosis of the liver or other liver disease? no Have you had a blood clot within the past year? no Do you take insulin or other injections for diabetes? no Do you have sleep apnea or have you been told you may have sleep apnea? no Do you have other implanted devices (deep brain stimulator, spinal cord stimulator, etc.)? no Physical Exam: BP 141/74 Pulse 72 Temp 36 C (96.8 F) (Temporal) Ht 160 cm (5' 3) Wt 48.7 kg (107 lb 4.8 oz) LMP 07/31/2005 SpO2 100% BMI 19.01 kg/m General Appearance: Well appearing, alert, in no acute distress, well-hydrated, well nourished. Lungs: Lungs clear to auscultation. No wheezing, rhonchi, rales. Heart: RRR without murmur, gallop, or rubs. No ectopy Edema: Abdomen: Normal abdominal exam, Abdomen soft, non-tender. Assessment Medical Decision Making: Assessment & Diagnosis: Yolanda An is a 69-year-old female referred by Dr. Cox for evaluation of LLQ abdominal pain. She reports LLQ pain since April 2024, at times associated with nausea, which has since resolved. She denies constipation and states she has regular, daily bowel movements with normal stool consistency. Despite this, a CT scan in May 2024 revealed significant stool burden and a tortuous colon, though no formal report is available for review. She also has a history of a single episode of diverticulitis, managed conservatively with oral antibiotics. At this time, the patient's abdominal exam is soft with no specific findings. However, given her history of persistent left lower quadrant pain and prior imaging showing stool burden and a tortuous colon, a comprehensive assessment is warranted. This should include a repeat colonoscopy and a repeat CT scan , ideally performed during an episode of symptoms to better correlate imaging findings with clinical presentation to r/o acute diverticulitis. Data Reviewed: Tests & Documents Reviewed/ordered: Review of Pathology I have independently interpreted: CT Abdomen, CT Pelvis I have discussed Yolanda An's treatment plan and/or results with her and her . Treatment plan: - colonoscopy - repeat CT scan , ideally performed during an episode of symptoms - CORS follow-up as needed Colorectal Surgery Risk of morbidity, mortality and/or complications of treatment plan: low CORS RESEARCH DISCUSSION - Patient AGREED to be Contacted by our Colorectal Reseach Team to Explore Participation in Research Studies. [facility] 10-18-2024 History and physical note COLORECTAL SURGERY New Patient Visit October 18, 2024 Chief Complaint: Left sided abdominal pain, nausea History of Present Illness: Yolanda Luther Friend is a 69 year old year old female referred by Dr. Cox for nausea and left sided abdominal pain for consideration of inertia testing. She has complained of LLQ abdominal pain since April 2024, occasionally accompanied by nausea, which has since resolved. She denies any issues with constipation and reports having daily bowel movements with normal stool consistency. A CT scan performed in May 2024 showed a significant amount of stool in the colon and a tortuous colon, though no formal radiology report is available. She has a history of one episode of diverticulitis, which was managed with oral antibiotics. Her last colonoscopy was approximately 2-3 years ago. 08/29/24 Dr. Cox Subjective: Patient is status post gallbladder ultrasound which was entirely normal and then a HIDA scan with ejection fraction which showed it to be at 65%. We have tried to do some intermittent fasting with her to see if that made any difference unfortunately she is still experiencing significant nausea as well as some left upper quadrant radiating down to the left lower quadrant abdominal pain. Nausea has been fairly persistent. Plan: I am going to refer her to Dr. Gordon. I think we need a fresh set of eyes to look at this. I think she may benefit from getting a colonic inertia testing. PAST MEDICAL HISTORY Diagnosis Date Arthritis Epigastric [...] lower back/hip REMV CATARACT EXTRACAP,INSERT LENS 06/2021 Current Outpatient Medications Medication Sig Dispense Refill ondansetron orally disintegrating (ZOFRAN ODT) 4 mg disintegrating tablet Take 1 tablet by mouth every 8 hours as needed for nausea/vomiting. 10 tablet 0 metroNIDAZOLE 0.75 % Topical Gel Apply to entire Rosacea-involved area(s) of face (eg, central face at cheeks, chin, nose and mid lower forehead, etc.) once to twice per day (qday to bid) as directed and tolerated. 45 g 3 CALCIUM CARBONATE/VITAMIN D2 (CALCIUM + VITAMIN D ORAL) Take by mouth. No current facility-administered medications for this visit. ALLERGIES No Known Allergies Review of Systems / PACC screen: Do you have difficulty climbing a full flight of stairs without feeling short of breath? no Do you require oxygen for your breathing or have your gone to an emergency department because of breathing problems? no Are you on dialysis or have you been told that your kidneys do not work well as they should? no Do have an implanted cardiac device (pacemaker, defibrillator etc.) that has not been checked in the last 6 months? no Have you had an organ transplant? no Have you been told that you had excessive bleeding during surgical procedures or do you take blood thinning medications other than aspirin? no Have you ever had a heart attack, heart stents/surgery, valve problems, or other heart problems? YES, Mitral Valve Disorder? Have you had a stroke, seizures, or unexplained loss of consciousness? no Do you have a neurologic condition like Parkinson's disease or multiple sclerosis? YES, MS and hx of benign meningioma Have you or a blood relative had a life-threatening reaction to anesthesia? no Do you have cirrhosis of the liver or other liver disease? no Have you had a blood clot within the past year? no Do you take insulin or other injections for diabetes? no Do you have sleep apnea or have you been told you may have sleep apnea? no Do you have other implanted devices (deep brain stimulator, spinal cord stimulator, etc.)? no Physical Exam: BP 141/74 Pulse 72 Temp 36 C (96.8 F) (Temporal) Ht 160 cm (5' 3) Wt 48.7 kg (107 lb 4.8 oz) LMP 07/31/2005 SpO2 100% BMI 19.01 kg/m General Appearance: Well appearing, alert, in no acute distress, well-hydrated, well nourished. Lungs: Lungs clear to auscultation. No wheezing, rhonchi, rales. Heart: RRR without murmur, gallop, or rubs. No ectopy Edema: Abdomen: Normal abdominal exam, Abdomen soft, non-tender. Assessment Medical Decision Making: Assessment & Diagnosis: Yolanda An is a 69-year-old female referred by Dr. Cox for evaluation of LLQ abdominal pain. She reports LLQ pain since April 2024, at times associated with nausea, which has since resolved. She denies constipation and states she has regular, daily bowel movements with normal stool consistency. Despite this, a CT scan in May 2024 revealed significant stool burden and a tortuous colon, though no formal report is available for review. She also has a history of a single episode of diverticulitis, managed conservatively with oral antibiotics. At this time, the patient's abdominal exam is soft with no specific findings. However, given her history of persistent left lower quadrant pain and prior imaging showing stool burden and a tortuous colon, a comprehensive assessment is warranted. This should include a repeat colonoscopy and a repeat CT scan , ideally performed during an episode of symptoms to better correlate imaging findings with clinical presentation to r/o acute diverticulitis. Data Reviewed: Tests & Documents Reviewed/ordered: Review of Pathology I have independently interpreted: CT Abdomen, CT Pelvis I have discussed Yolanda An's treatment plan and/or results with her and her . Treatment plan: - colonoscopy - repeat CT scan , ideally performed during an episode of symptoms - CORS follow-up as needed Colorectal Surgery Risk of morbidity, mortality and/or complications of treatment plan: low CORS RESEARCH DISCUSSION - Patient AGREED to be Contacted by our Colorectal Reseach Team to Explore Participation in Research Studies. documented in this encounter [facility] 09-19-2024 Telephone encounter Note Prescription Refill Information The patient has been identified by name and date of : Yes Caregiver verified no other encounters exist for this prescription request: Yes Caregiver confirmed with patient/requestor that no other refills are due, in the near future, with this provider at this time: Yes The last office visit in the department: Does the patient have a future office visit with this provider/department: Yes Patient is going out of town this and is requesting a refill on this medication as it helped her a lot and she has a wedding to attend and is not able to get into Dr Gordon until 10/18/24 Requested Prescriptions Pending Prescriptions Disp Refills ondansetron orally disintegrating (ZOFRAN ODT) 4 mg disintegrating tablet 10 tablet 0 Sig: Take 1 tablet by mouth every 8 hours as needed for nausea/vomiting. Lizzy Bautista September 19, 2024 10:31 AM [facility] 09-19-2024 Miscellaneous Notes Prescription Refill Information The patient has been identified by name and date of : Yes Caregiver verified no other encounters exist for this prescription request: Yes Caregiver confirmed with patient/requestor that no other refills are due, in the near future, with this provider at this time: Yes The last office visit in the department: Does the patient have a future office visit with this provider/department: Yes Patient is going out of town this and is requesting a refill on this medication as it helped her a lot and she has a wedding to attend and is not able to get into Dr Gordon until 10/18/24 Requested Prescriptions Pending Prescriptions Disp Refills ondansetron orally disintegrating (ZOFRAN ODT) 4 mg disintegrating tablet 10 tablet 0 Sig: Take 1 tablet by mouth every 8 hours as needed for nausea/vomiting. Lizzy Bautista September 19, 2024 10:31 AM documented in this encounter [facility] 09-19-2024 Telephone encounter Note Pt notified and voiced understanding. Pt opts to f/u with PCP at this time. Report faxed to PCP per Pt request. Alfonso Elmore RN [facility] 09-19-2024 Miscellaneous Notes Pt notified and voiced understanding. Pt opts to f/u with PCP at this time. Report faxed to PCP per Pt request. Alfonso Elmore RN Left message to call office. Marlin Triplett RN Images from the original note were not included. Aleida Lamar MD P [facility] [employer] Please notify patient of worsening BMD in right femoral neck- she does have osteoporosis which increases risk of fractures. If she wants to discuss treatment options she can do that with her PCP or endocrinology (I can place order) documented in this encounter [facility] 09-19-2024 Telephone encounter Note Left message to call office. Marlin Triplett RN [facility] 09-19-2024 Telephone encounter Note Images from the original note were not included. Aleida Lamar MD [facility] [employer] Please notify patient of worsening BMD in right femoral neck- she does have osteoporosis which increases risk of fractures. If she wants to discuss treatment options she can do that with her PCP or endocrinology (I can place order) [facility] 09-14-2024 Note HNO ID: [id number] Author: BELTRAN GARCIA RT(R) Service: ? Author Type: Technologist Type: Progress Notes Filed: 09/14/2024 07:59 Note Text: Radiology Service Progress Note PATIENT NAME: Yolanda An DATE OF SERVICE: September 14, 2024 TIME: 7:52 AM PATIENT IDENTITY VERIFICATION COMPLETED USING TWO (2) IDENTIFIERS: Name and Date of confirmed by patient verbally. FALL SCREENING: Has the patient had 2 falls in the last year or 1 fall with injury or currently using an Ambulatory Assistive Device (Walker, Cane, Wheelchair, Crutches, etc.)? No PATIENT GENDER DATA: Assigned female at . status: : No status: NO. PATIENT RELEVANT IMPLANT DATA REVIEWED: Not Applicable PATIENT PRESENTS WITH AN IMPLANTABLE OR ATTACHED HIGHBALLER: No RADIOLOGY DEPARTMENT: Bone Density PERIPHERAL IV DATA: Not applicable SIGNED BY: RT Mart(R) September 14, 2024 7:52 AM [facility] 08-29-2024 Note HNO ID: [id number] Author: JOSE COX MD Service: ? Author Type: Physician Type: Progress Notes Filed: 08/29/2024 09:11 Note Text: Subjective: Patient is status post gallbladder ultrasound which was entirely normal and then a HIDA scan with ejection fraction which showed it to be at 65%. We have tried to do some intermittent fasting with her to see if that made any difference unfortunately she is still experiencing significant nausea as well as some left upper quadrant radiating down to the left lower quadrant abdominal pain. Nausea has been fairly persistent. No particular foods. She has had no fevers or chills. She is not complaining of any constipation or diarrhea. Objective:Blood pressure 144/76, pulse 73, resp. rate 14, weight 48.3 kg (106 lb 6.4 oz), last menstrual period 07/31/2005, SpO2 100%. Abdomen is soft flat nontender no palpable masses Assessment:Nausea (primary encounter diagnosis) Lower abdominal pain Plan: I am going to refer her to Dr. Gordon. I think we need a fresh set of eyes to look at this. I think she may benefit from getting a colonic inertia testing. She is also going to be seeing her painter and decorator apprentice for injections of her cervical area as well as her lower lumbar area. The shots usually last for almost a year. I am not sure if I am missing anything I think a second set of eyes here not to be helpful. [facility] 08-29-2024 History of Presen t illness Narrative Subjective: Patient is status post gallbladder ultrasound which was entirely normal and then a HIDA scan with ejection fraction which showed it to be at 65%. We have tried to do some intermittent fasting with her to see if that made any difference unfortunately she is still experiencing significant nausea as well as some left upper quadrant radiating down to the left lower quadrant abdominal pain. Nausea has been fairly persistent. No particular foods. She has had no fevers or chills. She is not complaining of any constipation or diarrhea. Objective:Blood pressure 144/76, pulse 73, resp. rate 14, weight 48.3 kg (106 lb 6.4 oz), last menstrual period 07/31/2005, SpO2 100%. Abdomen is soft flat nontender no palpable masses Assessment:Nausea (primary encounter diagnosis) Lower abdominal pain Plan: I am going to refer her to Dr. Gordon. I think we need a fresh set of eyes to look at this. I think she may benefit from getting a colonic inertia testing. She is also going to be seeing her painter and decorator apprentice for injections of her cervical area as well as her lower lumbar area. The shots usually last for almost a year. I am not sure if I am missing anything I think a second set of eyes here not to be helpful. REVIEW OF SYSTEMS: General: The patient denies fatigue, denies weight loss, denies weight gain, denies feeling hot, and denies feelings of cold. Eyes: The patient denies glaucoma, notes eye injury/surgery, does not wear glasses or contacts. Ear/Nose/Throat: The patient denies allergies, denies hayfever, denies ear infections, and denies bloody noses. Cardiovascular: The patient denies chest pain, denies heart disease, denies high blood pressure,denies cardiac stent, denies prior heart attack, denies irregular heart beat, denies high cholesterol, denies poor circulation, denies heart failure, other cardiac issues, denies claudication, denies cold feet, denies peripheral arterial stent. Respiratory: The patient denies tuberculosis, denies pneumonia, denies frequent cough, denies pulmonary embolism, denies shortness of breath, and denies coughing up blood. Gastrointestinal: The patient denies difficulty swallowing, denies acid reflux, denies ulcers, denies vomiting, denies jaundice/hepatitis, denies gallbladder problems, denies black or tarry stools, denies hemorrhoids, denies bleeding from rectum, notes diverticulitis, denies constipation, denies diarrhea, denies loss of stool control, and denies hernias. Kidney/Bladder: The patient denies kidney stones, denies urine infections, and denies bloody urine. Skin: The patient denies a history of skin cancer, denies bleeding/changing moles, and denies a history of skin rash. Neurologic: The patient denies a history of epilepsy/convulsions, denies headaches, denies head/spinal injuries, and denies stroke/TIA. Psychiatric: The patient denies psychiatric medications, denies depression, and denies voices, denies substance abuse. Endocrine: The patient denies thyroid disorders, denies diabetes, and denies hormonal problems. Hematologic: The patient denies a history of bruising, denies bleeding, and denies anemia, denies blood clots. Infections: The patient denies a history of measles and mumps, denies rheumatic fever, and denies sexually transmitted diseases. Musculoskeletal: The patient notes back pain/injury, denies back problems, notes sciatica, denies knee/foot trouble, notes arthritis, or denies gout. When was patient's last Mammogram screening? 2024 Last Colonoscopy: 2022 Carin Ardon RN documented in this encounter [facility] 08-29-2024 Note HNO ID: [id number] Author: CARIN ARDON RN Service: ? Author Type: Registered Nurse Type: Progress Notes Filed: 08/29/2024 09:11 Note Text: REVIEW OF SYSTEMS: General: The patient denies fatigue, denies weight loss, denies weight gain, denies feeling hot, and denies feelings of cold. Eyes: The patient denies glaucoma, notes eye injury/surgery, does not wear glasses or contacts. Ear/Nose/Throat: The patient denies allergies, denies hayfever, denies ear infections, and denies bloody noses. Cardiovascular: The patient denies chest pain, denies heart disease, denies high blood pressure,denies cardiac stent, denies prior heart attack, denies irregular heart beat, denies high cholesterol, denies poor circulation, denies heart failure, other cardiac issues, denies claudication, denies cold feet, denies peripheral arterial stent. Respiratory: The patient denies tuberculosis, denies pneumonia, denies frequent cough, denies pulmonary embolism, denies shortness of breath, and denies coughing up blood. Gastrointestinal: The patient denies difficulty swallowing, denies acid reflux, denies ulcers, denies vomiting, denies jaundice/hepatitis, denies gallbladder problems, denies black or tarry stools, denies hemorrhoids, denies bleeding from rectum, notes diverticulitis, denies constipation, denies diarrhea, denies loss of stool control, and denies hernias. Kidney/Bladder: The patient denies kidney stones, denies urine infections, and denies bloody urine. Skin: The patient denies a history of skin cancer, denies bleeding/changing moles, and denies a history of skin rash. Neurologic: The patient denies a history of epilepsy/convulsions, denies headaches, denies head/spinal injuries, and denies stroke/TIA. Psychiatric: The patient denies psychiatric medications, denies depression, and denies voices, denies substance abuse. Endocrine: The patient denies thyroid disorders, denies diabetes, and denies hormonal problems. Hematologic: The patient denies a history of bruising, denies bleeding, and denies anemia, denies blood clots. Infections: The patient denies a history of measles and mumps, denies rheumatic fever, and denies sexually transmitted diseases. Musculoskeletal: The patient notes back pain/injury, denies back problems, notes sciatica, denies knee/foot trouble, notes arthritis, or denies gout. When was patient's last Mammogram screening? 2024 Last Colonoscopy: 2022 Carin Ardon RN [facility] 08-09-2024 Note HNO ID: [id number] Author: JOSE COX MD Service: ? Author Type: Physician Type: Progress Notes Filed: 08/09/2024 12:08 Note Text: Subjective: Patient is status post an ultrasound and a HIDA scan with ejection fraction ultrasound of the gallbladder was normal no signs of stones or sludge HIDA scan showed normal ejection fraction. Patient is not having any further nausea still has occasional left-sided abdominal pain. She is not having any diarrhea moves her bowels daily. She is not complaining of any fevers or chills. Nor does she have any vomiting. Objective:Pulse 91, temperature 36.3 ?C (97.3 ?F), height 160 cm (5' 3), weight 48.5 kg (107 lb), last menstrual period 07/31/2005, SpO2 100%. Abdomen is soft nontender nondistended normal active bowel sounds no rebound guarding or peritoneal signs no hernias identified no palpable masses. Assessment:Nausea (primary encounter diagnosis) Lower abdominal pain Plan: At this point I do not think there is anything further I need to do. If her nausea returns then I think doing an EGD would be appropriate and if she calls I will have her get into see my nurse practitioner so that we can schedule her for an EGD [facility] 08-09-2024 History of Presen t illness Narrative Subjective: Patient is status post an ultrasound and a HIDA scan with ejection fraction ultrasound of the gallbladder was normal no signs of stones or sludge HIDA scan showed normal ejection fraction. Patient is not having any further nausea still has occasional left-sided abdominal pain. She is not having any diarrhea moves her bowels daily. She is not complaining of any fevers or chills. Nor does she have any vomiting. Objective:Pulse 91, temperature 36.3 C (97.3 F), height 160 cm (5' 3), weight 48.5 kg (107 lb), last menstrual period 07/31/2005, SpO2 100%. Abdomen is soft nontender nondistended normal active bowel sounds no rebound guarding or peritoneal signs no hernias identified no palpable masses. Assessment:Nausea (primary encounter diagnosis) Lower abdominal pain Plan: At this point I do not think there is anything further I need to do. If her nausea returns then I think doing an EGD would be appropriate and if she calls I will have her get into see my nurse practitioner so that we can schedule her for an EGD documented in this encounter [facility] 08-04-2024 History of Presen t illness Narrative Radiology Service Progress Note PATIENT NAME: Yolanda An DATE OF SERVICE: August 04, 2024 TIME: 7:48 AM PATIENT IDENTITY VERIFICATION COMPLETED USING TWO (2) IDENTIFIERS: Name and Date of confirmed by patient verbally. FALL SCREENING: Has the patient had 2 falls in the last year or 1 fall with injury or currently using an Ambulatory Assistive Device (Walker, Cane, Wheelchair, Crutches, etc.)? No PATIENT GENDER DATA: Assigned female at . status: : No status: NO. PATIENT RELEVANT IMPLANT DATA REVIEWED: Not Applicable PATIENT PRESENTS WITH AN IMPLANTABLE OR ATTACHED HIGHBALLER: No RADIOLOGY DEPARTMENT: Ultrasound PERIPHERAL IV DATA: Not applicable SIGNED BY: Violeta Chamberlain RDMS August 04, 2024 7:48 AM documented in this encounter [facility] 08-04-2024 Note HNO ID: [id number] Author: VIOLETA CHAMBERLAIN RDMS Service: ? Author Type: Plastic Duplicator Type: Progress Notes Filed: 08/04/2024 07:49 Note Text: Radiology Service Progress Note PATIENT NAME: Yolanda An DATE OF SERVICE: August 04, 2024 TIME: 7:48 AM PATIENT IDENTITY VERIFICATION COMPLETED USING TWO (2) IDENTIFIERS: Name and Date of confirmed by patient verbally. FALL SCREENING: Has the patient had 2 falls in the last year or 1 fall with injury or currently using an Ambulatory Assistive Device (Walker, Cane, Wheelchair, Crutches, etc.)? No PATIENT GENDER DATA: Assigned female at . status: : No status: NO. PATIENT RELEVANT IMPLANT DATA REVIEWED: Not Applicable PATIENT PRESENTS WITH AN IMPLANTABLE OR ATTACHED HIGHBALLER: No RADIOLOGY DEPARTMENT: Ultrasound PERIPHERAL IV DATA: Not applicable SIGNED BY: Violeta Chamberlain RDMS August 04, 2024 7:48 AM [facility] 07-27-2024 History of Presen t illness Narrative RADIOLOGY SERVICE PROGRESS NOTE SERVICE DATE: 07/27/2024 SERVICE TIME: 2:18 PM PATIENT IDENTITY VERIFICATION COMPLETED USING TWO (2) STANDARD IDENTIFIERS: Name and Date of confirmed by patient verbally FALL SCREENING: Has the patient had 2 falls in the last year or 1 fall with injury or currently using an Ambulatory Assistive Device (Walker, Cane, Wheelchair, Crutches, etc.)? No PATIENT GENDER DATA: .female : No ALLERGIES: Reviewed and unchanged MEDICATIONS REVIEWED: Yes PATIENT RELEVANT IMPLANT DATA REVIEWED: Not Applicable PATIENT PRESENTS WITH AN IMPLANTABLE OR ATTACHED HIGHBALLER: No CREATININE: Creatinine Date Value Ref Range Status 03/31/2016 0.83 0.58 - 0.96 mg/dL Final eGFR-All Other Races Date Value Ref Range Status 03/31/2016 >60 . Final Comment: eGFR (Estimated GFR) Units of measure: mL/min/1.73 meters squared eGFR is derived from the reexpressed MDRD Study equation using the following parameters: serum creatinine, age, gender and race. The creatinine assay has been calibrated to be traceable to IDMS. An eGFR <60 mL/min/1.73m2 for >3 months is consistent with chronic kidney disease. Refer to KDOQI guidelines for clinical interpretation. In patients with unstable renal function, e.g. those with acute kidney injury, the eGFR may not accurately reflect actual GFR. eGFR- Date Value Ref Range Status 03/31/2016 >60 Final P.O.C.T. RESULTS: N/A July 27, [address] PERFORMED: No IV SITE: Ambulatory: A peripheral IV was started in the Right hand with a Angio cath: 24 gauge. POST EXAM PIV STATUS: Discontinued PROCEDURE TYPE: NM INJECT: NM HEPATOBILIARY W EF. 5.2 mCi Tc99m CHOLETEC. CCK 0.97 micrograms intravenous at 1415. ADMINISTRATION TIME: 1317/1415 PATIENT DISCHARGED TO: Ambulatory patient, left [place] department area. Is this a therapy: No A Diagnostic radioactive procedure has taken place, with no further precautions necessary other than routine body substance precautions. More information regarding radiation safety can be found using this link: [email or web address]% 20Nuclear%20Medicine%20Procedur es.pdf SIGNATURE: CANDELARIA FernandezMT PATIENT NAME: Yolanda An DATE: July 27, 2024 TIME: 2:18 PM PAGER/CONTACT #: documented in this encounter [facility] 07-27-2024 Note HNO ID: [id number] Author: AKASH DOSS CNMT Service: ? Author Type: Plastic Duplicator Type: Progress Notes Filed: 07/27/2024 14:18 Note Text: RADIOLOGY SERVICE PROGRESS NOTE SERVICE DATE: 07/27/2024 SERVICE TIME: 2:18 PM PATIENT IDENTITY VERIFICATION COMPLETED USING TWO (2) STANDARD IDENTIFIERS: Name and Date of confirmed by patient verbally FALL SCREENING: Has the patient had 2 falls in the last year or 1 fall with injury or currently using an Ambulatory Assistive Device (Walker, Cane, Wheelchair, Crutches, etc.)? No PATIENT GENDER DATA: .female : No ALLERGIES: Reviewed and unchanged MEDICATIONS REVIEWED: Yes PATIENT RELEVANT IMPLANT DATA REVIEWED: Not Applicable PATIENT PRESENTS WITH AN IMPLANTABLE OR ATTACHED HIGHBALLER: No CREATININE: Creatinine Date Value Ref Range Status 03/31/2016 0.83 0.58 - 0.96 mg/dL Final eGFR-All Other Races Date Value Ref Range Status 03/31/2016 >60 . Final Comment: eGFR (Estimated GFR) Units of measure: mL/min/1.73 meters squared eGFR is derived from the reexpressed MDRD Study equation using the following parameters: serum creatinine, age, gender and race. The creatinine assay has been calibrated to be traceable to IDMS. An eGFR <60 mL/min/1.73m2 for >3 months is consistent with chronic kidney disease. Refer to KDOQI guidelines for clinical interpretation. In patients with unstable renal function, e.g. those with acute kidney injury, the eGFR may not accurately reflect actual GFR. eGFR- Date Value Ref Range Status 03/31/2016 >60 Final P.O.C.T. RESULTS: N/A July 27, [address] PERFORMED: No IV SITE: Ambulatory: A peripheral IV was started in the Right hand with a Angio cath: 24 gauge. POST EXAM PIV STATUS: Discontinued PROCEDURE TYPE: NM INJECT: NM HEPATOBILIARY W EF. 5.2 mCi Tc99m CHOLETEC. CCK 0.97 micrograms intravenous at 1415. ADMINISTRATION TIME: PATIENT DISCHARGED TO: Ambulatory patient, left [place] department area. Is this a therapy: No A Diagnostic radioactive procedure has taken place, with no further precautions necessary other than routine body substance precautions. More information regarding radiation safety can be found using this link: [email or web address] %[email or web address]-% 20Diagnostic%20Nuclear%20Medici ne%20Procedures.pdf SIGNATURE: RADHA Fernandez PATIENT NAME: Yolanda An DATE: July 27, 2024 TIME: 2:18 PM PAGER/CONTACT #: [facility] 07-26-2024 Telephone encounter Note Spoke with patient, confirmed appointment and prep [facility] 07-26-2024 Miscellaneous Notes Spoke with patient, confirmed appointment and prep documented in this encounter [facility] 07-25-2024 Note HNO ID: [id number] Author: JOSE COX MD Service: ? Author Type: Physician Type: Progress Notes Filed: 07/25/2024 13:23 Note Text: HISTORY AND PHYSICAL Yolanda Luther Friend 1955 REFERRING PHYSICIAN: Zulema Crespo MD CHIEF COMPLAINT: Consult HPI: The patient is a 69 year old female with a complaint of nausea and lower abdominal pain. Patient states that she eats relatively healthy. Recently she has been having some difficulty moving her bowels and normally she moves her bowels daily. She recently had a CT scan of the abdomen and pelvis which really only showed a lot of stool in the colon but no evidence of acute diverticulitis on the scan. The nausea has been fairly persistent. Particularly with any foods. She has not been complaining of any back pain. She did have a colonoscopy in 2022 with a tubular adenoma found in the sigmoid colon but otherwise was negative. 5-year follow-up was recommended. The patient is being seen by me today at the request of Dr. Zulema Crespo MD for my opinion and advice regarding Nausea (primary encounter diagnosis) Lower abdominal pain. PAST MEDICAL HISTORY Diagnosis Date Arthritis Epigastric [...] lower back/hip REMV CATARACT EXTRACAP,INSERT LENS 06/2021 Current Outpatient Medications Medication Sig metroNIDAZOLE 0.75 % Topical Gel Apply to entire Rosacea-involved area(s) of face (eg, central face at cheeks, chin, nose and mid lower forehead, etc.) once to twice per day (qday to bid) as directed and tolerated. CALCIUM CARBONATE/VITAMIN D2 (CALCIUM + VITAMIN D ORAL) Take by mouth. No current facility-administered medications for this visit. ALLERGIES: Patient has no active allergies. PERSONAL HISTORY: Social History Tobacco Use Smoking status: Never Smokeless tobacco: Never Vaping Use Vaping status: Never Used Substance Use Topics Alcohol use: No Drug use: No FAMILY HISTORY: FAMILY HISTORY Problem Relation Age of Onset Cancer Mother pancreatic Arthritis Father Rheumatoid Diabetes Daughter Type 1 DM Heart Paternal Grandfather Heart Paternal Uncle Prostate Cancer Brother REVIEW OF SYMPTOMS: The review of systems data was entered by the nurse and reviewed by me There are no exam notes on file for this visit. PHYSICAL EXAMINATION: General: The patient is 69 year old female, well nourished, well hydrated in no acute distress. The patient is oriented to time, place, and person. VITALS: Blood pressure 138/70, pulse 76, resp. rate 16, weight 49 kg (108 lb), last menstrual period 07/31/2005. HEENT: Normal cephalic, ataumatic, pupils are equally round, sclera are anicteric, mucous membranes are moist, oropharynx is clear. Neck has no masses, asymmetry or lymphadenopathy. Thyroid is unremarkable. Respiratory: Clear to auscultation and percussion. Normal respiratory excursion and pattern. Cardiac: Examination is regular rate and rhythm. Abdominal exam: Soft, nontender, with no palpable masses. No hepatosplenomegaly. No palpable hernias. Rectal exam: exam deferred Extremities: no clubbing, cyanosis or edema. No adenopathy. Other: LABORATORY VALUES: As Noted RADIOLOGIC STUDIES: As Noted Assessment IMPRESSION: Nausea (primary encounter diagnosis) Lower abdominal pain PLAN: I am going to obtain a gallbladder ultrasound and a HIDA scan with ejection fraction on her. If this is negative then I will probably refer her to colorectal surgery to get a colonic inertia testing done. I am not really sure repeating colonoscopy is going to yield any new revelations from when it was done in 2012. She is not having any symptoms of diarrhea and I do not think colitis is something that I am too worried about here. Diagnoses: (R11.0) Nausea (primary encounter diagnosis) (R10.30) Lower abdominal pain A letter was sent to Dr. Zulema Crespo MD indicating the above finding for this patient. Return to Clinic: The patient is instructed to follow-up with me after the testing has been completed. Jose Cox III, MD [facility] 07-25-2024 History of Presen t illness Narrative HISTORY AND PHYSICAL Yolanda Luther Friend 1955 REFERRING PHYSICIAN: Zulema Crespo MD CHIEF COMPLAINT: Consult HPI: The patient is a 69 year old female with a complaint of nausea and lower abdominal pain. Patient states that she eats relatively healthy. Recently she has been having some difficulty moving her bowels and normally she moves her bowels daily. She recently had a CT scan of the abdomen and pelvis which really only showed a lot of stool in the colon but no evidence of acute diverticulitis on the scan. The nausea has been fairly persistent. Particularly with any foods. She has not been complaining of any back pain. She did have a colonoscopy in 2022 with a tubular adenoma found in the sigmoid colon but otherwise was negative. 5-year follow-up was recommended. The patient is being seen by me today at the request of Dr. Zulema Crespo MD for my opinion and advice regarding Nausea (primary encounter diagnosis) Lower abdominal pain. PAST MEDICAL HISTORY Diagnosis Date Arthritis Epigastric [...] lower back/hip REMV CATARACT EXTRACAP,INSERT LENS 06/2021 Current Outpatient Medications Medication Sig metroNIDAZOLE 0.75 % Topical Gel Apply to entire Rosacea-involved area(s) of face (eg, central face at cheeks, chin, nose and mid lower forehead, etc.) once to twice per day (qday to bid) as directed and tolerated. CALCIUM CARBONATE/VITAMIN D2 (CALCIUM + VITAMIN D ORAL) Take by mouth. No current facility-administered medications for this visit. ALLERGIES: Patient has no active allergies. PERSONAL HISTORY: Social History Tobacco Use Smoking status: Never Smokeless tobacco: Never Vaping Use Vaping status: Never Used Substance Use Topics Alcohol use: No Drug use: No FAMILY HISTORY: FAMILY HISTORY Problem Relation Age of Onset Cancer Mother pancreatic Arthritis Father Rheumatoid Diabetes Daughter Type 1 DM Heart Paternal Grandfather Heart Paternal Uncle Prostate Cancer Brother REVIEW OF SYMPTOMS: The review of systems data was entered by the nurse and reviewed by me There are no exam notes on file for this visit. PHYSICAL EXAMINATION: General: The patient is 69 year old female, well nourished, well hydrated in no acute distress. The patient is oriented to time, place, and person. VITALS: Blood pressure 138/70, pulse 76, resp. rate 16, weight 49 kg (108 lb), last menstrual period 07/31/2005. HEENT: Normal cephalic, ataumatic, pupils are equally round, sclera are anicteric, mucous membranes are moist, oropharynx is clear. Neck has no masses, asymmetry or lymphadenopathy. Thyroid is unremarkable. Respiratory: Clear to auscultation and percussion. Normal respiratory excursion and pattern. Cardiac: Examination is regular rate and rhythm. Abdominal exam: Soft, nontender, with no palpable masses. No hepatosplenomegaly. No palpable hernias. Rectal exam: exam deferred Extremities: no clubbing, cyanosis or edema. No adenopathy. Other: LABORATORY VALUES: As Noted RADIOLOGIC STUDIES: As Noted Assessment IMPRESSION: Nausea (primary encounter diagnosis) Lower abdominal pain PLAN: I am going to obtain a gallbladder ultrasound and a HIDA scan with ejection fraction on her. If this is negative then I will probably refer her to colorectal surgery to get a colonic inertia testing done. I am not really sure repeating colonoscopy is going to yield any new revelations from when it was done in 2013. She is not having any symptoms of diarrhea and I do not think colitis is something that I am too worried about here. Diagnoses: (R11.0) Nausea (primary encounter diagnosis) (R10.30) Lower abdominal pain A letter was sent to Dr. Zulema Crespo MD indicating the above finding for this patient. Return to Clinic: The patient is instructed to follow-up with me after the testing has been completed. Jose Cox III, MD documented in this encounter [facility] 07-25-2024 Note HNO ID: [id number] Author: ALEIDA LAMAR MD Service: ? Author Type: Physician Type: Progress Notes Filed: 07/25/2024 13:10 Note Text: Pathologist Assistant offered: Patient declines. Yolanda is a 69 year old who presents for an annual gynecologic exam without complaints. Having some GI issues and nausea- working with dr. Cox. Going to [place] for river cruise- celebrating 50th anniversary. Postmenopausal: Yes Sexually active: Yes Last pap smear: 2018 Bothersome pelvic pain: No Last mammogram: 2024 normal History of abnormal mammogram: No Sexually active: Yes Pain with intercourse: No Postcoital bleeding: No Hot flashes: No Night sweats: No OB History Gravida2 Para2 Term0 Preterm0 AB0 Living2 SAB0 IAB0 Ectopic0 Multiple0 Live Births0 Problem Relation Age of Onset Cancer Mother pancreatic Arthritis Father Rheumatoid Diabetes Daughter Type 1 DM Heart Paternal Grandfather Heart Paternal Uncle Prostate Cancer Brother SOCIAL HISTORY Social History Tobacco Use Smoking status: Never Smokeless tobacco: Never Vaping Use Vaping status: Never Used Substance Use Topics Alcohol use: No Drug use: No REVIEW OF SYSTEMS Abdomen: No bloating, early satiety, indigestion, or increased flatulence. Bladder: No dysuria, gross hematuria, urinary frequency, urinary urgency, or incontinence Breast: No breast lumps, nipple d/c, overlying skin changes, redness or skin retraction Allergies and current medication updated:Yes SENSITIVE EXAM: The sensitive examination was discussed with the Patient or Patient's Authorized Psychiatric Nurse. As applicable, any other physician, advance practice provider, medical student, or other health professional student that will be observing or involved in the sensitive examination for educational or training purposes was discussed with the Patient or Authorized Psychiatric Nurse. The Patient or Authorized Psychiatric Nurse has agreed to proceed with the sensitive examination. (Sensitive examination includes inspection and/or palpation of the breasts, pelvis, prostate and anorectal regions). EXAM: BP 126/74 Ht 5' 3 (1.60m) Wt 107 lb (48.5kg) LMP 07/31/2005 BMI 18.96 kg/(m2). GENERAL: pleasant, female in no apparent distress HEENT: Normocephalic, atraumatic, mucus membranes moist, and no lesions NECK: Supple, full range of motion, no adenopathy, and thyroid normal DERMATOLOGY: Normal, without lesions, non-icteric, and non-hirsute BREAST: soft, non-tender, symmetric, no dominant mass, normal nipple-areolar complex, no lymphadenopathy, and no nipple discharge CHEST: Normal inspiratory effort ABDOMEN: soft, non-tender, and no masses PELVIC: external genitalia normal, normal Bartholin's glands, urethra, Califon's glands, no vulvar lesions, no cervical lesions, [...] exercise and routine health maintenance exams reviewed. Colon cancer screening: up to date with screening BMD: ordered 2) Follow up one year or sooner as needed Aleida Jacobsen MD [facility] 07-25-2024 History of Presen t illness Narrative Pathologist Assistant offered: Patient declines. Yolanda is a 69 year old who presents for an annual gynecologic exam without complaints. Having some GI issues and nausea- working with dr. Cox. Going to [place] for [employer]- celebrating 50th anniversary. Postmenopausal: Yes Sexually active: Yes Last pap smear: 2018 Bothersome pelvic pain: No Last mammogram: 2024 normal History of abnormal mammogram: No Sexually active: Yes Pain with intercourse: No Postcoital bleeding: No Hot flashes: No Night sweats: No OB History Gravida2 Para2 Term0 Preterm0 AB0 Living2 SAB0 IAB0 Ectopic0 Multiple0 Live Births0 Problem Relation Age of Onset Cancer Mother pancreatic Arthritis Father Rheumatoid Diabetes Daughter Type 1 DM Heart Paternal Grandfather Heart Paternal Uncle Prostate Cancer Brother SOCIAL HISTORY Social History Tobacco Use Smoking status: Never Smokeless tobacco: Never Vaping Use Vaping status: Never Used Substance Use Topics Alcohol use: No Drug use: No REVIEW OF SYSTEMS Abdomen: No bloating, early satiety, indigestion, or increased flatulence. Bladder: No dysuria, gross hematuria, urinary frequency, urinary urgency, or incontinence Breast: No breast lumps, nipple d/c, overlying skin changes, redness or skin retraction Allergies and current medication updated:Yes SENSITIVE EXAM: The sensitive examination was discussed with the Patient or Patient's Authorized Psychiatric Nurse. As applicable, any other physician, advance practice provider, medical student, or other health professional student that will be observing or involved in the sensitive examination for educational or training purposes was discussed with the Patient or Authorized Psychiatric Nurse. The Patient or Authorized Psychiatric Nurse has agreed to proceed with the sensitive examination. (Sensitive examination includes inspection and/or palpation of the breasts, pelvis, prostate and anorectal regions). EXAM: BP 126/74 Ht 5' 3 (1.60m) Wt 107 lb (48.5kg) LMP 07/31/2005 BMI 18.96 kg/(m^2). GENERAL: pleasant, female in no apparent distress HEENT: Normocephalic, atraumatic, mucus membranes moist, and no lesions NECK: Supple, full range of motion, no adenopathy, and thyroid normal DERMATOLOGY: Normal, without lesions, non-icteric, and non-hirsute BREAST: soft, non-tender, symmetric, no dominant mass, normal nipple-areolar complex, no lymphadenopathy, and no nipple discharge CHEST: Normal inspiratory effort ABDOMEN: soft, non-tender, and no masses PELVIC: external genitalia normal, normal Bartholin's glands, urethra, Califon's glands, no vulvar lesions, no cervical lesions, [...] exercise and routine health maintenance exams reviewed. Colon cancer screening: up to date with screening BMD: ordered 2) Follow up one year or sooner as needed Aleida Jacobsen MD documented in this encounter [facility] 07-24-2024 Telephone encounter Note Spoke with patient. Her PCP DR Crespo office asked her to go straight to a surgeon C/O to LLQ and mid abdominal pain below umbilicus. Feels nausea and queasy a lot of the time. No vomiting. 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 Appt made per her request Will call [facility] office to make sure they have received records for appt tomorrow 07/25/24 Message routed to ZENAIDA Bermeo & DR Cox to inform. [facility] 07-24-2024 Miscellaneous Notes Spoke with patient. Her PCP DR Crespo office asked her to go straight to a surgeon C/O to LLQ and mid abdominal pain below umbilicus. Feels nausea and queasy a lot of the time. No vomiting. 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 Appt made per her request Will call [facility] office to make sure they have received records for appt tomorrow 07/25/24 Message routed to ZENAIDA Bermeo & DR Cox to inform. Patient calling in requesting to see Dr. Cox ONLY. Patient states Dr. Crespo told her to call surgery for her ongoing problems on epigastric pain, nausea and not going to the bathroom regularly. She states she will not go to the ER and does not want to see any of the other doctors in [facility] office. Let patient know I don't know how far Dr. Cox is booking out and she may have to see someone else if she does not want to wait. Patient states she had scans and office visits at [facility] recently if they are able to be pulled from the grafter. Ramya Aviles LPN documented in this encounter [facility] 07-24-2024 Telephone encounter Note Patient calling in requesting to see Dr. Cox ONLY. Patient states Dr. Crespo told her to call surgery for her ongoing problems on epigastric pain, nausea and not going to the bathroom regularly. She states she will not go to the ER and does not want to see any of the other doctors in [facility] office. Let patient know I don't know how far Dr. Cox is booking out and she may have to see someone else if she does not want to wait. Patient states she had scans and office visits at [facility] recently if they are able to be pulled from the grafter. Ramya Aviles LPN [facility] 07-13-2024 Evaluation note Diagnosis Onset Date Resolution Left lower quadrant abdominal pain acute July 13, 2024 8:59am Nausea alone acute July 13, 2024 8:59am [facility] [employer] Work Phone: 1(345) 988-363303-06-2025 History of Present illness Narrative* Chrissy Forde Mammo Tech - 06/29/2024 7:50 AM EST Radiology Service Progress Note PATIENT NAME: Yolanda An DATE OF SERVICE: June 29, 2024 TIME: 8:07 AM PATIENT IDENTITY VERIFICATION COMPLETED USING TWO (2) IDENTIFIERS: Name and Date of confirmedby patient verbally. FALL SCREENING: Has the patient had 2 falls in the last year or 1 fall with injury or currently using an Ambulatory Assistive Device (Walker, Cane, Wheelchair, Crutches, etc.)? No PATIENT GENDER DATA: Assigned female at . status: : No status:NO. PATIENT RELEVANT IMPLANT DATA REVIEWED: Not Applicable PATIENT PRESENTS WITH AN IMPLANTABLE OR ATTACHED HIGHBALLER: No RADIOLOGY DEPARTMENT: Mammography PERIPHERAL IV DATA: Not applicable SIGNED BY: Paz Cortez June 29, 2024 8:07 AM [facility]25 NoteHNO ID: [id number] Author: CHRISSY FORDE Mammo Tech Service: ? Author Type: Plastic Duplicator Type: Progress Notes Filed: 06/29/2024 08:07 Note Text: Radiology Service Progress Note PATIENT NAME: Yolanda An DATE OF SERVICE: June 29, 2024 TIME: 8:07 AM PATIENT IDENTITY VERIFICATION COMPLETED USING TWO (2) IDENTIFIERS: Name and Date of confirmed by patient verbally. FALL SCREENING: Has the patient had 2 falls in the last year or 1 fall with injury or currently using an Ambulatory Assistive Device (Walker, Cane, Wheelchair, Crutches, etc.)? No PATIENT GENDER DATA: Assigned female at . status: : No status: NO. PATIENT RELEVANT IMPLANT DATA REVIEWED: Not Applicable PATIENT PRESENTS WITH AN IMPLANTABLE OR ATTACHED HIGHBALLER: No RADIOLOGY DEPARTMENT: Mammography PERIPHERAL IV DATA: Not applicable SIGNED BY: Paz Cortez June 29, 2024 8:07 [facility]02-20-2024 Miscellaneous Notes* Letter - Coordinator, Mammography - 06/15/2023 12:07 PM EST June 15, 2023 PID: [id number] Yolanda ARoseanne An [address] [phone] Dear Ms. Friend, We are pleased to [...] dense breast tissue in addition to other riskfactors. Early detection of cancer is very important. We also understand recommendations regarding breast cancer screening are controversial. Please discuss with your primary care provider which strategy is best for you and whether a mammogram is right for you. Your imaging studies and report will be kept on file at [facility] as part of your permanent medical record and are available for your continuing care. Thank you for allowing us to help in meeting your health care needs. Sincerely, Dr. Pineda Interpreting Radiologist [facility] (Normal over 40) documented in this [facility] History of Present illness Narrative* Loida Gutierrez RT(R) - 06/15/2023 7:50 AM EST Radiology Service Progress Note PATIENT NAME: Yolanda An DATE OF SERVICE: June 15, 2023 TIME: 7:42 AM PATIENT IDENTITY VERIFICATION COMPLETED USING TWO (2) IDENTIFIERS: Name and Date of confirmedby patient verbally. FALL SCREENING: Has the patient had 2 falls in the last year or 1 fall with injury or currently using an Ambulatory Assistive Device (Walker, Cane, Wheelchair, Crutches, etc.)? No PATIENT GENDER DATA: Female. status: : No status: NO. PATIENT RELEVANT IMPLANT DATA REVIEWED: Not Applicable PATIENT PRESENTS WITH AN IMPLANTABLE OR ATTACHED HIGHBALLER: No RADIOLOGY DEPARTMENT: Mammography PERIPHERAL IV DATA: Not applicable SIGNED BY: RT Brett(R) June 15, 2023 7:42 AM documented [facility] Miscellaneous Notes* Telephone Encounter - Aleida Lamar MD - 06/11/2023 10:07 AM EST ordered * Telephone Encounter - Lizzy Crowley - 06/11/2023 9:52 AM EST Patient is calling requesting a JOE screening please place the order. [facility] Miscellaneous Notes* Letter - Mammography Coordinator - 06/06/2022 11:37 AM EST June 08, 2022 PID: [id number] Yolanda Nash Friend [address] [place] [address] Dear Ms. Friend, We are pleased to [...] dense breast tissue in addition to other riskfactors. Early detection of cancer is very important. We also understand recommendations regarding breast cancer screening are controversial. Please discuss with your primary care provider which strategy is best for you and whether a mammogram is right for you. Your imaging studies and report will be kept on file at [facility] as part of your permanent medical record and are available for your continuing care. Thank you for allowing us to help in meeting your health care needs. Sincerely, Dr. Pacheco Interpreting Radiologist [facility] (Normal over 40) documented [facility] History of Present illness Narrative* Aleida Gu MD - 05/11/2022 8:45 AM EST Yolanda is a 67 year old who presents for an annual gynecologic exam without complaints. [place] [employer] [employer] [place] two grandchildren ages 9/13. 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 [facility] History of Present illness Narrative* Klaus Lara APRN.COAL HANDLING SUPERVISOR - 09/27/2021 11:31 AM EDT Subjective HPI Nontoxic-appearing female presents urgent care chief complaint COVID exposure. Patient states she was exposed to an individual who tested positive for COVID-19 6 days ago. does have URI-like symptoms. He did test positive for COVID-19 as well this morning. Presents today for evaluation. Patient states she is vaccinated. Has not developed any symptoms at this point. Denies any pain. Deniesany fever body aches chills nausea vomiting abdominal [...] entire Rosacea-involved area(s) of face (eg, central faceat cheeks, chin, nose and mid lower forehead, etc.) once to twice per day (qday to bid) as directedand tolerated. CALCIUM CARBONATE/VITAMIN D2 (CALCIUM + VITAMIN [...] Wt 52.6 kg (116 lb) LMP 07/31/2005 [id number]% BMI 20.55 kg/m Review of Systems Constitutional: [...] Red flags for prompt reevaluation discussed. Follow-up withPCP as needed. Will be seen in urgent care for ED for any new or worsening symptoms. Patient verbalized understand agrees with plan of care. Klaus Lara APRN.ZENAIDA documented in [facility] encounter[facility] History of Past illness Narrative* Problem Noted Date Resolved Date Postmenopausal bleeding 12/14/2008 09/21/19 10 Dyspareunia 06/10/2007 09/20/2009 documented as of this encounter (statuses as of 09/27/2021) [facility] History of Past illness Narrative* Problem Noted Date Resolved Date Postmenopausal bleeding 12/14/2008 09/21/19 10 Dyspareunia 06/10/2007 09/20/2009 documented as of this encounter (statuses as of 05/11/2022) [facility] History of Past illness Narrative* Problem Noted Date Resolved Date Postmenopausal bleeding 12/14/2008 09/21/19 10 Dyspareunia 06/10/2007 09/20/2009 documented as of this encounter (statuses as of 06/09/2022) [address]21-2009 History of Past illness Narrative* Problem Noted Date Diagnosed Date Resolved Date Postmenopausal bleeding 12/14/200808/25 Dyspareunia 06/10/2007 09/20/2009 documented as of this encounter (statuses as of 02/26/2023) [address]21-2009 History of Past illness Narrative* Problem Noted Date Diagnosed Date Resolved Date Postmenopausal bleeding 12/14/200808/25 Dyspareunia 06/10/2007 09/20/2009 documented as of this encounter (statuses as of 06/16/2023) [address]21-2009 History of Past illness Narrative* Problem Noted Date Diagnosed Date Resolved Date Postmenopausal bleeding 12/14/200808/25 Dyspareunia 06/10/2007 09/20/2009 documented as of this encounter (statuses as of 06/17/2023) [address]21-2009 History of Past illness Narrative* Problem Noted Date Diagnosed Date Resolved Date Postmenopausal bleeding 12/14/200808/25 Dyspareunia 06/10/2007 09/20/2009 documented as of this encounter (statuses as of 06/18/2023) [facility] Diagnosis Onset Date Resolution Status Vitamin D deficiency acute Osteoarthritis chronic Osteoporosis chronic Spinal stenosis [facility] Work Phone: Evaluation note* Diagnosis Exposure to COVID-19 virus- Primary [facility] encounter [facility]* Diagnosis Onset Date Resolution Status Neck pain acute Paronychia of finger of left hand acute Spinal stenosis chronic Acute diverticulitis of intestine acute Diverticulosis acute [facility] Work Phone: Evaluation note* Diagnosis Encounter for gynecological examination (general) (routine) without abnormal findings- Primary Encounter for screening mammogram for malignant neoplasm of breast Other screening mammogram [facility] Diagnosis Onset Date Resolution Status Diverticulosis acute Neck pain acute Vitamin D deficiency acute Meningioma chronic Osteoarthritis chronic Osteoporosis chronic Spinal stenosis [facility] Work Phone: evaluation noteNo assessment information available [facility] Work Phone: evaluation note* Diagnosis Encounter for screening mammogram for malignant neoplasm of breast Other screening mammogram [facility]* Diagnosis Encounter for screening mammogram for malignant neoplasm of breast Other screening mammogram documented in this encounter [facility] note* Diagnosis Encounter for screening mammogram for malignant neoplasm of breast- Primary Other screening mammogram [facility]* Diagnosis Onset Date Resolution Status Encounter to discuss treatment options acute Osteoarthritis chronic Spinal stenosis chronic Neck pain acute Right ear impacted cerumen a cute Vitamin D deficiency acute Osteoarthritis chronic Osteoporosis chronic Spinal stenosis chronic [facility] Work Phone: evaluation note* Diagnosis Osteoporosis- Primary Osteoporosis, unspecified MULTIPLE SCLEROSIS Multiple sclerosis Benign meningioma (HCC) Benign neoplasm of cerebral meninges Encounter for screening mammogram for malignant neoplasm of breast Other screening mammogram [facility]* Diagnosis Osteoporosis- Primary Osteoporosis, unspecified MULTIPLE SCLEROSIS Multiple sclerosis Benign meningioma (HCC) Benign neoplasm of cerebral meninges Encounter for gynecological examination (general) (routine) without abnormal findings- Primary Encounter for screening mammogram for breast cancer Asymptomatic menopause Localized osteoporosis without current pathological fracture [facility]* Diagnosis Osteoporosis- Primary Osteoporosis, unspecified MULTIPLE SCLEROSIS Multiple sclerosis Benign meningioma (HCC) Benign neoplasm of cerebral meninges Nausea- Primary Nausea alone Lower abdominal pain Abdominal pain, other specified site [facility] Diagnosis Osteoporosis- Primary Osteoporosis, unspecified MULTIPLE SCLEROSIS Multiple sclerosis Benign meningioma (HCC) Benign neoplasm of cerebral meninges Nausea Nausea alone [facility]* Diagnosis Osteoporosis- Primary Osteoporosis, unspecified MULTIPLE SCLEROSIS Multiple sclerosis Benign meningioma (HCC) Benign neoplasm of cerebral meninges Nausea Nausea alone [facility]* Diagnosis Osteoporosis- Primary Osteoporosis, unspecified MULTIPLE SCLEROSIS Multiple sclerosis Benign meningioma (HCC) Benign neoplasm of cerebral meninges Nausea- Primary Nausea alone Lower abdominal pain Abdominal pain, other specified site [facility]* Diagnosis Osteoporosis- Primary Osteoporosis, unspecified MULTIPLE SCLEROSIS Multiple sclerosis Benign meningioma (HCC) Benign neoplasm of cerebral meninges Nausea- Primary Nausea alone Lower abdominal pain Abdominal pain, other specified site [facility]* Diagnosis Osteoporosis- Primary Osteoporosis, unspecified MULTIPLE SCLEROSIS Multiple sclerosis Benign meningioma (HCC) Benign neoplasm of cerebral meninges Nausea Nausea alone documented in this encounter [facility] note* Diagnosis Osteoporosis- Primary Osteoporosis, unspecified MULTIPLE SCLEROSIS Multiple sclerosis Benign meningioma (HCC) Benign neoplasm of cerebral meninges Left lower quadrant abdominal pain- Primary documented in this encounter [facility] note* Diagnosis Osteoporosis- Primary Osteoporosis, unspecified MULTIPLE SCLEROSIS Multiple sclerosis Benign meningioma (HCC) Benign neoplasm of cerebral meninges Encounter for screening for malignant neoplasm of colon- Primary Special screening for malignant neoplasms, colon Left lower quadrant abdominal pain documented in this encounter [facility] for referral (narrative)* Diagnostic Procedure Only (Routine) - Pending Review Specialty Diagnoses / Procedures Referred By Cici michele Referred To Contact [facility] Diagnoses Encounter for screening mammogram for malignant neoplasm of breast Procedures JANEY SCREENING W JOE SCREENING DIGITAL BREAST TOMOSYNTHESIS BI SCREENING MAMMOGRAPHY BI 2-VIEW BREAST INC CAD Aleida Lamar MD [address] [place] [address] [facility] [address] [place] [address] Referral ID Status Reason Start Date Expiration Date Visits Requested Visits Authorized [id number] Pending Review Auto-Generat ed Referral 05/11/2022 06/10/2023 1 1 [facility] for referral (narrative)* Diagnostic Procedure Only (Routine) - Closed Specialty Diagnoses / Procedures Referred By Cici michele Referred To Contact [facility] Diagnoses Encounter for screening mammogram for malignant neoplasm of breast Procedures JANEY SCREENING W JOE SCREENING BREAST DGTL JOE UNI/BILAT ADD ON SCREENING MAMMOGRAPHY BI 2-VIEW BREAST INC CAD Aleida Lamar MD [address] [place] [address] [facility] [address] [place] [address] Referral ID Status Reason Start Date Expiration Date V isits Requested Visits Authorized [id number] Closed Auto-Generate d Referral 05/07/2021 06/06/2022 1 1 [facility] for referral (narrative)* Diagnostic Procedure Only (Routine) - Closed Specialty Diagnoses / Procedures Referred By Cici t Referred To Contact [facility] Diagnoses Encounter for screening mammogram for malignant neoplasm of breast Procedures JANEY SCREENING W JOE SCREENING DIGITAL BREAST TOMOSYNTHESIS BI SCREENING MAMMOGRAPHY BI 2-VIEW BREAST INC CAD Aleida Lamar MD [address] [place] [address] [facility] [address] [place] [address] Referral ID Status Reason Start Date Expiration Date V isits Requested Visits Authorized [id number] Closed Auto-Generate d Referral 06/11/2023 07/10/2024 1 1 [facility] for referral (narrative)* Diagnostic Procedure Only (Routine) - Closed Specialty Diagnoses / Procedures Referred By Cici michele Referred To Contact [facility] Diagnoses Encounter for screening mammogram for malignant neoplasm of breast Procedures JANEY SCREENING W JOE SCREENING DIGITAL BREAST TOMOSYNTHESIS BI SCREENING MAMMOGRAPHY BI 2-VIEW BREAST INC CAD Aleida Lamar MD [address] [place] [address] [facility] [address] [place] [address] Referral ID Status Reason Start Date Expiration Date V isits Requested Visits Authorized [id number] Closed Auto-Generate d Referral 06/11/2023 07/10/2024 1 1 [facility] for referral (narrative)No reason for referral information [facility] Work Phone: reason for visit Narrative* Diagnostic Procedure Only (Routine) - Closed Specialty Diagnoses / Procedures Referred By Cici t Referred To Contact [facility] Diagnoses Encounter for screening mammogram for malignant neoplasm of breast Procedures JANEY SCREENING W JOE SCREENING BREAST DGTL JOE UNI/BILAT ADD ON SCREENING MAMMOGRAPHY BI 2-VIEW BREAST INC CAD Aleida Lamar MD [address] [place] [address] [facility] [address] [place] [address] Referral ID Status Reason Start Date Expiration Date V isits Requested Visits Authorized [id number] Closed Auto-Generate d Referral 05/07/2021 06/06/2022 1 1 [facility] for visit Narrative* Diagnostic Procedure Only (Routine) - Closed Specialty Diagnoses / Procedures Referred By Cici michele Referred To Contact [facility] Diagnoses Encounter for screening mammogram for malignant neoplasm of breast Procedures JANEY SCREENING W JOE SCREENING DIGITAL BREAST TOMOSYNTHESIS BI SCREENING MAMMOGRAPHY BI 2-VIEW BREAST INC CAD Aleida Lamar MD [address] [place] [address] [facility] [address] [place] [address] Referral ID Status Reason Start Date Expiration Date V isits Requested Visits Authorized [id number] Closed Auto-Generate d Referral 06/11/2023 07/10/2024 1 1 [facility] for visit Narrative* Diagnostic Procedure Only (Routine) - Closed Specialty Diagnoses / Procedures Referred By Cici michele Referred To Contact [facility] Diagnoses Encounter for screening mammogram for malignant neoplasm of breast Procedures JANEY SCREENING W JOE SCREENING DIGITAL BREAST TOMOSYNTHESIS BI SCREENING MAMMOGRAPHY BI 2-VIEW BREAST INC CAD Aleida Lamar MD [address] [place] [address] Phone: tel: fax: [facility] [address] [place] [address] Referral ID Status Reason Start Date Expiration Date V isits Requested Visits Authorized [id number] Closed Auto-Generate d Referral 03/02/2024 03/31/2025 1 1 [facility] for visit Narrative* Diagnostic Procedure Only (Routine) - Closed Specialty Diagnoses / Procedures Referred By Contac t Referred To Contact [facility] Diagnoses Nausea Procedures NM HEPATOBILIARY W EF AND/OR RX HEPATOBIL SYST IMAG INC GB W/PHARMA INTERVENJ Jose Cox MD [address] [place] [address] Phone: tel: fax: [facility] [address] [id number] Phone: tel: Referral ID Status Reason Start Date Expiration Date V isits Requested Visits Authorized [id number] Closed Auto-Generate d Referral 07/25/2024 08/24/2025 1 1 [facility]* Outpatient Procedure (Routine) - Closed Specialty Diagnoses / Procedures Referred By Cici t Referred To Contact [facility] Diagnoses Left lower quadrant abdominal pain Procedures COLONOSCOPY DIAGNOSTIC COLONOSCOPY FLX DX W/COLLJ SPEC WHEN PFISABELD Alayna Gordon MD [address] [facility] [address] [place] [address] Phone: tel: fax: [facility] [address] [place] [address] Referral ID Status Reason Start Date Expiration Date V isits Requested Visits Authorized [id number] Closed Auto-Generate d Referral 10/18/2024 10/18/2025 1 1 [facility] Summary Purpose Family History No Family History Records Found Relationship Condition Age at Onset Recorded Date/T brandy Not Specified Rheumatoid arthritis Unknown Malignant neoplasm of pancreas Unknown Diabetes mellitus Unknown Myocardial infarction Unknown Malignant neoplasm of breast Unknown Advance Directives No Advanced Directives Records Found Advance Directive Response Recorded Date/ Time Advance Directives Yes February 27, 2019 9:02am Living Will Yes February 27 9:02am Power of Product Builder Yes February 27, 2019 9:02am Documents on File Type Date Recorded Patient Psychiatric Nurse Expl anation Advance Directive(s) 12/15/2017 2:56 PM Advance Directive(s) 04/08/2016 11:19 AM Advance Directive(s) 04/06/2016 8:18 AM Advance Directive Response Recorded Date/ Time Advance Directives Yes December 01 8:57am Living Will Yes December 01, 2021 8:57am Power of Product Builder Yes December 01 8:57am Documents on File Type Date Recorded Patient Psychiatric Nurse Expl anation Advance Directive(s) 12/15/2017 2:56 PM Advance Directive Response Recorded Date/ Time Advance Directives Yes December 01 7:57am Living Will Yes December 01, 2021 7:57am Power of Product Builder Yes December 01 7:57am Documents on File Type Date Recorded Patient Psychiatric Nurse Expl anation Advance Directive(s) 12/15/2017 2:56 PM Advance Directive Response Recorded Date/ Time Advance Directives Yes December 01 8:57am Living Will No November 11, 2022 3:40pm Power of Product Builder No November 11 3:40pm Advance Directive Response Recorded Date/ Time Advance Directives Yes December 01 8:57am Living Will Yes November 30, 2022 3:35pm Power of Product Builder Yes November 30 3:35pm Advance Directive Response Recorded Date/ Time Advance Directives Yes December 01 8:57am Chief Complaint and Reason for Visit Chief Complaint 1 Y FU Reason for Visit Vitamin D deficiency Osteoarthritis Osteoporosis Spinal stenosis Chief Complaint INFECTED FINGER Stomach pain EORDER Reason for Visit Neck pain Paronychia of finger of left hand Spinal stenosis Acute diverticulitis of intestine Diverticulosis Chief Complaint SPINAL STENOSIS/RX H ERE 1 Y FU E ORDER Reason for Visit Diverticulosis Neck pain Vitamin D deficiency Meningioma Osteoarthritis Osteoporosis Spinal stenosis Chief Complaint 1 Y FU E ORDER CERVICAL RAD Reason for Visit Diverticulosis Neck pain Vitamin D deficiency Meningioma Osteoarthritis Osteoporosis Spinal stenosis Chief Complaint CERVICAL RAD chest pain Chief Complaint Discuss lab Results/ Surgeon Consult 1 Y FU E ORDERS Reason for Visit Encounter to discuss treatment options Osteoarthritis Spinal stenosis Neck pain Right ear impacted cerumen Vitamin D deficiency Osteoarthritis Osteoporosis Spinal stenosis Chief Complaint Admit Date Diverticulitis of intestine, ORAL CONTRA T ONLY June 19, 2024 11:02am Abdominal pain July 13, 2024 8:5 9am Review DEXA Results October 09, 2024 9:01 am Reason for Visit Admit Date Left lower quadrant abdominal pain July 13, 2024 8:59am Nausea alone July 13, 2024 8:5 9am Additional Source Comments INFORMATION SOURCE (unrecogn ized section and content) DATE CREATED AUTHOR 10/19/[address] [facility] ([place]) DATE CREATED AUTHOR AUTHOR'S ORGANIZ ATION 01/31/2019 [facility] DATE CREATED AUTHOR AUTHOR'S ORGANIZ ATION 07/29/2024 [facility] DATE CREATED AUTHOR AUTHOR'S ORGANIZ ATION 10/10/2024 [facility] DATE CREATED AUTHOR AUTHOR'S ORGANIZ ATION 11/30/2024 [facility] Goals (unrecognized section and content) Goals may be documented in a n alternate sectionGoals may be documented in an alternate sectionGoals may be documented in an alternate sectionGoals may be documented in an alternate sectionGoals may be documented in an alternate sectionGoals may be documented in an alternate sectionGoals may be documented in an alternate section Source Comments (unrecognize d section and content) In the event this informatio n is protected by the Federal Confidentiality of Alcohol and Drug Abuse Patient Records regulations: The Federal rules restrict any use of the information to criminally investigate or prosecute any alcohol or drug abuse patient.[facility] the event this information is protected by the Federal Confidentiality of Alcohol and Drug Abuse Patient Records regulations: The Federal rules restrict any use of the information to criminally investigate or prosecute any alcohol or drug abuse patient.[facility] Hospital[facility] the event this information is protected by the Federal Confidentiality of Alcohol and Drug Abuse Patient Records regulations: The Federal rules restrict any use of the information to criminally investigate or prosecute any alcohol or drug abuse patient.[facility] HospitalIn the event this information is protected by the Federal Confidentiality of Alcohol and Drug Abuse Patient Records regulations: The Federal rules restrict any use of the information to criminally investigate or prosecute any alcohol or drug abuse patient.[facility] HospitalIn the event this information is protected by the Federal Confidentiality of Alcohol and Drug Abuse Patient Records regulations: The Federal rules restrict any use of the information to criminally investigate or prosecute any alcohol or drug abuse patient.[facility] Hospital[facility] the event this information is protected by the Federal Confidentiality of Alcohol and Drug Abuse Patient Records regulations: The Federal rules restrict any use of the information to criminally investigate or prosecute any alcohol or drug abuse patient.[facility] Hospital[facility] the event this information is protected by the Federal Confidentiality of Alcohol and Drug Abuse Patient Records regulations: The Federal rules restrict any use of the information to criminally investigate or prosecute any alcohol or drug abuse patient.[facility] Hospital[facility] the event this information is protected by the Federal Confidentiality of Alcohol and Drug Abuse Patient Records regulations: The Federal rules restrict any use of the information to criminally investigate or prosecute any alcohol or drug abuse patient.[facility] Hospital[facility] the event this information is protected by the Federal Confidentiality of Alcohol and Drug Abuse Patient Records regulations: The Federal rules restrict any use of the information to criminally investigate or prosecute any alcohol or drug abuse patient.[facility] Hospital[facility] the event this information is protected by the Federal Confidentiality of Alcohol and Drug Abuse Patient Records regulations: The Federal rules restrict any use of the information to criminally investigate or prosecute any alcohol or drug abuse patient.[facility] Hospital[facility] the event this information is protected by the Federal Confidentiality of Alcohol and Drug Abuse Patient Records regulations: The Federal rules restrict any use of the information to criminally investigate or prosecute any alcohol or drug abuse patient.[facility] HospitalIn the event this information is protected by the Federal Confidentiality of Alcohol and Drug Abuse Patient Records regulations: The Federal rules restrict any use of the information to criminally investigate or prosecute any alcohol or drug abuse patient.[facility] Hospital[facility] the event this information is protected by the Federal Confidentiality of Alcohol and Drug Abuse Patient Records regulations: The Federal rules restrict any use of the information to criminally investigate or prosecute any alcohol or drug abuse patient.[facility] Hospital[facility] the event this information is protected by the Federal Confidentiality of Alcohol and Drug Abuse Patient Records regulations: The Federal rules restrict any use of the information to criminally investigate or prosecute any alcohol or drug abuse patient.[facility] HospitalIn the event this information is protected by the Federal Confidentiality of Alcohol and Drug Abuse Patient Records regulations: The Federal rules restrict any use of the information to criminally investigate or prosecute any alcohol or drug abuse patient.[facility] Hospital[facility] the event this information is protected by the Federal Confidentiality of Alcohol and Drug Abuse Patient Records regulations: The Federal rules restrict any use of the information to criminally investigate or prosecute any alcohol or drug abuse patient.[facility] HospitalIn the event this information is protected by the Federal Confidentiality of Alcohol and Drug Abuse Patient Records regulations: The Federal rules restrict any use of the information to criminally investigate or prosecute any alcohol or drug abuse patient.[facility] the event this information is protected by the Federal Confidentiality of Alcohol and Drug Abuse Patient Records regulations: The Federal rules restrict any use of the information to criminally investigate or prosecute any alcohol or drug abuse patient.[facility] Hospital[facility] the event this information is protected by the Federal Confidentiality of Alcohol and Drug Abuse Patient Records regulations: The Federal rules restrict any use of the information to criminally investigate or prosecute any alcohol or drug abuse patient.[facility] Hospital[facility] the event this information is protected by the Federal Confidentiality of Alcohol and Drug Abuse Patient Records regulations: The Federal rules restrict any use of the information to criminally investigate or prosecute any alcohol or drug abuse patient.[facility] the event this information is protected by the Federal Confidentiality of Alcohol and Drug Abuse Patient Records regulations: The Federal rules restrict any use of the information to criminally investigate or prosecute any alcohol or drug abuse patient.[facility] Hospital[facility] the event this information is protected by the Federal Confidentiality of Alcohol and Drug Abuse Patient Records regulations: The Federal rules restrict any use of the information to criminally investigate or prosecute any alcohol or drug abuse patient.[facility] Hospital[facility] the event this information is protected by the Federal Confidentiality of Alcohol and Drug Abuse Patient Records regulations: The Federal rules restrict any use of the information to criminally investigate or prosecute any alcohol or drug abuse patient.[facility] the event this information is protected by the Federal Confidentiality of Alcohol and Drug Abuse Patient Records regulations: The Federal rules restrict any use of the information to criminally investigate or prosecute any alcohol or drug abuse patient.[facility] Reason for Visit (unrecogniz ed section and content) Reason Comments Exposure covid x 6 days, no s ymptoms Reason Comments Yearly Exam Reason Comments Orders Reason Comments Yearly Exam Reason Comments Consult Reason Comments Radiology NM Reason Comments Radiology US Specialty Diagnoses / Procedures Referred By Contac t Referred To Contact [facility] Diagnoses Nausea Procedures US ABD RIGHT UPPER QUADRANT US ABDOMINAL REAL TIME W/IMAGE LIMITED Jose Cox MD [address] [place] [address] Phone: tel: fax: [place] [address] Referral ID Status Reason Start Date Expiration Date V isits Requested Visits Authorized [id number] Closed Auto-Generate d Referral 07/25/2024 08/24/2025 1 1 Reason Comments Follow Up nausea Reason Comments Consult LLQ pain sometimes w orse than others Reason Comments Results Reason Onset Date Comments Refill Request 09/19/2024 Reason Comments Abdominal Pain Care Teams (unrecognized sec tion and content) Radar Mechanic Relationship Specialty Start Date End Date Zulema Crespo MD PCP - General Internal Medicine 12/31/16 Radar Mechanic Relationship Specialty Start Date End Date Zulema Crespo MD (Fax) PCP - General Internal Medicine 12/31/16 Team Status: Active Member Role Status Dates Dr. Zulema Crespo MD Family Provider Active Dr. Zulema Crespo MD Primary Care Provider Active Team Status: Inactive Member Role Status Dates Dr. Zulema Crespo MD Primary Care Pro vider, Attending Provider, Referring Provider Active Team Status: Inactive Member Role Status Dates Dr. Zulema Crespo MD Primary Care Provider Active Justine Del Toro TANKAGE SUPERVISOR, TANKAGE SUPERVISOR-C Attending Provider, Referring Pr ovider Active Team Status: Inactive Member Role Status Dates Dr. Zulema Crespo MD Primary Care Provider, Attendi ng Provider Active Radar Mechanic Relationship Specialty Start Date End Date Zulema Crespo MD (Fax) PCP - General Internal Medicine 12/31/16 Team Status: Inactive Member Role Status Dates Dr. Zulema Crespo MD Primary Care Provider Active Dr. Klaus Law MD Attending Provider, Referring Provider Active Team Status: Inactive Member Role Status Dates Dr. Zulema Crespo MD Primary Care Provider Active Dr. Nathaly Cameron MD Emergency Provider Active Radar Mechanic Relationship Specialty Start Date End Date Zulema Crespo MD PCP - General Internal Medicine 12/31/16 Radar Mechanic Relationship Specialty Start Date End Date Zulema Crespo MD PCP - General Internal Medicine 12/31/16 Radar Mechanic Relationship Specialty Start Date End Date Zulema Crespo MD PCP - General Internal Medicine 12/31/16 Radar Mechanic Relationship Specialty Start Date End Date Zulema Crespo MD PCP - General Internal Medicine 12/31/16 Radar Mechanic Relationship Specialty Start Date End Date Zulema Crespo MD PCP - General Internal Medicine 12/31/16 Radar Mechanic Relationship Specialty Start Date End Date Zulema Crespo MD PCP - General Internal Medicine 12/31/16 Radar Mechanic Relationship Specialty Start Date End Date Zulema Crespo MD PCP - General Internal Medicine 12/31/16 Radar Mechanic Relationship Specialty Start Date End Date Zulema Crespo MD PCP - General Internal Medicine 12/31/16 Radar Mechanic Relationship Specialty Start Date End Date Zulema Crespo MD PCP - General Internal Medicine 12/31/16 Radar Mechanic Relationship Specialty Start Date End Date Zulema Crespo MD PCP - General Internal Medicine 12/31/16 Radar Mechanic Relationship Specialty Start Date End Date Zulema Crespo MD PCP - General Internal Medicine 12/31/16 Radar Mechanic Relationship Specialty Start Date End Date Zulema Crespo MD PCP - General Internal Medicine 12/31/16 Radar Mechanic Relationship Specialty Start Date End Date Zulema Crespo MD PCP - General Internal Medicine 12/31/16 Radar Mechanic Relationship Specialty Start Date End Date Zulema Crespo MD PCP - General Internal Medicine 12/31/16 Team Status: Active Member Role Status Dates Dr. Zulema Crespo MD Primary Care Provider Active Team Status: Inactive Member Role Status Dates Dr. Zulema Crespo MD Primary Care Provider Active Start: June 19, 2024 End: June 19, 2024 Dr. Zulema Crespo MD Attending Provider Active Start: June 19, 2024 End: June 19, 2024 Dr. Zulema Crespo MD Referring Provider Active Start: June 19, 2024 End: June 19, 2024 Team Status: Inactive Member Role Status Dates Dr. Zulema Crespo MD Primary Care Provider Active Start: July 13, 2024 End: July 13, 2024 Dr. Zulema Crespo MD Attending Provider Active Start: July 13, 2024 End: July 13, 2024 Team Status: Inactive Member Role Status Dates Dr. Zulema Crespo MD Primary Care Provider Active Start: October 09, 2024 End: October 09, 2024 Dr. Zulema Crespo MD Attending Provider Active Start: October 09, 2024 End: October 09, 2024 Radar Mechanic Relationship Specialty Start Date End Date Zulema Crespo MD [facility] General Internal Medicine 12/31/16 Radar Mechanic Relationship Specialty Start Date End Date Zulema Crespo MD [facility] General Internal Medicine 12/31/16 FOR RECORDS PERTAINING [...] BE BASED ON THE PRIMARY CLINICAL RECORDS. [facility] [employer] [facility]. provides no warranty or guarantee of the accuracy or completeness of information in this document.
[2024-12-02 20:00] VITALS: BP 129/80; PULSE 66; RESP 16; O2SAT 100
[2024-12-02 20:31] LABS: AST(SGOT) 28 U/L (<=31); Alanine Aminotransfer ALT/SGPT 18 U/L (<=34); Albumin, Serum 4.8 g/dL (3.4-4.8); Alkaline Phosphatase 73 U/L (35-104); Anion Gap 12 (5-15); BUN 11 mg/dL (4-19); BUN/Creat Ratio 16.3 RATIO (10-20); Calcium,Total 9.7 mg/dL (7.6-11.0); Carbon Dioxide 24.9 mmol/L (21.0-32.0); Chloride 89 mmol/L (98-108); Estimated Creatinine Clearance 51.42 ml/min (50-250); Globulin 3.3 g/dL (2.2-4.2); Glucose 95 mg/dL (70-99); Potassium 4.5 mmol/L (3.3-5.1)
[2024-12-02] MEDS: 0.9% Normal Saline (1000mL) 1,000 ML 1000 ML IV (21:29)
[2024-12-02 22:00] VITALS: BP 134/76; PULSE 66; RESP 16; TEMP 36.6; O2SAT 100
== END 2024-12-02 22:50 | disposition home or self-care (01) ==
PROVIDERS: Emergency Provider Student in an Organized Health Care Education/Training Program; PCP Internal Medicine; Referring Provider Student in an Organized Health Care Education/Training Program; Visit Provider Student in an Organized Health Care Education/Training Program
DX: K59.00 Constipation, unspecified (principal); E87.1 Hypo-osmolality and hyponatremia
CPT/HCPCS: 74177; 80053; 85025; 96360; 99283; Q9967; A4216

== ENCOUNTER → 2024-12-04 | Outpatient (CLI) | payer MEDICARE, SELFPAY ==
[2024-12-04 17:44] LABS: Anion Gap 13 (5-15); BUN 15 mg/dL (4-19); BUN/Creat Ratio 23.0 RATIO (10-20); Calcium,Total 9.8 mg/dL (7.6-11.0); Carbon Dioxide 24.1 mmol/L (21.0-32.0); Chloride 96 mmol/L (98-108); Glucose 94 mg/dL (70-99); Potassium 4.1 mmol/L (3.3-5.1)
== END | disposition home or self-care (01) ==
LOC: LAB 16:39
PROVIDERS: PCP Internal Medicine; Referring Provider Internal Medicine; Visit Provider Internal Medicine
DX: E87.1 Hypo-osmolality and hyponatremia (principal)
CPT/HCPCS: 36415; 80048

== ENCOUNTER 2025-04-24 10:04 | Observation (INO) | payer MEDICARE, SELFPAY ==
[2025-04-24] VITALS (8 sets, daily range): BP systolic 128–161; BP diastolic 74–86; PULSE 66–78; RESP 16–21; TEMP 36.6–36.8; O2SAT 99–100; BMI 18.3; BMI 18.6
--- NOTE | 2025-04-24 10:18 | CT_ITS ---
PROCEDURE: BRAIN/HEAD WITHOUT CONTRAST 04/24/2025 REASON FOR EXAM: Clinical history of multiple sclerosis. TECHNIQUE: Procedure Code: CTBR Modality: CT Procedure: BRAIN/HEAD WITHOUT CONTRAST Coronal and Sagittal reconstruction series were provided. One or more dose reduction techniques were used (e.g., Automated exposure control, adjustment of the mA and/or kV according to patient size, use of iterative reconstruction technique. RADIATION DOSE SUMMARY: DLP: 745.49 mGycm COMPARISON: None available. FINDINGS: No acute hemorrhage. No acute transcortical infarct. Patchy periventricular and subcortical white matter hypodensities in the cerebral hemispheres may reflect chronic microvascular ischemic changes or white matter lesions in the setting of multiple sclerosis. No significant mass effect or brain herniation. Focal coarse calcification in the right cerebellar tentorial leaflet. Mild global cerebral volume loss. No hydrocephalus. No extra-axial fluid collection. The basal cisterns are patent. The mastoid air cells are clear. The paranasal sinuses are predominantly clear. Bilateral ocular lens replacements. Prior left posterior craniotomy. CT/Brain/Head without Contrast IMPRESSION: 1. No CT evidence of acute intracranial hemorrhage, transcortical infarct, sign ificant mass effect. 2. Patchy periventricular and subcortical white matter hypodensities in the cer ebral hemispheres may reflect chronic microischemic changes or white matter lesions in the setting of multiple sclero sis. Reading Location: [id number]
--- NOTE | 2025-04-24 10:19 | EX.ED.DYSGE1 ---
HPI History of Present Illness Chief Complaint: Numb/Ting Narrative Narrative: Patient is a 69-year-old female past medical history of hyponatremia, multiple sclerosis relapsing remitting type, rosacea, eczema, meningioma who presented to the emergency department with a chief complaint of numbness and tingling throughout her whole body chest pressure and not feeling well overall. States about 2 weeks ago she had sensation of fullness in her head, ears, developed numbness and tingling throughout her whole body. She states that she originally went to urgent care and they put her on Claritin and she states that this did not help. States that she called her unix engineer they put her on prednisone and she states that she had a miserable time with this. She states that she finished this today. Patient states that she has had chest pressure pretty constantly as well and nothing seems to make this worse. States that she is very active and does not get worsening chest pain or shortness of breath with this. [facility] Medical History Hyponatremia Abdominal discomfort History of diverticulitis Nausea alone Difficult intravenous access Post-menopausal Multiple sclerosis Non-smoker Chest pain Diverticulitis Spinal stenosis Stress fracture Rosacea Vitamin D deficiency Meningioma Osteoarthritis Osteoporosis Arthritis Home Medications ?Medication ?Instructions ?Recorded ?Last Taken ?Type calcium carbonate (Calci-Mix) 500 mg PO DAILY 02/09/20 04/24/25 History cholecalciferol (vitamin D3) 50 50 mcg PO DAILY 02/09/20 04/24/25 History mcg (2,000 unit) capsule metronidazole 0.75 % topical cream 1 applic topical DAILY 05/06/20 04/23/25 History baclofen 5 mg tablet 5 mg PO TID PRN arthritis pain 04/01/23 Unknown History mecobalamin (vitamin B12) 1,000 1,000 mcg PO 2XW 07/13/24 04/23/25 History mcg chewable tablet biotin 2,500 mcg capsule 2,500 mcg PO .2XW 04/24/25 04/23/25 History Allergy/AdvReac Type Severity Reaction Status Date / Time No Known Allergies Allergy Verified 04/24/25 10:07 Family History Other Breast cancer Diabetes Myocardial infarction Pancreatic cancer Rheumatoid arthritis Surgical History History of surgery History of cataract extraction History of selective injection of anesthetic agent around lumbar nerve root History of esophagogastroduodenoscopy (EGD) History of colonoscopy Social History Smoking Status: Never smoker alcohol intake: never substance use type: does not use what type of physical activity do you participate in: walking frequency: daily ROS ROS ED ROS Narrative Constitutional: Denies any headaches, fevers, chills Eyes: Denies double vision Cardiovascular: Complains of chest pressure as noted above denies palpitations Respiratory: Denies coughing wheezing shortness of breath Abdomen: Denies abdominal pain nausea vomit diarrhea : Denies urinary symptoms Neurological: Complains of whole body numbness and tingling as noted above Musculoskeletal: Denies back pain Skin: Denies any rashes or lesions EXAM Physical Exam Narrative Exam Narrative: General: Patient was lying in bed rest comfortably did not appear to be in acute distress Head: Atraumatic, normocephalic Eyes: PERRL bilaterally, EOMI bilaterally, no conjunctival injection noted Neck: Soft, supple, trachea midline Cardiovascular: Regular rate and rhythm Respiratory: Clear to auscultation bilaterally Abdomen: No tenderness to palpation Extremities: +5/5 strength noted in the bilateral upper and lower extremities, radial pulses +2/4 in the bilateral extremities Neurological: Patient following commands that she was at [facility] year is 2024 sensation grossly intact NIH is 0 GCS 15 Skin: Warm, dry, intact no rashes or lesions noted Const Vital Signs: 04/24/25 10:05 04/24/25 10:19 04/24/25 12:04 Temperature 97.9 F Temperature Source Temporal Pulse Rate 78 68 Respiratory Rate 16 17 Blood Pressure 161/86 H 132/74 H Blood Pressure Mean 111 93 Pulse Ox 99 100 99 Oxygen Delivery Method Room Air Room Air Room Air 04/24/25 14:13 Temperature Temperature Source Pulse Rate 76 Respiratory Rate 21 H Blood Pressure 158/81 H Blood Pressure Mean 106 Pulse Ox 100 Oxygen Delivery Method MDM MDM MDM Narrative Medical decision making narrative: Patient is a 69-year-old female who presents to the emergency department chief complaint of numbness and tingling. On the differential diagnose includes but not limited to intracranial mass, MS flare, electrolyte abnormality, hyperthyroidism, ACS. Once workup is obtained reviewed she will be reevaluated. Patient's CBC was reviewed which showed a white blood count of 9, hemoglobin stable 14, platelet count of 301. Patient sodium was 136, potassium 3.9, creatinine was 0.81. Patient's troponin was 8 with a delta of 7. Patient TSH normal at 1.47 free T4 and T3 were 1.40 and 2.6 respectively. Patient chest x-ray was reviewed by myself by radiology showed no acute cardiopulmonary processes. She has mild to moderate thoracic spine degenerative changes noted. Patient CT head brain without contrast showed no acute intracranial hemorrhage territorial infarct or mass effect. Patchy periventricular and subcortical white matter hypodensities in the cerebral hemispheres may reflect chronic microischemic changes or white matter lesions in the setting of multiple sclerosis. Patient is EKG reviewed showed sinus rhythm with PACs with a rate of [address] interval 148 I reached out to [facility] and spoke with the neurologist Dr. Díaz and given that it will be approximately 5 months before she can establish with the neurologist here at [facility], her symptoms not getting better already on steroids/completed the course she would recommend admission to the hospital for MRI of her head as well as MRI of the cervical spine with and without contrast. At this point time will discuss case with hospitalist for admission. Spoke with hospitalist Dr. Palma at 3:15 PM who will except patient for admission. Patient is notified is agreeable to plan all course concerns answered. Lab Data Labs: Laboratory Results - last 24 hr 04/24/25 04/24/25 04/24/25 10:28 12:32 14:17 WBC 9.0 RBC 4.75 Hgb 14.0 Hct 39.9 MCV 84.0 MCH 29.5 MCHC 35.1 RDW Std Deviation 40.2 RDW Coeff of Keysha 13.1 Plt Count 301 MPV 10.3 Immature Gran % (Auto) 1.000 H Neut % (Auto) 63.2 Lymph % (Auto) 22.8 [place] % (Auto) 11.2 H Eos % (Auto) 1.4 Baso % (Auto) 0.4 Absolute Neuts (auto) 5.7 Absolute Lymphs (auto) 2.05 Nucleated RBC % 0 Sodium 136 Potassium 3.9 Chloride 98 Carbon Dioxide 25.9 Anion Gap 12 BUN 16 Creatinine 0.81 Estim Creat Clear Calc 47.35 L Est GFR (MDRD) Non-Af 77 BUN/Creatinine Ratio 20.0 Glucose 109 H Calcium 9.7 Magnesium 2.1 Troponin T High Sens 8 Troponin T Hi Sens 2 Hr 7 Troponin T Hi Sens 4Hr 7 TSH 1.470 Free T4 1.40 Free T3 pg/dL 2.6 Radiography Diagnostic Testing: Clinical Impression(s) from Imaging Studies Brain CT 04/24/25 10:[address]: [address] evidence of acute intracranial hemorrhage, transcortical infarct, significant mass effect. 2. Patchy periventricular and subcortical white matter hypodensities in the cerebral hemispheres may reflect chronic microischemic changes or white matter lesions in the setting of multiple sclerosis. Reading Location: [facility] Chest X-Ray 04/24/25 10:39 IMPRESSION: No pleural effusion or pneumothorax is seen. Lungs appear clear throughout. The cardiomediastinal silhouette is within the normal range. [id number] thoracic spine degenerative changes are noted. No acute osseous change is seen. No evidence of acute cardiopulmonary disease. Reading Location: [id number] Discharge Plan Dx/Rx/DC Orders Clinical Impression: Multiple sclerosis, Numbness and tingling, History of rosacea Disposition Disposition: Acute Care Hospital [facility]
[2025-04-24] MEDS: 0.9% Normal Saline (1000mL) 1,000 ML 999 ML IV (10:30)
--- NOTE | 2025-04-24 10:39 | RAD_ITS ---
PROCEDURE: CHEST PA AND LATERAL 04/24/2025 REASON FOR EXAM: CHEST PAIN TECHNIQUE: Procedure Code: RADCXR Modality: DX Procedure: CHEST PA AND LATERAL COMPARISON: AP chest of 11/11/2022. RAD/Chest PA and Lateral IMPRESSION: No pleural effusion or pneumothorax is seen. Lungs appear clear throughout. The cardiomediastinal silhouette is within the normal range. [id number] thoracic spine degenerative changes are noted. No acute osseous change is seen. No evidence of acute cardiopulmonary disease. Reading Location: [place] [id number]
[2025-04-24 10:40] LABS: Hematocrit 39.9 % (37-47); Hemoglobin 14.0 g/dL (12.0-15.0); Immature Granulocytes Count 0.090 X10^3/uL (0.0-0.0); Mean Corp Hgb Conc 35.1 g/dL (32-36); Mean Corpuscular Volume 84.0 fL (81-99); Mean Platelet Vol. 10.3 fl (6.2-12.0); NRBC Flagged by Analyzer 0 % (0-5); Platelet Count 301 K/mm3 (150-450); RBC Distribution Width CV 13.1 % (11.6-14.6); RBC Distribution Width SD 40.2 fl (35.1-43.9); Red Blood Count 4.75 M/mm3 (4.2-5.4); White Blood Count 9.0 K/mm3 (4.4-11.0)
[2025-04-24 11:05] LABS: Anion Gap 12 (7-18); BUN 16 mg/dL (4-19); BUN/Creat Ratio 20.0 RATIO (10-20); Calcium,Total 9.7 mg/dL (7.6-11.0); Carbon Dioxide 25.9 mmol/L (20.0-29.0); Chloride 98 mmol/L (96-106); Estimated Creatinine Clearance 47.35 ml/min (50-250); Free T3 2.6 pg/mL (2.18-3.98); Glucose 109 mg/dL (70-99); Magnesium 2.1 mg/dL (1.5-2.2); Potassium 3.9 mmol/L (3.5-5.1); Troponin T High Sensitivity 8 ng/L (<=14)
[2025-04-24 12:57] LABS: Troponin T High Sens 2 HR 7 ng/L (<=14)
[2025-04-24 14:51] LABS: Troponin T High Sens 4 HR 7 ng/L (<=14)
--- NOTE | 2025-04-24 15:28 | CASEMGMT ---
Care Management Face to Face with patient for initial transition planning/care coordination assessment in the ED.? This technical writer and editor introduced self and role at [facility]. Patient alert and oriented. Patient willing to participate in assessment and is able to answer all questions appropriately.? Care providers, pharmacy, and demographics verified. Admitting Diagnosis: Numb/Tingling Other diagnosis history: ?hyponatremia, MS, rosacea, eczema PCP: ?Cherie Specialists: ?Johnathon, pain management Preferred Pharmacy: [facility] Insurance: ?[place] Prescription Benefit: ?Yes Living Will/HPOA: ?both completed and on file LNOK: Living Arrangements: ?patient lives with in a one story home with basement.? Patient is independent with ADLs and IADLs ? Transportation: ?patient drives DME: ?none HHC: ?none SNF/Rehab: ?none Community Resources: ?none Behavioral Health History: ?none Patient goals: Patient wishes to discharge home, denies need for home health care at this time. Patient denies any further needs or concerns at this time. Disposition Plan: admission to acute; RN CM/SW to follow for discharge planning needs that may arise. Brii Marino, CHIEF CUSTOMER OFFICER, [employer]
--- NOTE | 2025-04-24 15:56 | HP.PCM.HOS_ITS ---
HPI - General General Date of Admission: 04/24/25 Date of Service: 04/24/25 Chief Complaint: Full-body prickling HPI Narrative YOLANDA FRIEND, is a 69-year-old female history of relapsing remitting MS, eczema, rosacea presented to [facility] ED 04/24/2025 due to numbness and tingling throughout her whole body and generally not feeling well. About 2 weeks ago she had fullness in her head, ears, and then developed numbness and tingling throughout her body. She went to urgent care and they put her on Claritin which was not helpful. She then called her retirement assistant and they put her on prednisone and she did not feel well on that and finished the course with last dose today. Also noted pretty constant chest pressure with no improving or exacerbating factors. In the ED temp 97.9, heart rate 78, blood pressure 161/86, pulse ox 99% on room air. To the ED white count 9, hemoglobin 14, sodium 136 and creatinine 0.81. Troponin was 8 with a repeat of 7. TSH 1.47. Chest x-ray no acute process CT head without contrast with no intracranial hemorrhage, territorial infarct, or mass effect. Did note patchy periventricular and subcortical white matter hypodensities in the cerebral hemispheres which could reflect chronic microischemic changes or white matter lesions in the setting of multiple sclerosis. ED physician spoke with [facility] neurologist and given it will be 5 months before the patient can be seen by neurology in [place] it was recommended patient be admitted to the hospital for MRI of head as well as MRI of cervical spine with and without contrast. Hospitalist contacted for admission. Patient evaluated with family member at bedside, reportedly 2 weeks ago she developed pressure in her head and ear fullness by the next day had progressed to full body prickling, sometimes a little bit better than others but overall has persisted. Reports last night she thought she was getting better but today feels about the same so given her inability for close outpatient follow-up she came to the ED. Still reports that she gets some headache and she has a numb and tingly feeling in her arms and prickling sensation all over her body. She notes she has cervical stenosis so she has been shocking up her upper extremity symptoms to her neck but now is not sure if maybe she has had longer MS symptoms that she has missed attributing. Denies any nausea or vomiting. Does report this chest pressure with no exacerbating or relieving factors. FORMERLY [facility], [facility] Medical History Hyponatremia Abdominal discomfort History of diverticulitis Nausea alone Difficult intravenous access Post-menopausal Multiple sclerosis Non-smoker Chest pain Diverticulitis Spinal stenosis Stress fracture Rosacea Vitamin D deficiency Meningioma Osteoarthritis Osteoporosis Arthritis Home Medications ?Medication ?Instructions ?Recorded ?Last Taken ?Type calcium carbonate (Calci-Mix) 500 mg PO DAILY 02/09/20 04/24/25 History cholecalciferol (vitamin D3) 50 50 mcg PO DAILY 04/24/25 History mcg (2,000 unit) capsule metronidazole 0.75 % topical cream 1 applic topical DA RIN 05/06/20 04/23/25 History baclofen 5 mg tablet 5 mg PO TID PRN arthritis pa in 04/01/23 Unknown History mecobalamin (vitamin B12) 1,000 1,000 mcg PO 2XW 07/1304/23/25 History mcg chewable tablet biotin 2,500 mcg capsule 2,500 mcg PO .2XW 04/24/25 1 History Allergy/AdvReac Type Severity Reaction Status Date / Time No Known Allergies Allergy Verified 04/24/25 10:07 Family History Other Breast cancer Diabetes Myocardial infarction Pancreatic cancer Rheumatoid arthritis Surgical History History of surgery History of cataract extraction History of selective injection of anesthetic agent around lumbar nerve root History of esophagogastroduodenoscopy (EGD) History of colonoscopy Social History Smoking Status: Never smoker alcohol intake: never substance use type: does not use what type of physical activity do you participate in: walking frequency: daily ROS ROS Narrative General: Denies fever/chills HENT: Does have some headache, denies stuffy nose, denies sore throat EYES: Feels like her eyes are kind of gritty, has had blurry vision a couple of times Resp: Denies cough, denies shortness of breath Cardiac: Has a vague chest pressure with no exacerbating relieving factors GI: Denies abdominal pain, denies changes in bowel, denies nausea/vomiting : Denies changes in urination Extremity: Denies swelling MSK: Denies weakness Neuro: Has some numb tingly feeling in upper extremities, has full body prickling elsewhere Heme: Denies any bleeding or bruising Skin: Denies rashes Psychiatric: No complaints voiced Patient's Goals Of Care . What matters most to you about your health?: Getting a diagnosis What would you like to achieve or improve as a result of your hospital stay?: To feel better Vital Signs Vital Signs Vital Signs: 04/24/25 10:05 04/24/25 10:19 04/24/25 12:04 Temperature 97.9 F Temperature Source Temporal Pulse Rate 78 68 Respiratory Rate 16 17 Blood Pressure 161/86 H 132/74 H Blood Pressure Mean 111 93 Pulse Ox 99 100 99 Oxygen Delivery Method Room Air Room Air Room Air 04/24/25 14:13 04/24/25 15:21 Temperature 98.2 F Temperature Source Pulse Rate 76 73 Respiratory Rate 21 H 18 Blood Pressure 158/81 H 153/80 H Blood Pressure Mean 106 104 Pulse Ox 100 99 Oxygen Delivery Method Weight Weight: 47.083 kg Body Mass Index (BMI) 18.3 Physical Exam Narrative General: Alert, oriented, no apparent distress HEENT: Atraumatic, normocephalic Eyes: Anicteric, normal conjunctiva, extraocular movements intact, pupils equal Neck: Supple Respiratory: Clear to auscultation bilaterally, normal respiratory effort Cardiovascular: Regular rate and rhythm GI: Soft, nontender, nondistended Extremities: No edema Musculoskeletal: Strength 5 out of 5 in right upper extremity, 5 out of 5 left upper extremity, 5 out of 5 right lower extremity, 5 out of 5 left lower extremity Neuro: No overt focal neurological deficits, cranial nerves II through XII intact, [id number] without significant difficulty bilaterally, when comparing signs has no unilateral sensory changes and reports feels the same on both sides in upper and lower extremities Skin: No rashes appreciated Psych: Cooperative Results Lab / Micro Data 04/24/25 10:28 04/24/25 10:28 Labs: Laboratory Results - last 24 hr 04/24/25 10:28: WBC 9.0, RBC 4.75, Hgb 14.0, Hct 39.9, MCV 84.0, MCH 29.5, MCHC 35.1, RDW Std Deviation 40.2, RDW Coeff of Keysha 13.1, Plt Count 301, MPV 10.3, I mmature Gran % (Auto) 1.000 H, Neut % (Auto) 63.2, Lymph % (Auto) 22.8, [place] % (Auto) 11.2 H, Eos % (Auto) 1.4, Baso % (Auto) 0.4, Absolute Neuts (auto) 5.7, Absolute Lymphs (auto) 2.05, Nucleated RBC % 0, Sodium 136, Potassium 3.9, Chloride 98, Carbon Dioxide 25.9, Anion Gap 12, BUN 16, Creatinine 0.81, Estim Creat Clear Calc 47.35 L, Est GFR (MDRD) Non-Af 77, BUN/Creatinine Ratio 20.0, G lucose 109 H, Calcium 9.7, Magnesium 2.1, Troponin T High Sens 8, TSH 1.470, Free T4 1.40, Free T3 pg/dL 2.6 04/24/25 12:32: Troponin T Hi Sens 2 Hr 7 04/24/25 14:17: Troponin T Hi Sens 4Hr 7 Imaging Radiology Impression Brain CT 04/24/25 10:18 IMPRESSION: 1. No CT evidence of acute intracranial hemorrhage, transcortical infarct, significant mass effect. 2. Patchy periventricular and subcortical white matter hypodensities in the cerebral hemispheres may reflect chronic microischemic changes or white matter lesions in the setting of multiple sclerosis. Reading Location: [facility] Chest X-Ray 04/24/25 10:39 IMPRESSION: No pleural effusion or pneumothorax is seen. Lungs appear clear throughout. The cardiomediastinal silhouette is within the normal range. [id number] thoracic spine degenerative changes are noted. No acute osseous change is seen. No evidence of acute cardiopulmonary disease. Reading [facility] Assessment & Plan Assessment/Plan (1) Numbness and tingling: PLAN: Plan # Generalized numbness and tingling in the setting of relapsing remitting MS - Patient with complaints of upper extremity numbness and tingling with full body prickling that has been present for the past 2 weeks -Neuroexam unremarkable -Magnesium and calcium within normal limits - CT head in the ED with patchy periventricular and subcortical white matter hypodensities in the cerebral hemispheres in the reflect chronic microischemic changes or white matter lesions in setting multiple sclerosis - Neurologist contacted in the ED and recommended MRI brain and C-spine with and without contrast, these been ordered - Teleneurology consult - Reports she is not on any treatment for MS presently and was just on prednisone from her retirement assistant without any improvement in her symptoms #Chest discomfort - No improving or exacerbating factors -Chest x-ray unremarkable - No shortness of breath -Did have some almost viral URI-like symptoms 2 weeks ago, unclear if there could be association -Wells score of 0, do not think patient has PE or need to order further advanced imaging -Troponin normal/flat -EKG rate of 60 sinus rhythm with PACs - Will trial PPI, if symptoms persist could consider echo or further workup but at this time does not seem to be cardiac in nature #DVT ppx: Lovenox subcu Nancy Palma MD Charges/Coding Visit Charges Inpatient E&M: 97534 Init Hosp L2
--- NOTE | 2025-04-24 17:01 | MRI_ITS ---
PROCEDURE: BRAIN W/WO CONTRAST 04/24/2025 REASON FOR EXAM: Clinical concern for MS flare. TECHNIQUE: Procedure Code: [id number] Modality: MR Procedure: BRAIN W/WO CONTRAST Multiplanar and multisequence images were obtained. CONTRAST: Clariscan VOLUME: 9 mL COMPARISON: None available FINDINGS: Multiple supratentorial T2/FLAIR white matter hyperintense lesions. The distribution is predominantly periventricular and subcortical. There is involvement of the callososeptal interface. Many of the lesions have corresponding T1 hypointensity compatible with axonal volume loss. No evidence of enhancing intracranial lesions. Focal left occipital lobe encephalomalacia. There are additional confluent areas of periventricular T2/FLAIR white matter hyperintensities which may be secondary to chronic microischemic changes. No acute infarct or hemorrhage. No abnormal intracranial enhancement. No extra-axial fluid collection. No significant mass effect or herniation of the brain. Mild global cerebral volume loss. No hydrocephalus. The basal cisterns are patent. The intracranial large vessel arterial flow voids are maintained. The mastoid air cells clear. The paranasal sinuses are predominately clear. Bilateral ocular lens replacements. Left occipital craniotomy. MRI/Brain W/WO Contrast IMPRESSION: 1. No acute infarct, hemorrhage, or intracranial enhancing lesion. 2. Multiple supratentorial white matter lesions in the cerebral hemispheres con sistent with clinical history of demyelinating disease. No evidence of active lesions. Reading Location: [id number]
--- NOTE | 2025-04-24 17:01 | MRI_ITS ---
PROCEDURE: SPINE CERVICAL W/WO CONTRAST 04/24/2025 REASON FOR EXAM: Concern for multiple sclerosis. TECHNIQUE: Procedure Code: [id number] Modality: MR Procedure: SPINE CERVICAL W/WO CONTRAST Multiplanar and multisequence images were obtained with intravenous gadolinium- based contrast administration. CONTRAST: Clariscan VOLUME: 9 mL COMPARISON: MRI cervical spine 08/29/2022 FINDINGS: The visualized posterior fossa contents appear within normal limits. The normal cervical lordosis is maintained. The atlantooccipital and atlantoaxial joints appear normally aligned. The cervical vertebral bodies are normal in height. Mild C4-C5 anterolisthesis. The cervical bone marrow signal is within normal limits.There is no enhancing and marrow replacing lesion in the cervical spine. Multilevel disc desiccation and intervertebral disc space height loss. There is no evidence of cervical spinal cord signal abnormality or enhancement. C2-C3: No disc bulge or herniation. No significant spinal canal stenosis neural foraminal narrowing. C3-C4: No disc bulge or herniation. Bilateral facet arthrosis and uncovertebral spurring contribute to moderate bilateral neural foraminal narrowing. C4-C5: Posterior disc osteophyte complex, bilateral facet arthrosis, and uncovertebral spurring. Mild spinal canal stenosis. Moderate bilateral neural foraminal narrowing. C5-C6: Disc protrusion, bilateral facet arthrosis, and uncovertebral spurring. Mild spinal canal stenosis. Moderate bilateral neural foraminal narrowing. C6-C7: Posterior disc osteophyte complex, bilateral facet arthrosis, and uncovertebral spurring. Okta-qu-[id number] spinal canal stenosis. Moderate right and severe left neural foraminal narrowing. C7-T1: No significant spinal canal stenosis neural foraminal narrowing. MRI/Spine Cervical W/WO Contrast IMPRESSION: 1. No cervical spinal cord signal abnormality or enhancing lesion. 2. Cervical spondylosis most prominent at C6-C7. Reading Location: [id number]
[2025-04-25 03:28] VITALS: BP 105/62; PULSE 64; RESP 16; TEMP 36.4; O2SAT 97
[2025-04-25 06:58] LABS: Hematocrit 38.7 % (37-47); Hemoglobin 13.3 g/dL (12.0-15.0); Immature Granulocytes Count 0.080 X10^3/uL (0.0-0.0); Mean Corp Hgb Conc 34.4 g/dL (32-36); Mean Corpuscular Volume 84.9 fL (81-99); Mean Platelet Vol. 10.0 fl (6.2-12.0); NRBC Flagged by Analyzer 0 % (0-5); Platelet Count 285 K/mm3 (150-450); RBC Distribution Width CV 13.1 % (11.6-14.6); RBC Distribution Width SD 40.9 fl (35.1-43.9); Red Blood Count 4.56 M/mm3 (4.2-5.4); White Blood Count 8.8 K/mm3 (4.4-11.0)
[2025-04-25 07:42] LABS: Anion Gap 9 (7-18); BUN 11 mg/dL (4-19); BUN/Creat Ratio 15.5 RATIO (10-20); Calcium,Total 9.1 mg/dL (7.6-11.0); Carbon Dioxide 24.2 mmol/L (20.0-29.0); Chloride 103 mmol/L (96-106); Estimated Creatinine Clearance 48.47 ml/min (50-250); Glucose 84 mg/dL (70-99); Potassium 4.2 mmol/L (3.5-5.1)
[2025-04-25 10:33] VITALS: BP 126/76; PULSE 85; RESP 16; TEMP 36.6; O2SAT 99
--- NOTE | 2025-04-25 11:01 | NEURO.CONS ---
Assessment and Plan: Neuro Assessment/Plan YOLANDA AN is a 69 F with a past medical history of MS, being evaluated by Teleneurology for tingling. Tingling feeling that started in her face and spread throughout the whole body. MRI Brain/Cspine with remote MS lesions but no active disease. Unclear etiology. Timeline and pattern inconsistent with neuropathy but burning/tingling could be neuropathic. Other possibilities would be dermatologic. Would evaluate for causes of neuropathy as below. Plan: - Check B12, folate, TSH, B6, B1, Vit E, serum immunofixation - replace/treat as indicated - Consider EMG, she will discuss with PCP during follow up - Ok with gabapentin prn for now - Follow up with neurology I personally attended this patient and spent a total time of 40 minutes evaluating this patient including clinical assessment, review of chart, medical history imaging, and determining appropriate treatment and workup. HPI Consult Data Date of Consult: 04/25/25 HPI Narrative HPI Narrative: YOLANDA AN, is a 69 F who presents with 2 weeks of fully body tingling. Tingling sensation began in her head, the following day it was throughout her entire body. She called her analytics senior manager who put her on prednisone. She took this for 10 days without changes in symptoms. Tingling sensation does fluctuate but has been present in some capacity for 2 weeks. She denies numbness, weakness. She does report a cold in the last few weeks. MRI brain and C-spine with and without contrast were completed. They showed sequela of her known MS but no active lesions. Labs unremarkable, electrolytes WNL. [facility] Medical History Hyponatremia Abdominal discomfort History of diverticulitis Nausea alone Difficult intravenous access Post-menopausal Multiple sclerosis Non-smoker Chest pain Diverticulitis Spinal stenosis Stress fracture Rosacea Vitamin D deficiency Meningioma Osteoarthritis Osteoporosis Arthritis Home Medications ?Medication ?Instructions ?Recorded ?Last Taken ?Type calcium carbonate (Calci-Mix) 500 mg PO DAILY 02/09/20 04/24/25 History cholecalciferol (vitamin D3) 50 50 mcg PO DAILY 02/09/20 04/24/25 History mcg (2,000 unit) capsule metronidazole 0.75 % topical cream 1 applic topical DAILY 05/06/20 04/23/25 History baclofen 5 mg tablet 5 mg PO TID PRN arthritis pain 04/01/23 Unknown History mecobalamin (vitamin B12) 1,000 1,000 mcg PO 2XW 07/13/24 04/23/25 History mcg chewable tablet biotin 2,500 mcg capsule 2,500 mcg PO .2XW 04/24/25 04/23/25 History Allergy/AdvReac Type Severity Reaction Status Date / Time No Known Allergies Allergy Verified 04/24/25 10:07 Family History Other Breast cancer Diabetes Myocardial infarction Pancreatic cancer Rheumatoid arthritis Surgical History History of surgery History of cataract extraction History of selective injection of anesthetic agent around lumbar nerve root History of esophagogastroduodenoscopy (EGD) History of colonoscopy Social History Smoking Status: Never smoker alcohol intake: never substance use type: does not use what type of physical activity do you participate in: walking frequency: daily Vital Signs Vital Signs Vital Signs: 04/24/25 12:04 04/24/25 14:13 04/24/25 15:21 Temperature 98.2 F Temperature Source Pulse Rate 68 76 73 Respiratory Rate 17 21 H 18 Respiratory Effort Respiratory Depth Respiratory Pattern Blood Pressure 132/74 H 158/81 H 153/80 H Blood Pressure Mean 93 106 104 Blood Pressure Source Blood Pressure Position Blood Pressure Location Pulse Ox 99 100 99 Oxygen Delivery Method Room Air 04/24/25 16:00 04/24/25 17:08 04/24/25 17:29 Temperature 98.2 F Temperature Source Oral Pulse Rate 68 66 Respiratory Rate 16 16 Respiratory Effort Normal Non-Labored Respiratory Depth Normal Respiratory Pattern Normal Blood Pressure 139/76 H 158/82 H Blood Pressure Mean 97 107 Blood Pressure Source Monitor Blood Pressure Position Supine Blood Pressure Location Pulse Ox 100 99 Oxygen Delivery Method Room Air Room Air 04/24/25 20:30 04/25/25 03:28 04/25/25 10:33 Temperature 98 F 97.5 F L 97.9 F Temperature Source Temporal Temporal Oral Pulse Rate 70 64 85 Respiratory Rate 16 16 16 Respiratory Effort Respiratory Depth Respiratory Pattern Blood Pressure 128/79 H 105/62 126/76 H Blood Pressure Mean 95 76 92 Blood Pressure Source Monitor Monitor Monitor Blood Pressure Position Semi-Fowlers Right Lateral Semi-Fowlers Blood Pressure Location Right Arm Left Arm Right Arm Pulse Ox 99 97 99 Oxygen Delivery Method Room Air Room Air Room Air Weight Weight: 47.6 kg Body Mass Index (BMI) 18.6 EEG Results Procedure Details EEG Procedure Details: YOLANDA PRESLEY FRIEND is a 69 year old F with a past medical history of , who presents for evaluation of Electroencephalogram on DATE at TIME Physical Exam Neuro oriented x3, CN's II-XII intact bilaterally, moves all extremities, no focal motor deficits and no sensory deficits noted Sensorium / Orientation: awake, alert, oriented to person, oriented to place and oriented to time Coordination / Balance: [id number] test normal and dasp-gh-[id number] test normal Speech: speech normal Sensory Exam: other intact LT, proprioception and temperature sensation throughout. Motor Exam: strength 5/5 throughout, no pronator drift, no tremor and no asterixis Lab / Micro Data 04/25/25 06:38 04/25/25 06:38 Labs: Laboratory Results - last 24 hr 04/24/25 10:28: Sodium 136, Potassium 3.9, Chloride 98, Carbon Dioxide 25.9, Anion Gap 12, BUN 16, Creatinine 0.81, Estim Creat Clear Calc 47.35 L, Est GFR (MDRD) Non-Af 77, BUN/Creatinine Ratio 20.0, Glucose 109 H, Calcium 9.7, Magnesium 2.1, Troponin T High Sens 8, TSH 1.470, Free T4 1.40, Free T3 pg/dL 2.6 04/24/25 12:32: Troponin T Hi Sens 2 Hr 7 04/24/25 14:17: Troponin T Hi Sens 4Hr 7 04/25/25 06:38: WBC 8.8, RBC 4.56, Hgb 13.3, Hct 38.7, MCV 84.9, MCH 29.2, MCHC 34.4, RDW Std Deviation 40.9, RDW Coeff of Keysha 13.1, Plt Count 285, MPV 10.0, Immature Gran % (Auto) 0.900, Neut % (Auto) 63.3, Lymph % (Auto) 25.3, [place] % (Auto) 8.3, Eos % (Auto) 1.6, Baso % (Auto) 0.6, Absolute Neuts (auto) 5.5, Absolute Lymphs (auto) 2.21, Nucleated RBC % 0, Sodium 136, Potassium 4.2, Chloride 103, Carbon Dioxide 24.2, Anion Gap 9, BUN 11, Creatinine 0.70, Estim Creat Clear Calc 48.47 L, Est GFR (MDRD) Non-Af 92, BUN/Creatinine Ratio 15.5, Glucose 84, Calcium 9.1 Imaging Radiology Impression Brain CT 04/24/25 10:18 IMPRESSION: 1. No CT evidence of acute intracranial hemorrhage, transcortical infarct, significant mass effect. 2. Patchy periventricular and subcortical white matter hypodensities in the cerebral hemispheres may reflect chronic microischemic changes or white matter lesions in the setting of multiple sclerosis. Reading Location: [facility] Chest X-Ray 04/24/25 10:39 IMPRESSION: No pleural effusion or pneumothorax is seen. Lungs appear clear throughout. The cardiomediastinal silhouette is within the normal range. [id number] thoracic spine degenerative changes are noted. No acute osseous change is seen. No evidence of acute cardiopulmonary disease. Reading Location: [facility] Brain MRI 04/24/25 17:01 IMPRESSION: 1. No acute infarct, hemorrhage, or intracranial enhancing lesion. 2. Multiple supratentorial white matter lesions in the cerebral hemispheres consistent with clinical history of demyelinating disease. No evidence of active lesions. Reading Location: [facility] Cervical Spine MRI 04/24/25 17:01 IMPRESSION: 1. No cervical spinal cord signal abnormality or enhancing lesion. 2. Cervical spondylosis most prominent at C6-C7. Reading Location: [facility] Active Medications Active Medications Active Medications: Current Medications Generic Name Dose Route Start Last Admin Trade Name Freq PRN Reason Stop Dose Admin Acetaminophen 650 mg 04/24/25 17:01 Acetaminophen 325 Mg Tablet PO Q6H PRN PRN Pain 1-10 Or Fever >100.7 Albuterol Sulfate 2.5 mg 04/24/25 17:01 Albuterol 2.5 Mg/3 Ml Vial.Neb. INHALATION Q2H PRN PRN SOB &/OR WHEEZING Baclofen 5 mg 04/24/25 17:04 Baclofen 10 Mg Tablet PO TID PRN arthritis pain Calcium Carbonate 500 mg 04/25/25 08:00 04/25/25 10:39 Calcium Carbonate 500 Mg Tablet PO Not Given DAILYCM JASON Cholecalciferol 50 mcg 04/25/25 10:00 04/25/25 10:41 Cholecalciferol (Vit D3) 25 Mcg Tablet (1,000 Units) PO Not Given DAILY JASON Enoxaparin Sodium 40 mg 04/25/25 10:00 04/25/25 10:39 Enoxaparin 40 Mg/0.4 Ml Syringe SC Not Given DAILY JASON Sodium Chloride 250 mls @ 15 mls/hr 04/24/25 17:14 IV .[id number] PRN Saline Flush Sodium Chloride 250 mls @ 15 mls/hr 04/24/25 17:14 IV .[id number] PRN Additional IVPB Infusion Lorazepam 0.5 mg 04/24/25 17:01 Lorazepam 0.5 Mg Tablet PO X1 PRN Anxiety with MRI Melatonin 10 mg 04/24/25 17:01 Melatonin 10 Mg Tablet PO QHS PRN PRN INSOMNIA Ondansetron HCl 4 mg 04/24/25 17:01 Ondansetron 4 Mg/2 Ml Vial IV Q8H PRN PRN NAUSEA/VOMITING Pantoprazole Sodium 40 mg 04/24/25 22:00 04/25/25 10:41 Pantoprazole Sodium 40 Mg Tablet PO Not Given DAILY JASON Senna/Docusate Sodium 2 tablet 04/24/25 17:01 Senna/Docusate Sodium 1 Tablet PO BID PRN PRN Constipation Sodium Chloride 10 - 40 ml 04/24/25 17:14 0.9% Saline Lock 10 Ml Syringe IV UD PRN SALINE FLUSH
--- NOTE | 2025-04-25 11:11 | ECHOD_ITS ---
Reason For Study Reason For Study: Chest Pain Procedure This was a 2D Doppler, Color Flow transthoracic echocardiogram. The patient is in sinus rhythm. Exam performed portable in patient room. Left Ventricle Normal???sized left ventricle. Normal left ventricular wall thickness. Left ventricular EF by George biplane: 65%. Normal left ventricular diastolic function. No regional wall motion abnormalities noted. Right Ventricle Normal right ventricle. Normal systolic function. Right ventricular systolic pressure estimated to be 30-35 mmHg. Atria The left and right atria are normal. Estimated RA pressure: 8 mmHg. IVC fully collapses. Bubble contrast study is negative for PFO/ASD. Normal atrial septum. Mitral Valve Normal mitral valve. No mitral stenosis. Trace mitral regurgitation. Tricuspid Valve Normal tricuspid valve. Trace tricuspid regurgitation. No tricuspid stenosis. Aortic Valve Trileaflet aortic valve. Mild aortic regurgitation. No hemodynamically significant aortic stenosis. Pulmonic Valve Normal pulmonic valve. No pulmonic stenosis. Trace pulmonic regurgitation. Great Vessels Normal sized aortic root. Normal ascending aorta. Pericardium/Pleural There is a small pericardial effusion. Pericardial effusion is less than 1 cm in maximum diameter. There is no echocardiographic evidence of pretamponade physiology. Medication Performed a rapid injection of agitated mix of 9 cc saline and 1cc air to assess for atrial septal defect. MMode/2D Measurements & Calculations LVIDd: 4.0 cm IVSd: 0.80 cm Ao root diam: 2.8 cm LVIDs: 2.2 cm LVPWd: 0.84 cm RVDd: 3.8 cm FS: 44.8 % LAV(MOD-bp): 32.8 ml LVAd ap4: 19.9 cm2 SV(MOD-sp4): 36.8 ml LAV(MOD-bp) Indexed: 22.4 ml/m2 LVLd ap4: 6.0 cm SI(MOD-sp4): 25.1 ml/m2 LAV(MOD-sp2): 20.5 ml EDV(MOD-sp4): 55.9 ml LAV(MOD-sp4): 34.5 ml EDV(sp4-el): 56.5 ml LVAs ap4: 10.1 cm2 LVLs ap4: 4.5 cm ESV(MOD-sp4): 19.1 ml ESV(sp4-el): 19.0 ml EF(MOD-sp4): 65.8 % EF(sp4-el): 66.3 % SV(sp4-el): 37.5 ml LA A4 area: 14.4 cm2 LA dimension(2D): 3.2 cm RA A4 area: 16.5 cm2 TAPSE: 1.2 cm Time Measurements MV dec time: 0.23 sec Doppler Measurements & Calculations MV E max devon: 58.6 cm/sec Lat Peak E' Devon: 11.0 cm/sec Med Peak E' Devon: 8.1 cm/sec MV A max devon: 49.0 cm/sec E/E' lat: 5.3 E/E' med: 7.3 MV E/A: 1.2 MV V2 max: 82.8 cm/sec MV P1/2t max devon: 84.8 cm/sec Ao V2 max: 178.1 cm/sec MV max P.7 mmHg MV P1/2t: 75.7 msec Ao max P.7 mmHg MV V2 mean: 38.0 cm/sec MV dec slope: 327.8 cm/sec2 Ao V2 mean: 120.8 cm/sec MV mean P.74 mmHg MVA(P1/2t): 2.9 cm2 Ao mean P.6 mmHg MV V2 VTI: 20.9 cm Ao V2 VTI: 39.1 cm AV (velocity ratio): 0.67 LV V1 max: 123.2 cm/sec MR max devon: 395.6 cm/sec PA V2 max: 81.4 cm/sec LV V1 max P.1 mmHg MR max P.6 mmHg PA V2 mean: 54.7 cm/sec LV V1 mean P.6 mmHg LV V1 mean: 75.0 cm/sec LV V1 VTI: 26.3 cm TR max devon: 248.8 cm/sec TR max P.8 mmHg ECHO/Echo Complete Interpretation Summary Normal left ventricular systolic function with left ventricular EF by George's biplane: 65%. Normal left ventricular diastolic function Normal right ventricular systolic function Mild aortic regurgitation Small pericardial effusion Recommend routine echocardiographic surveillance of pericardial effusion in 3 t o 6 months and aortic regurgitation in 3 years. Ordering Physician: Rachael Mcnally Performed By: Norman Montilla RCS
--- NOTE | 2025-04-25 15:02 | DCINST_ITS ---
Discharge Instructions DC O2, CPAP, BIPAP needs Home O2 Discharge instructions: No Dressing / Incision Discharge Activity: Return to Normal Activity Weight Bearing Status: Weight bearing as tolerated Dressing / Incision Call your doctor if you observe: Fever of 101 or Higher, Dizziness, Swelling in the ankles and Chest pain Follow Up Care Test Results: Test results from this visit will be discussed in further detail at your follow- up appointment, if applicable. Discharge Plan Admission Admit Date/Time: 04/24/25 15:56 Primary Reason for Your Visit: cervical stenosis with radiculopathy Attending Provider: Rachael Mcnally Primary Care Provider: Myra Crespo Consulting Providers: Jaylen Joyner; Darien Young; Lalita Aviles; Margy Crump; Nehal Davison; Sung Forrester; Jennifer Curry; Dennis Rivera; Ian Etienne; Brian Vieira; Ines Vincent; Dayanara Díaz; Babak Goodwin; Nikki Bear; Júnior Rodriguez; Mary Flores; Thomas Peng; Taras Sinha; Keven Martinez; Milena Vazquez; Pedro Rosales; Nancy Palma Instructions Patient Instructions: Cervical Spinal Stenosis, Cervical Radiculopathy Additional Instructions / Restrictions: follow up with your spine doctor at [facility] and pain management doctor for cervical stenosis and radiculopathy Discharge Orders/Prescriptions Prescriptions: New gabapentin 100 mg capsule 100 mg PO BID PRN (Reason: tingling) Qty: 60 0RF Continued Calci-Mix 500 mg calcium (1,250 mg) capsule 500 mg PO DAILY cholecalciferol (vitamin D3) 50 mcg (2,000 unit) capsule 50 mcg PO DAILY metronidazole 0.75 % cream 1 applic TOPICAL DAILY baclofen 5 mg tablet 5 mg PO TID PRN (Reason: arthritis pain) mecobalamin (vitamin B12) 1,000 mcg tablet,chewable 1,000 mcg PO 2XW Patient Comments: mondays and biotin 2,500 mcg capsule 2,500 mcg PO .2XW Referrals / Follow Up: Myra Crespo MD [Primary Care Provider, Internal Medicine - [facility]] - Within 1 Week Disposition Disposition (needs filled in before D/C Order can be placed): Home, Self Care
--- NOTE | 2025-04-25 15:02 | CASEMGMT ---
SEAY Met with patient to complete SEAY form. SEAY form and its content were verbally explained and patient's questions were answered to the best of my ability.? Patient voiced understanding and signed SEAY form.? Patient provided a copy of signed SEAY form and original placed in patient's chart.? Patient had no further questions. Jeanna Ritchie, Discharge Planning Asst
--- NOTE | 2025-04-25 15:04 | PCM.DC.SUM ---
Providers Date of Admission: 04/24/25 Date of Discharge: 04/25/25 Primary Care Physician: Dr. Myra Crespo MD Consultations 04/24/25 17:01 Consult: Tele-Neurology Routine Consulting Provider: [facility] Reason for Consult: concern for MS flare? EMERGENT Consult: No MD Notified: Yes Date Notified: 04/24/25 Time Notified: 17:02 Method of Notification: Answering Service Comments:: ED doc spoke w/ teleneuro about case in ED Nursing Unit Staff Notify [facility] of Tele-Neurology Consult: Yes Reason For Visit: FULL BODY TINGLING Diagnosis Discharge Diagnosis (1) Numbness and tingling: Status: Acute Code(s): R20.0 - Anesthesia of skin; R20.2 - Paresthesia of skin Medications at Discharge Home Medications calcium carbonate (Calci-Mix) 500 mg PO DAILY 02/09/20 cholecalciferol (vitamin D3) 50 mcg (2,000 unit) capsule 50 mcg PO DAILY 02/09/20 metronidazole 0.75 % topical cream 1 applic topical DAILY 05/06/20 baclofen 5 mg tablet 5 mg PO TID PRN arthritis pain 04/01/23 mecobalamin (vitamin B12) 1,000 mcg chewable tablet 1,000 mcg PO 2XW 07/13/24 biotin 2,500 mcg capsule 2,500 mcg PO .2XW 04/24/25 gabapentin 100 mg capsule 100 mg PO BID PRN tingling #60 caps 04/25/25 Hospital Course Operations None Procedures 2-D Echocardiogram Summary of Care Provided Minutes Spent on Discharge: 45 Hospital Course: Patient is a 69-year-old female with a past medical history as outlined was admitted through the ED on 04/24/2025 with complaint of full body tingling and cracking as well as numbness. She also complained of generalized feeling of unwellness as well as fullness in her head and ears which have been going on for about 2 weeks. She says she went to the urgent care about 2 weeks ago and she was put on Claritin which was not helpful. She called her complaint coordinator and they put her on prednisone but she did not fill better with that even though she finished the course. She also complained of some constant chest pressure. Review of systems otherwise negative. On admission troponins were negative and vitals were stable. Chest x-ray showed no acute cardiopulmonary pathology. CT of the brain also showed no acute intracranial pathology and showed patchy periventricular and subcortical white matter hypodensities in the cerebral hemispheres which could reflect chronic microischemic changes or white matter lesions in the setting of multiple sclerosis. [facility] was consulted and recommended MRI of the brain and cervical spine with and without contrast to look for active MS lesions as patient did have a history of multiple sclerosis. He was admitted to be managed for the numbness and tingling of unclear etiology. She did have the MRI of the brain which did not show any evidence of acute white matter lesions which could indicate active MS but did show some cervical stenosis and spondylosis. Patient then says she did have a history of cervical stenosis and had followed with that spine surgeon at [facility] some years ago who offered her surgery but she declined then. She was counseled that this could be due to the cervical stenosis and spondylosis and was advised to follow-up with the spine surgeon. She also said that she saw pain management on outpatient basis and had had a pain shot in her neck several times for the symptoms. She was counseled that the numbness and tingling was likely due to radiculopathy from the cervical stenosis. She was therefore discharged with a prescription for p.o. gabapentin 100 mg twice daily as needed. She did have a 2D echo also on account of the chest pain which showed EF of 65% with normal left ventricular systolic and diastolic function and mild aortic regurgitation and small pericardial effusion. She was discharged on 04/25/2025 and is to follow-up with her primary care doctor as well as her spine surgeon and pain management doctor. Patient seen and examined prior to discharge. She had no active complaints. Review of systems otherwise negative. Labs and vitals reviewed. Home medication reviewed and reconciled. Physical Exam Const alert, oriented x3 and no apparent distress General Appearance: cooperative and comfortable Exam Limitations: no limitations HEENT normocephalic, head/scalp atraumatic, hearing grossly normal bilaterally, moist oral mucous membranes and oropharynx normal Mouth: oral and palatal mucosa normal Eyes EOMs intact bilaterally and conjunctivae normal Neck supple and no JVD Resp normal respiratory effort, no retractions, no use of accessory muscles and clear to auscultation bilaterally Cardio regular rate, regular rhythm, S1 normal heart sound, S2 normal heart sound and no murmurs GI normal to inspection, nondistended, normoactive bowel sounds, soft to palpation and non-tender Extremity normal to inspection, full ROM and no clubbing, cyanosis or edema Skin no rashes or lesions noted Neuro CN's II-XII intact bilaterally, moves all extremities and no focal motor deficits Sensorium / Orientation: awake and alert Motor Exam: strength 5/5 throughout Psych affect normal Weight / BMI Weight Weight: 104 lb 15.04 oz Body Mass Index (BMI) 18.6 ABG / Lab / Microbiology Data 04/25/25 06:38 04/25/25 06:38 Laboratory: Laboratory Results - last 24 hr 04/25/25 06:38: WBC 8.8, RBC 4.56, Hgb 13.3, Hct 38.7, MCV 84.9, MCH 29.2, MCHC 34.4, RDW Std Deviation 40.9, RDW Coeff of Keysha 13.1, Plt Count 285, MPV 10.0, Immature Gran % (Auto) 0.900, Neut % (Auto) 63.3, Lymph % (Auto) 25.3, [place] % (Auto) 8.3, Eos % (Auto) 1.6, Baso % (Auto) 0.6, Absolute Neuts (auto) 5.5, Absolute Lymphs (auto) 2.21, Nucleated RBC % 0, Sodium 136, Potassium 4.2, Chloride 103, Carbon Dioxide 24.2, Anion Gap 9, BUN 11, Creatinine 0.70, Estim Creat Clear Calc 48.47 L, Est GFR (MDRD) Non-Af 92, BUN/Creatinine Ratio 15.5, Glucose 84, Calcium 9.1 Radiography Diagnostic Testing: Radiology Impression Brain MRI 04/24/25 17:01 IMPRESSION: 1. No acute infarct, hemorrhage, or intracranial enhancing lesion. 2. Multiple supratentorial white matter lesions in the cerebral hemispheres consistent with clinical history of demyelinating disease. No evidence of active lesions. Reading Location: [facility] Cervical Spine MRI 04/24/25 17:01 IMPRESSION: 1. No cervical spinal cord signal abnormality or enhancing lesion. 2. Cervical spondylosis most prominent at C6-C7. Reading Location: [facility] Echocardiogram 04/25/25 11:11 Interpretation Summary Normal left ventricular systolic function with left ventricular EF by George's biplane: 65%. Normal left ventricular diastolic function Normal right ventricular systolic function Mild aortic regurgitation Small pericardial effusion Recommend routine echocardiographic surveillance of pericardial effusion in 3 to 6 months and aortic regurgitation in 3 years. Ordering Physician: Rachael Mcnally Performed By: Norman Montilla RCS D/C Instructions Discharge Activity: Return to Normal Activity Weight Bearing Status: Weight bearing as tolerated Call your doctor if you observe: Fever of 101 or Higher, Dizziness, Swelling in the ankles and Chest pain DC O2, CPAP, BIPAP Needs Home O2 Discharge instructions: No DC home with Oxygen: No Patient's Goals Of Care - F/U Goals Reviewed Goals of care reviewed with patient: Yes - No change Meaningful Use Info Meaningful Use Meaningful Use Diagnoses (Choose all that apply): None applicable Discharge Plan Admission Admit Date/Time: 04/24/25 15:56 Primary Reason for Your Visit: cervical stenosis with radiculopathy Attending Provider: Rachael Mcnally Primary Care Provider: Myra Crespo Consulting Providers: Jaylen Joyner; Darien Young; Lalita Aviles; Margy Crump; Nehal Davison; Sugn Forrester; Jennifer Curry; Dennis Rivera; Ian Etienne; Brian Vieira; Ines Vincent; Dayanara Díaz; Babak Goodwin; Nikki Bear; Júnior Rodriguez; Mary Flores; Thomas Peng; Taras Sinha; Keven Mratinez; Milena Vazquez; Pedro Rosales; Nancy Palma Instructions Patient Instructions: Cervical Spinal Stenosis, Cervical Radiculopathy Additional Instructions / Restrictions: follow up with your spine doctor at [facility] and pain management doctor for cervical stenosis and radiculopathy Discharge Orders/Prescriptions Prescriptions: New gabapentin 100 mg capsule 100 mg PO BID PRN (Reason: tingling) Qty: 60 0RF Continued Calci-Mix 500 mg calcium (1,250 mg) capsule 500 mg PO DAILY cholecalciferol (vitamin D3) 50 mcg (2,000 unit) capsule 50 mcg PO DAILY metronidazole 0.75 % cream 1 applic TOPICAL DAILY baclofen 5 mg tablet 5 mg PO TID PRN (Reason: arthritis pain) mecobalamin (vitamin B12) 1,000 mcg tablet,chewable 1,000 mcg PO 2XW Patient Comments: mondays and biotin 2,500 mcg capsule 2,500 mcg PO .2XW Referrals / Follow Up: Myra Crespo MD [Primary Care Provider, Internal Medicine - [facility]] - Within 1 Week Disposition Disposition (needs filled in before D/C Order can be placed): Home, Self Care Charges/Coding Visit Charges Inpatient E&M: 33947 Disch Hosp >30min
[2025-04-25 15:23] VITALS: BP 118/77; PULSE 82; RESP 16; TEMP 36.4; O2SAT 98
== END 2025-04-25 15:57 | disposition home or self-care (01) ==
LOC: ED 15:21 → PCU 16:35
PROVIDERS: Admitting Provider Internal Medicine; Emergency Provider Emergency Medicine; PCP Internal Medicine; Visit Provider Student in an Organized Health Care Education/Training Program
DX: M48.02 Spinal stenosis, cervical region (principal); R20.0 Anesthesia of skin; M47.812 Spondylosis without myelopathy or radiculopathy, cervical region; G35.A Relapsing-remitting multiple sclerosis; I35.1 Nonrheumatic aortic (valve) insufficiency; M47.814 Spondylosis without myelopathy or radiculopathy, thoracic region; R20.2 Paresthesia of skin; E55.9 Vitamin D deficiency, unspecified; Z79.899 Other long term (current) drug therapy; R07.89 Other chest pain
CPT/HCPCS: 36415; 70450; 70553; 71046; 72156; 80048; 83735; 84439; 84443; 84481; 84484; 85025; 93005; 93306; 96360; 96361; 99221; 99285; A9575; A4216; G0378